=== PATIENT | female | born 1940 | race Caucasian/White ===

== ENCOUNTER → 2017-12-25 13:48 | Outpatient (CLI) | payer MEDICARE, OTHER, SELFPAY ==
--- NOTE | 2017-12-25 13:52 | HPBI_ITS ---
MAMMOGRAPHY - BILATERAL SCREENING REASON FOR EXAM: Female, 77 years old. Routine annual screening examination. PERTINENT HISTORY: Non-contributory. TECHNIQUE: Digital bilateral breast florian (3D mammographic acquisition) in the CC and MLO projections. 2-D mediolateral oblique (MLO) and craniocaudad (CC) views of both breasts were obtained. CAD: Full Field Digital Mammography with Computer Added Detection was performed. COMPARISON: Comparison is made with prior study dated June 08, 2017 and November 28, 2015. FINDINGS: Breast Composition: There are scattered areas of fibroglandular density. There are no dominant masses or suspicious calcifications. No other significant abnormalities are identified. There has been no significant change since the prior study. HPBI/SCREENING MAMM (CAD), BILAT IMPRESSION: Stable bilateral screening mammogram. Yearly follow-up mammogram recommended. (A) ASSESSMENT CATEGORY: BIRADS Category 1: Negative. A letter regarding these results will be sent to the patient by the facility within 30 days. Approximately 10% of breast cancers are not detected by mammography. A normal mammogram should not delay biopsy of a clinically suspicious abnormality. [id number] Electronically Signed: Chente Spence MD at 15:43 EST Tel [phone], Service support ,
== END ==
PROVIDERS: Family Provider Family Medicine; PCP Family Medicine; Visit Provider Family Medicine
DX: Z12.31 Encounter for screening mammogram for malignant neoplasm of breast (principal)
CPT/HCPCS: 77063; 77067

== ENCOUNTER → 2018-01-19 14:50 | Outpatient (CLI) | payer MEDICARE, OTHER, SELFPAY ==
[2018-01-19 17:57] LABS: Ferritin 26 ng/mL (8-252); Iron 65 ug/dL (50-170)
[2018-01-19 18:03] LABS: Vitamin B12 327 pg/mL (211-911); Vitamin D,25 Hydroxy 11.4 ng/mL (29.95-100.01)
[2018-01-23 12:07] LABS: Testosterone, Free < 0.04 ng/dL (0.10-0.85); Testosterone, Total < 3 ng/dL (3-41)
[2018-01-23 15:41] LABS: Testosterone, % Free 1.31 % (0.50-2.80)
== END ==
PROVIDERS: Family Provider Family Medicine; PCP Family Medicine; Visit Provider Family Medicine
DX: N18.9 Chronic kidney disease, unspecified (principal); E55.9 Vitamin D deficiency, unspecified; D64.9 Anemia, unspecified; L68.0 Hirsutism; R53.83 Other fatigue
CPT/HCPCS: 36415; 82306; 82607; 82728; 83540; 84402; 84403

== ENCOUNTER → 2018-03-31 15:35 | Outpatient (CLI) | payer MEDICARE, OTHER, SELFPAY ==
--- NOTE | 2018-03-31 15:40 | RAD_ITS ---
STUDY: X-RAY CHEST REASON FOR EXAM: Female, 77 years old. Cough TECHNIQUE: PA and lateral views of the chest. COMPARISON: 07/13/1715 FINDINGS: The lungs are clear and expanded. There is pleural fibrotic thickening of the right lung apex. Normal size heart. Anterior artery stents are seen. Normal mediastinum and nahomy. Normal visualized pulmonary arteries. There is atherosclerotic calcification of the aortic arch with tortuosity. There are diffuse degenerative changes of the visualized thoracic spine. Normal visualized ribs, clavicles, and shoulders. There is no demonstrated abnormality of the visualized soft tissue structures of the upper abdomen. RAD/Chest PA and Lateral IMPRESSION: No acute process in the chest. Electronically Signed: Toni Dupont DO at 15:24 EDT Tel , Service support ,
== END ==
PROVIDERS: Family Provider Family Medicine; PCP Family Medicine; Visit Provider Family Medicine
DX: R05 Cough (principal)
CPT/HCPCS: 71046

== ENCOUNTER → 2018-04-27 12:30 | Outpatient (CLI) | payer MEDICARE, OTHER, SELFPAY ==
--- NOTE | 2018-04-27 11:52 | VDLE_ITS ---
Reason For Study: PAIN AND SWELLING RIGHT LEFT CFV is compressible, spontaneous, phasic, CFV is compressible, spontaneous, phasic, competent and demonstrates normal competent, and demonstrates normal augmentation. augmentation. FV is compressible, spontaneous, phasic, FV is compressible, spontaneous, phasic, competent and demonstrates normal competent and demonstrates normal augmentation. augmentation. POP V is compressible, spontaneous, phasic, POP V is compressible, spontaneous, phasic, competent and demonstrates normal competent and demonstrates normal augmentation. augmentation. T/P Trunk is compressible. T/P Trunk is compressible. PTV is compressible. PTV is compressible. RT PerV is compressible. LT PerV is compressible. RT GSV AT SFJ is compressible and competent. Left GSV at SFJ is compressible and RT GSV above the knee is compressible and competent. competent. Left GSV above the knee is compressible and RT GSV below the knee is compressible and competent. INCOMPETENT for greater than .5 sec. Left GSV below the knee is compressible and Procedure competent. Exam performed in department. Interpretation Summary 1. Bilateral leg no DVT or SVt. 2. Reflux only noted in right calf GSV. Ordering Physician: Ambrose Barron Referring Physician: Ambrose Barron Performed By: Taryn Ambrose, KATHRYNCS, RVT
--- NOTE | 2018-04-27 12:30 | DT_ITS ---
This patient was seen during an EMR downtime April 27, 2018 - May 04, 2018. This patient may have a combination of paper and electronic documentation or all paper documentation. All documentation is viewable within the e-chart portion of [facility] for each patient visit.
== END ==
PROVIDERS: Family Provider Family Medicine; PCP Family Medicine; Visit Provider Surgery Vascular Surgery
DX: M79.604 Pain in right leg (principal); M79.89 Other specified soft tissue disorders; M79.605 Pain in left leg
CPT/HCPCS: 93970

== ENCOUNTER → 2018-06-01 09:37 | Outpatient (CLI) | payer MEDICARE, OTHER, SELFPAY ==
[2018-06-01 12:17] LABS: AST(SGOT) 28 U/L (15-37); Alanine Aminotransfer ALT/SGPT 28 U/L (13-56); Albumin, Serum 3.2 g/dL (3.2-5.0); Alkaline Phosphatase 100 U/L (45-117); Bilirubin, Direct 0.09 mg/dL (0.00-0.30); Cholesterol 131 mg/dL (200); Globulin 3.5 g/dL (2.2-4.2); High Density Lipoprotein 56 mg/dL; Protein, Total 6.7 g/dL (6.4-8.2); Triglycerides 72 mg/dL; Very Low Density Lipoprotein 14 mg/dL (5-40)
== END ==
PROVIDERS: Family Provider Family Medicine; PCP Family Medicine; Visit Provider Physician Assistant Medical
DX: E78.5 Hyperlipidemia, unspecified (principal); I25.10 Atherosclerotic heart disease of native coronary artery without angina pectoris; I25.2 Old myocardial infarction; I10 Essential (primary) hypertension; N28.9 Disorder of kidney and ureter, unspecified; R07.9 Chest pain, unspecified; Z95.5 Presence of coronary angioplasty implant and graft
CPT/HCPCS: 36415; 80061; 80076

== ENCOUNTER → 2018-07-20 10:42 | Outpatient (CLI) | payer MEDICARE, OTHER, SELFPAY | PROVIDERS: Family Provider Family Medicine; PCP Family Medicine; Visit Provider Anesthesiology Pain Medicine | DX: M51.37 Other intervertebral disc degeneration, lumbosacral region (principal); M54.17 Radiculopathy, lumbosacral region | CPT/HCPCS: 72148 ==

== ENCOUNTER 2018-09-06 12:05 | Inpatient (IN) | payer MEDICARE, OTHER, SELFPAY ==
[2018-09-06 13:30] VITALS: RESP 16
[2018-09-06 14:30] VITALS: BP 128/59; PULSE 89; RESP 20; TEMP 37.9; O2SAT 99
--- NOTE | 2018-09-06 14:45 | NURSING ---
pt arrived via cot from [facility] at 121
[2018-09-06 16:00] VITALS: BP 144/73; PULSE 103; RESP 16; TEMP 37.2; O2SAT 94
[2018-09-06] MEDS: oxyCODONE 5 MG Tablet PO (16:24)
[2018-09-06] MEDS: Acetaminophen 500 MG Tablet 1000 MG PO (16:24)
--- NOTE | 2018-09-06 17:47 | PCM.HP.STD ---
Problem List (1) Lumbar spinal stenosis Status: Chronic (2) Scoliosis Status: Chronic (3) Lumbar spondylolysis Status: Chronic (4) Coronary artery disease Status: Chronic (5) Macular degeneration Status: Chronic (6) Myocardial infarction Status: Acute (7) Osteoarthritis Status: Chronic (8) Hyperlipidemia Status: Chronic Qualifiers: (9) Hypertension Status: Chronic Qualifiers: History of Present Illness Date of Admission: 09/06/18 Chief Complaint: Here for rehabilitation, strengthening, prior to discharge home. The patient is a 77 year old Female with below past medical history admitted to [facility] 09/03/2018 underwent L2-5 laminectomy, L1-5 fusion, bone allograft, admitted to TCU with debility, here for rehabilitation, strengthening, prior to discharge home. Past Medical History Past Medical History (Chronic Problems): Chronic Problems (Last Reviewed 06/04/18 @ 12:52 by Ayse Burns) Lumbar spinal stenosis (Chronic) Scoliosis (Chronic) Lumbar spondylolysis (Chronic) Coronary artery disease (Chronic) Macular degeneration (Chronic) Osteoarthritis (Chronic) Hyperlipidemia (Chronic) Stented coronary artery (Chronic) Atherosclerotic heart disease of [place] coronary artery without angina pectoris (Chronic) 07/19/15 PCI and NINA to LAD and CX Old myocardial infarction (Chronic) Renal insufficiency (Chronic) Hypertension (Chronic) Medical History: Medical History (Last Reviewed 06/04/18 @ 12:52 by Ayse Burns) Hyperlipidemia (Chronic) E78.5 Atherosclerotic heart disease of [place] coronary artery without angina pectoris (Chronic) I25.10 07/19/15 PCI and NINA to LAD and CX Old myocardial infarction (Chronic) I25.2 Renal insufficiency (Chronic) N28.9 Hypertension (Chronic) I10 Chest pain (Resolved) R07.9 Lumbar radiculopathy M54.16 History of left heart catheterization Z98.890 07/19/15 @ [facility] with subsequent PCI and NINA to LAD and CX Low back pain M54.5 Allergies gabapentin Allergy (Verified 09/06/18 13:37) Hives Home Medications: Ambulatory Orders Medication Instructions Recorded Aspirin [Aspirin, Baby] 81 mg PO DAILY 08/09/15 biotin 1 mg capsule 1,000 mcg PO QDAY 06/04/18 cholecalciferol (vitamin D3) 50,000 unit PO TH 06/04/18 50,000 unit capsule cyanocobalamin (vit B-12) 5,000 5,000 mcg SUBLINGUAL QDAY 06/04/18 mcg/mL sublingual drops Atorvastatin Calcium [Lipitor] 80 mg PO MOWEFR 09/06/18 Clopidogrel Bisulfate [Plavix] 75 mg PO MOWEFR 09/06/18 Isosorbide Mononitrate [Isosorbide 90 mg PO QAM 09/06/18 Mononitrate ER] Metoprolol Succinate [Toprol Xl] 25 mg PO QDAY 09/06/18 [place] 5-325 Tablet 1 tablet PO QHS PRN 09/06/18 Oxycodone HCl/Acetaminophen 1 tablet PO Q6H PRN PRN 09/06/18 [Percocet 5-325] Surgical History: Surgical History (Last Reviewed 06/04/18 @ 12:52 by Ayse Burns) Stented coronary artery (Chronic) Z95.5 Surgical History: hysterectomy, - - Cardiac stent x 2 in 2014 after [place], Left elbow surgery, Vulvar tumor removal, Right wrist repair. 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 Lives: Alone Smoking Status: Former smoker Tobacco Use: Non-smoker Alcohol: Rare Drugs: None - *Family History Maternal Family History: Family History (Last Reviewed 06/04/18 @ 12:52 by Ayse Burns) Father Congestive heart failure Mother CVA (cerebral vascular accident) Hypertension Hyperlipidemia Sister No problems noted. History Items: No pertinent history Review of Systems Constitutional: Denies: Chills, Fever, Weight Change HEENT: Denies: Head Aches, Sinus Congestion, Sinus Drainage Cardiovascular: Denies: Chest Pain, Palpitations Respiratory: Denies: Cough, Shortness of breath at rest, Sputum production Gastrointestinal: Denies: Abdominal Pain, Nausea, Vomiting Genitourinary: Denies: Dysuria Musculoskeletal: Denies: Joint Pain, Joint Tenderness Skin: Denies: Rash, Wounds Neurological: Denies: Numbness, Tingling, Focal weakness Psychiatric: Denies: Anxiety, Depression, Homicidal Ideations, Suicidal Ideations Hematologic/ Lymphatic: Denies: Easy Bruising, Easy Bleeding VTE Information - Inpt Only VTE Present on Admission: No VTE Mechan Device Prophylaxis: Knee High REMI Hose VTE Pharm Prophylaxis ordered?: Yes Patient Problems: Active and Suspected Problems (Last Reviewed 06/04/18 @ 12:52 by Ayse Burns) Myocardial infarction (Acute) - Physical Exam General: Alert, Oriented x3, Cooperative HEENT: Atraumatic, PERRLA, EOMI, Normocephalic Neck: Supple, No JVD, Negative Carotid Bruits Lungs: Clear to auscultation, Normal air movement Cardiovascular: Regular rate, No murmurs Abdomen: Bowel Sounds Present, Soft, Non Tender Extremities: No edema, Capillary Refill Less than 3 Seconds Skin: No rashes, No breakdown Musculoskeletal: No Tenderness to Palpation of Joints or Extremities Neurological: Cranial nerves II-XII grossly intact Psych/Mental Status: Normal Affect, Appropriate Vital Signs Temp Pulse Resp BP Pulse Ox 98.9 F 103 H 16 144/73 H 94 09/06/18 16:00 09/06/18 16:00 09/06/18 16:00 09/06/18 16:00 09/06/18 16:00 Oxygen Delivery Method Room Air Assessment/Plan All Active Problems (Last Reviewed 06/04/18 @ 12:52 by Ayse Burns) Myocardial infarction (Acute) Chest pain (Resolved) 77 year old female with below past medical history underwent lumbar spine surgery 09/03/[address] Benito, admitted to TCU with debility, here for rehabilitation, strengthening prior to discharge home alone. Debility - PT/OT. Pain - Tylenol 1000MG Q8H PRN mild pain, Oxycodone 5MG Q4H PRN moderate pain. Bowel - Miralax 17GM daily, Senna/colace 2 tablets BID, Dulcolax 10MG PO daily PRN, Magnesium citrate 300ML PO x 1 dose for cleanout. Pneumonia vaccination - Administer Prevnar 13 and/or Pneumovax 23 as necessary. DVT prophylaxis - Lovenox 40MG SC daily. Coronary Artery Disease - Metoprolol succinate 25MG daily, Isosorbide MN 90MG daily, Plavix 75MG QMWF, Aspirin 81MG daily. Hyperlipidemia - Atorvastatin 80MG QHS. Vitamin D deficiency - D2 50,000 units per week.
--- NOTE | 2018-09-06 17:51 | HP.PCM_ITS ---
Problem List (1) Lumbar spinal stenosis Status: Chronic (2) Scoliosis Status: Chronic (3) Lumbar spondylolysis Status: Chronic (4) Coronary artery disease Status: Chronic (5) Macular degeneration Status: Chronic (6) Myocardial infarction Status: Acute (7) Osteoarthritis Status: Chronic (8) Hyperlipidemia Status: Chronic Qualifiers: (9) Hypertension Status: Chronic Qualifiers: History of Present Illness Date of Admission: 09/06/18 Chief Complaint: Here for rehabilitation, strengthening, prior to discharge home. The patient is a 77 year old Female with below past medical history admitted to [facility] 09/03/2018 underwent L2-5 laminectomy, L1-5 fusion, bone al lograft, admitted to TCU with debility, here for rehabilitation, strengthening, prior to discharge home. Past Medical History Past Medical History (Chronic Problems): Chronic Problems (Last Reviewed 06/04/18 @ 12:52 by Ayse Burns) Lumbar spinal stenosis (Chronic) Scoliosis (Chronic) Lumbar spondylolysis (Chronic) Coronary artery disease (Chronic) Macular degeneration (Chronic) Osteoarthritis (Chronic) Hyperlipidemia (Chronic) Stented coronary artery (Chronic) Atherosclerotic heart disease of [place] coronary artery without angina pectoris (Chronic) 07/19/15 PCI and NINA to LAD and CX Old myocardial infarction (Chronic) Renal insufficiency (Chronic) Hypertension (Chronic) Medical History: Medical History (Last Reviewed 06/04/18 @ 12:52 by Ayse Burns) Hyperlipidemia (Chronic) E78.5 Atherosclerotic heart disease of [place] coronary artery without angina pectoris (Chronic) I25.10 07/19/15 PCI and NINA to LAD and CX Old myocardial infarction (Chronic) I25.2 Renal insufficiency (Chronic) N28.9 Hypertension (Chronic) I10 Chest pain (Resolved) R07.9 Lumbar radiculopathy M54.16 History of left heart catheterization Z98.890 07/19/15 @ [facility] with subsequent PCI and NINA to LAD and CX Low back pain M54.5 Allergies gabapentin Allergy (Verified 09/06/18 13:37) Hives Home Medications: Ambulatory Orders Medication Instructions Recorded Aspirin [Aspirin, Baby] 81 mg PO DAILY 08/09/15 biotin 1 mg capsule 1,000 mcg PO QDAY 06/04/18 cholecalciferol (vitamin D3) 50,000 unit PO TH 06/04/18 50,000 unit capsule cyanocobalamin (vit B-12) 5,000 5,000 mcg SUBLINGUAL QDAY 06/04/18 mcg/mL sublingual drops Atorvastatin Calcium [Lipitor] 80 mg PO MOWEFR 09/06/18 Clopidogrel Bisulfate [Plavix] 75 mg PO MOWEFR 09/06/18 Isosorbide Mononitrate [Isosorbide 90 mg PO QAM 09/06/18 Mononitrate ER] Metoprolol Succinate [Toprol Xl] 25 mg PO QDAY 09/06/18 [place] 5-325 Tablet 1 tablet PO QHS PRN 09/06/18 Oxycodone HCl/Acetaminophen 1 tablet PO Q6H PRN PRN 09/06/18 [Percocet 5-325] Surgical History: Surgical History (Last Reviewed 06/04/18 @ 12:52 by Ayse Burns) Stented coronary artery (Chronic) Z95.5 Surgical History: hysterectomy, - - Cardiac stent x 2 in 2014 after [place], Left elbow surgery, Vulvar tumor removal, Right wrist repair. 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 Lives: Alone Smoking Status: Former smoker Tobacco Use: Non-smoker Alcohol: Rare Drugs: None - *Family History Maternal Family History: Family History (Last Reviewed 06/04/18 @ 12:52 by Ayse Burns) Father Congestive heart failure Mother CVA (cerebral vascular accident) Hypertension Hyperlipidemia Sister No problems noted. History Items: No pertinent history Review of Systems Constitutional: Denies: Chills, Fever, Weight Change HEENT: Denies: Head Aches, Sinus Congestion, Sinus Drainage Cardiovascular: Denies: Chest Pain, Palpitations Respiratory: Denies: Cough, Shortness of breath at rest, Sputum production Gastrointestinal: Denies: Abdominal Pain, Nausea, Vomiting Genitourinary: Denies: Dysuria Musculoskeletal: Denies: Joint Pain, Joint Tenderness Skin: Denies: Rash, Wounds Neurological: Denies: Numbness, Tingling, Focal weakness Psychiatric: Denies: Anxiety, Depression, Homicidal Ideations, Suicidal Ideations Hematologic/ Lymphatic: Denies: Easy Bruising, Easy Bleeding VTE Information - Inpt Only VTE Present on Admission: No VTE Mechan Device Prophylaxis: Knee High REMI Hose VTE Pharm Prophylaxis ordered?: Yes Patient Problems: Active and Suspected Problems (Last Reviewed 06/04/18 @ 12:52 by Ayse Burns) Myocardial infarction (Acute) - Physical Exam General: Alert, Oriented x3, Cooperative HEENT: Atraumatic, PERRLA, EOMI, Normocephalic Neck: Supple, No JVD, Negative Carotid Bruits Lungs: Clear to auscultation, Normal air movement Cardiovascular: Regular rate, No murmurs Abdomen: Bowel Sounds Present, Soft, Non Tender Extremities: No edema, Capillary Refill Less than 3 Seconds Skin: No rashes, No breakdown Musculoskeletal: No Tenderness to Palpation of Joints or Extremities Neurological: Cranial nerves II-XII grossly intact Psych/Mental Status: Normal Affect, Appropriate Vital Signs Temp Pulse Resp BP Pulse Ox 98.9 F 103 H 16 144/73 H 94 09/06/18 16:00 09/06/18 16:00 09/06/18 16:00 09/06/18 16:00 09/06/18 16:00 Oxygen Delivery Method Room Air Assessment/Plan All Active Problems (Last Reviewed 06/04/18 @ 12:52 by Ayse Burns) Myocardial infarction (Acute) Chest pain (Resolved) 77 year old female with below past medical history underwent lumbar spine surgery 09/03/[address] Benito, admitted to TCU with debility, here for rehabilitation, strengthening prior to discharge home alone. * Debility - PT/OT. * Pain - Tylenol 1000MG Q8H PRN mild pain, Oxycodone 5MG Q4H PRN moderate pain. * Bowel - Miralax 17GM daily, Senna/colace 2 tablets BID, Dulcolax 10MG PO daily PRN, Magnesium citrate 300ML PO x 1 dose for cleanout. * Pneumonia vaccination - Administer Prevnar 13 and/or Pneumovax 23 as necessary. * DVT prophylaxis - Lovenox 40MG SC daily. * Coronary Artery Disease - Metoprolol succinate 25MG daily, Isosorbide MN 90MG daily, Plavix 75MG QMWF, Aspirin 81MG daily. * Hyperlipidemia - Atorvastatin 80MG QHS. * Vitamin D deficiency - D2 50,000 units per week.
[2018-09-06] MEDS: Magnesium Citrate 300 ML PO (18:25)
[2018-09-06 20:20] VITALS: BMI 25.9
[2018-09-06 20:31] VITALS: BMI 25.9
[2018-09-07 06:03] LABS: Absolute Lymphocyte Count 1.17 X10^3/ul (0.83-4.51); Absolute Neutrophil Count 9.2 X10^3/uL (2.0-7.7); Basophil# 0.02 X10^3/uL; Basophil% 0.2 % (0-1); Eosinophil# 0.18 X10^3/uL; Eosinophils% 1.5 % (0-5); Hemoglobin 9.3 g/dl (12.0-15.0); Lymphocyte # 1.17 X10^3/ul (4.0); Lymphocyte % 9.8 % (19-41); Mean Corp Hgb Conc 32.1 g/gl (32-36); Mean Corpuscular Hgb 30.7 pg (27.0-32.0); Mean Corpuscular Volume 95.7 fL (81-99); Monocyte# 1.28 X10^3/uL; Monocyte% 10.7 % (0-10); Neutrophil # 9.22 X10^3/uL (2.7-7.7); Neutrophil % 77.2 % (47-70); Platelet Count 257 K/mm3 (150-450); RBC Distribution Width CV 12.4 % (11.6-14.6); RBC Distribution Width SD 41.9 fl (35.1-43.9); Red Blood Count 3.03 M/mm3 (4.2-5.4); White Blood Count 11.9 K/mm3 (4.4-11.0)
[2018-09-07 06:06] LABS: POSITIVE COUNT NO; POSITIVE DIFFERENTIAL NO; POSITIVE MORPHOLOGY NO
[2018-09-07 06:24] LABS: Anion Gap 9 (5-15); BUN 21 mg/dL (7-18); BUN/Creat Ratio 16.9 RATIO (10-20); Calcium,Total 8.4 mg/dL (8.5-10.1); Chloride 100 mmol/L (98-107); Creatinine, Serum 1.24 mg/dL (0.55-1.02); EST Glomerular Filtration Rate 44 mL/min (>60); Est Glom Filt Rate - Afr Amer 54 mL/min (>60); Estimated Creatinine Clearance 26.86 ml/min; Glucose 98 mg/dL (74-106); Sodium Level 139 mmol/L (136-145)
[2018-09-07] MEDS: Enoxaparin 40 MG/0.4 ML Syringe SC (06:50)
[2018-09-07 06:51] VITALS: BP 132/73; PULSE 103
[2018-09-07] MEDS: Isosorbide Mononitrate 30 MG Tablet 90 MG PO (06:51)
[2018-09-07] MEDS: Metoprolol(XL)Succ 25 MG Tablet PO (06:51)
[2018-09-07] MEDS: Clopidogrel Bisulfate 75 MG Tablet PO (06:51)
[2018-09-07] MEDS: Aspirin 81 MG TAB.CHEW PO (08:22)
--- NOTE | 2018-09-07 08:54 | NURSING ---
Dr. Howard reviewed labs, NO to start Ferrex daily.
[2018-09-07 10:00] VITALS: PULSE 80; RESP 18; O2SAT 91
[2018-09-07] MEDS: oxyCODONE 5 MG Tablet PO (12:54)
--- NOTE | 2018-09-07 13:23 | CASEMGMT ---
Reviewed and approved attached rn social work student documentation. Joya MORELOS, PLASTIC MOULD MAKER
[2018-09-07 15:26] VITALS: BP 136/77; PULSE 94; RESP 18; TEMP 36.7; O2SAT 93
[2018-09-07] MEDS: Tuberculin,Purif.prot.deriv. 50 TU/ML Vial 5 ML ID (17:15)
[2018-09-07] MEDS: Atorvastatin Calcium 80 MG Tablet PO (21:33)
--- NOTE | 2018-09-07 22:30 | NURSING ---
Patient continues to be unable to void. Patient bladder scanned for 624. Per Orders [place] catheter inserted at this time. Will continue to monitor.
[2018-09-08] MEDS: Isosorbide Mononitrate 30 MG Tablet 90 MG PO (06:53)
[2018-09-08 06:54] VITALS: BP 133/53; PULSE 77
[2018-09-08] MEDS: Metoprolol(XL)Succ 25 MG Tablet PO (06:54)
[2018-09-08] MEDS: Enoxaparin 40 MG/0.4 ML Syringe SC (06:56)
[2018-09-08] MEDS: Iron Polysaccharide Complex 150 MG CAPSULE PO (09:06)
[2018-09-08] MEDS: Aspirin 81 MG TAB.CHEW PO (09:06)
[2018-09-08] MEDS: oxyCODONE 5 MG Tablet PO (09:43)
--- NOTE | 2018-09-08 14:55 | PCM.PN.RX ---
<Berhane York D - Last Filed: 09/08/18 14:55> Progress Note - Pharmacy Subjective: TCU Admission Objective: Allergies gabapentin Allergy (Verified 09/06/18 13:37) Hives Current Medications Generic Name Dose Route Start Last Admin Trade Name Freq PRN Reason Stop Dose Admin Acetaminophen 1,000 mg 09/06/18 18:04 Tylenol PO Q8H PRN MILD PAIN (1-3/10) Aspirin 81 mg 09/07/18 08:00 09/08/18 09:06 Aspirin, Baby PO 81 mg DAILY@0800 [facility] Administration Atorvastatin Calcium 80 mg 09/07/18 22:00 09/07/18 21:33 Lipitor PO 80 mg MoWeFr@2200 [facility] Administration Bisacodyl 10 mg 09/06/18 18:03 Dulcolax PO DAILY PRN Constipation Clopidogrel Bisulfate 75 mg 09/07/18 06:00 09/07/18 06:51 Plavix PO 75 mg MOWEFR [facility] Administration Enoxaparin Sodium 40 mg 09/07/18 06:00 09/08/18 06:56 Lovenox SC 40 mg DAILY@0600 [facility] Administration Ergocalciferol 50,000 unit 09/10/18 08:00 Vitamin D PO Th@0800 [facility] Isosorbide Mononitrate 90 mg 09/07/18 06:00 09/08/18 06:53 Imdur PO 90 mg DAILY [facility] Administration Metoprolol Succinate 25 mg 09/07/18 06:00 09/08/18 06:54 Toprol Xl (Beta Ortega) PO 25 mg DAILY [facility] Administration Oxycodone HCl 5 mg 09/06/18 20:24 09/08/18 09:43 Oxyir PO 5 mg Q4H PRN Administration MODERATE PAIN (4-5/10) Polyethylene Glycol 17 gm 09/07/18 06:00 09/08/18 06:59 Miralax PO Not Given DAILY [facility] Polysaccharide Iron Complex 150 mg 09/08/18 08:00 09/08/18 09:06 Ferrex 150 PO 150 mg DAILYCM [facility] Administration Senna/Docusate Sodium 2 tablet 09/07/18 06:00 09/08/18 06:59 Senokot-S, Manisha-Colace PO Not Given BID [facility] Tuberculin PPD 5 tu 09/14/18 10:00 Tubersol, Aplisol, Ppd ID 09/14/18 10:01 X1 ONE Problem List (Last Reviewed 06/04/18 @ 12:52 by Ayse Burns) Lumbar spinal stenosis (Chronic) Scoliosis (Chronic) Lumbar spondylolysis (Chronic) Coronary artery disease (Chronic) Macular degeneration (Chronic) Myocardial infarction (Acute) Osteoarthritis (Chronic) Vital Signs Temp Pulse Resp BP Pulse Ox 98.0 F 77 18 133/53 H 93 09/07/18 15:26 09/08/18 06:54 09/07/18 15:26 09/08/18 06:54 09/07/18 15:26 Oxygen Delivery Method Room Air Weight: 60.237 kg Body Mass Index (BMI) 25.9 Sodium 139 mmol/L (136-145) 09/07/18 05:05 Potassium 4.0 mmol/L (3.5-5.1) 09/07/18 05:05 Chloride 100 mmol/L (98-107) 09/07/18 05:05 Carbon Dioxide 30.0 mmol/L (21.0-32.0) 09/07/18 05:05 Anion Gap 9 (5-15) 09/07/18 05:05 BUN 21 mg/dL (7-18) H 09/07/18 05:05 Creatinine 1.24 mg/dL (0.55-1.02) H 09/07/18 05:05 Est GFR (MDRD) Af Amer 54 mL/min (>60) L 09/07/18 05:05 Est GFR (MDRD) Non-Af 44 mL/min (>60) L 09/07/18 05:05 BUN/Creatinine Ratio 16.9 RATIO (10-20) 09/07/18 05:05 Glucose 98 mg/dL (74-106) 09/07/18 05:05 Assessment/Plan: 1) Pain APAP for mild pain, oxycodone for moderate pain. Continue to monitor prn medication use, daily pain scores. 2) CAD ASA, atorvastatin, clopidogrel, metoprolol XL, isosorbide. Continue to monitor BP/HR, renal function, electrolytes, lipids, for chest pain. 3) DVT PPx Enoxaparin daily. Continue to monitor s/s bleeding/clot. 4) Nutrition D, Fe. Continue to monitor clinically. Psychotropic Medications: None Unnecessary Medications: None Bowel Regimen: 5) Senna/s, PEG, prn bisacodyl. Continue to monitor prn medication use, for constipation/diarrhea. Date of Note:: 09/08/18 - Provider Comments Provider responsibility: Provider responsible to enter orders to implement recommendations <Kurt Howard Chi - Last Filed: 09/08/18 18:09> Progress Note - Pharmacy Subjective: [] Objective: Allergies gabapentin Allergy (Verified 09/06/18 13:37) Hives Current Medications Generic Name Dose Route Start Last Admin Trade Name Freq PRN Reason Stop Dose Admin Acetaminophen 1,000 mg 09/06/18 18:04 Tylenol PO Q8H PRN MILD PAIN (1-3/10) Aspirin 81 mg 09/07/18 08:00 09/08/18 09:06 Aspirin, Baby PO 81 mg DAILY@0800 [facility] Administration Atorvastatin Calcium 80 mg 09/07/18 22:00 09/07/18 21:33 Lipitor PO 80 mg MoWeFr@2200 [facility] Administration Bisacodyl 10 mg 09/06/18 18:03 Dulcolax PO DAILY PRN Constipation Clopidogrel Bisulfate 75 mg 09/07/18 06:00 09/07/18 06:51 Plavix PO 75 mg MOWEFR [facility] Administration Enoxaparin Sodium 40 mg 09/07/18 06:00 09/08/18 06:56 Lovenox SC 40 mg DAILY@0600 [facility] Administration Ergocalciferol 50,000 unit 09/10/18 08:00 Vitamin D PO Th@0800 [facility] Influenza Virus Vaccine Quadrival 0.5 ml 09/09/18 10:00 Fluarix/Fluzone IM 09/09/18 10:01 .ONCE ONE Isosorbide Mononitrate 90 mg 09/07/18 06:00 09/08/18 06:53 Imdur PO 90 mg DAILY [facility] Administration Metoprolol Succinate 25 mg 09/07/18 06:00 09/08/18 06:54 Toprol Xl (Beta Ortega) PO 25 mg DAILY [facility] Administration Oxycodone HCl 5 mg 09/06/18 20:24 09/08/18 09:43 Oxyir PO 5 mg Q4H PRN Administration MODERATE PAIN (4-5/10) Polyethylene Glycol 17 gm 09/07/18 06:00 09/08/18 06:59 Miralax PO Not Given DAILY [facility] Polysaccharide Iron Complex 150 mg 09/08/18 08:00 09/08/18 09:06 Ferrex 150 PO 150 mg DAILYCM [facility] Administration Senna/Docusate Sodium 2 tablet 09/07/18 06:00 09/08/18 17:19 Senokot-S, Manisha-Colace PO Not Given BID [facility] Tuberculin PPD 5 tu 09/14/18 10:00 Tubersol, Aplisol, Ppd ID 09/14/18 10:01 X1 ONE Problem List (Last Reviewed 06/04/18 @ 12:52 by Ayse Burns) Lumbar spinal stenosis (Chronic) Scoliosis (Chronic) Lumbar spondylolysis (Chronic) Coronary artery disease (Chronic) Macular degeneration (Chronic) Myocardial infarction (Acute) Osteoarthritis (Chronic) Vital Signs Temp Pulse Resp BP Pulse Ox 98.2 F 88 14 128/73 H 96 09/08/18 15:23 09/08/18 15:23 09/08/18 15:23 09/08/18 15:23 09/08/18 15:23 Oxygen Delivery Method Room Air Weight: 60.237 kg Body Mass Index (BMI) 25.9 Sodium 139 mmol/L (136-145) 09/07/18 05:05 Potassium 4.0 mmol/L (3.5-5.1) 09/07/18 05:05 Chloride 100 mmol/L (98-107) 09/07/18 05:05 Carbon Dioxide 30.0 mmol/L (21.0-32.0) 09/07/18 05:05 Anion Gap 9 (5-15) 09/07/18 05:05 BUN 21 mg/dL (7-18) H 09/07/18 05:05 Creatinine 1.24 mg/dL (0.55-1.02) H 09/07/18 05:05 Est GFR (MDRD) Af Amer 54 mL/min (>60) L 09/07/18 05:05 Est GFR (MDRD) Non-Af 44 mL/min (>60) L 09/07/18 05:05 BUN/Creatinine Ratio 16.9 RATIO (10-20) 09/07/18 05:05 Glucose 98 mg/dL (74-106) 09/07/18 05:05 Assessment/Plan: Psychotropic Medications: Unnecessary Medications: Bowel Regimen: - Provider Comments Provider responsibility: Provider responsible to enter orders to implement recommendations Provider Comments to Recommendations by Pharmacy: Agree
--- NOTE | 2018-09-08 15:00 | PHA.CONS_ITS ---
<Berhane York D - Last Filed: 09/08/18 14:55> Progress Note - Pharmacy Subjective: TCU Admission Objective: Allergies gabapentin Allergy (Verified 09/06/18 13:37) Hives Current Medications Generic Name Dose Route Start Last Admin Trade Name Freq PRN Reason Stop Dose Admin Acetaminophen 1,000 mg 09/06/18 18:04 Tylenol PO Q8H PRN MILD PAIN (1-3/10) Aspirin 81 mg 09/07/18 08:00 09/08/18 09:06 Aspirin, Baby PO 81 mg DAILY@0800 [facility] Administration Atorvastatin Calcium 80 mg 09/07/18 22:00 09/07/18 21:33 Lipitor PO 80 mg MoWeFr@2200 [facility] Administration Bisacodyl 10 mg 09/06/18 18:03 Dulcolax PO DAILY PRN Constipation Clopidogrel Bisulfate 75 mg 09/07/18 06:00 09/07/18 06:51 Plavix PO 75 mg MOWEFR [facility] Administration Enoxaparin Sodium 40 mg 09/07/18 06:00 09/08/18 06:56 Lovenox SC 40 mg DAILY@0600 [facility] Administration Ergocalciferol 50,000 unit 09/10/18 08:00 Vitamin D PO Th@0800 [facility] Isosorbide Mononitrate 90 mg 09/07/18 06:00 09/08/18 06:53 Imdur PO 90 mg DAILY [facility] Administration Metoprolol Succinate 25 mg 09/07/18 06:00 09/08/18 06:54 Toprol Xl (Beta Ortega) PO 25 mg DAILY [facility] Administration Oxycodone HCl 5 mg 09/06/18 20:24 09/08/18 09:43 Oxyir PO 5 mg Q4H PRN Administration MODERATE PAIN (4-5/10) Polyethylene Glycol 17 gm 09/07/18 06:00 09/08/18 06:59 Miralax PO Not Given DAILY [facility] Polysaccharide Iron Complex 150 mg 09/08/18 08:00 09/08/18 09:06 Ferrex 150 PO 150 mg DAILYCM [facility] Administration Senna/Docusate Sodium 2 tablet 09/07/18 06:00 09/08/18 06:59 Senokot-S, Manisha-Colace PO Not Given BID [facility] Tuberculin PPD 5 tu 09/14/18 10:00 Tubersol, Aplisol, Ppd ID 09/14/18 10:01 X1 ONE Problem List (Last Reviewed 06/04/18 @ 12:52 by Ayse Burns) Lumbar spinal stenosis (Chronic) Scoliosis (Chronic) Lumbar spondylolysis (Chronic) Coronary artery disease (Chronic) Macular degeneration (Chronic) Myocardial infarction (Acute) Osteoarthritis (Chronic) Vital Signs Temp Pulse Resp BP Pulse Ox 98.0 F 77 18 133/53 H 93 09/07/18 15:26 09/08/18 06:54 09/07/18 15:26 09/08/18 06:54 09/07/18 15:26 Oxygen Delivery Method Room Air Weight: 60.237 kg Body Mass Index (BMI) 25.9 Sodium 139 mmol/L (136-145) 09/07/18 05:05 Potassium 4.0 mmol/L (3.5-5.1) 09/07/18 05:05 Chloride 100 mmol/L (98-107) 09/07/18 05:05 Carbon Dioxide 30.0 mmol/L (21.0-32.0) 09/07/18 05:05 Anion Gap 9 (5-15) 09/07/18 05:05 BUN 21 mg/dL (7-18) H 09/07/18 05:05 Creatinine 1.24 mg/dL (0.55-1.02) H 09/07/18 05:05 Est GFR (MDRD) Af Amer 54 mL/min (>60) L 09/07/18 05:05 Est GFR (MDRD) Non-Af 44 mL/min (>60) L 09/07/18 05:05 BUN/Creatinine Ratio 16.9 RATIO (10-20) 09/07/18 05:05 Glucose 98 mg/dL (74-106) 09/07/18 05:05 Assessment/Plan: 1) Pain APAP for mild pain, oxycodone for moderate pain. Continue to monitor prn medication use, daily pain scores. 2) CAD ASA, atorvastatin, clopidogrel, metoprolol XL, isosorbide. Continue to monitor BP/HR, renal function, electrolytes, lipids, for chest pain. 3) DVT PPx Enoxaparin daily. Continue to monitor s/s bleeding/clot. 4) Nutrition D, Fe. Continue to monitor clinically. Psychotropic Medications: None Unnecessary Medications: None Bowel Regimen: 5) Senna/s, PEG, prn bisacodyl. Continue to monitor prn medication use, for constipation/diarrhea. Date of Note:: 09/08/18 - Provider Comments Provider responsibility: Provider responsible to enter orders to implement recommendations <Kurt Howard Chi - Last Filed: 09/08/18 18:09> Progress Note - Pharmacy Subjective: [] Objective: Allergies gabapentin Allergy (Verified 09/06/18 13:37) Hives Current Medications Generic Name Dose Route Start Last Admin Trade Name Freq PRN Reason Stop Dose Admin Acetaminophen 1,000 mg 09/06/18 18:04 Tylenol PO Q8H PRN MILD PAIN (1-3/10) Aspirin 81 mg 09/07/18 08:00 09/08/18 09:06 Aspirin, Baby PO 81 mg DAILY@0800 [facility] Administration Atorvastatin Calcium 80 mg 09/07/18 22:00 09/07/18 21:33 Lipitor PO 80 mg MoWeFr@2200 [facility] Administration Bisacodyl 10 mg 09/06/18 18:03 Dulcolax PO DAILY PRN Constipation Clopidogrel Bisulfate 75 mg 09/07/18 06:00 09/07/18 06:51 Plavix PO 75 mg MOWEFR [facility] Administration Enoxaparin Sodium 40 mg 09/07/18 06:00 09/08/18 06:56 Lovenox SC 40 mg DAILY@0600 [facility] Administration Ergocalciferol 50,000 unit 09/10/18 08:00 Vitamin D PO Th@0800 [facility] Influenza Virus Vaccine Quadrival 0.5 ml 09/09/18 10:00 Fluarix/Fluzone IM 09/09/18 10:01 .ONCE ONE Isosorbide Mononitrate 90 mg 09/07/18 06:00 09/08/18 06:53 Imdur PO 90 mg DAILY [facility] Administration Metoprolol Succinate 25 mg 09/07/18 06:00 09/08/18 06:54 Toprol Xl (Beta Ortega) PO 25 mg DAILY [facility] Administration Oxycodone HCl 5 mg 09/06/18 20:24 09/08/18 09:43 Oxyir PO 5 mg Q4H PRN Administration MODERATE PAIN (4-5/10) Polyethylene Glycol 17 gm 09/07/18 06:00 09/08/18 06:59 Miralax PO Not Given DAILY [facility] Polysaccharide Iron Complex 150 mg 09/08/18 08:00 09/08/18 09:06 Ferrex 150 PO 150 mg DAILYCM [facility] Administration Senna/Docusate Sodium 2 tablet 09/07/18 06:00 09/08/18 17:19 Senokot-S, Manisha-Colace PO Not Given BID [facility] Tuberculin PPD 5 tu 09/14/18 10:00 Tubersol, Aplisol, Ppd ID 09/14/18 10:01 X1 ONE Problem List (Last Reviewed 06/04/18 @ 12:52 by Ayse Burns) Lumbar spinal stenosis (Chronic) Scoliosis (Chronic) Lumbar spondylolysis (Chronic) Coronary artery disease (Chronic) Macular degeneration (Chronic) Myocardial infarction (Acute) Osteoarthritis (Chronic) Vital Signs Temp Pulse Resp BP Pulse Ox 98.2 F 88 14 128/73 H 96 09/08/18 15:23 09/08/18 15:23 09/08/18 15:23 09/08/18 15:23 09/08/18 15:23 Oxygen Delivery Method Room Air Weight: 60.237 kg Body Mass Index (BMI) 25.9 Sodium 139 mmol/L (136-145) 09/07/18 05:05 Potassium 4.0 mmol/L (3.5-5.1) 09/07/18 05:05 Chloride 100 mmol/L (98-107) 09/07/18 05:05 Carbon Dioxide 30.0 mmol/L (21.0-32.0) 09/07/18 05:05 Anion Gap 9 (5-15) 09/07/18 05:05 BUN 21 mg/dL (7-18) H 09/07/18 05:05 Creatinine 1.24 mg/dL (0.55-1.02) H 09/07/18 05:05 Est GFR (MDRD) Af Amer 54 mL/min (>60) L 09/07/18 05:05 Est GFR (MDRD) Non-Af 44 mL/min (>60) L 09/07/18 05:05 BUN/Creatinine Ratio 16.9 RATIO (10-20) 09/07/18 05:05 Glucose 98 mg/dL (74-106) 09/07/18 05:05 Assessment/Plan: Psychotropic Medications: Unnecessary Medications: Bowel Regimen: - Provider Comments Provider responsibility: Provider responsible to enter orders to implement recommendations Provider Comments to Recommendations by Pharmacy: Agree
[2018-09-08 15:23] VITALS: BP 128/73; PULSE 88; RESP 14; TEMP 36.8; O2SAT 96
[2018-09-08] MEDS: Atorvastatin Calcium 80 MG Tablet PO (20:57)
[2018-09-08 22:06] VITALS: PULSE 80; O2SAT 90
--- NOTE | 2018-09-08 23:19 | NURSING ---
While doing pt assessment this nurse noted redness around enrique area in lumbar area. No drainage, or swelling noted pt denies any discomfort while looking over incision during this time. Incision cleansed, pat dry, and new dressing applied. Pt also has a rash on the left abdomen area redness flat area no drainage pt states no discomfort or itchiness at this time. RN aware.
[2018-09-09 06:09] VITALS: BP 155/75; PULSE 87
[2018-09-09] MEDS: Metoprolol(XL)Succ 25 MG Tablet PO (06:09)
[2018-09-09] MEDS: Isosorbide Mononitrate 30 MG Tablet 90 MG PO (06:09)
[2018-09-09] MEDS: Clopidogrel Bisulfate 75 MG Tablet PO (06:10)
[2018-09-09] MEDS: Senna/Docusate Sodium 1 Tablet 2 TABLET PO (06:10)
[2018-09-09] MEDS: Enoxaparin 40 MG/0.4 ML Syringe SC (06:11)
[2018-09-09] MEDS: Iron Polysaccharide Complex 150 MG CAPSULE PO (08:01)
[2018-09-09] MEDS: Aspirin 81 MG TAB.CHEW PO (08:01)
[2018-09-09] MEDS: oxyCODONE 5 MG Tablet PO ×2 (08:05→18:40)
--- NOTE | 2018-09-09 09:10 | CASEMGMT ---
Plan of care meeting held. Resident present as well as resident friend. No discharge date set at this time. Resident plans to discharge to home alone at time of discharge. Resident plans to continue with further care and treatment on the Transitional Care Unit at this time. Support given. Will continue to follow. Joya MORELOS, MOVERS
[2018-09-09 15:31] VITALS: BP 145/71; PULSE 83; RESP 16; TEMP 37.3; O2SAT 97
[2018-09-09 20:00] VITALS: PULSE 88; RESP 18; O2SAT 94
[2018-09-10] MEDS: Enoxaparin 40 MG/0.4 ML Syringe SC (06:21)
[2018-09-10] MEDS: Isosorbide Mononitrate 30 MG Tablet 90 MG PO (06:21)
[2018-09-10 06:22] VITALS: BP 155/84; PULSE 87
[2018-09-10] MEDS: Metoprolol(XL)Succ 25 MG Tablet PO (06:22)
[2018-09-10] MEDS: oxyCODONE 5 MG Tablet PO ×2 (07:23→11:42)
[2018-09-10] MEDS: Iron Polysaccharide Complex 150 MG CAPSULE PO (08:07)
[2018-09-10] MEDS: Aspirin 81 MG TAB.CHEW PO (08:07)
[2018-09-10 10:00] VITALS: PULSE 86; RESP 18; O2SAT 94
--- NOTE | 2018-09-10 14:19 | CASEMGMT ---
Addendum entered by Joya Chappell 09/10/18 14:27: Reviewed and approved social science analyst student MDS documentation. Joya SYW, SOFTWARE RELEASE MANAGER Original Note: Brief interview for mental status (BIMS) and mood (PHQ-9) completed on this day. BIMS score 15/15. PHQ-9 01/20. Bianka Borges social work student
[2018-09-10 16:00] VITALS: BP 132/70; PULSE 86; RESP 16; TEMP 37.2; O2SAT 95
[2018-09-11] MEDS: Isosorbide Mononitrate 30 MG Tablet 90 MG PO (06:24)
[2018-09-11 06:25] VITALS: BP 141/61; PULSE 82
[2018-09-11] MEDS: Metoprolol(XL)Succ 25 MG Tablet PO (06:25)
[2018-09-11] MEDS: Enoxaparin 40 MG/0.4 ML Syringe SC (06:26)
[2018-09-11] MEDS: Clopidogrel Bisulfate 75 MG Tablet PO (06:28)
[2018-09-11] MEDS: oxyCODONE 5 MG Tablet PO ×2 (08:13→12:56)
[2018-09-11] MEDS: Iron Polysaccharide Complex 150 MG CAPSULE PO (08:14)
[2018-09-11] MEDS: Aspirin 81 MG TAB.CHEW PO (08:14)
--- NOTE | 2018-09-11 13:23 | MDS.RN ---
Pain interview for RUBEN 09/13/18 completed.
[2018-09-11 16:00] VITALS: BP 128/69; PULSE 95; RESP 16; TEMP 36.7; O2SAT 95
[2018-09-11] MEDS: Senna/Docusate Sodium 1 Tablet 2 TABLET PO (16:42)
[2018-09-11] MEDS: Atorvastatin Calcium 80 MG Tablet PO (20:05)
[2018-09-12] MEDS: oxyCODONE 5 MG Tablet PO ×2 (06:29→13:42)
[2018-09-12 06:30] VITALS: BP 159/66; PULSE 80
[2018-09-12] MEDS: Senna/Docusate Sodium 1 Tablet 2 TABLET PO (06:30)
[2018-09-12] MEDS: Metoprolol(XL)Succ 25 MG Tablet PO (06:30)
[2018-09-12] MEDS: Isosorbide Mononitrate 30 MG Tablet 90 MG PO (06:30)
[2018-09-12] MEDS: Enoxaparin 40 MG/0.4 ML Syringe SC (06:31)
[2018-09-12] MEDS: Iron Polysaccharide Complex 150 MG CAPSULE PO (09:06)
[2018-09-12] MEDS: Aspirin 81 MG TAB.CHEW PO (09:06)
--- NOTE | 2018-09-12 14:15 | NURSING ---
Pt has c/o constipation, requesting enema. Dr. Howard updated, NO for soap suds enema x1. Pt also has poor appetite, refusing any medications for appetite stimulant. Requesting nutritional supplement. Dr. Howard aware, NO for ensure enlive with meals.
[2018-09-12 14:55] VITALS: BP 132/66; PULSE 96; RESP 14; TEMP 36.2; O2SAT 97
[2018-09-12 22:04] VITALS: PULSE 78; RESP 16; O2SAT 93
[2018-09-13] MEDS: Enoxaparin 40 MG/0.4 ML Syringe SC (05:40)
[2018-09-13 05:41] VITALS: BP 137/63; PULSE 71
[2018-09-13] MEDS: Metoprolol(XL)Succ 25 MG Tablet PO (05:41)
[2018-09-13] MEDS: Isosorbide Mononitrate 30 MG Tablet 90 MG PO (05:41)
[2018-09-13] MEDS: Aspirin 81 MG TAB.CHEW PO (07:49)
[2018-09-13] MEDS: Iron Polysaccharide Complex 150 MG CAPSULE PO (07:50)
[2018-09-13] MEDS: oxyCODONE 5 MG Tablet PO ×2 (07:50→15:59)
[2018-09-13] MEDS: Acetaminophen 500 MG Tablet 1000 MG PO (08:51)
[2018-09-13 17:15] VITALS: BP 129/71; PULSE 75; RESP 16; TEMP 36.2; O2SAT 97
--- NOTE | 2018-09-13 18:05 | NURSING ---
Pt bled from lovenox injection site this morning for longer than usual. Very small amount of oozing from site, pressure dressing applied and bleeding stopped. Patient also states she has been bruising easier, and has a round bruise to the SHELLIE near armpit from blood pressure cuff. right arm warm and pink with 2+ pulse radial. Dr. Howard updated, NO to d/c lovenox.
[2018-09-13 20:46] VITALS: PULSE 89; RESP 16; O2SAT 97
[2018-09-14 05:38] VITALS: BP 139/53; PULSE 70
[2018-09-14] MEDS: Metoprolol(XL)Succ 25 MG Tablet PO (05:38)
[2018-09-14] MEDS: Clopidogrel Bisulfate 75 MG Tablet PO (05:38)
[2018-09-14] MEDS: Isosorbide Mononitrate 30 MG Tablet 90 MG PO (05:38)
[2018-09-14 06:08] LABS: Anion Gap 9 (5-15); BUN 22 mg/dL (7-18); BUN/Creat Ratio 21.2 RATIO (10-20); Calcium,Total 8.2 mg/dL (8.5-10.1); Chloride 99 mmol/L (98-107); Creatinine, Serum 1.04 mg/dL (0.55-1.02); EST Glomerular Filtration Rate 54 mL/min (>60); Est Glom Filt Rate - Afr Amer 66 mL/min (>60); Estimated Creatinine Clearance 32.02 ml/min; Glucose 95 mg/dL (74-106); Potassium 4.2 mmol/L (3.5-5.1); Sodium Level 136 mmol/L (136-145)
[2018-09-14 06:20] LABS: Hematocrit 28.1 % (37-47); Hemoglobin 9.1 g/dl (12.0-15.0); Mean Corp Hgb Conc 32.4 g/gl (32-36); Mean Corpuscular Hgb 30.6 pg (27.0-32.0); Mean Corpuscular Volume 94.6 fL (81-99); Mean Platelet Vol. 9.8 fl (6.2-12.0); Platelet Count 498 K/mm3 (150-450); RBC Distribution Width CV 12.3 % (11.6-14.6); RBC Distribution Width SD 41.2 fl (35.1-43.9); Red Blood Count 2.97 M/mm3 (4.2-5.4); White Blood Count 9.3 K/mm3 (4.4-11.0)
[2018-09-14 06:22] LABS: Differential Indicated MANUAL DIFF; POSITIVE COUNT YES; POSITIVE DIFFERENTIAL NO; POSITIVE MORPHOLOGY YES
[2018-09-14 07:11] LABS: Absolute Neutrophil Count 6.1 X10^3/uL (2.0-7.7); Basophil 1 % (0-1); Lymphocyte 19 % (19-41); Metamyelocyte 1 % (0-1); Monocyte 13 % (0-10); Neutrophil # 6.14 X10^3/uL (2.7-7.7); Neutrophil-Segmented 66 % (47-70); Platelet Estimate ADEQUATE (ADEQ); Red Cell Morphology NORM C+C NORMAL (NORM C&C); Total Cells Counted 100 (MANUAL DIFF)
[2018-09-14 07:12] LABS: Absolute Lymphocyte Count 1.77 X10^3/ul (0.83-4.51); Lymphocyte # 1.77 X10^3/ul (4.0)
[2018-09-14] MEDS: Aspirin 81 MG TAB.CHEW PO (08:25)
[2018-09-14] MEDS: Tuberculin,Purif.prot.deriv. 50 TU/ML Vial 5 ML ID (09:33)
--- NOTE | 2018-09-14 09:34 | NURSING ---
Addendum entered by Jada Gray 09/14/18 18:08: NO MORE DIZZINESS TODAY. PER PT REQUEST IRON CHANGED TO 3X WEEK INSTEAD OF DAILY D/T CONSTIPATION Original Note: THIS NURSE CHANGING DRESSING AND THERAPY IN SHOWER WITH PT. PT GOT DIZZY AND LIGHTHEADED. TRANSFERRED PT TO WHEELCHAIR AND APPLIED COOL RAG TO PT FOREHEAD. PT FOLLOWED COMMANDS AND ANSWERED QUESTIONS WITH A FEW JOKES FROM HER. PT STATED SHE FELT BETTER. WE THEN TRANSFERRED PT TO RECLINER . PT TALKING AND COMBING HAIR. WILL CONTINUE TO MONITOR. REPORTED TO NONA ARGUETA
[2018-09-14] MEDS: oxyCODONE 5 MG Tablet PO ×3 (14:09→22:35)
[2018-09-14] MEDS: Acetaminophen 500 MG Tablet 1000 MG PO (15:01)
[2018-09-14 16:00] VITALS: BP 126/64; PULSE 88; RESP 14; TEMP 36.1; O2SAT 94
[2018-09-14] MEDS: Senna/Docusate Sodium 1 Tablet 2 TABLET PO (16:57)
[2018-09-14 20:00] VITALS: PULSE 72; RESP 16; O2SAT 95
[2018-09-14] MEDS: Atorvastatin Calcium 80 MG Tablet PO (20:03)
[2018-09-15 06:17] VITALS: BP 112/74; PULSE 70
[2018-09-15] MEDS: Isosorbide Mononitrate 30 MG Tablet 90 MG PO (06:17)
[2018-09-15] MEDS: Senna/Docusate Sodium 1 Tablet 2 TABLET PO ×2 (06:17→17:18)
[2018-09-15] MEDS: Metoprolol(XL)Succ 25 MG Tablet PO (06:17)
[2018-09-15] MEDS: Aspirin 81 MG TAB.CHEW PO (07:51)
[2018-09-15] MEDS: Iron Polysaccharide Complex 150 MG CAPSULE PO (07:52)
[2018-09-15] MEDS: oxyCODONE 5 MG Tablet PO ×2 (07:52→18:39)
--- NOTE | 2018-09-15 10:47 | NURSING ---
Per luci Heredia to d/c clements catheter in AM if patient is able to ambulate okay. Pt. ambulating well with therapy and has increased strength. Agreeable to removing clements in AM.
--- NOTE | 2018-09-15 12:53 | NURSING ---
Addendum entered by Eladia Leigh 09/15/18 18:30: Dr. Howard updated, NO for orthostatic BPs x1. Original Note: Therapy approached this nurse stating pt c/o lightheadedness. Pt assessed and VS taken. VS-BP 94/61 T 97.0 P 90 R 16 SpO2 96% RA. Fluids encouraged and therapy will do exercises while seated until resolves. Fluids encouraged. RN notified. Dr Howard will be made aware.
[2018-09-15 15:14] LABS: Pathologist Review Reviewed
[2018-09-15 16:00] VITALS: BP 139/66; PULSE 70; RESP 16; TEMP 36.7; O2SAT 96
--- NOTE | 2018-09-15 20:39 | NURSING ---
Addendum entered by Zeynep Esteves 09/15/18 21:15: Dr. Howard updated. N.O for 1L NS and recheck orthostatics in the AM. Original Note: Orthostatics completed on pt lying Bp-143/70, P-75 Spo2- 92%, Sitting 138/67, P 82, Sp02-94%, Standing 112/62, P 111, Sp02 97% Rn aware of vitals.
[2018-09-15 22:03] VITALS: PULSE 75; RESP 16; O2SAT 92
[2018-09-15] MEDS: 0.9% Normal Saline 1,000 ML 999 ML IV (22:35)
[2018-09-16] MEDS: Bisacodyl 5 MG Tablet 10 MG PO (05:44)
[2018-09-16] MEDS: 0.9% NaCl Peripheral Flush Adult/Peds IV ×2 (05:44→20:21)
[2018-09-16 05:45] VITALS: BP 140/87; PULSE 73
[2018-09-16] MEDS: Metoprolol(XL)Succ 25 MG Tablet PO (05:45)
[2018-09-16] MEDS: Isosorbide Mononitrate 30 MG Tablet 90 MG PO (05:45)
[2018-09-16] MEDS: Clopidogrel Bisulfate 75 MG Tablet PO (05:45)
[2018-09-16] MEDS: Polyethylene Glycol 3350 17 GM PACKET PO (05:45)
[2018-09-16] MEDS: Senna/Docusate Sodium 1 Tablet 2 TABLET PO (05:45)
--- NOTE | 2018-09-16 07:04 | NURSING ---
Crabtree catheter removed per order. Pt tolerated procedure well. No concerns voiced during this time.
[2018-09-16] MEDS: Aspirin 81 MG TAB.CHEW PO (07:54)
[2018-09-16] MEDS: oxyCODONE 5 MG Tablet PO ×2 (07:54→12:42)
[2018-09-16 08:00] VITALS: BP 125/54; BP 148/73; BP 151/77; PULSE 101; PULSE 73; PULSE 78
--- NOTE | 2018-09-16 09:10 | NURSING ---
Dr Howard notified of LBM 09/12 & pt been refusing ordered stool softeners. New order to give mag citrate 300ml x1 and encourage pt to take stool softeners as ordered d/t oxyir causing constipation.
--- NOTE | 2018-09-16 10:27 | NURSING ---
Pt refused mag citrate ordered this AM. Pt states she took miralax this AM and feels like she will be going too much. States she will take it at a later time if she needs it. Will reapproach.
[2018-09-16 16:00] VITALS: BP 130/93; PULSE 78; RESP 14; TEMP 36.9; O2SAT 97
[2018-09-16] MEDS: Atorvastatin Calcium 80 MG Tablet PO (20:22)
[2018-09-16 20:25] VITALS: PULSE 67; RESP 16; O2SAT 95
[2018-09-17 05:54] VITALS: BP 137/63; PULSE 74
[2018-09-17] MEDS: Senna/Docusate Sodium 1 Tablet 2 TABLET PO ×2 (05:54→17:26)
[2018-09-17] MEDS: Metoprolol(XL)Succ 25 MG Tablet PO (05:54)
[2018-09-17] MEDS: Isosorbide Mononitrate 30 MG Tablet 90 MG PO (05:54)
[2018-09-17] MEDS: 0.9% NaCl Peripheral Flush Adult/Peds IV (06:01)
[2018-09-17 08:00] VITALS: BP 114/60; PULSE 92
[2018-09-17] MEDS: Aspirin 81 MG TAB.CHEW PO (08:11)
[2018-09-17] MEDS: Iron Polysaccharide Complex 150 MG CAPSULE PO (08:11)
[2018-09-17 09:58] VITALS: PULSE 92; RESP 18; O2SAT 92
--- NOTE | 2018-09-17 11:32 | MDS.RN ---
Information for the mds was obtained from review of the clinical record, interview of resident, staff, and direct observation of resident's care.
[2018-09-17 13:00] VITALS: BP 140/60; PULSE 90
--- NOTE | 2018-09-17 13:50 | CASEMGMT ---
Brief interview for mental status (BIMS) and resident mood interview (PHQ-9) completed on this day. BIMS score 15. PHQ-9 score 01/20
--- NOTE | 2018-09-17 13:57 | MDS.RN ---
Pain interview for RUBEN 09/20/18 completed.
[2018-09-17 15:59] VITALS: BP 106/67; PULSE 88; RESP 16; TEMP 36.4; O2SAT 95
[2018-09-17] MEDS: oxyCODONE 5 MG Tablet PO (23:27)
--- NOTE | 2018-09-17 23:37 | NURSING ---
pt called, inc of urine, lilia care given, diaper changed
--- NOTE | 2018-09-18 01:15 | NURSING ---
pt called for assist because she was inc of urine, diaper changed, then she stated she still feels full, bladder scanned for 293, pt then was inc again in the diaper, scanned again for 240ml, assisted the pt up to the toilet-sat on it for awhile, voided-but no hat was in the toilet. pt was assisted back into bed, scanned again for 174ml
[2018-09-18] MEDS: Isosorbide Mononitrate 30 MG Tablet 90 MG PO (05:58)
[2018-09-18] MEDS: Clopidogrel Bisulfate 75 MG Tablet PO (05:58)
[2018-09-18] MEDS: Senna/Docusate Sodium 1 Tablet 2 TABLET PO ×2 (05:59→16:42)
[2018-09-18] MEDS: oxyCODONE 5 MG Tablet PO ×2 (06:14→20:18)
[2018-09-18 06:22] VITALS: BP 145/72; PULSE 71
[2018-09-18] MEDS: Metoprolol(XL)Succ 25 MG Tablet PO (06:22)
[2018-09-18] MEDS: Aspirin 81 MG TAB.CHEW PO (08:35)
--- NOTE | 2018-09-18 10:12 | RAD_ITS ---
STUDY: X-RAY - ABDOMEN/PELVIS REASON FOR EXAM: Female, 77 years old. Constipation following spinal surgery. TECHNIQUE: Two AP supine views of the abdomen and pelvis. COMPARISON: None. FINDINGS: Normal visualized lung bases. There is a moderate amount of colonic fecal material. The visualized liver, spleen and kidneys are grossly normal in size and morphology. Normal soft tissue structures. The patient is status post laminectomy and fusion at the L1-L5 vertebra. RAD/Abdomen Single View (Portable) IMPRESSION: Moderate amount of fecal material is seen in the colon. Electronically Signed: Chente Spence MD at 15:42 EDT Tel [phone], Service support ,
--- NOTE | 2018-09-18 12:45 | NURSING ---
PT RETURNED TO FLOOR BY WHEELCHAIR FROM APPOINTMENT.
[2018-09-18 16:00] VITALS: BP 134/67; PULSE 76; RESP 18; TEMP 36.5; O2SAT 98
[2018-09-18] MEDS: Atorvastatin Calcium 80 MG Tablet PO (20:13)
[2018-09-18 21:00] VITALS: PULSE 77; RESP 18; O2SAT 95
[2018-09-19] MEDS: oxyCODONE 5 MG Tablet PO (02:10)
[2018-09-19] MEDS: Isosorbide Mononitrate 30 MG Tablet 90 MG PO (06:27)
[2018-09-19 06:29] VITALS: PULSE 82
[2018-09-19] MEDS: Metoprolol(XL)Succ 25 MG Tablet PO (06:29)
--- NOTE | 2018-09-19 06:34 | NURSING ---
Pt upset at laxatives being scheduled stating several times This is normal for me, I only go every 4-5 days. I am not uncomfortable. I do not eat much and this is just how my body works I know my body how many times do I have to say I do not want them and I don't need them. Assured pt this information would be passed along, but also spoke with pt about KUB results and the importance of maintaining bowel health especially while taking occasional opioids for pain. Pt stated she is aware of this. Would like the order changed to PRN, stating some people do not ask before giving them to her and I do not need liquid diarrhea. It happened in therapy it was humiliating. RN aware.
[2018-09-19] MEDS: Iron Polysaccharide Complex 150 MG CAPSULE PO (08:17)
[2018-09-19] MEDS: Aspirin 81 MG TAB.CHEW PO (08:17)
[2018-09-19 09:10] VITALS: PULSE 80; RESP 18; O2SAT 94
[2018-09-19 15:20] VITALS: BP 134/75; PULSE 76; RESP 18; TEMP 36.6; O2SAT 96
[2018-09-20 05:56] VITALS: BP 151/72; PULSE 70
[2018-09-20] MEDS: Metoprolol(XL)Succ 25 MG Tablet PO (05:56)
[2018-09-20] MEDS: Acetaminophen 500 MG Tablet 1000 MG PO (05:56)
[2018-09-20] MEDS: Senna/Docusate Sodium 1 Tablet 2 TABLET PO ×2 (05:57→17:55)
[2018-09-20] MEDS: Isosorbide Mononitrate 30 MG Tablet 90 MG PO (05:57)
[2018-09-20] MEDS: Aspirin 81 MG TAB.CHEW PO (08:18)
[2018-09-20 15:17] VITALS: BP 148/59; PULSE 74; RESP 14; TEMP 36.9; O2SAT 96
[2018-09-20] MEDS: oxyCODONE 5 MG Tablet PO (21:04)
[2018-09-21] MEDS: Clopidogrel Bisulfate 75 MG Tablet PO (06:05)
[2018-09-21] MEDS: Isosorbide Mononitrate 30 MG Tablet 90 MG PO (06:06)
[2018-09-21] MEDS: Senna/Docusate Sodium 1 Tablet 2 TABLET PO (06:06)
[2018-09-21 06:07] VITALS: BP 155/76; PULSE 72
[2018-09-21] MEDS: Metoprolol(XL)Succ 25 MG Tablet PO (06:07)
[2018-09-21 06:12] LABS: Absolute Lymphocyte Count 1.89 X10^3/ul (0.83-4.51); Basophil# 0.04 X10^3/uL; Basophil% 0.5 % (0-1); Eosinophils% 3.7 % (0-5); Hemoglobin 9.8 g/dl (12.0-15.0); Lymphocyte # 1.89 X10^3/ul (4.0); Mean Corp Hgb Conc 31.6 g/gl (32-36); Mean Corpuscular Hgb 30.2 pg (27.0-32.0); Mean Corpuscular Volume 95.4 fL (81-99); Mean Platelet Vol. 9.3 fl (6.2-12.0); Monocyte# 0.82 X10^3/uL; Neutrophil # 5.01 X10^3/uL (2.7-7.7); Neutrophil % 61.1 % (47-70); Platelet Count 640 K/mm3 (150-450); RBC Distribution Width CV 13.1 % (11.6-14.6); RBC Distribution Width SD 43.6 fl (35.1-43.9); Red Blood Count 3.25 M/mm3 (4.2-5.4); White Blood Count 8.2 K/mm3 (4.4-11.0)
[2018-09-21 06:28] LABS: Anion Gap 8 (5-15); BUN 18 mg/dL (7-18); BUN/Creat Ratio 16.7 RATIO (10-20); Calcium,Total 8.4 mg/dL (8.5-10.1); Chloride 104 mmol/L (98-107); Creatinine, Serum 1.08 mg/dL (0.55-1.02); EST Glomerular Filtration Rate 52 mL/min (>60); Est Glom Filt Rate - Afr Amer 63 mL/min (>60); Estimated Creatinine Clearance 30.84 ml/min; Glucose 80 mg/dL (74-106); Potassium 4.4 mmol/L (3.5-5.1); Sodium Level 139 mmol/L (136-145)
[2018-09-21 06:36] LABS: POSITIVE COUNT NO; POSITIVE DIFFERENTIAL NO; POSITIVE MORPHOLOGY NO
[2018-09-21 07:00] VITALS: PULSE 72; RESP 16; O2SAT 98
--- NOTE | 2018-09-21 07:56 | EKG12_ITS ---
Test Reason : CP Blood Pressure : / mmHG Vent. Rate : 083 BPM Atrial Rate : 117 BPM P-R Int : 168 ms QRS Dur : 086 ms QT Int : 392 ms P-R-T Axes : 000 -29 019 degrees QTc Int : 460 ms Normal sinus rhythm with Premature atrial complexes in bigeminal pattern Otherwise normal ECG When compared with ECG of 21-JUL-2015 05:25, Current undetermined rhythm precludes rhythm comparison, needs review Confirmed by WALI LOPEZ ([id number]), editorial cartoonist DORIS MARKHAM ([id number]) on 10/05/2018 2:52:42 PM Referred By: YUE Confirmed By:WALI LOPEZ
--- NOTE | 2018-09-21 08:12 | EKG12_ITS ---
Test Reason : CP Blood Pressure : / mmHG Vent. Rate : 070 BPM Atrial Rate : 070 BPM P-R Int : 168 ms QRS Dur : 084 ms QT Int : 400 ms P-R-T Axes : 014 -32 011 degrees QTc Int : 432 ms Normal sinus rhythm Left axis deviation Abnormal ECG When compared with ECG of 21-SEP-2018 08:03, MANUAL COMPARISON REQUIRED, DATA IS UNCONFIRMED Confirmed by WALI LOPEZ ([id number]), food editor DORIS MARKHAM ([id number]) on 10/05/2018 2:52:59 PM Referred By: YUE Confirmed By:WALI LOPEZ
--- NOTE | 2018-09-21 08:12 | NURSING ---
Pt has c/o heart palpitations and SOB that she states has been occuring for 10 minutes. Vitals 120/75, HR irregular and ranging from 44-79, rr 20, oxygen 96% on RA, temp 98.2, LSCTA, no edema, cap refill brisk. Dr. Howard updated. NO for stat EKG. EKG reviewed by Dr. Howard, NNO at this time. Continue to monitor, if symptoms return may give PRN nitro. Pt states symptoms improved, just feels fatigued. Given breakfast. Patient instructed to notify nurse if symptoms return.
[2018-09-21] MEDS: Aspirin 81 MG TAB.CHEW PO (08:26)
--- NOTE | 2018-09-21 09:03 | NURSING ---
Pt has c/o frequency and burning with urination. Dr. Howard updated, NO for SC UA C&S.
[2018-09-21 09:07] LABS: Mucous, Urine 0 SEEN /hpf (<or=2+)
[2018-09-21 09:17] LABS: Color, Urine Yellow (Yellow); Glucose, Dipstick Normal (Normal); Ketone-Dipstick Negative (Negative); Leukocyte Esterase-Dipstick 500 /ul (Negative); Nitrite-Dipstick Positive (Negative); Occult Blood-Urine 25 /ul (Negative); Protein-Dipstick Negative (Negative); Urine Bilirubin Dipstick Negative (Negative); Urine Clarity Cloudy (Clear); Urine Urobilinogen Normal (Normal)
[2018-09-21 09:29] LABS: Red Blood Cells-Urine 0-5 SEEN /hpf (0-5); Squamous Epithelial Cells - UA 0-5 SEEN /hpf (5-10); White Blood Cells 25-50 SEEN /hpf (0-5)
[2018-09-21 09:30] LABS: Bacteria 2+ /hpf (None Seen)
[2018-09-21] MEDS: oxyCODONE 5 MG Tablet PO ×2 (13:05→20:17)
[2018-09-21 15:05] VITALS: BP 136/87; PULSE 72; RESP 16; TEMP 36.6; O2SAT 96
--- NOTE | 2018-09-21 18:57 | NURSING ---
Dr. Howard reviewed UA, NO for ceftin 500mg PO BID x 10 days.
[2018-09-21] MEDS: Atorvastatin Calcium 80 MG Tablet PO (20:16)
[2018-09-22] MEDS: oxyCODONE 5 MG Tablet PO ×2 (01:18→07:38)
[2018-09-22 05:44] VITALS: PULSE 72
[2018-09-22] MEDS: CEFUROXIME AXETIL 250 MG TABLET 500 MG PO ×2 (05:44→16:52)
[2018-09-22] MEDS: Metoprolol(XL)Succ 25 MG Tablet PO (05:44)
[2018-09-22] MEDS: Isosorbide Mononitrate 30 MG Tablet 90 MG PO (05:45)
[2018-09-22] MEDS: Aspirin 81 MG TAB.CHEW PO (07:39)
[2018-09-22 15:32] VITALS: BP 98/59; PULSE 80; RESP 16; TEMP 36.7; O2SAT 95
[2018-09-22 16:41] VITALS: BP 123/71; PULSE 80
[2018-09-22] MEDS: Senna/Docusate Sodium 1 Tablet 2 TABLET PO (16:52)
[2018-09-22 21:00] VITALS: PULSE 72; RESP 15; O2SAT 98
[2018-09-23 06:16] VITALS: BP 128/62; PULSE 65
[2018-09-23] MEDS: Isosorbide Mononitrate 30 MG Tablet 90 MG PO (06:16)
[2018-09-23] MEDS: CEFUROXIME AXETIL 250 MG TABLET 500 MG PO ×2 (06:16→17:56)
[2018-09-23] MEDS: Metoprolol(XL)Succ 25 MG Tablet PO (06:16)
[2018-09-23] MEDS: Clopidogrel Bisulfate 75 MG Tablet PO (06:16)
[2018-09-23] MEDS: Senna/Docusate Sodium 1 Tablet 2 TABLET PO ×2 (06:17→17:53)
[2018-09-23] MEDS: Aspirin 81 MG TAB.CHEW PO (07:57)
--- NOTE | 2018-09-23 14:34 | NURSING ---
Dr gauthier aware of urine culture results. no new orders, continue ceftin
[2018-09-23 15:31] VITALS: BP 134/63; PULSE 62; RESP 18; TEMP 36.8; O2SAT 97
[2018-09-23] MEDS: oxyCODONE 5 MG Tablet PO (19:30)
[2018-09-23] MEDS: Atorvastatin Calcium 80 MG Tablet PO (19:30)
[2018-09-23 20:00] VITALS: PULSE 78; RESP 18; O2SAT 96
[2018-09-24] MEDS: CEFUROXIME AXETIL 250 MG TABLET 500 MG PO ×2 (05:28→17:09)
[2018-09-24] MEDS: Isosorbide Mononitrate 30 MG Tablet 90 MG PO (05:28)
[2018-09-24 05:29] VITALS: PULSE 86
[2018-09-24] MEDS: Metoprolol(XL)Succ 25 MG Tablet PO (05:29)
[2018-09-24] MEDS: Aspirin 81 MG TAB.CHEW PO (08:24)
[2018-09-24] MEDS: Iron Polysaccharide Complex 150 MG CAPSULE PO (08:26)
[2018-09-24] MEDS: oxyCODONE 5 MG Tablet PO ×2 (09:14→21:11)
[2018-09-24 15:29] VITALS: BP 125/77; PULSE 92; RESP 16; TEMP 36.7; O2SAT 94
[2018-09-24] MEDS: Senna/Docusate Sodium 1 Tablet 2 TABLET PO (17:09)
[2018-09-24 21:10] VITALS: PULSE 88; RESP 16; O2SAT 96
[2018-09-25] MEDS: oxyCODONE 5 MG Tablet PO (06:04)
[2018-09-25] MEDS: Isosorbide Mononitrate 30 MG Tablet 90 MG PO (06:04)
[2018-09-25] MEDS: CEFUROXIME AXETIL 250 MG TABLET 500 MG PO ×2 (06:04→16:27)
[2018-09-25 06:05] VITALS: BP 148/70; PULSE 90
[2018-09-25] MEDS: Metoprolol(XL)Succ 25 MG Tablet PO (06:05)
[2018-09-25] MEDS: Senna/Docusate Sodium 1 Tablet 2 TABLET PO (06:05)
[2018-09-25] MEDS: Clopidogrel Bisulfate 75 MG Tablet PO (06:05)
[2018-09-25 07:23] VITALS: PULSE 90; RESP 18; O2SAT 95
[2018-09-25] MEDS: Aspirin 81 MG TAB.CHEW PO (08:14)
--- NOTE | 2018-09-25 12:10 | CASEMGMT ---
Social Work Spoke with resident in room. Resident requesting for discharge date to be set for 09/30/18, spoke with staff/therapy, 09/30/18 is an agreeable date at this time. Resident plans to discharge to home alone where resident friends plans to assist resident throughout the day and as needed. Physical and occupational therapy are recommending for resident to continue with services within the home. Resident is agreeable to recommendation and requesting for home health care to be set up through [facility] ([facility]). Resident reporting to have walker already set up within the home alone with all other needed durable medical equipment. Resident friend plans to provide transportation home for resident. Resident planning to notify resident friend of discharge date and plan. Resident reporting to have transportation and meals within the community. Support given. [facility] This social security benefits interviewer making referral for physical and occupational therapy. Order to be completed. Proposed discharge date: 09/30/18 PLAN: Discharge to home alone with home health services. JETHRO Jordan, NEEDLE PROCESS FELT GOODS SUPERVISOR
--- NOTE | 2018-09-25 13:16 | DCINST_ITS ---
- Discharge Diagnoses Current Active Problems: Current Active and Chronic Problems (Last Reviewed 06/04/18 @ 12:52 by Ayse Burns) Lumbar spinal stenosis (Chronic) Scoliosis (Chronic) Lumbar spondylolysis (Chronic) Coronary artery disease (Chronic) Macular degeneration (Chronic) Myocardial infarction (Acute) Osteoarthritis (Chronic) You will use the following diet at home:: No restrictions, Regular Your food should be the consistency of: Regular Your liquids should be the consistency of: Regular/Thin Discharge Activity: Return to Normal Activity, May Shower, Use Walker Weight Bearing Status: Weight bearing as tolerated Call your doctor if you observe: Fever of 101 or Higher, Inability to urinate, Inability to have a bowel movement, Shortness of breath, Chest pain, Uncontrolled pain Allergies/Adverse Reactions: Allergies gabapentin Allergy (Verified 09/06/18 13:37) Hives Medications to take at Discharge Aspirin [Aspirin, Baby] 81 mg PO DAILY 08/09/15 biotin 1 mg capsule 1,000 mcg PO QDAY 06/04/18 cholecalciferol (vitamin D3) 50,000 unit capsule 50,000 unit PO TH 06/04/18 cyanocobalamin (vit B-12) 5,000 mcg/mL sublingual drops 5,000 mcg SUBLINGUAL QDAY 06/04/18 Atorvastatin Calcium [Lipitor] 80 mg PO MOWEFR 09/06/18 Clopidogrel Bisulfate [Plavix] 75 mg PO MOWEFR 09/06/18 Isosorbide Mononitrate [Isosorbide Mononitrate ER] 90 mg PO QAM 09/06/18 Metoprolol Succinate [Toprol Xl] 25 mg PO QDAY 09/06/18 Acetaminophen [Tylenol] 1,000 mg PO Q8H PRN tablet 09/25/18 Cefuroxime Axetil [Ceftin] 500 mg PO Q12 #6 tablet 09/25/18 Iron Polysaccharide Complex [Ferrex 150] 150 mg PO TUTHSA@0800 #30 capsule 09/25/18 Nitroglycerin [Nitrostat] 0.4 mg SUBLINGUAL Q5M PRN #30 tablet 09/25/18 Oxycodone [Oxyir] 5 mg PO Q4H PRN 5 Days #30 tab 09/25/18 The following prescriptions were given: Cefuroxime Axetil [Ceftin] 500 mg PO Q12 #6 tablet Iron Polysaccharide Complex [Ferrex 150] 150 mg PO TUTHSA@0800 #30 capsule Nitroglycerin [Nitrostat] 0.4 mg SUBLINGUAL Q5M PRN #30 tablet PRN Reason: Cardiac/Chest Pain Oxycodone [Oxyir] 5 mg PO Q4H PRN 5 Days #30 tab PRN Reason: Moderate Pain (4-5/10) Primary Care Physician: Estela Osborne DO [Primary Care Provider] - Please follow up with your Primary Care Physician in: 1 week. Test Results: Test results from this visit will be discussed in further detail at your follow- up appointment, if applicable. Please Follow Up With: Yaya Benito MD When: 2 weeks. Proposed Discharge Date: 09/30/18
--- NOTE | 2018-09-25 13:18 | HHNOTE_ITS ---
Home Health Note - Plan Overview of reason of hospitalization: The patient is a 77 year old Female with below past medical history underwent lumbar spine surgery 09/03/[address] Benito, admitted to TCU with debility, here for rehabilitation, strengthening prior to discharge home alone. On TCU, she had K. Pneumoniae UTI, treated with Ceftin 500MG BID, will discharge on Ceftin. Discharge home alone, with Home Health Services. Problems: Patient was seen for (Last Reviewed 06/04/18 @ 12:52 by Ayse Burns) Lumbar spinal stenosis (Chronic) Scoliosis (Chronic) Lumbar spondylolysis (Chronic) Coronary artery disease (Chronic) Macular degeneration (Chronic) Myocardial infarction (Acute) Osteoarthritis (Chronic) Complete List of Medical Problems (Last Reviewed 06/04/18 @ 12:52 by Ayse Burns) Lumbar spinal stenosis (Chronic) Scoliosis (Chronic) Lumbar spondylolysis (Chronic) Coronary artery disease (Chronic) Macular degeneration (Chronic) Myocardial infarction (Acute) Osteoarthritis (Chronic) Hyperlipidemia (Chronic) Stented coronary artery (Chronic) Atherosclerotic heart disease of [place] coronary artery without angina pectoris (Chronic) Old myocardial infarction (Chronic) Renal insufficiency (Chronic) Hypertension (Chronic) - Requirements and Reasons Disciplines Needed/Ordered: Physical Therapy Reason for Disciplines: Gait Training, Stair Training, Fall Prevention, Home Safety/Equipment Instruction, Balance and/or Posture Training, Transfer Training Related To: Limited/Poor Endurance, Shortness of Breath with Activity, Physical Impairments, Unsteady Gait/Balance, Fall Risk Patient is unable to leave the home: Without Aid of Supportive Devices (crutches, cane, wheelchair, walker), Without the assistance of another person, Because it is medically contraindicated Medically Contraindicated related to: Weight Bearing Status - Additional Disciplines Additional Disciplines Needed/Ordered: Occupational Therapy
--- NOTE | 2018-09-25 13:18 | DS.PCM_ITS ---
Discharge Date and Diagnosis - Problem List Patient Problems: Active and Suspected Problems (Last Reviewed 06/04/18 @ 12:52 by Ayse Burns) Myocardial infarction (Acute) Date of Admission: 09/06/18 Date of Discharge: 09/30/18 - Primary Discharge Diagnosis Active and Suspected Problems (Last Reviewed 06/04/18 @ 12:52 by Ayse Burns) Myocardial infarction (Acute) - Secondary Discharge Diagnosis Chronic Problems (Last Reviewed 06/04/18 @ 12:52 by Ayse Burns) Lumbar spinal stenosis (Chronic) Scoliosis (Chronic) Lumbar spondylolysis (Chronic) Coronary artery disease (Chronic) Macular degeneration (Chronic) Osteoarthritis (Chronic) Hyperlipidemia (Chronic) Stented coronary artery (Chronic) Atherosclerotic heart disease of [place] coronary artery without angina pectoris (Chronic) 07/19/15 PCI and NINA to LAD and CX Old myocardial infarction (Chronic) Renal insufficiency (Chronic) Hypertension (Chronic) Hospital Course and Treatment Imaging Results: 09/09/18 13:31 Diet: Cardiac/Low Cholesterol Is pt able to select menu?: Yes Clinical Impression(s) from Imaging Studies KUB X-Ray 09/18/18 10:12 IMPRESSION: Moderate amount of fecal material is seen in the colon. Electronically Signed: Chente Spence MD at 15:42 EDT Tel [phone], Service support , Operations: None Procedures: None Summary of Care Provided: The patient is a 77 year old Female with below past medical history underwent lumbar spine surgery 09/03/[address] Benito, admitted to TCU with debility, here for rehabilitation, strengthening prior to discharge home alone. On TCU, she had K. Pneumoniae UTI, treated with Ceftin 500MG BID, will discharge on Ceftin. Discharge home alone, with Home Health Services. Patient Problems: Active and Suspected Problems (Last Reviewed 06/04/18 @ 12:52 by Ayse Burns) Myocardial infarction (Acute) - Physical Exam Vital Signs Temp Pulse Resp BP Pulse Ox 98.0 F 90 18 148/70 H 95 09/24/18 15:29 09/25/18 07:23 09/25/18 07:23 09/25/18 06:05 09/25/18 07:23 Oxygen Delivery Method Room Air Weight: 61.49 kg Body Mass Index (BMI) 25.9 Orthostatic Vital Signs Start: 09/15/18 22:55 Freq: Status: Active Protocol: Activity Type Activity Date Activity User E-Sign Co-Sign Detail Recorded Client Recorded Date Recorded By Document 09/17/18 13:00 [id number] 09/17/18 14:19 09/17/18 13:00 Orthostatic Vitals Sitting -Blood Pressure (90/60-120/80) 140/60 H -Extremity Use Left Arm -Pulse Rate (60-100) 90 Intake and Output for Last 24 Hours 09/23/18 09/24/18 09/25/18 23:59 23:59 23:59 Intake Total 1060 / 1060 840 / 840 720 / 720 Balance 1060 / 1060 840 / 840 720 / 720 Microbiology Past 72 Hours 09/21/18 09:00 Urine Culture - Final Urine Catheter - Catheter Klebsiella pneumoniae sp pneum Discharge Diet: No Restrictions Discharge Activity: Return to Normal Activity, May Shower, Use Walker Weight Bearing Status: Weight bearing as tolerated Call your doctor if you observe: Fever of 101 or Higher, Inability to urinate, Inability to have a bowel movement, Shortness of breath, Chest pain, Uncontrolled pain Home Medications: Medications to take at Discharge Aspirin [Aspirin, Baby] 81 mg PO DAILY 08/09/15 biotin 1 mg capsule 1,000 mcg PO QDAY 06/04/18 cholecalciferol (vitamin D3) 50,000 unit capsule 50,000 unit PO TH 06/04/18 cyanocobalamin (vit B-12) 5,000 mcg/mL sublingual drops 5,000 mcg SUBLINGUAL QDAY 06/04/18 Atorvastatin Calcium [Lipitor] 80 mg PO MOWEFR 09/06/18 Clopidogrel Bisulfate [Plavix] 75 mg PO MOWEFR 09/06/18 Isosorbide Mononitrate [Isosorbide Mononitrate ER] 90 mg PO QAM 09/06/18 Metoprolol Succinate [Toprol Xl] 25 mg PO QDAY 09/06/18 Acetaminophen [Tylenol] 1,000 mg PO Q8H PRN tablet 09/25/18 Cefuroxime Axetil [Ceftin] 500 mg PO Q12 #6 tablet 09/25/18 Iron Polysaccharide Complex [Ferrex 150] 150 mg PO TUTHSA@0800 #30 capsule 09/25/18 Nitroglycerin [Nitrostat] 0.4 mg SUBLINGUAL Q5M PRN #30 tablet 09/25/18 Oxycodone [Oxyir] 5 mg PO Q4H PRN 5 Days #30 tab 09/25/18 Following Prescrptions Were Given to Patient: Cefuroxime Axetil [Ceftin] 500 mg PO Q12 #6 tablet Iron Polysaccharide Complex [Ferrex 150] 150 mg PO TUTHSA@0800 #30 capsule Nitroglycerin [Nitrostat] 0.4 mg SUBLINGUAL Q5M PRN #30 tablet PRN Reason: Cardiac/Chest Pain Oxycodone [Oxyir] 5 mg PO Q4H PRN 5 Days #30 tab PRN Reason: Moderate Pain (4-5/10) Primary Care Physician: Estela Osborne DO [Primary Care Provider] - Please follow up with your Primary Care Physician in: 1 week. Please Follow Up With: Yaya Benito MD When: 2 weeks. Disposition: Home with Home Health Minutes spent on discharge:: 35 Patient Condition:: Stable Medical Necessity - Tobacco Use Smoking Status: Former smoker Tobacco Use: Non-smoker Meaningful Use Info Meaningful Use Diagnoses (Choose all that apply): None applicable
[2018-09-25 15:39] VITALS: BP 107/41; PULSE 58; RESP 16; TEMP 36.8; O2SAT 96
[2018-09-25] MEDS: Atorvastatin Calcium 80 MG Tablet PO (20:21)
[2018-09-26 06:45] VITALS: BP 139/62; PULSE 65
[2018-09-26] MEDS: Metoprolol(XL)Succ 25 MG Tablet PO (06:45)
[2018-09-26] MEDS: CEFUROXIME AXETIL 250 MG TABLET 500 MG PO ×2 (06:46→17:05)
[2018-09-26] MEDS: Isosorbide Mononitrate 30 MG Tablet 90 MG PO (06:47)
[2018-09-26] MEDS: Senna/Docusate Sodium 1 Tablet 2 TABLET PO ×2 (06:47→17:05)
[2018-09-26] MEDS: Aspirin 81 MG TAB.CHEW PO (07:55)
[2018-09-26 10:30] VITALS: PULSE 84; RESP 18; O2SAT 94
[2018-09-26 15:42] VITALS: BP 108/72; PULSE 93; RESP 16; TEMP 36.9; O2SAT 94
[2018-09-26] MEDS: oxyCODONE 5 MG Tablet PO (23:29)
[2018-09-27] MEDS: Senna/Docusate Sodium 1 Tablet 2 TABLET PO ×2 (07:00→17:37)
[2018-09-27] MEDS: CEFUROXIME AXETIL 250 MG TABLET 500 MG PO ×2 (07:00→17:37)
[2018-09-27] MEDS: Isosorbide Mononitrate 30 MG Tablet 90 MG PO (07:00)
[2018-09-27 07:07] VITALS: BP 125/56; PULSE 66
[2018-09-27] MEDS: Metoprolol(XL)Succ 25 MG Tablet PO (07:07)
[2018-09-27] MEDS: Aspirin 81 MG TAB.CHEW PO (07:26)
[2018-09-27 10:00] VITALS: RESP 16
[2018-09-27 16:00] VITALS: BP 115/79; PULSE 95; RESP 16; TEMP 37.1; O2SAT 95
[2018-09-27] MEDS: oxyCODONE 5 MG Tablet PO (22:50)
[2018-09-28] MEDS: Bisacodyl 5 MG Tablet 10 MG PO (06:44)
[2018-09-28] MEDS: Isosorbide Mononitrate 30 MG Tablet 90 MG PO (06:44)
[2018-09-28 06:45] VITALS: BP 141/69; PULSE 63
[2018-09-28] MEDS: CEFUROXIME AXETIL 250 MG TABLET 500 MG PO ×2 (06:45→16:17)
[2018-09-28] MEDS: Metoprolol(XL)Succ 25 MG Tablet PO (06:45)
[2018-09-28] MEDS: Clopidogrel Bisulfate 75 MG Tablet PO (06:48)
[2018-09-28 06:50] VITALS: PULSE 63; RESP 16; O2SAT 96
[2018-09-28] MEDS: Aspirin 81 MG TAB.CHEW PO (08:23)
[2018-09-28 15:28] VITALS: BP 152/71; PULSE 60; RESP 14; TEMP 36.4; O2SAT 92
[2018-09-28] MEDS: oxyCODONE 5 MG Tablet PO (16:16)
[2018-09-28] MEDS: Atorvastatin Calcium 80 MG Tablet PO (20:54)
[2018-09-29] MEDS: CEFUROXIME AXETIL 250 MG TABLET 500 MG PO ×2 (05:12→18:03)
[2018-09-29] MEDS: Isosorbide Mononitrate 30 MG Tablet 90 MG PO (05:12)
[2018-09-29 05:13] VITALS: BP 147/64; PULSE 65
[2018-09-29] MEDS: Metoprolol(XL)Succ 25 MG Tablet PO (05:13)
[2018-09-29] MEDS: Aspirin 81 MG TAB.CHEW PO (08:10)
[2018-09-29] MEDS: Iron Polysaccharide Complex 150 MG CAPSULE PO (08:11)
[2018-09-29 10:00] VITALS: PULSE 68; RESP 18; O2SAT 94
[2018-09-29 16:00] VITALS: BP 121/66; PULSE 68; RESP 18; TEMP 36; O2SAT 93
--- NOTE | 2018-09-29 16:38 | CASEMGMT ---
Brief interview for mental status (BIMS) and resident mood interview (PHQ-9) completed on this day. BIMS score 15. PHQ-9 score 01/20
[2018-09-30] MEDS: Isosorbide Mononitrate 30 MG Tablet 90 MG PO (06:19)
[2018-09-30 06:20] VITALS: BP 138/71; PULSE 70
[2018-09-30] MEDS: Clopidogrel Bisulfate 75 MG Tablet PO (06:20)
[2018-09-30] MEDS: Metoprolol(XL)Succ 25 MG Tablet PO (06:20)
[2018-09-30] MEDS: CEFUROXIME AXETIL 250 MG TABLET 500 MG PO (06:21)
[2018-09-30 07:19] VITALS: PULSE 70; RESP 16; O2SAT 98
[2018-09-30] MEDS: Aspirin 81 MG TAB.CHEW PO (08:19)
--- NOTE | 2018-10-02 12:48 | MDS.RN ---
Information for the mds was obtained from review of the clinical record, interview of resident, staff, and direct observation of resident's care.
== END 2018-09-30 10:35 | disposition home health service (06) | DRG 561 ==
PROVIDERS: Admitting Provider Family Medicine Geriatric Medicine; Family Provider Family Medicine; PCP Family Medicine; Visit Provider Family Medicine Geriatric Medicine
DX: Z47.89 Encounter for other orthopedic aftercare (principal); Z98.1 Arthrodesis status; E78.5 Hyperlipidemia, unspecified; I25.2 Old myocardial infarction; I25.10 Atherosclerotic heart disease of native coronary artery without angina pectoris; Z23 Encounter for immunization; M41.9 Scoliosis, unspecified; I10 Essential (primary) hypertension; M19.90 Unspecified osteoarthritis, unspecified site; E55.9 Vitamin D deficiency, unspecified; M43.06 Spondylolysis, lumbar region; Z87.891 Personal history of nicotine dependence; Z95.5 Presence of coronary angioplasty implant and graft
CPT/HCPCS: 36415; 74018; 80048; 81001; 85025; 87077; 87086; 87088; 87186; 93005; 97110; 97116; 97163; 97166; 97530; 97535; J7030; 90686; A4216

== ENCOUNTER → 2018-10-08 14:52 | Outpatient (CLI) | payer MEDICARE, OTHER, SELFPAY ==
[2018-10-08 18:35] LABS: AST(SGOT) 19 U/L (15-37); Alanine Aminotransfer ALT/SGPT 20 U/L (13-56); Albumin, Serum 2.7 g/dL (3.2-5.0); Alkaline Phosphatase 122 U/L (45-117); Bilirubin, Direct 0.12 mg/dL (0.00-0.30); Globulin 4.1 g/dL (2.2-4.2); Protein, Total 6.8 g/dL (6.4-8.2); Thyroid Stim Hormone (TSH) 1.47 uIU/mL (0.358-3.74)
== END ==
PROVIDERS: Family Provider Family Medicine; PCP Family Medicine; Visit Provider Family Medicine
DX: R63.4 Abnormal weight loss (principal)
CPT/HCPCS: 36415; 80076; 84134; 84443

== ENCOUNTER → 2018-11-10 13:40 | Outpatient (CLI) | payer MEDICARE, OTHER, SELFPAY ==
[2018-11-10 16:17] LABS: AST(SGOT) 16 U/L (15-37); Alanine Aminotransfer ALT/SGPT 17 U/L (13-56); Albumin, Serum 2.9 g/dL (3.2-5.0); Alkaline Phosphatase 111 U/L (45-117); Bilirubin, Direct 0.09 mg/dL (0.00-0.30); Globulin 3.9 g/dL (2.2-4.2); Prealbumin 15.6 mg/dL (20.0-40.0); Protein, Total 6.8 g/dL (6.4-8.2)
--- OUTSIDE RECORDS SUMMARY | 2019-02-12 01:05 | XMS RPT_ITS ---
:1940 Author Organization OHIP Support Name Relationship Address Phone BLACKGIANCARLO VALERIE Unavailable Unavailable + [place] [address] R Unavailable Unavailable Unavailable JASMIN, HUSSEIN Unavailable Unavailable + [place] [address] BLACKLEDGE, VALERIE Unavailable Unavailable + [place] [address] R Unavailable Unavailable Unavailable JASMIN, HUSSEIN Unavailable Unavailable + [place] [address] BLACKLEDGE, VALERIE Unavailable Unavailable + [place] [address] R Unavailable Unavailable Unavailable JASMIN, HUSSEIN Unavailable Unavailable + [place] [address] BLACKLEDGE, VALERIE Unavailable Unavailable + [place] [address] R Unavailable Unavailable Unavailable JASMIN, HUSSEIN Unavailable Unavailable + [place] [address] BLACKLEDGE, VALERIE Unavailable Unavailable + [place] [address] R Unavailable Unavailable Unavailable JASMIN, HUSSEIN Unavailable Unavailable + [place] [address] BLACKLEDGE, VALERIE Unavailable Unavailable + [place] [address] R Unavailable Unavailable Unavailable JASMIN, HUSSEIN Unavailable Unavailable + [place] [address] BLACKLEDGE, VALERIE Unavailable . + [place] [address] R Unavailable Unavailable Unavailable JASMIN, HUSSEIN Unavailable . + [place] [address] BLACKLEDGE, VALERIE Unavailable Unavailable + [place] [address] R Unavailable Unavailable Unavailable JASMIN, HUSSEIN Unavailable Unavailable + [place] [address] BLACKLEDGE, VALERIE Unavailable Unavailable + [place] [address] R Unavailable Unavailable Unavailable JASMIN, HUSSEIN Unavailable Unavailable + [place] [address] VALERIE STONER Unavailable NA + [place], [place] R Unavailable Unavailable Unavailable JASMIN, HUSSEIN Unavailable Unavailable + VALERIE STONER Unavailable NA + [place], [place] R Unavailable Unavailable Unavailable JASMIN, HUSSEIN Unavailable NA + [place], [place] LEOPOLDO STONEREW Unavailable NA + [place], [place] R Unavailable Unavailable Unavailable JASMIN, HUSSEIN Unavailable NA + [place], [place] LEOPOLDO STONEREW Unavailable NA + [place], [place] R Unavailable Unavailable Unavailable JASMIN, HUSSEIN Unavailable NA + [place], [place] Care Team Providers Name Role Phone Malys, Estela Attending Unavailable Malys, Estela Primary Care Unavailable Andrade, Carlos Eduardo Attending Unavailable Andrade, Carlos Eduardo Referring Unavailable Bonezzi, Lashon Primary Care Unavailable Malys, Estela Attending Unavailable Malys, Estela Primary Care Unavailable Malys, Estela Attending Unavailable Malys, Estela Referring Unavailable Malys, Estela Primary Care Unavailable Evaristo Bowen Attending Unavailable Evaristo Bowen Referring Unavailable Malys, Estela Primary Care Unavailable Marlene Vora Attending Unavailable Sedrickel, Marlene Referring Unavailable Malys, Estela Primary Care Unavailable Ambrose Barron Attending Unavailable Ambrose Barron Referring Unavailable Malys, Estela Primary Care Unavailable Graciela Hurtado Attending Unavailable Graciela Hurtado Referring Unavailable Malys, Estela Primary Care Unavailable Graciela Hurtado Attending Unavailable Malys, Estela Referring Unavailable Evaristo Bowen Attending Unavailable Evaristo Bowen Referring Unavailable Malys, Estela Primary Care Unavailable Yue, Kurt Chi Admitting Unavailable Yue, Kurt Chi Attending Unavailable Malys, Estela Primary Care Unavailable John Lopez Attending Unavailable Yue, Kurt Chi Referring Unavailable Vielka, Marlene Attending Unavailable Malys, Estela Primary Care Unavailable PROBLEMS PROBLEMS DATE TYPE CONDITION / CODE ATTENDING STATUS SOURCE 11/10/2018 Unknown R63.4 - Abnormal Estela Osborne Active [place] weight loss / Community R63.4(ICD-10) Hospital Repository 10/01/2018 Unknown Z47.89 - Encounter for Yue, Kurt Chi Active [place] other orthopedic Community aftercare / Hospital Z47.89(ICD-10) Repository 10/01/2018 Unknown M54.16 - Yue, Kurt Chi Active [place] Radiculopathy, lumbar Community region / Hospital M54.16(ICD-10) Repository 10/08/2018 Unknown R94.31 - Abnormal John Lopez Active [place] electrocardiogram Community [ECG] [EKG] / Hospital R94.31(ICD-10) Repository 08/11/2018 Unknown Z51.89 - Encounter for Andrade, Corcoran Active [place] other specified Community aftercare / Hospital Z51.89(ICD-10) Repository 08/11/2018 Unknown Z95.5 - Presence of Andrade, Corcoran Active [place] coronary angioplasty [facility] implant and graft / Hospital Z95.5(ICD-10) Repository 07/20/2018 Unknown M51.37 - Other Andrés, Active [place] intervertebral disc [facility] degeneration, [facility] lumbosacral region / Repository M51.37(ICD-10) 05/20/2018 Unknown M79.604 - Pain in Ambrose Barron Active [place] right leg / A Community M79.604(ICD-10) Hospital Repository 03/31/2018 Unknown R05 - Cough / Miedel, Marlene Active [place] R05(ICD-10) [facility] Repository 01/19/2018 Unknown N18.9 - Chronic kidney Malkate, Estela Active [place] disease, unspecified / Community N18.9(ICD-10) Hospital Repository PROCEDURES PROCEDURES No Procedure Records FoundRESULTS RESULTS LIVER PROFILE Collected: 11/10/2018 Status: F Source: [place] 1:43 PM [facility] HOSPITAL REPOSITORY TYPE CODE TESTS RESULT OUT OF RANGE REFERENCE UNITS LAB L501.1500 6.4-8.2 g/dL Normal T PROT 6.8 LAB L501.1800 3.2-5.0 g/dL Low ALB 2.9 LAB L501.1950 2.2-4.2 g/dL Normal GLOB 3.9 LAB L501.4100 15-37 U/L Normal AST 16 LAB L501.4305 45-117 U/L Normal ALK P 111 LAB L501.4405 13-56 U/L Normal ALT 17 LAB L501.4600 0.20-1.00 mg/dL Normal T BILI 0.30 LAB L501.4700 0.00-0.30 mg/dL Normal D BILI 0.09 Performed By: #### L500.3400, L506.0500 #### [facility] [address] [place], [place], [id number] PREALBUMIN Collected: 11/10/2018 Status: F Source: [place] 1:43 PM [facility] [place] TYPE CODE TESTS RESULT OUT OF REFERENCE UNITS RANGE LAB L506.0500 20.0-40.0 mg/dL Low PREALBUMIN 15.6 Performed By: #### L500.3400, L506.0500 #### [facility] [address] [place], [place], [id number] LIVER PROFILE Collected: 10/08/2018 Status: F Source: [place] 2:55 PM [facility] [place] TYPE CODE TESTS RESULT OUT OF RANGE REFERENCE UNITS LAB L501.1500 6.4-8.2 g/dL Normal T PROT 6.8 LAB L501.1800 3.2-5.0 g/dL Low ALB 2.7 LAB L501.1950 2.2-4.2 g/dL Normal GLOB 4.1 LAB L501.4100 15-37 U/L Normal AST 19 LAB L501.4305 45-117 U/L High ALK P 122 LAB L501.4405 13-56 U/L Normal ALT 20 LAB L501.4600 0.20-1.00 mg/dL Normal T BILI 0.30 LAB L501.4700 0.00-0.30 mg/dL Normal D BILI 0.12 Performed By: #### L500.3400, L501.9520, L506.0500 #### [facility] [address] [place], [place], [id number] THYROID STIM HORMONE Collected: 10/08/2018 Status: F Source: [place] (TSH) 2:55 PM [facility] [place] TYPE CODE TESTS RESULT OUT OF RANGE REFERENCE UNITS LAB L501.9520 0.358-3.74 uIU/mL Normal TSH 1.47 Performed By: #### L500.3400, L501.9520, L506.0500 #### [facility] [address] [place], [address] PREALBUMIN Collected: 10/08/2018 Status: F Source: [place] 2:55 PM [facility] [place] TYPE CODE TESTS RESULT OUT OF REFERENCE UNITS RANGE LAB L506.0500 20.0-40.0 mg/dL Low PREALBUMIN 9.0 Performed By: #### L500.3400, L501.9520, L506.0500 #### [facility] [address] [place], [address] 12 LEAD ELECTROCARDIOGRAM Observed: 10/05/2018 Status: F Source: [place] 2:53 PM [facility] [place] [facility] Cardiovascular Services [address] [place] [address] 12 Lead EKG 09/21/18 0803 MR#: [id number] Acct: [id number] Name: NORMA HARPER Rep #: [id number] : 1940 77 From: John Lopez MD Attending Dr: Yue PARTIDA,Kurt Suggs Status: DIS IN Ordering Dr: Kurt Howard MD Date: 09/21/18 Location: U Sex: F C Admitted: 09/06/18 Test Reason : CP Blood Pressure : / mmHG Vent. Rate : 083 BPM Atrial Rate : 117 BPM P-R Int : 168 ms QRS Dur : 086 ms QT Int : 392 ms P-R-T Axes : 000 -29 019 degrees QTc Int : 460 ms Normal sinus rhythm with Premature atrial complexes in bigeminal pattern Otherwise normal ECG When compared with ECG of 21-JUL-2015 05:25, Current undetermined rhythm precludes rhythm comparison, needs review Confirmed by JOHN LOPEZ ([id number]), website/blog editor DORIS MARKHAM ([id number]) on 10/05/2018 2:52:42 PM Referred By: YUE Confirmed By:JOHN LOPEZ 10/05/18 1458 Date John Lopez MD CC: Estela Osborne DO; Kurt Howard MD Signed 12 LEAD ELECTROCARDIOGRAM Observed: 10/05/2018 Status: F Source: [place] 2:53 PM [facility] HOSPITAL REPOSITORY [facility] Cardiovascular Services [address] [place] [address] 12 Lead EKG 09/21/18 0803 MR#: [id number] Acct: [id number] Name: NORMA HARPER Rep #: [id number] : 1940 77 From: John Lopez MD Attending Dr: Yue PARTIDA,Kurt Suggs Status: DIS IN Ordering Dr: Kurt Howard MD Date: 09/21/18 Location: [facility] Sex: F C Admitted: 09/06/18 Test Reason : CP Blood Pressure : / mmHG Vent. Rate : 070 BPM Atrial Rate : 070 BPM P-R Int : 168 ms QRS Dur : 084 ms QT Int : 400 ms P-R-T Axes : 014 -32 011 degrees QTc Int : 432 ms Normal sinus rhythm Left axis deviation Abnormal ECG When compared with ECG of 21-SEP-2018 08:03, MANUAL COMPARISON REQUIRED, DATA IS UNCONFIRMED Confirmed by JOHN LOPEZ ([id number]), website/blog editor DORIS MARKHAM ([id number]) on 10/05/2018 2:52:59 PM Referred By: YUE Confirmed By:JOHN LOPEZ 10/05/18 1453 Date John Lopez MD CC: Estela Osborne DO; Kurt Howard MD Signed DISCHARGE SUMMARY Observed: 09/25/2018 Status: F Source: [place] 1:18 PM [facility] HOSPITAL REPOSITORY [facility] Medical Records Department [address] [place] [address] Discharge Summary 09/25/18 1316 MR#: [id number] Acct: [id number] Name: NORMA HARPER Rep #: [id number] : 1940 77 From: Kurt Howard MD PCP: Estela Osborne DO Status: ADM IN Y Location: [place] [address] Discharge Date and Diagnosis - Problem List Patient Problems: Active and Suspected Problems (Last Reviewed 06/04/18 @ 12:52 by Ayse Saige Burns) Myocardial infarction (Acute) Date of Admission: 09/06/18 Date of Discharge: 09/30/18 - Primary Discharge Diagnosis Active and Suspected Problems (Last Reviewed 06/04/18 @ 12:52 by Ayse Saige Burns) Myocardial infarction (Acute) - Secondary Discharge Diagnosis Chronic Problems (Last Reviewed 06/04/18 @ 12:52 by Ayse Saige Burns) Lumbar spinal stenosis (Chronic) Scoliosis (Chronic) Lumbar spondylolysis (Chronic) Coronary artery disease (Chronic) Macular degeneration (Chronic) Osteoarthritis (Chronic) Hyperlipidemia (Chronic) Stented coronary artery (Chronic) Atherosclerotic heart disease of [place] coronary artery without angina pectoris (Chronic) 07/19/15 PCI and NINA to LAD and CX Old myocardial infarction (Chronic) Renal insufficiency (Chronic) Hypertension (Chronic) Hospital Course and Treatment Imaging Results: 09/09/18 13:31 Diet: Cardiac/Low Cholesterol Is pt able to select menu?: Yes Clinical Impression(s) from Imaging Studies KUB X-Ray 09/18/18 10:12 IMPRESSION: Moderate amount of fecal material is seen in the colon. Electronically Signed: Chente Spence MD at 15:42 EDT Tel [phone], Service support , Operations: None Procedures: None Summary of Care Provided: The patient is a 77 year old Female with below past medical history underwent lumbar spine surgery 09/03/[address] Benito, admitted to TCU with debility, here for rehabilitation, strengthening prior to discharge home alone. On TCU, she had K. Pneumoniae UTI, treated with Ceftin 500MG BID, will discharge on Ceftin. Discharge home alone, with Home Health Services. Patient Problems: Active and Suspected Problems (Last Reviewed 06/04/18 @ 12:52 by Ayse Burns) Myocardial infarction (Acute) - Physical Exam Vital Signs Temp Pulse Resp BP Pulse Ox 98.0 F 90 18 148/70 H 95 09/24/18 15:29 09/25/18 07:23 09/25/18 07:23 09/25/18 06:05 09/25/18 07:23 Oxygen Delivery Method Room Air Weight: 61.49 kg Body Mass Index (BMI) 25.9 Orthostatic Vital Signs Start: 09/15/18 22:55 Freq: Status: Active Protocol: Activity Type Activity Date Activity User E-Sign Co-Sign Detail Recorded Client Recorded Date Recorded By Document 09/17/18 13:00 ABDI [id number] 09/17/18 14:19 ABDI Orthostatic Vitals Sitting -Blood Pressure (90/60-120/80) 140/60 H -Extremity Use Left Arm -Pulse Rate (60-100) 90 Intake and Output for Last 24 Hours Intake Total 1060 / 1060 840 / 840 720 / 720 Balance 1060 / 1060 840 / 840 720 / 720 Microbiology Past 72 Hours 09/21/18 09:00 Urine Culture - Final Urine Catheter - Catheter Klebsiella pneumoniae sp pneum Discharge Diet: No Restrictions Discharge Activity: Return to Normal Activity, May Shower, Use Walker Weight Bearing Status: Weight bearing as tolerated Call your doctor if you observe: Fever of 101 or Higher, Inability to urinate, Inability to have a bowel movement, Shortness of breath, Chest pain, Uncontrolled pain Home Medications: Medications to take at Discharge Aspirin [Aspirin, Baby] 81 mg PO DAILY 08/09/15 biotin 1 mg capsule 1,000 mcg PO QDAY 06/04/18 cholecalciferol (vitamin D3) 50,000 unit capsule 50,000 unit PO TH 06/04/18 cyanocobalamin (vit B-12) 5,000 mcg/mL sublingual drops 5,000 mcg SUBLINGUAL QDAY 06/04/18 Atorvastatin Calcium [Lipitor] 80 mg PO MOWEFR 09/06/18 Clopidogrel Bisulfate [Plavix] 75 mg PO MOWEFR 09/06/18 Isosorbide Mononitrate [Isosorbide Mononitrate ER] 90 mg PO QAM 09/06/18 Metoprolol Succinate [Toprol Xl] 25 mg PO QDAY 09/06/18 Acetaminophen [Tylenol] 1,000 mg PO Q8H PRN tablet 09/25/18 Cefuroxime Axetil [Ceftin] 500 mg PO Q12 #6 tablet 09/25/18 Iron Polysaccharide Complex [Ferrex 150] 150 mg PO TUTHSA@0800 #30 capsule 09/25/18 Nitroglycerin [Nitrostat] 0.4 mg SUBLINGUAL Q5M PRN #30 tablet 09/25/18 Oxycodone [Oxyir] 5 mg PO Q4H PRN 5 Days #30 tab 09/25/18 Following Prescrptions Were Given to Patient: Cefuroxime Axetil [Ceftin] 500 mg PO Q12 #6 tablet Iron Polysaccharide Complex [Ferrex 150] 150 mg PO TUTHSA@0800 #30 capsule Nitroglycerin [Nitrostat] 0.4 mg SUBLINGUAL Q5M PRN #30 tablet PRN Reason: Cardiac/Chest Pain Oxycodone [Oxyir] 5 mg PO Q4H PRN 5 Days #30 tab PRN Reason: Moderate Pain (4-5/10) Primary Care Physician: Estela Osborne DO [Primary Care Provider] - Please follow up with your Primary Care Physician in: 1 week. Please Follow Up With: Yaya Benito MD When: 2 weeks. Disposition: Home with Home Health Minutes spent on discharge:: 35 Patient Condition:: Stable Medical Necessity - Tobacco Use Smoking Status: Former smoker Tobacco Use: Non-smoker Meaningful Use Info Meaningful Use Diagnoses (Choose all that apply): None applicable 09/25/188 <Electronically signed by Kurt Howard MD> Date Kurt Howard MD Cosigner Signature (if applicable): Date CC: Estela Osborne DO; Kurt Howard MD Signed HOME HEALTH PROGRESS Observed: 09/25/2018 Status: F Source: [place] NOTE 1:18 PM [facility] [place] [facility] Medical Records Department [address] [place] [address] Home Health Progress Note [id number] Encounter Encounter Date: 09/25/18 1318 MR#: [id number] Acct: [id number] Name: NORMA HARPER Rep #: [id number] : 1940 77 From: Kurt Howard MD PCP: Estela Osborne DO Status: ADM IN Location: [place] [address] Home Health Note - Plan Overview of reason of hospitalization: The patient is a 77 year old Female with below past medical history underwent lumbar spine surgery 09/03/[address] Benito, admitted to TCU with debility, here for rehabilitation, strengthening prior to discharge home alone. On TCU, she had K. Pneumoniae UTI, treated with Ceftin 500MG BID, will discharge on Ceftin. Discharge home alone, with Home Health Services. Problems: Patient was seen for (Last Reviewed 06/04/18 @ 12:52 by Ayse Burns) Lumbar spinal stenosis (Chronic) Scoliosis (Chronic) Lumbar spondylolysis (Chronic) Coronary artery disease (Chronic) Macular degeneration (Chronic) Myocardial infarction (Acute) Osteoarthritis (Chronic) Complete List of Medical Problems (Last Reviewed 06/04/18 @ 12:52 by Ayse Burns) Lumbar spinal stenosis (Chronic) Scoliosis (Chronic) Lumbar spondylolysis (Chronic) Coronary artery disease (Chronic) Macular degeneration (Chronic) Myocardial infarction (Acute) Osteoarthritis (Chronic) Hyperlipidemia (Chronic) Stented coronary artery (Chronic) Atherosclerotic heart disease of [place] coronary artery without angina pectoris (Chronic) Old myocardial infarction (Chronic) Renal insufficiency (Chronic) Hypertension (Chronic) - Requirements and Reasons Disciplines Needed/Ordered: Physical Therapy Reason for Disciplines: Gait Training, Stair Training, Fall Prevention, Home Safety/Equipment Instruction, Balance and/or Posture Training, Transfer Training Related To: Limited/Poor Endurance, Shortness of Breath with Activity, Physical Impairments, Unsteady Gait/Balance, Fall Risk Patient is unable to leave the home: Without Aid of Supportive Devices (crutches, cane, wheelchair, walker), Without the assistance of another person, Because it is medically contraindicated Medically Contraindicated related to: Weight Bearing Status - Additional Disciplines Additional Disciplines Needed/Ordered: Occupational Therapy 09/25/18 1826 <Electronically signed by Kurt Howard MD> Date Kurt Howard MD Cosigner Signature (if indicated): Date CC: Signed DISCHARGE INSTRUCTION Observed: 09/25/2018 Status: F Source: [place] 1:16 PM [facility] [place] [facility] Medical Records Department [address] [place] [address] Instructions for Home/Discharge Instructions 09/25/18 1314 MR#: [id number] Acct: [id number] Name: NORMA HARPER Rep #: [id number] : 1940 77 From: Kurt Howard MD PCP: Estela Osborne DO Status: ADM IN - Discharge Diagnoses Current Active Problems: Current Active and Chronic Problems (Last Reviewed 06/04/18 @ 12:52 by Ayse Burns) Lumbar spinal stenosis (Chronic) Scoliosis (Chronic) Lumbar spondylolysis (Chronic) Coronary artery disease (Chronic) Macular degeneration (Chronic) Myocardial infarction (Acute) Osteoarthritis (Chronic) You will use the following diet at home:: No restrictions, Regular Your food should be the consistency of: Regular Your liquids should be the consistency of: Regular/Thin Discharge Activity: Return to Normal Activity, May Shower, Use Walker Weight Bearing Status: Weight bearing as tolerated Call your doctor if you observe: Fever of 101 or Higher, Inability to urinate, Inability to have a bowel movement, Shortness of breath, Chest pain, Uncontrolled pain Allergies/Adverse Reactions: Allergies gabapentin Allergy (Verified 09/06/18 13:37) Hives Medications to take at Discharge Aspirin [Aspirin, Baby] 81 mg PO DAILY 08/09/15 biotin 1 mg capsule 1,000 mcg PO QDAY 06/04/18 cholecalciferol (vitamin D3) 50,000 unit capsule 50,000 unit PO TH 06/04/18 cyanocobalamin (vit B-12) 5,000 mcg/mL sublingual drops 5,000 mcg SUBLINGUAL QDAY 06/04/18 Atorvastatin Calcium [Lipitor] 80 mg PO MOWEFR 09/06/18 Clopidogrel Bisulfate [Plavix] 75 mg PO MOWEFR 09/06/18 Isosorbide Mononitrate [Isosorbide Mononitrate ER] 90 mg PO QAM 09/06/18 Metoprolol Succinate [Toprol Xl] 25 mg PO QDAY 09/06/18 Acetaminophen [Tylenol] 1,000 mg PO Q8H PRN tablet 09/25/18 Cefuroxime Axetil [Ceftin] 500 mg PO Q12 #6 tablet 09/25/18 Iron Polysaccharide Complex [Ferrex 150] 150 mg PO TUTHSA@0800 #30 capsule 09/25/18 Nitroglycerin [Nitrostat] 0.4 mg SUBLINGUAL Q5M PRN #30 tablet 09/25/18 Oxycodone [Oxyir] 5 mg PO Q4H PRN 5 Days #30 tab 09/25/18 The following prescriptions were given: Cefuroxime Axetil [Ceftin] 500 mg PO Q12 #6 tablet Iron Polysaccharide Complex [Ferrex 150] 150 mg PO TUTHSA@0800 #30 capsule Nitroglycerin [Nitrostat] 0.4 mg SUBLINGUAL Q5M PRN #30 tablet PRN Reason: Cardiac/Chest Pain Oxycodone [Oxyir] 5 mg PO Q4H PRN 5 Days #30 tab PRN Reason: Moderate Pain (4-5/10) Primary Care Physician: Estela Osborne DO [Primary Care Provider] - Please follow up with your Primary Care Physician in: 1 week. Test Results: Test results from this visit will be discussed in further detail at your follow-up appointment, if applicable. Please Follow Up With: Yaya Benito MD When: 2 weeks. Proposed Discharge Date: 09/30/18 09/25/18 1316 <Electronically signed by Kurt Howard MD> Date Kurt Howard MD CC: Estela Osborne DO URINALYSIS, COMPLETE Collected: 09/21/2018 Status: F Source: [place] 9:00 AM [facility] [place] Order Comment: Order Date: 09/21/18 Has pt arrived? Y How was Urine Obtained? BLADDER TAP TYPE CODE TESTS RESULT OUT OF RANGE REFERENCE UNITS LAB L400.3000 Yellow COLOR Normal Yellow LAB L400.3050 Clear Normal CLARITY Cloudy LAB L400.3200 Normal mg/dl Normal GLUCOSE, UR Normal LAB L400.3300 Negative mg/dL Normal BILIRUBIN URINE Negative LAB L400.3400 Negative mg/dl Normal KETONE UR Negative LAB L400.3465 1.002-1.030 Normal SP.GR. DIPSTX 1.010 LAB L400.3550 5.0 - 8.0 pH UR Normal 8.0 LAB L400.3600 Negative mg/dl PROT Normal DIPSTX Negative LAB L400.3700 Normal mg/dl Normal UROBILI Normal LAB L400.3750 Negative High NITRITE UR Positive LAB L400.3780 Negative /ul High 25 OCCULT BLOOD-UR LAB L400.3800 Negative /ul High LEUK ESTERASE 500 LAB L400.4050 0-5 /hpf WBC Normal 25-50 SEEN LAB L400.4100 0-5 /hpf Normal RBC-UA 0-5 SEEN LAB L400.4150 5-10 /hpf SQUAM Normal EPI 0-5 SEEN LAB L400.4300 None Seen /hpf 2+ Normal BACTERIA LAB L400.4350 <or=2+ /hpf 0 Normal MUCUS, URINE SEEN Performed By: #### L400.0001 #### [facility] [address] [place], [place], [address] Observed: 09/21/2018 Status: F Source: [place] CULTURE, URINE 9:00 AM [facility] [place] [facility] Order Date: 09/21/18 Has pt arrived? Y Urine Culture ORGANISM 1: Klebsiella pneumoniae sp pneum [place] Count >100,000 Klebsiella pneumoniae sp pneum: REACTION Amoxacillin/Clavulanic Acid $ <=2 S Ampicillin $ 16 R Ampicillin/Sulbactam $ 4 S Cefazolin $ <=4 S Cefepime $ <=1 S Ceftriaxone $ <=1 S Ciprofloxacin $ <=0.25 S ESBL - Ertapenim $$$ <=0.5 S Gentamicin $ <=1 S Imipenem *NF 0.5 S Levofloxacin $ <=0.12 S Nitrofurantoin $ 64 I Piperacillin/Tazobactam $$ <=4 S Tobramycin $ <=1 S Trimethoprim/Sulfametho $ <=20 S (NF) indicates non-formulary drug at [facility]. Approval by Infectious Disease Specialist required before non-formulary drugs may be ordered and/or dispensed. Performed By: #### M100.0650 #### [facility] [address] [place], [place], [id number] BASIC METABOLIC Collected: 09/21/2018 Status: F Source: [place] PROFILE (BMP) 5:45 AM [facility] [place] TYPE CODE TESTS RESULT OUT OF RANGE REFERENCE UNITS LAB L501.0100 74-106 mg/dL Normal GLU 80 Result Comment: Please note revised GLUCOSE reference range effective 2017. LAB L501.1000 7-18 mg/dL Normal BUN 18 LAB L501.1100 0.55-1.02 mg/dL High CREAT,SERUM 1.08 Result Comment: The validity of the calculated GFR AND GFRAA in patients over 70 years has not been determined. Clinical correlation is essential. LAB L501.1110 >60 mL/min Low EST GFR 52 Result Comment: Non- GFR Calc LAB L501.1115 >60 mL/min Normal EST GFR - AA 63 Result Comment: GFR Calc LAB L501.1255 ml/min Normal Estimated CRCL 30.84 LAB L501.1300 10-20 RATIO Normal BUN/CRE 16.7 LAB L501.2200 8.5-10 mg/dL Low .1 CA 8.4 LAB L501.5300 136-14 mmol/L Normal 5 NA 139 LAB L501.5600 3.5-5. mmol/L Normal 1 K 4.4 LAB L501.5900 98-107 mmol/L Normal CL 104 LAB L501.6100 21.0-3 mmol/L Normal 2.0 CO2 27.0 LAB L501.6200 5-15 Normal GAP 8 Performed By: #### L500.2500 #### [facility] [address] [place], [address] CBC W/DIFF, AUTOMATED Collected: 09/21/2018 Status: F Source: [place] 5:45 AM [facility] [place] TYPE CODE TESTS RESULT OUT OF RANGE REFERENCE UNITS LAB L100.1000 4.4-11.0 K/mm3 Normal WBC 8.2 LAB L100.1200 4.2-5.4 M/mm3 Low RBC 3.25 LAB L100.1300 12.0-15.0 g/dl Low HGB 9.8 LAB L100.1400 37-47 % Low HCT 31.0 LAB L100.1500 81-99 fL Normal MCV 95.4 LAB L100.1600 27.0-32.0 pg Normal MCH 30.2 LAB L100.1700 32-36 g/gl Low MCHC 31.6 LAB L100.1810 11.6-14.6 % Normal RDW CV 13.1 LAB L100.1820 35.1-43.9 fl Normal RDW SD 43.6 LAB L100.1900 150-450 K/mm3 High PLT 640 LAB L100.2000 6.2-12.0 fl Normal MPV 9.3 LAB L100.2100 47-70 % Normal NEUT% 61.1 LAB L100.2200 19-41 % Normal LY% 23.0 LAB L100.2300 0-10 % Normal MONO% 10.0 LAB L100.2400 0-5 % Normal EO% 3.7 LAB L100.2500 0-1 % Normal BASO% 0.5 LAB L100.2550 0.0-0.9 % High IM GRAN % 1.700 Result Comment: IG% - Immature Granulocytes (promyelocytes, myelocytes and metamyelocytes) > 1% indicates that a LEFT SHIFT is Present. LAB L100.2620 2.0-7.7 X10 3/uL Normal Absolute Neut 5.0 LAB L100.2720 0.83-4.51 X10 3/ul Normal Absolute Lymph 1.89 Performed By: #### L100.0100 #### [facility] [address] [place], [address] ABDOMEN SINGLE VIEW Observed: 09/18/2018 Status: F Source: [place] (PORTABLE) 10:18 AM [facility] [place] [facility] Imaging Services [address] [place] [address] Abdomen Single View (Portable) MR#: [id number] Acct: [id number] Name: NORMA HARPER Rep #: [id number] : 1940 F 77 From: Chente Spence MD PCP: Estela Osborne DO Status: ADM IN Study: Abdomen Single View (Portable) Date of Exam: 09/18/18 Exam# [id number] Ordering Dr: Kurt Howard MD STUDY: X-RAY - ABDOMEN/PELVIS REASON FOR EXAM: Female, 77 years old. Constipation following spinal surgery. TECHNIQUE: Two AP supine views of the abdomen and pelvis. COMPARISON: None. FINDINGS: Normal visualized lung bases. There is a moderate amount of colonic fecal material. The visualized liver, spleen and kidneys are grossly normal in size and morphology. Normal soft tissue structures. The patient is status post laminectomy and fusion at the L1-L5 vertebra. RAD/Abdomen Single View (Portable) IMPRESSION: Moderate amount of fecal material is seen in the colon. Electronically Signed: Chente Spence MD at 15:42 EDT Tel [phone], Service support , CC: Estela Osborne DO; Kurt Howard MD Journeyman Electrician: Signed BASIC METABOLIC Collected: 09/14/2018 Status: F Source: [place] PROFILE (BMP) 5:10 AM [facility] [place] [facility] TYPE CODE TESTS RESULT OUT OF RANGE REFERENCE UNITS LAB L501.0100 74-106 mg/dL Normal GLU 95 Result Comment: Please note revised GLUCOSE reference range effective 2017. LAB L501.1000 7-18 mg/dL High BUN 22 LAB L501.1100 0.55-1.02 mg/dL High CREAT,SERUM 1.04 Result Comment: The validity of the calculated GFR AND GFRAA in patients over 70 years has not been determined. Clinical correlation is essential. LAB L501.1110 >60 mL/min Low EST GFR 54 Result Comment: Non- GFR Calc LAB L501.1115 >60 mL/min Normal EST GFR - AA 66 Result Comment: GFR Calc LAB L501.1255 ml/min Normal Estimated CRCL 32.02 LAB L501.1300 10-20 RATIO High BUN/CRE 21.2 LAB L501.2200 8.5-10 mg/dL Low .1 CA 8.2 LAB L501.5300 136-14 mmol/L Normal 5 NA 136 LAB L501.5600 3.5-5. mmol/L Normal 1 K 4.2 LAB L501.5900 98-107 mmol/L Normal CL 99 LAB L501.6100 21.0-3 mmol/L Normal 2.0 CO2 28.0 LAB L501.6200 5-15 Normal GAP 9 Performed By: #### L500.2500 #### [facility] [address] [place], [address] CBC W/DIFF, AUTOMATED Collected: 09/14/2018 Status: C Source: [place] 5:10 AM [facility] [place] [facility] TYPE CODE TESTS RESULT OUT OF RANGE REFERENCE UNITS LAB L100.1000 4.4-11.0 K/mm3 Normal WBC 9.3 LAB L100.1200 4.2-5.4 M/mm3 Low RBC 2.97 LAB L100.1300 12.0-15.0 g/dl Low HGB 9.1 LAB L100.1400 37-47 % Low HCT 28.1 LAB L100.1500 81-99 fL Normal MCV 94.6 LAB L100.1600 27.0-32.0 pg Normal MCH 30.6 LAB L100.1700 32-36 g/gl Normal MCHC 32.4 LAB L100.1810 11.6-14.6 % Normal RDW CV 12.3 LAB L100.1820 35.1-43.9 fl Normal RDW SD 41.2 LAB L100.1900 150-450 K/mm3 High PLT 498 LAB L100.2000 6.2-12.0 fl Normal MPV 9.8 LAB L100.3100 MANUAL DIFF Normal CELLS COUNTED 100 LAB L100.3200 47-70 % 66 Normal SEGS LAB L100.3400 0-1 % 1 Normal META LAB L100.3800 19-41 % 19 Normal LYMPH LAB L100.3900 0-10 % High 13 MONOCYTE LAB L100.4100 0-1 % 1 Normal BASOPHIL LAB L100.5500 ADEQ Normal PLT EST ADEQUATE LAB L100.7000 NORM C AND C NORMAL Normal RED CELL MORPH NORM C+C LAB L100.2620 2.0-7.7 X10 3/uL Normal Absolute Neut 6.1 LAB L100.2720 0.83-4.51 X10 3/ul Normal Absolute Lymph 1.77 LAB L100.9900 Normal PATH REV Reviewed Result Comment: Normocytic anemia. Thrombocytosis. Clinical correlation necessary. Christiano Church M.D. 09/15/18 AMENDED REPORT 09/15/18 1514 PATH REV previously reported as: March genaro Performed By: #### L100.0100 #### [facility] [address] [place], [address] HISTORY AND PHYSICAL Observed: 09/07/2018 Status: F Source: [place] EXAM 8:32 AM [facility] [place] [facility] Medical Records Department [address] [place] [address] History and Physical 09/06/18 1747 MR#: [id number] Acct: [id number] Name: NORMA HARPER Rep #: [id number] : 1940 77 From: Kurt Howard MD PCP: Estela Osborne DO Status: ADM IN Y Location: [place] [address] Problem List (1) Lumbar spinal stenosis Status: Chronic (2) Scoliosis Status: Chronic (3) Lumbar spondylolysis Status: Chronic (4) Coronary artery disease Status: Chronic (5) Macular degeneration Status: Chronic (6) Myocardial infarction Status: Acute (7) Osteoarthritis Status: Chronic (8) Hyperlipidemia Status: Chronic Qualifiers: (9) Hypertension Status: Chronic Qualifiers: History of Present Illness Date of Admission: 09/06/18 Chief Complaint: Here for rehabilitation, strengthening, prior to discharge home. The patient is a 77 year old Female with below past medical history admitted to [facility] [place] 09/03/2018 underwent L2-5 laminectomy, L1-5 fusion, bone allograft, admitted to TCU with debility, here for rehabilitation, strengthening, prior to discharge home. Past Medical History Past Medical History (Chronic Problems): Chronic Problems (Last Reviewed 06/04/18 @ 12:52 by Ayse Burns) Lumbar spinal stenosis (Chronic) Scoliosis (Chronic) Lumbar spondylolysis (Chronic) Coronary artery disease (Chronic) Macular degeneration (Chronic) Osteoarthritis (Chronic) Hyperlipidemia (Chronic) Stented coronary artery (Chronic) Atherosclerotic heart disease of [place] coronary artery without angina pectoris (Chronic) 07/19/15 PCI and NINA to LAD and CX Old myocardial infarction (Chronic) Renal insufficiency (Chronic) Hypertension (Chronic) Medical History: Medical History (Last Reviewed 06/04/18 @ 12:52 by Ayse Burns) Hyperlipidemia (Chronic) E78.5 Atherosclerotic heart disease of [place] coronary artery without angina pectoris (Chronic) I25.10 07/19/15 PCI and NINA to LAD and CX Old myocardial infarction (Chronic) I25.2 Renal insufficiency (Chronic) N28.9 Hypertension (Chronic) I10 Chest pain (Resolved) R07.9 Lumbar radiculopathy M54.16 History of left heart catheterization Z98.890 07/19/15 @ [facility] with subsequent PCI and NINA to LAD and CX Low back pain M54.5 Allergies gabapentin Allergy (Verified 09/06/18 13:37) Hives Home Medications: Ambulatory Orders Medication Instructions Recorded Aspirin [Aspirin, Baby] 81 mg PO DAILY 08/09/15 biotin 1 mg capsule 1,000 mcg PO QDAY 06/04/18 Surgical History: Surgical History (Last Reviewed 06/04/18 @ 12:52 by Ayse Burns) Stented coronary artery (Chronic) Z95.5 Surgical History: hysterectomy, - - Cardiac stent x 2 in 2015 after HI, Left elbow surgery, Vulvar tumor removal, Right wrist repair. 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 Lives: Alone Smoking Status: Former smoker Tobacco Use: Non-smoker Alcohol: Rare Drugs: None - *Family History Maternal Family History: Family History (Last Reviewed 06/04/18 @ 12:52 by Ayse Burns) Father Congestive heart failure Mother CVA (cerebral vascular accident) Hypertension Hyperlipidemia Sister No problems noted. History Items: No pertinent history Review of Systems Constitutional: Denies: Chills, Fever, Weight Change HEENT: Denies: Head Aches, Sinus Congestion, Sinus Drainage Cardiovascular: Denies: Chest Pain, Palpitations Respiratory: Denies: Cough, Shortness of breath at rest, Sputum production Gastrointestinal: Denies: Abdominal Pain, Nausea, Vomiting Genitourinary: Denies: Dysuria Musculoskeletal: Denies: Joint Pain, Joint Tenderness Skin: Denies: Rash, Wounds Neurological: Denies: Numbness, Tingling, Focal weakness Psychiatric: Denies: Anxiety, Depression, Homicidal Ideations, Suicidal Ideations Hematologic/ Lymphatic: Denies: Easy Bruising, Easy Bleeding VTE Information - Inpt Only VTE Present on Admission: No VTE Mechan Device Prophylaxis: Knee High REMI Hose VTE Pharm Prophylaxis ordered?: Yes Patient Problems: Active and Suspected Problems (Last Reviewed 06/04/18 @ 12:52 by Ayse Burns) Myocardial infarction (Acute) - Physical Exam General: Alert, Oriented x3, Cooperative HEENT: Atraumatic, PERRLA, EOMI, Normocephalic Neck: Supple, No JVD, Negative Carotid Bruits Lungs: Clear to auscultation, Normal air movement Cardiovascular: Regular rate, No murmurs Abdomen: Bowel Sounds Present, Soft, Non Tender Extremities: No edema, Capillary Refill Less than 3 Seconds Skin: No rashes, No breakdown Musculoskeletal: No Tenderness to Palpation of Joints or Extremities Neurological: Cranial nerves II-XII grossly intact Psych/Mental Status: Normal Affect, Appropriate Vital Signs Temp Pulse Resp BP Pulse Ox 98.9 F 103 H 16 144/73 H 94 09/06/18 16:00 09/06/18 16:00 09/06/18 16:00 09/06/18 16:00 09/06/18 16:00 Oxygen Delivery Method Room Air Assessment/Plan All Active Problems (Last Reviewed 06/04/18 @ 12:52 by Ayse Burns) Myocardial infarction (Acute) Chest pain (Resolved) 77 year old female with below past medical history underwent lumbar spine surgery 09/03/[address] Benito, admitted to TCU with debility, here for rehabilitation, strengthening prior to discharge home alone. * Debility - PT/OT. * Pain - Tylenol 1000MG Q8H PRN mild pain, Oxycodone 5MG Q4H PRN moderate pain. * Bowel - Miralax 17GM daily, Senna/colace 2 tablets BID, Dulcolax 10MG PO daily PRN, Magnesium citrate 300ML PO x 1 dose for cleanout. * Pneumonia vaccination - Administer Prevnar 13 and/or Pneumovax 23 as necessary. * DVT prophylaxis - Lovenox 40MG SC daily. * Coronary Artery Disease - Metoprolol succinate 25MG daily, Isosorbide MN 90MG daily, Plavix 75MG QMWF, Aspirin 81MG daily. * Hyperlipidemia - Atorvastatin 80MG QHS. * Vitamin D deficiency - D2 50,000 units per week. 09/07/18 0832 <Electronically signed by Kurt Howard MD> Date Kurt Howard MD Cosigner Signature: Date (if applicable) CC: Estela Osborne DO; Kurt Howard MD Signed CBC W/DIFF, AUTOMATED Collected: 09/07/2018 Status: F Source: [place] 5:05 AM [facility] [place] [facility] TYPE CODE TESTS RESULT OUT OF RANGE REFERENCE UNITS LAB L100.1000 4.4-11.0 K/mm3 High WBC 11.9 LAB L100.1200 4.2-5.4 M/mm3 Low RBC 3.03 LAB L100.1300 12.0-15.0 g/dl Low HGB 9.3 LAB L100.1400 37-47 % Low HCT 29.0 LAB L100.1500 81-99 fL Normal MCV 95.7 LAB L100.1600 27.0-32.0 pg Normal MCH 30.7 LAB L100.1700 32-36 g/gl Normal MCHC 32.1 LAB L100.1810 11.6-14.6 % Normal RDW CV 12.4 LAB L100.1820 35.1-43.9 fl Normal RDW SD 41.9 LAB L100.1900 150-450 K/mm3 Normal PLT 257 LAB L100.2000 6.2-12.0 fl Normal MPV 11.0 LAB L100.2100 47-70 % High NEUT% 77.2 LAB L100.2200 19-41 % Low LY% 9.8 LAB L100.2300 0-10 % High MONO% 10.7 LAB L100.2400 0-5 % Normal EO% 1.5 LAB L100.2500 0-1 % Normal BASO% 0.2 LAB L100.2550 0.0-0.9 % Normal IM GRAN % 0.600 Result Comment: IG% - Immature Granulocytes (promyelocytes, myelocytes and metamyelocytes) > 1% indicates that a LEFT SHIFT is Present. LAB L100.2620 2.0-7.7 X10 3/uL High Absolute Neut 9.2 LAB L100.2720 0.83-4.51 X10 3/ul Normal Absolute Lymph 1.17 Performed By: #### L100.0100 #### [facility] [address] [place], [place], [address] BASIC METABOLIC Collected: 09/07/2018 Status: F Source: [place] PROFILE ([facility]) 5:05 AM [facility] [place] [facility] TYPE CODE TESTS RESULT OUT OF RANGE REFERENCE UNITS LAB L501.0100 74-106 mg/dL Normal GLU 98 Result Comment: Please note revised GLUCOSE reference range effective 2017. LAB L501.1000 7-18 mg/dL High BUN 21 LAB L501.1100 0.55-1.02 mg/dL High CREAT,SERUM 1.24 Result Comment: The validity of the calculated GFR AND GFRAA in patients over 70 years has not been determined. Clinical correlation is essential. LAB L501.1110 >60 mL/min Low EST GFR 44 Result Comment: Non- GFR Calc LAB L501.1115 >60 mL/min Low EST GFR - AA 54 Result Comment: GFR Calc LAB L501.1255 ml/min Normal Estimated CRCL 26.86 LAB L501.1300 10-20 RATIO Normal BUN/CRE 16.9 LAB L501.2200 8.5-10 mg/dL Low .1 CA 8.4 LAB L501.5300 136-14 mmol/L Normal 5 NA 139 LAB L501.5600 3.5-5. mmol/L Normal 1 K 4.0 LAB L501.5900 98-107 mmol/L Normal CL 100 LAB L501.6100 21.0-3 mmol/L Normal 2.0 CO2 30.0 LAB L501.6200 5-15 Normal GAP 9 Performed By: #### L500.2500 #### [facility] [address] [place], [place], [address] SPINE LUMBAR Observed: 07/20/2018 Status: F Source: [place] (ROUTINE) 10:51 AM [facility] [place] [facility] Imaging [place] [address] Spine Lumbar (Routine) MR#: [id number] Acct: [id number] Name: NORMA HARPER Rep #: [id number] : 1940 F 77 From: Virgilio Archibald MD PCP: Estela Osborne DO Status: REG CLI Study: Spine Lumbar (Routine) Date of Exam: 07/20/18 Exam# [id number] Ordering Dr: Evaristo Bowen MD STUDY: MRI LUMBAR SPINE WITHOUT CONTRAST REASON FOR EXAM: Female, 77 years old. Low back pain with radiculopathy, left hip and leg x1 month. TECHNIQUE: Standardized fat and water weighted pulse sequences were obtained in the sagittal and axial planes. COMPARISON: 10/11/2016. FINDINGS: T9-T10: (Sagittal only). Schmorl's nodes in the superior and inferior endplates of T9 body. Normal T10 superior endplate. Moderate disc space height narrowing with moderate loss of disc hydration. Tiny posterior bulging disc. Normal central canal and bilateral intervertebral neural foramina. T10-T11, (sagittal only). Schmorl's node in the T10 inferior endplate. Normal T11 superior endplate. Moderate disc space height narrowing with moderate loss of disc hydration. Normal central canal and bilateral intervertebral neural foramina. T11-T12: Anterior marginal spurs. Schmorl's node in the T11 inferior endplate. Normal T12 superior endplate. Pronounced anterior disc space height narrowing. No extruded disc fragment. Normal central canal and bilateral intervertebral neural foramina. T12-L1: (Sagittal only). Prominent anterior marginal spurs. Pronounced anterior disc space height narrowing. Moderate posterior disc space height narrowing. No extruded disc fragment. Normal central canal and bilateral intervertebral neural foramina. Normal lumbar lordosis. There is no substantial scoliosis. Normal conus medullaris that terminates at the L1-L2 disc level. L1-2: Anterior marginal spurs. Mixed Modic type I and type II degenerative changes of the vertebral bone marrow underneath the irregular vertebral endplates. Pronounced disc space height narrowing with marked loss of disc hydration. Grade 1 degenerative retrolisthesis of L1 on L2. Mild central canal stenosis with an AP canal diameter of 11 mm. Left posterior ligamentum flavum hypertrophy. Moderate left degenerative facet arthropathy. Mild right degenerative facet arthropathy. Moderate stenosis of the bilateral intervertebral neural foramina. L2-3: Marked irregularity of the vertebral endplates with mild Modic type II degenerative vertebral marrow fatty changes underneath the vertebral endplates. Moderate central canal stenosis with an AP canal diameter is 6.6 mm. Mild dorsal epidural lipomatosis. Severe stenosis of the left intervertebral neural foramen with impingement/entrapment of the left L2 nerve. Normal right intervertebral neural foramen. Moderate left due to facet hypertrophy. Normal right facet joint. L3-4: Anterior marginal spurs. Schmorl's node at the L3 inferior endplate. Mild disc space height narrowing with moderate loss of disc hydration. Mild central canal stenosis. The AP canal diameter is 9.6 mm. Mild asymmetric stenosis of the bilateral intervertebral neural foramina. Mild bilateral degenerative facet arthropathy. L4-5: Pronounced right-sided disc space height narrowing with Modic type II degenerative vertebral marrow fatty changes underneath the vertebral endplates. Mild degenerative anterolisthesis of L4 on L5. Normal central canal. Asymmetric posterior ligamenta flava hypertrophy. Moderate bilateral degenerative facet arthropathy. Mild to moderate stenosis of the bilateral lateral recesses. Moderately pronounced stenosis of the right intervertebral neural foramen. Moderate stenosis of the left intervertebral neural foramen. L5-S1: Pronounced disc space height narrowing with anterior and posterior marginal spurs. Small posterior midline disc protrusion. Normal central canal and bilateral lateral recesses. Moderate right degenerative facet hypertrophy. Mild to moderate left degenerative facet arthropathy. Moderately pronounced stenosis of the right intervertebral neural foramen. Normal left intervertebral neural foramen. Normal visualized sacral ala. Normal visualized paraspinous soft tissue structures. MRI/Spine Lumbar (Routine) IMPRESSION: 1. Severe stenosis of the left L2-L3 intervertebral neural foramen, worse since 10/11/2016. There is now suspicious impingement/entrapment of the left L2 nerve. 2. Marked irregularity of the vertebral endplates at L2-L3 disc space level with mild Modic type II degenerative vertebral marrow fatty changes underneath the vertebral endplates and mild central canal stenosis are unchanged. 3. Grade 1 degenerative retrolisthesis of L1 on L2 with mild central canal stenosis and moderate stenosis of the bilateral intervertebral neural foramina are unchanged. 4. Mild central canal stenosis at L3-L4 disc level with mild disc space height narrowing and mild asymmetric stenosis of the bilateral intervertebral neural foramina are unchanged. 5. Pronounced right-sided L4-L5 disc space height narrowing with Modic type II degenerative vertebral marrow fatty changes underneath the vertebral endplates, mild degenerative anterolisthesis of L4 on L5, moderate pronounced stenosis of the right intervertebral neural foramen and moderate stenosis of the left intervertebral neural foramen. This level is unchanged. 6. L5-S1 posterior midline disc protrusion, pronounced L5- S1 disc space height narrowing with moderate right degenerative facet hypertrophy and moderately pronounced stenosis of the right intervertebral neural foramen. This level is unchanged. 7. No MRI evidence of lumbar extruded disc fragment. Electronically Signed: Virgilio Archibald MD at 12:16 EDT , Service support , CC: Evaristo Osborne DO Journeyman Electrician: Signed CARDIOLOGY VISIT Observed: 06/05/2018 Status: F Source: [place] REPORT 4:04 PM [facility] [place] [facility] [address] [place] [address] OFFICE VISIT Date of Service: 06/04/18 MR#: [id number] Acct: [id number] Name: NORMA HARPER Rep #: [id number] : 1940 Provider: Graciela Hurtado Age/Sex: 77/F Location: [facility] Status: Signed [facility] HPI Details: NORMA HARPER, is a 77 F who presents to the office today for a cardiovascular followup. She has a history of coronary artery disease. She had a heart catheterization in July of 2015 which demonstrated stenosis of the LAD, circumflex and RCA. She had angioplasty and stenting with drug-eluting stents to her LAD as well as her circumflex. Pt is concerned about leg edema. She is seeing a vascular specialist for this. They feel that this is related to venous insuff. She also notes that she has low BP readings. She is also concerned about hair loss and wonders if this is related to medications. 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 Required: No Is patient in pain?: No Allergies gabapentin Adverse Reaction (Verified 06/04/18 12:52) Hives Medications Aspirin [Aspirin, Baby] 81 mg PO DAILY 08/09/15 [History Confirmed 06/04/18] Multivitamin/Iron/Folic Acid [One Daily Multivitamin-Iron Tb] 2 tab PO DAILY 08/09/15 [History Confirmed 06/04/18] furosemide 20 mg tablet 20 mg PO QDAY PRN 10/28/17 [History Confirmed 06/04/18] isosorbide mononitrate ER 60 mg tablet,extended release 24 hr 90 mg PO QAM tab 10/28/17 [History Confirmed 06/04/18] tramadol 50 mg tablet 50 mg PO ONCE PRN 10/28/17 [History Confirmed 06/04/18] metoprolol succinate ER 25 mg tablet,extended release 24 hr 25 mg PO QDAY #90 tab 12/04/17 [Rx Confirmed 06/04/18] clopidogrel 75 mg tablet 75 mg PO QDAY #90 tab 05/21/18 [Rx Confirmed 06/04/18] atorvastatin 80 mg tablet 80 mg PO .COMPLEX #90 tab 06/04/18 [Rx Confirmed 06/04/18] biotin 1 mg capsule 1 mg PO QDAY 06/04/18 [History Confirmed 06/04/18] cholecalciferol (vitamin D3) 50,000 unit capsule 50,000 unit PO QWEEK 06/04/18 [History Confirmed 06/04/18] cyanocobalamin (vit B-12) 5,000 mcg/mL sublingual drops 5,000 mcg SUBLINGUAL QDAY 06/04/18 [History Confirmed 06/04/18] hydrocodone bitartrate ER 50 mg capsule, oral only, extended rel 12 hr 50 mg PO Q12H 06/04/18 [History Confirmed 06/04/18] [facility] Medical History Hyperlipidemia (Chronic) Atherosclerotic heart disease of [place] coronary artery without angina pectoris (Chronic) Old myocardial infarction (Chronic) Renal insufficiency (Chronic) Hypertension (Chronic) Chest pain (Resolved) Lumbar radiculopathy (Acute) History of left heart catheterization (Chronic) Low back pain (Chronic) Surgical History Stented coronary artery (Chronic) Family History Father , Age 89 Congestive heart failure Mother , Age 86 CVA (cerebral vascular accident) Hypertension Hyperlipidemia Sister , age 11 in MVA No problems noted. Social History Smoking Status: Former smoker how long ago did patient quit smokin ROS Const Const: Negative for weakness, fatigue, fever(s) or headache(s) Eyes Eyes: Negative for blind spots, loss of peripheral vision or transient loss of vision ENT ENT: Negative for headache(s), dizziness, tinnitus or Nosebleed/epistaxis Cardio Chest Pain: No Palpitations: No Edema: Right Muscle aches with walking: None Resp Respiratory: Negative for SOB with activity, SOB at rest, SOB orthopnea\SOB lying down or Cough GI GI: Negative nausea, vomiting, heartburn or vomiting blood/hematemesis : Negative for hematuria Musc Musc: Negative for muscle aches/ myalgia Neuro Neuro: Negative for weakness, headache(s), dizziness, near syncope, syncope, lightheadedness or orthostatic symptoms Marco Antonio Hematologic/Lymphatic: Negative for easy bleeding Endo Endo: Positive for hair loss; negative for fatigue Cardiology Exam Const Appearance: cooperative, no acute distress and well developed Orientation: alert, awake and oriented x3 Head Head: normocephalic and atraumatic Mouth: moist mucous membranes Eyes General: appearance normal, both eyes and all related structures Conjunctivae: conjunctivae normal Pupils: PERRL EOM: EOM intact bilaterally Neck Neck: normal visual inspection, no lymphadenopathy and no JVD Carotids: Negative bruit Neck Mass: Negative Neck mass Chest Chest inspection: normal inspection of the chest and symmetric chest movement Auscultation: Bilateral: Clear to Auscultation Cardio Palpation: normal PMI Rate: regular rate Rhythm: regular rhythm Heart sounds: S1 normal and S2 normal; negative rub, gallop or murmur GI GI: normal to inspection, soft, no hepatosplenomegaly and bowel sounds present; negative tender Neuro General: alert, awake, oriented x3, CN's II-XI intact bilaterally and moves all extremities Extremities Pulses: Normal: Right Posterior Tibial Pulse, Left Posterior Tibial Pulse, Right Radial Pulse, Left Radial Pulse Lower Extremity Edema: None: Left, +1: Right Psych Psychological: normal affect Supplemental Info Echocardiogram in 2015 demonstrated Normal LV size. Left ventricular systolic function is normal. The estimated ejection fraction is 60 %. Mild (1+) mitral valve insufficiency. Mild (1+) tricuspid valve insufficiency. Transmitral and pulmonary venous doppler flow suggestive of impaired relaxation of left ventricle Stress test in 2015 demonstrated Exercise myocardial perfusion stress test at a low to moderate workload demonstrating no evidence of ischemia. Preserved ejection fraction noted. Assessment AND Plan 1. Atherosclerosis of [place] coronary artery of [place] heart without angina pectoris I25.10 07/19/15 PCI and NINA to LAD and CX Plan - TAWANDA Tam Stable, from a cardiac standpoint patient does not have any symptoms of angina. We recommend that they continue with current aggressive medical management and risk factor modification. 2. Essential hypertension I10 Plan - TAWANDA Tam Blood pressure is on the low side. We will have her stop her lisinopril. She will monitor blood pressures closely and let us know if it is elevated. Patient Instructions - TAWANDA Tam Stop your lisinopril 3. Pure hypercholesterolemia E78.00 Plan - TAWANDA Tam Lipids are adequately controlled on current medications. Recent lipid profile demonstrates total cholesterol 131, HDL 56, LDL 61. She is concerned about alopecia. Atorvastatin could be contributing to this. Will have her decrease this to every other day. Patient Instructions - TAWANDA Tam decrease your atorvastatin to every other day. Plan Detail Other Medications Changed: Discontinued: Additional Comments - TAWANDA Tam The above patient was discussed with Dr. Zafar, he agrees with plan of care. Thank you for allowing us to participate in patient's plan of care, if you have any questions please do not hesitate to call. This note was generated using a voice recognition system and there may be incorrect words, spelling or punctuation errors that were not noted when reviewing the office note prior to saving. Follow Up 9 Months (BAY STOCKER) Coding Level of Care Code Off vis,est,level 4 Diagnoses Atherosclerosis of [place] coronary artery of [place] heart without angina pectoris I25.10 [place] vs. transplanted heart: [place] heart Essential hypertension I10 Hypertension type: essential hypertension Pure hypercholesterolemia E78.00 Hyperlipidemia type: pure hypercholesterolemia Coding Level of Care Code Off vis,est,level 4 Diagnoses Atherosclerosis of [place] coronary artery of [place] heart without angina pectoris I25.10 [place] vs. transplanted heart: [place] heart Essential hypertension I10 Hypertension type: essential hypertension Pure hypercholesterolemia E78.00 Hyperlipidemia type: pure hypercholesterolemia 06/04/18 1403 <Electronically signed by Graciela Hurtado PA> Date Graciela NEFF 06/05/18 1604<Electronically signed by Carlos Eduardo Zafar MD> Cosigner Signature: Date (if applicable) Carlos Eduardo Zafar MD CC: Estela Osborne DO LIVER PROFILE Collected: 06/01/2018 Status: F Source: [place] 9:45 AM [facility] [place] TYPE CODE TESTS RESULT OUT OF RANGE REFERENCE UNITS LAB L501.1500 6.4-8.2 g/dL Normal T PROT 6.7 LAB L501.1800 3.2-5.0 g/dL Normal ALB 3.2 LAB L501.1950 2.2-4.2 g/dL Normal GLOB 3.5 LAB L501.4100 15-37 U/L Normal AST 28 LAB L501.4305 45-117 U/L Normal ALK P 100 LAB L501.4405 13-56 U/L Normal ALT 28 LAB L501.4600 0.20-1.00 mg/dL Normal T BILI 0.50 LAB L501.4700 0.00-0.30 mg/dL Normal D BILI 0.09 Performed By: #### L500.3400, L500.4100 #### [facility] [address] [place], [address] LIPID PROFILE Collected: 06/01/2018 Status: F Source: [place] 9:45 AM [facility] [place] TYPE CODE TESTS RESULT OUT OF RANGE REFERENCE UNITS LAB L501.4900 200 mg/dL Normal CHOL 131 Result Comment: <200 mg/dL Desirable 200-240 mg/dL Borderline >240 mg/dL High Risk LAB L501.5000 mg/dL Normal TRIG 72 Result Comment: The drugs N-Acetylcysteine and Metamizole may falsely depress this assay. Serum Triglycerides Reference Interval Normal <150 mg/dL Borderline high 150 - 199 mg/dL High 200 - 499 mg/dL Very High > or = 500 mg/dL LAB L501.6400 mg/dL Normal HDL 56 Result Comment: The drugs N-Acetylcysteine and Metamizole may falsely depress this assay. Reference Range HDL <40 mg/dL Low HDL Cholesterol HDL >or= 60 mg/dL High HDL Cholesterol LAB L501.6500 0-130 mg/dL Normal LDL 61 LAB L501.6600 5-40 mg/dL Normal VLDL 14 Performed By: #### L500.3400, L500.4100 #### [facility] [address] [place], [address] VENOUS DUPLEX LOWER Observed: 05/20/2018 Status: F Source: [place] EXTREMITY 11:48 AM [facility] [place] [facility] Cardiovascular Services [address] [place] [address] Venous Duplex US - Silverio Extrem 04/27/18 1256 MR#: [id number] Acct: [id number] Name: NORMA HARPER Rep #: [id number] : 1940 77 From: Ambrose Barron MD Attending Dr: Ambrose Barron MD Status: REG CLI Ordering Dr: Ambrose Barron MD Date: 04/27/18 Location: CVS Sex: F C Admitted: Reason For Study: PAIN AND SWELLING RIGHT LEFT CFV is compressible, spontaneous, phasic, CFV is compressible, spontaneous, phasic, competent and demonstrates normal competent, and demonstrates normal augmentation. augmentation. FV is compressible, spontaneous, phasic, FV is compressible, spontaneous, phasic, competent and demonstrates normal competent and demonstrates normal augmentation. augmentation. POP V is compressible, spontaneous, phasic, POP V is compressible, spontaneous, phasic, competent and demonstrates normal competent and demonstrates normal augmentation. augmentation. T/P Trunk is compressible. T/P Trunk is compressible. PTV is compressible. PTV is compressible. RT PerV is compressible. LT PerV is compressible. RT GSV AT SFJ is compressible and competent. Left GSV at SFJ is compressible and RT GSV above the knee is compressible and competent. competent. Left GSV above the knee is compressible and RT GSV below the knee is compressible and competent. INCOMPETENT for greater than .5 sec. Left GSV below the knee is compressible and Procedure competent. Exam performed in department. Interpretation Summary 1. Bilateral leg no DVT or SVt. 2. Reflux only noted in right calf GSV. Ordering Physician: Ambrose Barron Referring Physician: Ambrose Barron Performed By: Taryn Ambrose, ROSINA, RVT 05/20/18 1147 Date Ambrose Barron MD CC: Ambrose Barron MD; Estela India DO Date Dictated: 04/27/18 1256 Date Transcribed: 05/20/18 1147 Journeyman Electrician: Signed DOWNTIME REPORT Observed: 05/14/2018 Status: F Source: [place] 12:30 PM [facility] [place] [facility] Medical Records Department [address] [place] [address] Downtime Report MR#: [id number] Acct: [id number] Name: NORMA HARPER Rep #: [id number] : 1940 77 From: Mehdi Markham PCP: Estela Osborne DO Status: REG CLI This patient was seen during an EMR downtime April 27, 2018 - May 04, 2018. This patient may have a combination of paper and electronic documentation or all paper documentation. All documentation is viewable within the e-chart portion of [employer] for each patient visit. CHEST PA AND LATERAL Observed: 03/31/2018 Status: F Source: [place] 3:41 PM [facility] [place] [facility] Imaging Services [address] [place] [address] Chest PA and Lateral MR#: [id number] Acct: [id number] Name: NORMA HARPER Rep #: [id number] : 1940 F 77 From: Toni Dupont DO PCP: Estela Osborne DO Status: REG CLI Study: Chest PA and Lateral Date of Exam: 03/31/18 Exam# [id number] Ordering Dr: Marlene Vora MD STUDY: X-RAY CHEST REASON FOR EXAM: Female, 77 years old. Cough TECHNIQUE: PA and lateral views of the chest. COMPARISON: 07/13/1715 FINDINGS: The lungs are clear and expanded. There is pleural fibrotic thickening of the right lung apex. Normal size heart. Anterior artery stents are seen. Normal mediastinum and nahomy. Normal visualized pulmonary arteries. There is atherosclerotic calcification of the aortic arch with tortuosity. There are diffuse degenerative changes of the visualized thoracic spine. Normal visualized ribs, clavicles, and shoulders. There is no demonstrated abnormality of the visualized soft tissue structures of the upper abdomen. RAD/Chest PA and Lateral IMPRESSION: No acute process in the chest. Electronically Signed: Toni Dupont DO at 15:24 EDT Tel , Service support , CC: Marlene Vora MD; Estela Osborne DO Journeyman Electrician: Signed IRON Collected: 01/19/2018 Status: F Source: [place] 2:52 PM [facility] [place] TYPE CODE TESTS RESULT OUT OF RANGE REFERENCE UNITS LAB L503.6150 50-170 ug/dL Normal IRON 65 Performed By: #### L503.6150, L503.6550 #### [facility] [address] [place], [address] FERRITIN Collected: 01/19/2018 Status: F Source: JAMES 2:52 PM [facility] [place] TYPE CODE TESTS RESULT OUT OF RANGE REFERENCE UNITS LAB L503.6550 8-252 ng/mL Normal FERRITIN 26 Performed By: #### L503.6150, L503.6550 #### [facility] [address] [place], [address] VITAMIN B12 Collected: 01/19/2018 Status: F Source: [place]AMES 2:52 PM [facility] [place] TYPE CODE TESTS RESULT OUT OF RANGE REFERENCE UNITS LAB L503.0105 211-911 pg/mL Normal Vitamin B12 327 Performed By: #### L503.0105, L506.1000 #### [facility] [address] [place], [address] VITAMIN D,25 HYDROXY Collected: 01/19/2018 Status: F Source: [place] 2:52 PM [facility] [place] TYPE CODE TESTS RESULT OUT OF REFERENCE UNITS RANGE LAB L506.1000 29.95-100.01 ng/mL Low Vitamin D 11.4 25-OH Result Comment: Vitamin D 25(OH) Status Range Deficiency <20 ng/mL (50nmol/L) Insuffciency 20 - 30 ng/mL (50 - 75 nmol/L) Sufficiency 30 - 100 ng/mL (75 - 250 nmol/L) Toxicity >100 ng/mL (>250 nmol/L) Performed By: #### L503.0105, L506.1000 #### [facility] [address] [place], [address] TESTOSTERONE, TOTAL / Collected: 01/19/2018 Status: F Source: [place] FREE 2:52 PM [facility] [place] Order Comment: Has Patient had X-rays with Contrast this admission? N TYPE CODE TESTS RESULT OUT OF RANGE REFERENCE UNITS LAB L3100.5320 3-41 ng/dL Low TESTOSTER,TOTAL < 3 LAB L3100.5340 0.10-0.85 ng/dL Low TESTOSTER,FREE < 0.04 LAB L3100.5360 0.50-2.80 % Normal TESTOSTER %FREE 1.31 Result Comment: Performed at: - [facility] [address] [id number] Personal Injury Paralegal: Branden Waddell PhD, Phone: [phone] Performed at: - [facility] [address] [id number] Personal Injury Paralegal: Maulik Irving MD, Phone: [phone] Performed By: #### L3100.5310 #### [facility] (refer to report for specific site) refer to report for address and phone number SCREENING MAMM (CAD), Observed: 12/25/2017 Status: F Source: J[place] BILAT 1:52 PM [facility] [place] [facility] Imaging Services [address] [place] [address] SCREENING MAMM (CAD), BILAT MR#: [id number] Acct: [id number] Name: NORMA HARPER Rep #: [id number] : 1940 F 77 From: Chente Spence MD PCP: Estela Osborne DO Status: [facility] Study: SCREENING MAMM (CAD), BILAT Date of Exam: 12/25/17 Exam# [id number] Ordering Dr: Estela Osborne DO MAMMOGRAPHY - BILATERAL SCREENING REASON FOR EXAM: Female, 77 years old. Routine annual screening examination. PERTINENT HISTORY: Non-contributory. TECHNIQUE: Digital bilateral breast florian (3D mammographic acquisition) in the CC and MLO projections. 2-D mediolateral oblique (MLO) and craniocaudad (CC) views of both breasts were obtained. CAD: Full Field Digital Mammography with Computer Added Detection was performed. COMPARISON: Comparison is made with prior study dated June 08, 2017 and November 28, 2015. FINDINGS: Breast Composition: There are scattered areas of fibroglandular density. There are no dominant masses or suspicious calcifications. No other significant abnormalities are identified. There has been no significant change since the prior study. HPBI/SCREENING MAMM (CAD), BILAT IMPRESSION: Stable bilateral screening mammogram. Yearly follow-up mammogram recommended. (A) ASSESSMENT CATEGORY: BIRADS Category 1: Negative. A letter regarding these results will be sent to the patient by the facility within 30 days. Approximately 10% of breast cancers are not detected by mammography. A normal mammogram should not delay biopsy of a clinically suspicious abnormality. [id number] Electronically Signed: Chente Spence MD at 15:43 EST Tel [phone], Service support , CC: Estela Osborne DO Journeyman Electrician: Signed ALLERGIES ALLERGIES DATE TYPE / CODE NAME / CODE REACTION SEVERITY SOURCE 09/06/2018 Drug gabapentin/F Hives Unknown [facility] Allergy/4160 [id number]([facility] [address](SNOMED NORM) Repository CT) ENCOUNTERS ENCOUNTERS ADMIT/DISCHARGE ACCOUNT ADMITTING ENCOUNTER LOCATION SOURCE NUMBER CLASS 11/10/2018 [id number] [place] 5 [facility] ing:BFHLAB Repository 10/08/2018 [id number] Ambulatory [place] 4 [facility] ing:BFHLAB Repository 09/06/2018/ [id number] [facility] [place] 8 0 Encounter [facility] ing:TCURoom: Repository [id number]: 1 09/06/2018/ [id number] Ambulatory BMSBuilding:W [place] 8 9 [facility] Repository 08/12/2018 [id number] Ambulatory [place] 8 [facility] ing:CR Repository 07/20/2018 [id number] Amb[place] 9 [facility] ing:MRI Repository 06/04/2018/ [id number] Ambulatory BMSBuilding:B [place] 8 6 [facility] Repository 06/01/2018 [id number] Ambulatory [place] 8 [facility] ing:MTLAB Repository 04/27/2018 [id number] Ambulatory [place] 4 [facility] ing:CVS Repository 03/31/2018 [id number] Ambulatory [place] 6 [facility] ing:MTRAD Repository 03/31/2018 [id number] Ambulatory [place] 9 [facility] ing:PT Repository 01/19/2018 [id number] Ambulatory [place] 0 [facility] ing:LAB.FUTUR Repository E 12/25/2017 [id number] Ambulatory [place] 4 [facility] ing:BI Repository PAYERS PAYERS ENCOUNTER GUARANTOR PAYER SUBSCRIBER SOURCE 11/10/2018 NORMA S Primary NORMA S [place] [id number] Insurance:MEDICARE KITTLEDOB: [facility] PART A [facility] [id number] Number: Repository [address]Dnt: 330 [id number] [phone] () Date:2018-11-10 11/10/2018 Secondary NORMA S [place] Insurance:FORETHOUGHT KITTLEDOB: [facility] [id number] Hospital Number: Repository [id number] Date:2018-11-10[address]JGOFM [place] [address]IV: . 11/10/2018 Tertiary NOT GIVENUNK [place] Insurance:SELF PAY [facility] Number: Effective Repository Date:2018-11-10 10/08/2018 NORMA S Primary NORMA S [place] [id number] Insurance:MEDICARE [facility]OB[facility] [id number] Number: Repository [address]Kwk: 330 [id number] [phone] (HP) Date:2018-10-08 10/08/2018 Secondary NORMA S [place] Insurance:FORETHOUGHT KITTLEDOB: Community LIFE INS [facility] [id number] Hospital Number: Repository [id number] Date:2018-10-08[address]TBMEF, [place] [address]MS: . 10/08/2018 Tertiary NOT GIVENUNK [place] Insurance:SELF PAY [facility] Number: Effective Repository Date:2018-10-08 09/06/2018 NORMA S Primary NORMA S [place] [id number] Insurance:MEDICARE KITTLEDOB: Community [place] PART A [facility] [id number] Number: Repository [address]Rnl: 330 [id number] [phone] () Date:2018-09-06 09/06/2018 Secondary NORMA S [place] Insurance:FORETHOUGHT KITTLEDOB: Community LIFE INS [facility] [id number] Hospital Number: Repository [id number] Date:2018-09-06[address]XGIGD, [place] [address]UH: . 09/06/2018 Tertiary NOT GIVENUNK [place] Insurance:SELF PAY [facility] Hospital Number: Effective Repository Date:2018-09-06 09/06/2018 NORMA S Primary NORMA S [place] [id number] Insurance:MEDICARE KITTLEDOB: Community [place] PART A [facility] [id number] Number: Repository [address]Opy: 330 [id number] [phone] (HP) Date:2018-09-06 09/06/2018 Secondary NORMA S [place] Insurance:FORETHOUGHT KITTLEDOB: Community LIFE INS [facility] [id number] Hospital Number: Repository [id number] Date:2018-09-06[address], [place] [address]AZ: . 09/06/2018 Tertiary NOT GIVENUNK [place] Insurance:SELF PAY [facility] Hospital Number: Effective Repository Date:2018-09-06 08/12/2018 NORMA S Primary NORMA S [place] [id number] Insurance:MEDICARE KITTLEDOB: Community [place] PART A [facility] [id number], [place] Number: Repository [address]Ziz: 330 [id number] [phone] (HP) Date:2004-09-24 08/12/2018 Secondary NORMA S [place] Insurance:FORETHOUGHT KITTLEDOB: [facility] [id number] Hospital Number: Repository [id number] Date:2015-11-24 [address], [place] [address]BP: / 08/12/2018 Tertiary NOT GIVENUNK [place] Insurance:SELF PAY [facility] Hospital Number: Effective Repository Date:2015-11-24 07/20/2018 NORMA S Primary NORMA S [place] [id number] Insurance:MEDICARE KITTLEDOB: Community [place] PART A [facility] [id number] Number: Repository [address]Ojh: 330 [id number] [phone] () Date:2018-07-14 07/20/2018 Secondary NORMA S [place] Insurance:FORETHOUGHT KITTLEDOB: [facility] INS [facility] [id number] Hospital Number: Repository [id number] Date:2018-07-14 [address]HXFFRZ, [place] [address]YI: . 07/20/2018 Tertiary NOT GIVENUNK [place] Insurance:SELF PAY [facility] Hospital Number: Effective Repository Date:2018-07-14 06/04/2018 NORMA S Primary NORMA S [place] [id number] Insurance:MEDICARE KITTLEDOB: Community [place] PART A [facility] [id number], [place] Number: Repository [address]Mcs: 330 [id number] [phone] (HP) Date:2017-12-04 06/04/2018 Secondary NORMA S [place] Insurance:FORETHOUGHT KITTLEDOB: [facility] INS [facility] [id number] Hospital Number: Repository [id number] Date:2017-12-04[address]HGRMVM, [place] [address]DF: . 06/04/2018 Tertiary NOT GIVENUNK [place] Insurance:SELF PAY [facility] Number: Effective Repository Date:2018-06-04 06/01/2018 NORMA Recinos Primary NORMA Recinos [place] [id number] Insurance:MEDICARE KITTLEDOB: Community [place] PART A [facility] [id number] [place] Number: Repository [address]Utq: 330 [id number] [phone] (HP) Date:2018-06-01 06/01/2018 Secondary NORMA S [place] Insurance:FORETHOUGHT KITTLEDOB: [facility] INS [facility] [id number] Hospital Number: Repository [id number] Date:2018-06-01 [address]PSUQDC, [place] [address]OJ: . 06/01/2018 Tertiary NOT GIVENUNK [place] Insurance:SELF PAY [facility] Number: Effective Repository Date:2018-06-01 04/27/2018 NORMA S Primary NORMA Recinos [place] [id number] Insurance:MEDICARE KITTLEDOB: Community [place] PART A [facility] [id number]. [facility] [place] Number: Repository [address]Oif: 330 [id number] [phone] () Date:2018-02-06 04/27/2018 Secondary NORMA S [place] Insurance:FORETHOUGHT KITTLEDOB: [facility] INS [facility] [id number] Hospital Number: Repository [id number] Date:2018-02-06 [address], [place] [address]JG: . 04/27/2018 Tertiary NOT GIVENUNK [place] Insurance:SELF PAY [facility] Hospital Number: Effective Repository Date:2018-02-06 03/31/2018 NORMA S Primary NORMA S [place] [id number] Insurance:MEDICARE KITTLEDOB: Community [place] PART A [facility] [id number]. Francis Hospital [place] Number: Repository [address]Pqk: 330 [id number] [phone] (HP) Date:2018-03-31 03/31/2018 Secondary NORMA S [place] Insurance:FORETHOUGHT KITTLEDOB: [facility] INS [facility] [id number] Hospital Number: Repository [id number] Date:2018-03-31 [address]VLYTPB, [place] [address]VV: . 03/31/2018 Tertiary NOT GIVENUNK [place] Insurance:SELF PAY [facility] Number: Effective Repository Date:2018-03-31 03/31/2018 NORMA S Primary NORMA Recinos [place] [id number] Insurance:MEDICARE KITTLEDOB: Community [place] PART A [facility] [id number], [place] Number: Repository [address]Ron: (360) [id number] [phone] () Date:2004-09-24 03/31/2018 Secondary NORMA S [place] Insurance:FORETHOUGHT KITTLEDOB: [facility] INS [facility] [id number] Hospital Number: Repository [id number] Date:2017-11-24 [address]REFVN, [place] [address]SS: . 03/31/2018 Tertiary NOT GIVENUNK [place] Insurance:SELF PAY [facility] Number: Effective Repository Date:2018-03-23 01/19/2018 NORMA S Primary NORMA Recinos [place] [id number] Insurance:MEDICARE KITTLEDOB: Community [place] PART A [facility] [id number], [place] Number: Repository [address]Ywj: (978) [id number] [phone] (HP) Date:2017-10-29 01/19/2018 Secondary NORMA S [place] Insurance:FORETHOUGHT KITTLEDOB: Community [facility] INS [facility] [id number] Hospital Number: Repository [id number] Date:2017-10-29 [address]KMZWTA, [place] [address]ZH: . 01/19/2018 Tertiary NOT GIVENUNK [place] Insurance:SELF PAY [facility] Number: Effective Repository Date:2017-10-29 12/25/2017 NORMA S Primary NORMA S [place] [id number] Insurance:MEDICARE KITTLEDOB: Community [place] PART A [facility] [id number] [facility] [place] Number: Repository [address]Ipx: [phone] [id number] [phone] () Date:2017-11-27 12/25/2017 Secondary NORMA S [place] Insurance:FORETHOUGHT KITTLEDOB: Community LIFE INS [employer] [id number] Hospital Number: Repository [id number] Date:2017-11-27P [address]JMORSV, [place] [address]CB: . 12/25/2017 Tertiary NOT GIVENUNK [place] Insurance:SELF PAY [facility]: Effective Repository Date:2017-11-27
--- OUTSIDE RECORDS SUMMARY | 2019-02-12 01:05 | XMS RPT_ITS ---
:1940 Author Organization [email or web address] Address [address] [place] [address] Phone Care Team Providers Name Role Phone Sam GONZALEZ, Court Poole Reason for Visit Reason For Visit Description Start Date Follow-up by complaint Preliminary reason for visit data, not yet signed by the author as of left hip pain Preliminary reason for visit data, not yet signed by the author as of Chief Complaint Chief Complaint Description Start Date left hip pain Preliminary chief complaint data, not yet signed by the author as of Instructions Instruction Description Start Date Patient advised to follow-up with Primary Care Physician for BMI management. Plan of Care Type Date Detail Appointment 11:[address]ONZALEZ, [address] [facility], [facility], [place], [address], Medications Medication Instructions Start Stop Generic Name NDC Provider Date Date BIOTIN 1000 MCG 1 tablet daily / BIOTIN 77468511712 Amisha TABS 16 Clemente TRACK LEADER B-12 5000 MCG 1 capsule daily / CYANOCOBALAMIN 74916751471 Amisha CAPS 16 Clemente TRACK LEADER IRON 27 240 (27 1 tablet daily / FERROUS GLUCONATE [id number] Amisha Fe) MG TABS 16 Clemente TRACK LEADER VITAMIN D3 1 capsule once / CHOLECALCIFEROL 17200346313 Amisha 63496 UNIT CAPS weekly 16 Clemente TRACK LEADER LUTEIN CAPS 2 capsules / LUTEIN CAPS [id number] Amisha daily 16 Clemente TRACK LEADER MULTIVITAMIN 1 tablet daily / MULTIPLE [id number] Amisha ADULT TABS 16 VITAMINS-MINERALS Clemente TRACK LEADER TRAMADOL HCL 50 1 tablet daily / TRAMADOL HCL 61652323601 Amisha MG TABS as needed 23 Clemente TRACK LEADER CLOPIDOGREL 1 tablet three / CLOPIDOGREL [id number] Amisha BISULFATE 75 MG times weekly 23 BISULFATE Clemente TRACK LEADER TABS ISOSORBIDE 1 1/2 tablets / ISOSORBIDE 70951588775 Amisha MONONITRATE ER once daily 23 MONONITRATE Clemente TRACK LEADER 60 MG [id number] METOPROLOL 1 1/2 tablet / METOPROLOL 51189814740 Amisha TARTRATE 25 MG once daily 23 TARTRATE Clemente TRACK LEADER TABS ATORVASTATIN 1 tablet once / ATORVASTATIN 75057081881 Amisha CALCIUM 80 MG daily 23 CALCIUM Clemente TRACK LEADER TABS ASPIRIN ADULT 1 tablet once / ASPIRIN 50156617038 Amisha LOW DOSE 81 MG daily 23 Clemente TRACK LEADER TBEC RANITIDINE HCL 1 tablet twice / RANITIDINE HCL 99406793032 Amisha 150 MG TABS daily as needed 23 Clemente TRACK LEADER Conditions or Problems Problem Name Problem Onset Status Entry Provider Comment Standard Annotate Code Date Date Description Primary [id number] Active Berhane Suazo 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 Vital Signs Date Name Value Unit Description BMI (Body Mass 26.26 kg/m2 Body Mass Index Index) [Ratio] Preliminary vital sign data, not yet signed by the author as of BP Diastolic 75 mm[Hg] blood pressure, diastolic Preliminary vital sign data, not yet signed by the author as of BP Systolic 120 mm[Hg] blood pressure, systolic Preliminary vital sign data, not yet signed by the author as of Heart Rate 69 /min pulse rate E&M Preliminary vital sign data, not yet signed by the author as of Height 60 [in_us] height E&M Preliminary vital sign data, not yet signed by the author as of Height 152 cm height in centimeters E&M Preliminary vital sign data, not yet signed by the author as of Weight Measured 134 [lb_av] weight E&M Preliminary vital sign data, not yet signed by the author as of Weight Measured 61 kg weight in kilograms E&M Preliminary vital sign data, not yet signed by the author as of Results Date Name Value Unit Range Flag Description Office Visit: Follow-up by byron, Rm: 6 MEDS REVIEW Done Documentation of current medications (procedure) Preliminary observation data, not yet signed by the author as of Preliminary observation data, not yet signed by the author as of XRAY HX of the pelvis on xray history 07/16/2017 at [facility] Preliminary observation data, not yet signed by the author as of MRI HX of the hip on MRI (magnetic 08/29/2017 at [facility] resonance imaging) history Preliminary observation data, not yet signed by the author as of Clinical Summary: HMSPatientID OOP account number Clinical Lists Update: Preload Extended SMOK STATUS former smoker Tobacco smoking status NHIS Procedures Code Procedure Name Date Entry Date CPT-94507 Major Joint or Bursa injection G8730 Pain assessment documented as positive - follow-up documented G8427 Current medications documented 1036F Tobacco screening was negative - non user G8417 BMI documented as above normal parameters - follow-up documented G8783 Blood pressure within normal parameters - no follow-up required 1006F Osteoarthritis symptoms and functional status assessed [facility]-[id number] Patient Encounter Medications Administered No information available. Immunizations No information available. Advance Directives There may be information available, but it has not been provided by the sender. Assessments There may be information available, but it has not been provided by the sender. Review of Systems There may be information available, but it has not been provided by the sender. Family History There may be information available, but it has not been provided by the sender. History of Past Illness There may be information available, but it has not been provided by the sender. History of Present Illness There may be information available, but it has not been provided by the sender.
== END ==
PROVIDERS: Family Provider Family Medicine; PCP Family Medicine; Visit Provider Family Medicine
DX: R63.4 Abnormal weight loss (principal)
CPT/HCPCS: 36415; 80076; 84134

== ENCOUNTER 2018-12-22 12:55 | Outpatient (RCR) | payer MEDICARE, OTHER, SELFPAY | END 2018-12-24 23:59 | LOC: NS 12:55 | PROVIDERS: Family Provider Family Medicine; PCP Family Medicine; Visit Provider Family Medicine | DX: R63.4 Abnormal weight loss (principal); I12.9 Hypertensive chronic kidney disease with stage 1 through stage 4 chronic kidney disease, or unspecified chronic kidney disease; N18.9 Chronic kidney disease, unspecified; Z71.3 Dietary counseling and surveillance | CPT/HCPCS: 97802 ==

== ENCOUNTER 2019-01-19 13:29 | Outpatient (RCR) | payer MEDICARE, OTHER, SELFPAY | END 2019-01-21 23:59 | LOC: NS 13:29 | PROVIDERS: Family Provider Family Medicine; PCP Family Medicine; Visit Provider Family Medicine | DX: I12.9 Hypertensive chronic kidney disease with stage 1 through stage 4 chronic kidney disease, or unspecified chronic kidney disease (principal); N18.9 Chronic kidney disease, unspecified; R63.4 Abnormal weight loss; Z71.3 Dietary counseling and surveillance | CPT/HCPCS: 97803 ==

== ENCOUNTER → 2019-01-27 11:16 | Outpatient (CLI) | payer MEDICARE, OTHER, SELFPAY ==
--- NOTE | 2019-01-27 11:21 | BI_ITS ---
MAMMOGRAPHY - BILATERAL SCREENING REASON FOR EXAM: Female, 78 years old. Routine annual screening examination. PERTINENT HISTORY: Non-contributory. TECHNIQUE: Digital bilateral breast florian (3D mammographic acquisition) in the CC and MLO projections. 2-D mediolateral oblique (MLO) and craniocaudad (CC) views of both breasts were obtained. CAD: Full Field Digital Mammography with Computer Added Detection was performed. COMPARISON: Comparison is made with prior study dated December 25, 2017 and December 09, 2016. FINDINGS: Breast Composition: There are scattered areas of fibroglandular density. There are no dominant masses or suspicious calcifications. Stable small bilateral axillary lymph nodes. No other significant abnormalities are identified. There has been no significant change since the prior study. BI/SCREENING MAMM (CAD), BILAT IMPRESSION: Stable bilateral screening mammogram. Yearly follow-up mammogram recommended. (A) ASSESSMENT CATEGORY: BIRADS Category 2: Benign. A letter regarding these results will be sent to the patient by the facility within 30 days. Approximately 10% of breast cancers are not detected by mammography. A normal mammogram should not delay biopsy of a clinically suspicious abnormality. [id number] Electronically Signed: Chente Spence, at 12:44 EST , Service support ,
== END ==
PROVIDERS: Family Provider Family Medicine; PCP Family Medicine; Referring Provider Family Medicine; Visit Provider Family Medicine
DX: Z12.31 Encounter for screening mammogram for malignant neoplasm of breast (principal); M81.0 Age-related osteoporosis without current pathological fracture
CPT/HCPCS: 77063; 77067

== ENCOUNTER → 2019-02-02 10:48 | Outpatient (CLI) | payer MEDICARE, OTHER, SELFPAY ==
--- NOTE | 2019-02-02 10:53 | BD_ITS ---
STUDY: DUAL ENERGY X-RAY ABSORPTIOMETRY / DXA REASON FOR EXAM: Female, 78 years old. The patient is postmenopausal. Loss of height. TECHNIQUE: Bone Mineral Density (BMD) measurements of the left forearm and bilateral hips were obtained. History of a recent lumbar fusion and laminectomy. COMPARISON: Comparison is made with prior study dated November 28, 2015. FINDINGS: Left Femur Total: g/cm2 (0.905) / T-score (-0.8) / Z-score (1.2) Left Femoral Neck: g/cm2 (0.957) / T-score (-0.6) / Z-score (1.5) Right Femur Total: g/cm2 (0.822) / T-score (-1.5) / Z-score (0.5) Right Femoral Neck: g/cm2 (0.913) / T-score (-0.9) / Z-score (1.2) Left Forearm: g/cm2 (0.631) / T-score (-2.8) / Z-score (-0.2) The T-Scores on the most recent prior examination were: Left Femur Total: which represents a worsening of 0.1%. Right Femur Total: which represents a worsening of 13.9%. BD/Dexa Bone Density/Append Skel IMPRESSION: The patient is considered osteopenic as outlined below according to World [employer] Organization (WHO) criteria with a high fracture risk. There has been worsening of bone density since the previous examination. Reference Information: The T-score is the number of standard deviations above or below the standard which is normal for young adults at their peak bone mineral density. The World Health Organization (WHO) interprets the T-scores as follows: Above -1 Normal bone density Between -1 and -2.5 Osteopenia Equal to / or below -2.5 Osteoporosis As a practical clinical guideline, osteopenia may be graded as follows: Mild -1 through -1.5 Moderate -1.6 through -2.0 Severe -2.1 through -2.4 The Z-score is the number of standard deviations above or below age-matched controls. A Z-score of less than -1.5 would be considered abnormal. References: 1. NIH Osteoporosis and Related Bone Diseases http://www.osteo.org 2. International Society for Clinical Densitometry http://www.iscd.org 3. National Osteoporosis Foundation http://www.nof.org Electronically Signed: Chente Spence, at 13:25 EDT , Service support ,
== END ==
PROVIDERS: Family Provider Family Medicine; PCP Family Medicine; Referring Provider Family Medicine; Visit Provider Family Medicine
DX: M81.0 Age-related osteoporosis without current pathological fracture (principal); Z12.31 Encounter for screening mammogram for malignant neoplasm of breast
CPT/HCPCS: 77080; 77081

== ENCOUNTER → 2019-03-05 09:34 | Outpatient (CLI) | payer MEDICARE, OTHER, SELFPAY ==
[2019-03-05 10:47] LABS: AST(SGOT) 20 U/L (15-37); Alanine Aminotransfer ALT/SGPT 17 U/L (13-56); Albumin, Serum 3.2 g/dL (3.2-5.0); Alkaline Phosphatase 138 U/L (45-117); Bilirubin, Direct 0.13 mg/dL (0.00-0.30); Cholesterol 150 mg/dL (200); Globulin 4.1 g/dL (2.2-4.2); High Density Lipoprotein 58 mg/dL; Protein, Total 7.3 g/dL (6.4-8.2); Triglycerides 69 mg/dL; Very Low Density Lipoprotein 14 mg/dL (5-40)
== END ==
PROVIDERS: Family Provider Family Medicine; PCP Family Medicine; Referring Provider Physician Assistant Medical; Visit Provider Physician Assistant Medical
DX: E78.5 Hyperlipidemia, unspecified (principal)
CPT/HCPCS: 36415; 80061; 80076

== ENCOUNTER → 2019-03-23 12:49 | Outpatient (CLI) | payer MEDICARE, OTHER, SELFPAY ==
--- NOTE | 2019-03-23 12:51 | VDLE_ITS ---
Reason For Study: venous insufficiency RIGHT LEFT CFV is compressible, spontaneous, phasic, CFV is compressible, spontaneous, phasic, competent and demonstrates normal competent, and demonstrates normal augmentation. augmentation. FV is compressible, spontaneous, phasic, FV is compressible, spontaneous, phasic, competent and demonstrates normal competent and demonstrates normal augmentation. augmentation. POP V is compressible, spontaneous, phasic, POP V is compressible, spontaneous, phasic, competent and demonstrates normal competent and demonstrates normal augmentation. augmentation. T/P Trunk is compressible. T/P Trunk is compressible. PTV is compressible. PTV is compressible. RT PerV is compressible. LT PerV is compressible. S-F Junction is competent. S-F Junction is competent. GSV is competent above the knee, but GSV is incompetent for greater than .5 incompetent below the knee for greater seconds throughout. GSV measures .3 x .3 cm. than .5 seconds. GSV measures .28 x .31 cm. SSV is competent. SSV is incompetent for greater than .5 seconds. SSV measures .11 x .14 cm. Procedure Exam performed in department. The exam was diagnostic. Patient was scanned in reverse Trendelenburg position during reflux assessment. Interpretation Summary Deep veins of the lower extremities are bilaterally patent and compressible segmentally. There is no evidence of deep vein thrombosis on either side. Valvular competence appears intact within the proximal deep venous systems bilaterally. The greater saphenous veins appear bilaterally patent and compressible segmentally. Sapheno-femoral junctions are bilaterally competent . The right greater saphenous vein appears competent above the knee. The right greater saphenous vein appears incompetent below the knee. The left greater saphenous vein appears segmentally incompetent. The right small saphenous vein is patent and incompetent. The left small saphenous vein is patent and competent. Ordering Physician: Estela Osborne Performed By: Philippe, Christian, RVT
== END ==
PROVIDERS: Family Provider Family Medicine; PCP Family Medicine; Referring Provider Family Medicine; Visit Provider Family Medicine
DX: I83.90 Asymptomatic varicose veins of unspecified lower extremity (principal); I73.9 Peripheral vascular disease, unspecified; R60.0 Localized edema
CPT/HCPCS: 93970

== ENCOUNTER 2019-04-27 11:30 | Outpatient (RCR) | payer MEDICARE, OTHER, SELFPAY ==
--- NOTE | 2019-01-04 14:16 | HP.PTEVAL_ITS ---
Patient's Visit Information NORMA HARPER is a 78 year old F referred to Physical Therapy by TAWANDA Gloria with a diagnosis of S/P LUMBAR FUSION. Date of Evaluation: 01/04/19 Physical Therapist: Darron Chand PT, Cert MDT, [facility] - Visit Plan Frequency: 2x /Week Duration: 4 Weeks Plan: POSTURAL EX'S,DLS ABD/BACK,LE STRENGTHENING,ENDURANCE PROGRAM - Subjective Findings: This 78 y/o female presenst to physical therapy with s/p Lumbar fusion. Patient had laminectomy to rods/screws L1-L5 donr by Dr Burger at [facility] on Aug. Patient d/c to TCU after 3 days ,then patient had TCU at [facility] for 5 weeks . Intially had to use walker and lumbar brace 6 weeks . Patient weaned from walker in Nov 2018. Patient conts to use bone stimuklator 2 hours /day. Then had [facility] for about 1 month. Patient seen surgeon Dec 07 and did x-rays looked good. Then to start PT. Prior to PT pain management or 4 years had many epidural injection. Tried PT and chiropractor made symptoms worse. Currently ,patient has decrease strength,intermttant lumbar symptoms > right than left. No leg symptoms . Denies parathesia/tingling ,although has decrease sensation with swelling in feet. Coughing/sneezing -. Bowel/bladder -. Patient sleeping good . Patient has jew lady does cleaning.patient able to light cooking. Patient has too use shower bench . Patient extensive surgery impairs QOL and function. SOCAIL:lives alone. VOCATION: retired - Pain Bilateral Pain Intensity (Out of 10): 1 Pain Intensity Range: 10 - Objective POSTURE: mild foward posture hips/knees slighlty flexed,assymtries pelvis. GAIT: mild foward posture reciprocal pattern with cane. NEURO: denies parathesia,tingling,reflexes L3-4,L4-,L5-S1 1/3. INSCION: well aproximate. MMT: quads/hams 4-/5,hip f;lexion 4-/5,ankle 4/5. LUMBAR ROM: flexion mod loss ,side glides mod/severe loss,side glides mod loss. FLEXABLITY: hams min tight,IR 30 DEGREES - Special Tests L/S Slump test left side: Negative L/S Slump test right side: Negative L/S Left Straight Leg Raise: Negative L/S Right Straight Leg Raise: Negative - Goals Goal 1:: Independant with HEP. Goal Time Frame: 4-6 Weeks Goal 2:: Independant with posture for ADL'S Goal Time Frame: 4-6 Weeks Goal 3:: Patient decrease lumbar pain by 70% or greater to improve function. Goal Time Frame: 4-6 Weeks Goal 4:: Patient to improve strength BLE 4/5 to improve function out of chair no arms. Goal Time Frame: 4-6 Weeks Goal 5:: Patient to improve Quality of gait no cane community distances Goal Time Frame: 4-6 Weeks Goal 6:: Patient improve FREDDIE back score 5 points to improve QOL. Goal Time Frame: 4-6 Weeks - Rehabilitation Potential Physical Therapy Diagnosis: This patient underwnt s/p lumbar fusion with decrease strength,function,weakness impairs gait and ADL'S Rehabilitation Potential: Good - Anticipated Interventions Patient/Client Instruction: Educate patient on: Condition, Plan of Care For the Purpose of:: To decrease pain, To increase ROM, To improve muscle performance and motor function, To improve ability to perform ADL's, To increase tolerance to activity/condition/position, To improve performance and independence with ADL's, To improve ability of physical actions for home/community/work/leisure, To improve gait and locomotor functions, To improve health of tissue, To decrease soft tissue restriction, To increase f lexibility/ROM, To improve endurance, To improve ability to perform tasks related to life management Therapeutic Exercise to Include: Strength training, Body mechanics, Postural training, Flexibilty training, Dynamic Lumbar Stabilization For the Purpose of:: To decrease pain, To increase ROM, To improve muscle performance and motor function, To increase tolerance to activity/condition/position, To improve ability of physical actions for home/community/work/leisure, To improve gait and locomotor functions, To increase flexibility/ROM, To improve endurance, To improve balance, To improve ability to perform tasks related to life management Cryotherapy (ice pack, ice massage): Yes Thermo therapy (hot pack): Yes For the Purpose of:: To decrease swelling/inflammation, To improve health of tissue, To decrease soft tissue restriction Thank you for the opportunity to evaluate your patient. For Medicare and Medicare HMO plans, please review the plan of care and approve it. It will need to be FAXED BACK to us at [phone] for Medicare purposes. For Medicare only, by signing this I certify the plan of care. Please let me know if there are questions or concerns regarding this plan of care. Physician Signature: Date:
--- NOTE | 2019-02-12 11:31 | HP.PTREVAL ---
TAWANDA Gloria, It has been my pleasure to treat NORMA HARPER over the last 9 visits for S/P LUMBAR FUSION. Please see the progress note below for an update on the physical therapy plan of care! Subjective: PATIENT REPORTS SHE IS A LOT BETTER OVER-ALL. INTERMITTENT PAIN AND CONSTANT TIRED FEELING IN LOW BACK. STATES SHE HAS NOT BEEN GOOD WITH HER HOME EX'S BECAUSE SO MANY THINGS GOING ON MAKING HER TIRED. Objective/Function: PATIENT IS MAKING GOOD PROGRESS TOWARD ALL PT GOALS. RECOMMEND CONTINUED PT DUE TO PROGRESS MADE AND ROOM FOR MORE IMPROVEMENT. RM HAS DONE WATER EX IN THE PAST AND WOULD BENEFIT FROM WATER EX INSTRUCTION POST SURGERY WITH THE GOAL OF PROGRESSING BACK TO INDEP WATER EX. UPON EXAM TODAY SHE DEMONSTRATES SAFE GAIT WITH STRAIGHT CANE X > 300 FEET BUT STILL NEEDS CANE FOR SAFETY. SHE HAS INTERMITTENT GRABBING PAIN. Sitting/Standing Posture: POOR. LEFT ILIAC CREST HIGHER THAN RIGHT - SCOLIOTIC. Active Correction of posture: DIFFICULT BUT NE ON PAIN. Other Observations: INDEP TRANSFER SIT TO STAND WITH MINIMAL ONE UE ASSIST. Motor deficit: ISRA LE WEAKNESS - RIGHT HIP 4-/5, KNEE 4/5, ANKLE 5/5. LEFT HIP 4/5, KNEE 4/5, ANKLE 5/5. Sensory deficit: NO. Reflexes: UNABLE TO ELICIT ISRA LE DTR'S. Dural Signs: NEGATIVE. Lumbar mvmt loss: flex - MOD. ext - TIERA. R SG - TIERA. L SG - TIERA. PATIENT WITH INCREASED BACK PAIN WITH LUMBAR ROM TESTING ALL PLANES. PATIENT ALSO HAD BACK PAIN WITH ISRA HIP STRENGTH TESTING EVEN THOUGH PROCEEDED CAREFULLY WITH TESTING. Core strength: POOR. Palpation: NO ACUTE TENDERNESS. LUMBAR OSWESTRY HAS IMPROVED FROM 22 TO 13. Plan Plan: AQUATIC THERAPY 2X'S A WEEK X 4 WEEKS. PATIENT AGREEABLE. Goals Goal 1:: Independant with HEP. Goal Time Frame: 4-6 Weeks Goal Progress: Progressing Goal 2:: Independant with posture for ADL'S Goal Time Frame: 4-6 Weeks Goal Progress: Progressing Goal 3:: Patient decrease lumbar pain by 70% or greater to improve function. Goal Time Frame: 4-6 Weeks Goal Progress: Progressing Goal 4:: Patient to improve strength BLE 4/5 to improve function out of chair no arms. Goal Time Frame: 4-6 Weeks Goal Progress: Progressing Goal 5:: Patient to improve Quality of gait no cane community distances Goal Time Frame: 4-6 Weeks Goal Progress: Progressing Goal 6:: Patient improve FREDDIE back score 5 points to improve QOL. Goal Time Frame: 4-6 Weeks Goal Progress: Progressing Anticipated Interventions Patient/Client Instruction: Educate patient on: Condition, Plan of Care For the Purpose of:: To decrease pain, To increase ROM, To improve muscle performance and motor function, To improve ability to perform ADL's, To increase tolerance to activity/condition/position, To improve performance and independence with ADL's, To improve ability of physical actions for home/community/work/leisure, To improve gait and locomotor functions, To improve health of tissue, To decrease soft tissue restriction, To increase flexibility/ROM, To improve endurance, To improve ability to perform tasks related to life management Therapeutic Exercise to Include: Strength training, Body mechanics, Postural training, Flexibilty training, Dynamic Lumbar Stabilization For the Purpose of:: To decrease pain, To increase ROM, To improve muscle performance and motor function, To increase tolerance to activity/condition/position, To improve ability of physical actions for home/community/work/leisure, To improve gait and locomotor functions, To increase flexibility/ROM, To improve endurance, To improve balance, To improve ability to perform tasks related to life management Cryotherapy (ice pack, ice massage): Yes Thermo therapy (hot pack): Yes For the Purpose of:: To decrease swelling/inflammation, To improve health of tissue, To decrease soft tissue restriction Please do not hesitate to contact me at [phone] by phone or if you have questions or concerns regarding this new plan of care! Sincerely, Rosmery Ely, PT, Cert MDT
--- NOTE | 2019-03-12 14:13 | HP.PTREVAL ---
TAWANDA Gloria, It has been my pleasure to treat NORMA HARPER over the last 17 visits for S/P LUMBAR FUSION. Please see the progress note below for an update on the physical therapy plan of care! Subjective: PATIENT REPORTS SHE IS GETTING UP AND DOWN FROM SITTING BETTER. SHE STATES HER HIP DOESN'T HURT BAD IT DID WHEN SHE FIRST CAME. SHE ALSO REPORTS STEPS ARE GOING BETTER. PATIENT REPORTS SHE HASN'T HAD ANY PAIN SINCE YESTERDAY WHEN SHE HAD TO GO UP AND DOWN STEPS TO DO LAUNDRY. SHE REPORTS SHE IS DOING GREAT IN THE MORNINGS BUT INCREASED PAIN IN THE AFTERNOONS. NO MORE THAN 2/10 PAIN NOW JUST ENOUGH TO KNOW IT IS THERE. PATIENT REPORTS SHE IS HAVING SOME BUTTOCK PAIN AND SHE THINKS IT IS FROM THE POOL EX'S. SAW DR. MASCORRO - REFERRED TO DR. HUTTON FOR BOWEL ISSUES. ALSO GOING TO HAVE AN ULTRASOUND TEST FOR LE SWELLING. Objective/Function: PATIENT IS MAKING GOOD PROGRESS TOWARD ALL PT GOALS. HER PAIN IS IMPROVING, HER GAIT IS IMRPOVING AND SHE IS TOLERATING PROGRESSIVE RESISTIVE EX IN THE POOL (AND ENJOYS THE POOL) AND IS BECOMING INDEP IN A POOL PROGRAM WHICH SHE PLANS TO CONTINUE INDEP'LY AT FACILITY OF HER CHOICE. ONE OF PATIENTS BIG GOALS IS TO BE ABLE TO TRANSITION FROM SIT TO STAND BETTER AND THIS IS IMPROVING. ABLE TO TRANSFER SIT TO STAND ON SECOND ATTEMPT TODAY FROM CHAIR IN 2 ATTEMPS. THIS IS STILL DIFFICULT FOR HER BUT DEFINATELY IMRPOVING. RECOMMEND CONTINUED AQUATIC PT DECREASING TO ONE TIME A WEEK TO HELP PATIENT TRANSITION SUCCESSFULLY TO INDEP WATER EX AT THE FACILITY OF HER CHOICE DUE TO PROGRESS MADE AND ROOM FOR MORE IMPROVEMENT. UPON EXAM TODAY SHE DEMONSTRATES SAFE GAIT WITH STRAIGHT CANE X > 300 FEET. SHE IS NOT VERY DEPENDENT ON HER CANE AND NO LOB NOTED HOWEVER PATIENT FEELS SAFER WITH VS WITHOUT CANE WHEN OUT OF HER HOME. THIS PT AGREES WITH USE OUT OF HOME FOR SAFETY. NO INTERMITTENT GRABBING PAIN OBSERVED THROUGHOUT SESSION TODAY BUT STILL REPORTED BY PATIENT AT TIMES. Sitting/Standing Posture: POOR. LEFT ILIAC CREST HIGHER THAN RIGHT - SCOLIOTIC. Active Correction of posture: STILL DIFFICULT BUT NE ON PAIN. Other Observations: INDEP TRANSFER SIT TO STAND WITH MINIMAL ONE UE ASSIST. Motor deficit: ISRA LE WEAKNESS - RIGHT HIP 4-/5, KNEE 4/5, ANKLE 5/5. LEFT HIP 4/5, KNEE 4/5, ANKLE 5/5. Sensory deficit: NO. Dural Signs: NEGATIVE. Lumbar mvmt loss: NT. LUMBAR OSWESTRY HAS IMPROVED FROM 22 TO 13 AND NOW 4. Plan Plan: CONT AQUATIC THERAPY DECREASING TO 1X/WEEK TO HELP MEET SET GOALS. Goals Goal 1:: Independant with HEP. Goal Time Frame: 4-6 Weeks Goal Progress: Progressing Goal 2:: Independant with posture for ADL'S Goal Time Frame: 4-6 Weeks Goal Progress: Progressing Goal 3:: Patient decrease lumbar pain by 70% or greater to improve function. Goal Time Frame: 4-6 Weeks Goal Progress: Progressing Goal 4:: Patient to improve strength BLE 4/5 to improve function out of chair no arms. Goal Time Frame: 4-6 Weeks Goal Progress: Progressing Goal 5:: Patient to improve Quality of gait no cane community distances Goal Time Frame: 4-6 Weeks Goal Progress: Progressing Goal 6:: Patient improve FREDDIE back score 5 points to improve QOL. Goal Time Frame: 4-6 Weeks Goal Progress: Progressing Anticipated Interventions Patient/Client Instruction: Educate patient on: Condition, Plan of Care For the Purpose of:: To decrease pain, To increase ROM, To improve muscle performance and motor function, To improve ability to perform ADL's, To increase tolerance to activity/condition/position, To improve performance and independence with ADL's, To improve ability of physical actions for home/community/work/leisure, To improve gait and locomotor functions, To improve health of tissue, To decrease soft tissue restriction, To increase flexibility/ROM, To improve endurance, To improve ability to perform tasks related to life management Therapeutic Exercise to Include: Strength training, Body mechanics, Postural training, Flexibilty training, Dynamic Lumbar Stabilization For the Purpose of:: To decrease pain, To increase ROM, To improve muscle performance and motor function, To increase tolerance to activity/condition/position, To improve ability of physical actions for home/community/work/leisure, To improve gait and locomotor functions, To increase flexibility/ROM, To improve endurance, To improve balance, To improve ability to perform tasks related to life management Cryotherapy (ice pack, ice massage): Yes Thermo therapy (hot pack): Yes For the Purpose of:: To decrease swelling/inflammation, To improve health of tissue, To decrease soft tissue restriction Please do not hesitate to contact me at [phone] by phone or if you have questions or concerns regarding this new plan of care! Sincerely, Rosmery Ely, PT, Cert MDT
--- NOTE | 2019-04-27 14:23 | HP.PTDCSUM ---
HP - PT D/C Summary It has been my pleasure to treat NORMA HARPER under orders from TAWANDA Gloria, for the diagnosis of S/P LUMBAR FUSION for a total of 21 visit(s). Discharge Date: Please see the following information for a summary of their discharge status. - Subjective Subjective: PATIENT REPORTS HER MOBILITY, ENDURANCE, STRENGTH AND PAIN HAS IMPROVED SINCE STARTING PT. PATIENT REPORTS SHE HAS A BETTER UNDERSTANDING NOW OF HOW TO PROTECT HER BACK. SHE IS NOW IN A WATER EX PROGRAM AT THE [facility]. PATIENT REPORTS SHE IS DOING WELL GETTING UP FROM A CHAIR WELL NOW. - Pain Bilateral Pain Intensity (Out of 10): 4 LOW BACK Pain Intensity (Out of 10): 4 - Overall Improvement % Improvement: 95 - Objective Objective/Function: ALL PT GOALS MET. PATIENT IS NOW ABLE TO TRANSITION [employer]uritasLY FROM SIT TO STAND WITHOUT UE ASSIST WITHOUT INCREASED PAIN AND WITHOUT MUCH DIFFICULTY AT ALL. UPON EXAM TODAY SHE DEMONSTRATES SAFE GAIT WITH STRAIGHT CANE X > 300 FEET. SHE IS NOT VERY DEPENDENT ON HER CANE AND NO LOB NOTED HOWEVER PATIENT FEELS SAFER WITH VS WITHOUT CANE WHEN OUT OF HER HOME. THIS PT AGREES WITH USE OUT OF HOME FOR SAFETY. NO INTERMITTENT GRABBING PAIN OBSERVED THROUGHOUT SESSION TODAY. Sitting/Standing Posture: POOR. LEFT ILIAC CREST HIGHER THAN RIGHT - SCOLIOTIC. Active Correction of posture: STILL DIFFICULT BUT NE ON PAIN. Motor deficit: ISRA LE WEAKNESS - RIGHT HIP 4/5, KNEE 4/5, ANKLE 5/5. LEFT HIP 4/5, KNEE 4/5, ANKLE 5/5. Sensory deficit: NO. Dural Signs: NEGATIVE. Lumbar mvmt loss: NT - Goals Goal 1:: Independant with HEP. Goal Progress: Progressing Goal 2:: Independant with posture for ADL'S Goal Progress: Progressing Goal 3:: Patient decrease lumbar pain by 70% or greater to improve function. Goal Progress: Progressing Goal 4:: Patient to improve strength BLE 4/5 to improve function out of chair no arms. Goal Progress: Progressing Goal 5:: Patient to improve Quality of gait no cane community distances Goal Progress: Progressing Goal 6:: Patient improve FREDDIE back score 5 points to improve QOL. Goal Progress: Progressing - Plan Plan: D/C TO Loop Trolley PROGRAM WHICH PATIENT HAS ALREADY STARTED. PATIENT AGREEABLE. - D/C Information If there are questions or concerns regarding this patient's physical therapy, please feel free to call me at [phone]. Thank you for the referral of this patient. Sincerely, Rosmery Ely PT, Cert MDT
== END 2019-04-27 19:00 | disposition home or self-care (01) ==
LOC: PT 11:30
PROVIDERS: Family Provider Family Medicine; PCP Family Medicine; Referring Provider Physician Assistant; Visit Provider Physician Assistant
DX: Z98.1 Arthrodesis status (principal); M81.0 Age-related osteoporosis without current pathological fracture
CPT/HCPCS: 77081; 97110; 97113; 97162; 97530

== ENCOUNTER → 2019-04-30 06:56 | Outpatient (CLI) | payer MEDICARE, OTHER, SELFPAY ==
[2019-04-15 12:52] VITALS: BMI 28.6
--- NOTE | 2019-04-30 15:52 | STRESSREP ---
Stress Test Report Exercise myocardial perfusion stress test. 78-year-old lady with a history of chest pain. Medications: Aspirin, isosorbide, Lipitor. Stress protocol: Resting EKG demonstrates sinus bradycardia with a rate of 54 bpm resting blood pressures 148/76 mmHg. The patient exercised according to regular [place] protocol for 4 minutes and 45 seconds attaining a heart rate of 131 bpm which was 92% of maximum predicted heart rate the maximum workload was 6.7 metabolic equivalents. The patient maintained sinus rhythm throughout the recording. Occasional premature atrial and ventricular complexes were noted. There were no ST or T wave changes noted at rest or with exercise to suggest ischemia. No clinical angina was noted shortness of breath was present. Resting blood pressure 148/76 with a peak blood pressure 180/68 mmHg. Myocardial perfusion protocol. 11.3 mCi of technetium 99m sestamibi was injected at rest. The patient exercised according to regular [place] protocol for total duration of 4 minutes and 45 seconds at peak exercise 32.2 mCi of technetium 99m sestamibi was injected stress images were obtained stress and rest images were reconstructed in comparing the short axis vertical long horizontal long axis. Gated images were also obtained Perfusion SPECT analysis: Review of the stress images demonstrate normal uptake of tracer noted in all areas of myocardium. There is a small cardiac silhouette size noted. No areas of reversibility are noted suggest ischemia. No previous infarct is noted. Gated SPECT analysis: The gated ejection fraction is noted to be 75%. Conclusion: Normal exercise myocardial perfusion stress test at a moderate workload. Preserved ejection fraction.
== END ==
PROVIDERS: Family Provider Family Medicine; PCP Family Medicine; Referring Provider Internal Medicine Cardiovascular Disease; Visit Provider Internal Medicine Cardiovascular Disease
DX: R07.9 Chest pain, unspecified (principal); Z95.5 Presence of coronary angioplasty implant and graft
CPT/HCPCS: 78452; 93017; A9500

== ENCOUNTER → 2019-10-11 09:43 | Outpatient (CLI) | payer MEDICARE, OTHER, SELFPAY ==
[2019-04-15 12:52] VITALS: BMI 28.6
[2019-10-11 11:26] LABS: AST(SGOT) 17 U/L (15-37); Alanine Aminotransfer ALT/SGPT 14 U/L (13-56); Alkaline Phosphatase 115 U/L (45-117); Bilirubin, Direct 0.13 mg/dL (0.00-0.30); Cholesterol 142 mg/dL (200); Globulin 4.1 g/dL (2.2-4.2); High Density Lipoprotein 57 mg/dL; Protein, Total 7.1 g/dL (6.4-8.2); Triglycerides 78 mg/dL; Very Low Density Lipoprotein 16 mg/dL (5-40)
== END ==
PROVIDERS: Family Provider Family Medicine; PCP Family Medicine; Referring Provider Physician Assistant Medical; Visit Provider Physician Assistant Medical
DX: E78.5 Hyperlipidemia, unspecified (principal)
CPT/HCPCS: 36415; 80061; 80076

== ENCOUNTER → 2020-01-19 14:23 | Outpatient (CLI) | payer MEDICARE, OTHER, SELFPAY ==
[2019-11-29 13:18] VITALS: BMI 30.4
--- NOTE | 2020-01-19 | LES_PTH ---
PATIENT: NORMA HARPER LOC: [facility] U#:[id number] AGE/SX: 85/F ROOM: RE01/19/[address]: Dr. Estela Osborne DO : 1940 BED: DIS: SPEC #: [id number] RECD: 01/19/20 17:29 STATUS: LEO SADAF #: [id number] SHELIA: 01/19/20 00:[address]: Estela Osborne DEPT: SURGICAL PATHOLOGY RECD BY: Hakeem Beebe Tissues: Skin of scalp, NOS Procedures: PAS Fungus (control) Special Stain Group I Surgery Specimen Level IV HEADER OPERATION: Punch biopsy occipital scalp PRE-OP DIAGNOSIS: Rule out actinic keratosis vs rosacea TISSUE SUBMITTED: Occipital scalp MICROSCOPIC DIAGNOSIS Occipital scalp, punch biopsy: Acanthosis, hyperkeratosis, parakeratosis and dermal chronic inflammation. Special stain for fungi is negative for organisms; matched control is appropriate. See comment. SJ:rubin 01/21/20 COMMENT Changes consistent with actinic keratosis are not seen. Clinical correlation and appropriate follow up are necessary. Case has been reviewed in consultation with Dr. Vivar who concurs with the above diagnosis. IDC:AM MICROSCOPIC DESCRIPTION Slides are reviewed. GROSS DESCRIPTION Received in fixative is one container labeled with the patient's name and designated occipital scalp. The specimen consists of a round piece of reno-white skin measuring 0.4 x 0.4 x 0.1 cm. The specimen is totally submitted in one cassette. / ALAN:rubin 01/20/20 TC:5 CPT: 14384, 22389
[2020-01-19 15:48] LABS: Absolute Neutrophil Count 5.5 X10^3/uL (2.0-7.7); Basophil# 0.07 X10^3/uL; Basophil% 0.8 % (0-1); Eosinophil# 0.29 X10^3/uL; Eosinophils% 3.2 % (0-5); Hematocrit 42.6 % (37-47); Hemoglobin 13.3 g/dL (12.0-15.0); Lymphocyte % 25.2 % (19-41); Mean Corp Hgb Conc 31.2 g/dL (32-36); Mean Corpuscular Hgb 29.4 pg (27.0-32.0); Mean Corpuscular Volume 94.2 fL (81-99); Mean Platelet Vol. 10.7 fl (6.2-12.0); Monocyte# 0.91 X10^3/uL; NRBC Flagged by Analyzer 0 % (0-5); Neutrophil # 5.51 X10^3/uL (2.7-7.7); Neutrophil % 60.1 % (47-70); Platelet Count 282 K/mm3 (150-450); RBC Distribution Width CV 13.2 % (11.6-14.6); RBC Distribution Width SD 45.4 fl (35.1-43.9); Red Blood Count 4.52 M/mm3 (4.2-5.4); White Blood Count 9.1 K/mm3 (4.4-11.0)
[2020-01-19 16:44] LABS: Vitamin D,25 Hydroxy 104.7 ng/mL
[2020-01-19 16:47] LABS: ALB/GLOB Ratio 0.8 RATIO (0.9-2.4); AST(SGOT) 21 U/L (15-37); Alanine Aminotransfer ALT/SGPT 19 U/L (13-56); Albumin, Serum 3.3 g/dL (3.2-5.0); Alkaline Phosphatase 109 U/L (45-117); Anion Gap 6 (5-15); BUN 27 mg/dL (7-18); BUN/Creat Ratio 20.3 RATIO (10-20); Calcium,Total 8.9 mg/dL (8.5-10.1); Chloride 107 mmol/L (98-107); Creatinine, Serum 1.33 mg/dL (0.55-1.02); EST Glomerular Filtration Rate 41 mL/min (>60); Est Glom Filt Rate - Afr Amer 49 mL/min (>60); Ferritin 36 ng/mL (8-252); Free T3 3.1 pg/mL (2.18-3.98); Glucose 85 mg/dL (74-106); Iron 68 ug/dL (50-170); Iron Binding Capacity,Total 274 ug/dL (250-450); PERCENT IRON SATURATION 24.8 % (15.0-55.0); Potassium 4.1 mmol/L (3.5-5.1); Protein, Total 7.3 g/dL (6.4-8.2); Sodium Level 140 mmol/L (136-145); T4 Free Direct 0.95 ng/dL (0.76-1.46); Thyroid Stim Hormone (TSH) 3.43 uIU/mL (0.358-3.74)
[2020-01-19 16:55] LABS: Vitamin B12 > 2000 pg/mL (211-911)
== END ==
PROVIDERS: PCP Family Medicine; Visit Provider Family Medicine
DX: N18.9 Chronic kidney disease, unspecified (principal); R53.83 Other fatigue; D64.9 Anemia, unspecified; E53.8 Deficiency of other specified B group vitamins; E55.9 Vitamin D deficiency, unspecified; Z51.81 Encounter for therapeutic drug level monitoring
CPT/HCPCS: 36415; 80053; 82306; 82607; 82728; 82746; 83540; 83550; 84439; 84443; 84481; 85025; 88305; 88312

== ENCOUNTER → 2020-01-31 12:13 | Outpatient (CLI) | payer MEDICARE, OTHER, SELFPAY ==
[2019-11-29 13:18] VITALS: BMI 30.4
--- NOTE | 2020-01-31 12:17 | BI_ITS ---
MAMMOGRAPHY - BILATERAL SCREENING REASON FOR EXAM: Female, 79 years old. Routine annual screening examination. PERTINENT HISTORY: Non-contributory. TECHNIQUE: Digital bilateral breast maco (3D mammographic acquisition) in the CC and MLO projections. 2-D mediolateral oblique (MLO) and craniocaudad (CC) views of both breasts were obtained. CAD: Full Field Digital Mammography with Computer Added Detection was performed. COMPARISON: Comparison is made with prior examination dated January 27, 2019 December 25, 2017. FINDINGS: Breast Composition: There are scattered areas of fibroglandular density. There are no dominant masses or suspicious calcifications. Stable small benign-appearing bilateral axillary lymph nodes. No other significant abnormalities are identified. There has been no significant change since the prior study. BI/SCREEN MAMM (CAD) W/MACO BILAT IMPRESSION: Stable bilateral screening mammogram. Yearly follow-up mammogram recommended. (A) ASSESSMENT CATEGORY: BIRADS Category 2: Benign. A letter regarding these results will be sent to the patient by the facility within 30 days. Approximately 10% of breast cancers are not detected by mammography. A normal mammogram should not delay biopsy of a clinically suspicious abnormality. [id number] Electronically Signed: Chente Spence, at 13:23 EDT , Service support ,
== END ==
PROVIDERS: PCP Family Medicine; Referring Provider Family Medicine; Visit Provider Family Medicine
DX: Z12.31 Encounter for screening mammogram for malignant neoplasm of breast (principal)
CPT/HCPCS: 77063; 77067

== ENCOUNTER → 2020-04-13 08:28 | Outpatient (CLI) | payer MEDICARE, OTHER, SELFPAY ==
[2019-11-29 13:18] VITALS: BMI 30.4
[2020-04-13 09:50] LABS: AST(SGOT) 19 U/L (15-37); Alanine Aminotransfer ALT/SGPT 21 U/L (13-56); Albumin, Serum 3.2 g/dL (3.2-5.0); Alkaline Phosphatase 114 U/L (45-117); Bilirubin, Direct 0.15 mg/dL (0.00-0.30); Cholesterol 160 mg/dL (200); High Density Lipoprotein 58 mg/dL; Protein, Total 7.2 g/dL (6.4-8.2); Triglycerides 84 mg/dL; Very Low Density Lipoprotein 17 mg/dL (5-40)
== END ==
PROVIDERS: PCP Family Medicine; Referring Provider Internal Medicine Cardiovascular Disease; Visit Provider Internal Medicine Cardiovascular Disease
DX: E78.5 Hyperlipidemia, unspecified (principal)
CPT/HCPCS: 36415; 80061; 80076

== ENCOUNTER → 2020-05-04 09:43 | Outpatient (CLI) | payer MEDICARE, OTHER, SELFPAY ==
[2019-11-29 13:18] VITALS: BMI 30.4
--- NOTE | 2020-05-04 09:50 | RAD_ITS ---
STUDY: X-RAY - LUMBAR SPINE REASON FOR EXAM: Female, 79 years old. BACK SURGERY 2018, PAIN X6 MONTHS GETTING PROGRESSIVELY WORSE, NKI TECHNIQUE: 5 view(s) of the lumbar spine were obtained. COMPARISON: 10/10/2016 FINDINGS: Since prior study, patient has had long segment posterior decompression and fixation. Pedicular screws and posterior rods seen from L1-L5. No gross postsurgical complication. No acute abnormality. No compression fracture. Stable multilevel degenerative changes. Stable mild levoconvex scoliosis. Normal lordosis and alignment. There is atherosclerotic calcification of the abdominal aorta without a demonstrated aneurysm. RAD/L/S Spine Min 4 Views IMPRESSION: Postsurgical changes with no acute abnormality. Electronically Signed: Neo Portillo MD at 21:22 EDT , Service support ,
== END ==
PROVIDERS: PCP Family Medicine; Referring Provider Family Medicine; Visit Provider Family Medicine
DX: M54.5 Low back pain (principal)
CPT/HCPCS: 72110

== ENCOUNTER → 2020-10-13 08:25 | Outpatient (CLI) | payer MEDICARE, OTHER, SELFPAY ==
[2020-07-04 13:49] VITALS: BMI 30.7
[2020-10-13 09:43] LABS: AST(SGOT) 22 U/L (15-37); Alanine Aminotransfer ALT/SGPT 25 U/L (13-56); Albumin, Serum 3.2 g/dL (3.2-5.0); Alkaline Phosphatase 125 U/L (45-117); Bilirubin, Direct 0.14 mg/dL (0.00-0.30); Cholesterol 158 mg/dL (200); Globulin 3.5 g/dL (2.2-4.2); High Density Lipoprotein 51 mg/dL; Protein, Total 6.7 g/dL (6.4-8.2); Triglycerides 99 mg/dL; Very Low Density Lipoprotein 20 mg/dL (5-40)
== END ==
PROVIDERS: PCP Family Medicine; Referring Provider Internal Medicine Cardiovascular Disease; Visit Provider Internal Medicine Cardiovascular Disease
DX: E78.00 Pure hypercholesterolemia, unspecified (principal); E78.5 Hyperlipidemia, unspecified
CPT/HCPCS: 36415; 80061; 80076

== ENCOUNTER 2020-12-14 13:44 | Outpatient (RCR) | payer MEDICARE, OTHER, SELFPAY ==
[2020-07-04 13:49] VITALS: BMI 30.7
== END 2020-12-14 23:59 ==
LOC: IMMUN 13:44
PROVIDERS: PCP Family Medicine; Visit Provider Family Medicine
DX: Z23 Encounter for immunization (principal)
CPT/HCPCS: 0011A; 0012A; 91301

== ENCOUNTER → 2021-02-14 11:25 | Outpatient (CLI) | payer MEDICARE, OTHER, SELFPAY ==
[2020-07-04 13:49] VITALS: BMI 30.7
--- NOTE | 2021-02-14 11:29 | BI_ITS ---
MAMMOGRAPHY - BILATERAL SCREENING REASON FOR EXAM: Female, 80 years old. Routine annual screening examination. PERTINENT HISTORY: Non-contributory. TECHNIQUE: Digital bilateral breast maco (3D mammographic acquisition) in the CC and MLO projections. 2-D mediolateral oblique (MLO) and craniocaudad (CC) views of both breasts were obtained. CAD: Full Field Digital Mammography with Computer Added Detection was performed. COMPARISON: Comparison is made with prior study dated 01/31/2020 and 01/27/2019. FINDINGS: Breast Composition: The breasts are heterogeneously dense, which may obscure small masses. There are no dominant masses or suspicious calcifications. Stable small benign-appearing bilateral axillary lymph nodes. No other significant abnormalities are identified. There has been no significant change since the prior study. BI/SCRN MAMM (CAD)W/MACO BILAT IMPRESSION: Stable bilateral screening mammogram. Yearly follow-up mammogram recommended. (A) ASSESSMENT CATEGORY: BIRADS Category 2: Benign. A letter regarding these results will be sent to the patient by the facility within 30 days. Approximately 10% of breast cancers are not detected by mammography. A normal mammogram should not delay biopsy of a clinically suspicious abnormality. [id number] Electronically Signed: Chente Spence MD at 12:41 EDT , Service support ,
--- NOTE | 2021-02-14 11:31 | BD_ITS ---
STUDY: DUAL ENERGY X-RAY ABSORPTIOMETRY / DXA REASON FOR EXAM: Female, 80 years old. M810. Early menopause. Loss of height. History of prior multiple lumbar fusions. TECHNIQUE: Bone Mineral Density (BMD) measurements of left forearm and bilateral hips were obtained. COMPARISON: Comparison is made with prior study of 02/02/2019. FINDINGS: Left Femur Total: g/cm2 (0.943) / T-score (-0.5) / Z-score (1.6) Left Femoral Neck: g/cm2 (1.037) / T-score (0.0) / Z-score (2.2) Right Femur Total: g/cm2 (0.822) / T-score (-1.5) / Z-score (0.6) Right Femoral Neck: g/cm2 (0.910) / T-score (-0.9) / Z-score (1.3) Left Forearm: g/cm2 (0.568) / T-score (-3.5) / Z-score (-0.7) The T-Scores on the most recent prior examination were: Left Femur Total: which represents an improvement of 4.2%. Right Femur Total: which represents no significant change. . BD/Dexa Bone Density Study IMPRESSION: The patient is considered osteoporotic as outlined below according to World Blaze Organization (WHO) criteria with a high fracture risk. There has been improvement of bone density since the previous examination. Reference Information: The T-score is the number of standard deviations above or below the standard which is normal for young adults at their peak bone mineral density. The World Health Organization (WHO) interprets the T-scores as follows: Above -1 Normal bone density Between -1 and -2.5 Osteopenia Equal to / or below -2.5 Osteoporosis As a practical clinical guideline, osteopenia may be graded as follows: Mild -1 through -1.5 Moderate -1.6 through -2.0 Severe -2.1 through -2.4 The Z-score is the number of standard deviations above or below age-matched controls. A Z-score of less than -1.5 would be considered abnormal. References: 1. NIH Osteoporosis and Related Bone Diseases www osteo.org 2. International Society for Clinical Densitometry www iscd.org 3. National Osteoporosis Foundation www nof.org Electronically Signed: Chente Spence MD at 14:38 EDT , Service support ,
== END ==
PROVIDERS: PCP Family Medicine; Referring Provider Family Medicine; Visit Provider Family Medicine
DX: M81.0 Age-related osteoporosis without current pathological fracture (principal); Z12.31 Encounter for screening mammogram for malignant neoplasm of breast
CPT/HCPCS: 77063; 77067; 77080

== ENCOUNTER → 2021-02-23 17:30 | Outpatient (CLI) | payer MEDICARE, OTHER, SELFPAY ==
[2020-07-04 13:49] VITALS: BMI 30.7
--- NOTE | 2021-02-23 17:34 | CT_ITS ---
EXAMINATION : Head CT w/out contrast HISTORY : TIA COMPARISON : None. TECHNIQUE : Multiple contiguous axial images were obtained from the skull base to the vertex without intravenous contrast. A radiation dose optimization technique was used for this scan. FINDINGS : There is no evidence for acute intracranial hemorrhage, mass effect, or midline shift. There is no extra-axial fluid collection. There are periventricular white matter changes consistent with chronic microvascular ischemic disease. There is sulcal widening and ventricular enlargement consistent with cerebral atrophy. There is normal queen-white differentiation, without CT evidence of acute ischemia or infarct. The skull base and calvarium are unremarkable. The orbits are unremarkable. The paranasal sinuses are clear. The mastoid air cells are well-aerated. The soft tissues are unremarkable. CT/Brain/Head without Contrast IMPRESSION: No acute intracranial abnormality. Chronic involutional and ischemic changes of the brain. Electronically Signed: Isaac Friedman MD at 18:04 EDT Tel , Service support ,
[2021-02-23 17:45] LABS: CREATININE FINGERSTICK 2.3 mg/dL (0.55-1.02)
== END ==
LOC: CT 17:30
PROVIDERS: PCP Family Medicine; Referring Provider Family Medicine; Visit Provider Family Medicine
DX: G45.9 Transient cerebral ischemic attack, unspecified (principal); H53.8 Other visual disturbances; R29.810 Facial weakness
CPT/HCPCS: 70450

== ENCOUNTER → 2021-03-01 08:49 | Outpatient (CLI) | payer MEDICARE, OTHER, SELFPAY ==
[2020-07-04 13:49] VITALS: BMI 30.7
[2021-03-01 10:58] LABS: Anion Gap 5 (5-15); BUN 35 mg/dL (7-18); Calcium,Total 9.1 mg/dL (8.5-10.1); Chloride 112 mmol/L (98-107); Creatinine, Serum 1.52 mg/dL (0.55-1.02); EST Glomerular Filtration Rate 35 mL/min (>60); Est Glom Filt Rate - Afr Amer 42 mL/min (>60); Glucose 78 mg/dL (74-106); Potassium 4.2 mmol/L (3.5-5.1); Sodium Level 142 mmol/L (136-145)
== END ==
PROVIDERS: PCP Family Medicine; Referring Provider Family Medicine; Visit Provider Family Medicine
DX: N18.4 Chronic kidney disease, stage 4 (severe) (principal)
CPT/HCPCS: 36415; 80048

== ENCOUNTER → 2021-03-14 13:52 | Outpatient (CLI) | payer MEDICARE, OTHER, SELFPAY ==
[2020-07-04 13:49] VITALS: BMI 30.7
--- NOTE | 2021-03-14 13:54 | CDU_ITS ---
Reason For Study: TIA Rt. Velocities/BP Lt. Velocities/BP Prox CCA 73/12 cm/sec. Prox CCA 85/17 cm/sec. Mid CCA 67/16 cm/sec. Mid CCA 81/19 cm/sec. Dist CCA 52/14 cm/sec. Dist CCA 66/14 cm/sec. Prox ICA 53/14 cm/sec. Prox ICA 68/22 cm/sec. Mid ICA 157/43 cm/sec. Mid ICA 127/40 cm/sec. Dist ICA 76/23 cm/sec. Dist ICA 134/25 cm/sec. Rt. ICA/CCA = 2.4. Lt. ICA/CCA = 1.7. Prox ECA 104/14 cm/sec. Prox ECA 76/8 cm/sec. Rt. Vert. 41/10 cm/sec. Lt. Vert. 47/19 cm/sec. Right Extracranial There is heterogeneous, irregular atherosclerotic plaque noted in the right common carotid artery. There is heterogeneous, irregular atherosclerotic plaque noted in the right internal carotid artery. The right internal carotid artery is very tortuous. There is heterogeneous, irregular atherosclerotic plaque noted in the right external carotid artery. Antegrade flow is noted in the right vertebral artery. There is heterogeneous, irregular atherosclerotic plaque noted in the right bulb. Left Extracranial There is homogeneous, smooth atherosclerotic plaque noted in the left common carotid artery. There is heterogeneous, irregular atherosclerotic plaque noted in the left internal carotid artery. The left internal carotid artery is very tortuous. There is heterogeneous, irregular atherosclerotic plaque noted in the left external carotid artery. Antegrade flow is noted in the left vertebral artery. There is heterogeneous, irregular atherosclerotic plaque noted in the left bulb. Procedure Carotid Duplex [id number]. The study was technically difficult. Exam performed in department. VL/Carotid Duplex Ultrasound Interpretation Summary Torturous right internal carotid artery with irregular calcific plaque and 50 t o 69% stenosis. Less than 50% stenosis right external carotid artery Tortuous left internal carotid artery with irregular calcific plaque and 50 to 69% stenosis. Less than 50% stenosis left external carotid artery Patent and antegrade vertebral arteries bilaterally The examination was noted to be technically difficult. Ordering Physician: Estela Osborne Referring Physician: Estela Osborne Performed By: Taryn Ambrose, ROSINA, RVT
== END ==
PROVIDERS: PCP Family Medicine; Referring Provider Family Medicine; Visit Provider Family Medicine
DX: R42 Dizziness and giddiness (principal); G45.9 Transient cerebral ischemic attack, unspecified; R53.1 Weakness
CPT/HCPCS: 93880

== ENCOUNTER → 2021-03-15 10:34 | Outpatient (CLI) | payer MEDICARE, OTHER, SELFPAY ==
[2020-07-04 13:49] VITALS: BMI 30.7
[2021-03-15 13:05] LABS: Anion Gap 4 (5-15); BUN 36 mg/dL (7-18); Calcium,Total 8.8 mg/dL (8.5-10.1); Chloride 109 mmol/L (98-107); EST Glomerular Filtration Rate 35 mL/min (>60); Est Glom Filt Rate - Afr Amer 43 mL/min (>60); Glucose 84 mg/dL (74-106); Potassium 4.4 mmol/L (3.5-5.1); Sodium Level 141 mmol/L (136-145)
== END ==
PROVIDERS: PCP Family Medicine; Referring Provider Family Medicine; Visit Provider Family Medicine
DX: N18.32 Chronic kidney disease, stage 3b (principal)
CPT/HCPCS: 36415; 80048

== ENCOUNTER → 2021-04-11 09:09 | Outpatient (CLI) | payer MEDICARE, OTHER, SELFPAY ==
[2020-07-04 13:49] VITALS: BMI 30.7
[2021-04-11 11:18] LABS: AST(SGOT) 21 U/L (15-37); Alanine Aminotransfer ALT/SGPT 19 U/L (13-56); Albumin, Serum 3.2 g/dL (3.2-5.0); Alkaline Phosphatase 144 U/L (45-117); Bilirubin, Direct 0.14 mg/dL (0.00-0.30); Cholesterol 135 mg/dL (200); Globulin 3.6 g/dL (2.2-4.2); High Density Lipoprotein 51 mg/dL; Protein, Total 6.8 g/dL (6.4-8.2); Triglycerides 118 mg/dL; Very Low Density Lipoprotein 24 mg/dL (5-40)
== END ==
PROVIDERS: PCP Family Medicine; Referring Provider Internal Medicine Cardiovascular Disease; Visit Provider Internal Medicine Cardiovascular Disease
DX: E78.00 Pure hypercholesterolemia, unspecified (principal); E78.5 Hyperlipidemia, unspecified
CPT/HCPCS: 36415; 80061; 80076

== ENCOUNTER → 2021-04-25 12:18 | Outpatient (CLI) | payer MEDICARE, OTHER, SELFPAY ==
[2020-07-04 13:49] VITALS: BMI 30.7
--- NOTE | 2021-04-25 12:20 | US_ITS ---
STUDY: RENAL ULTRASOUND - COMPLETE REASON FOR EXAM: Female, 80 years old. Chronic kidney disease, stage 3b TECHNIQUE: Ultrasound evaluation of the kidneys was performed with real-time and static queen-scale imaging. COMPARISON: None. FINDINGS: RIGHT KIDNEY: Normal location of the right kidney, which is normal in size. The right kidney measures 10.6 cm x 4.cm x 4.3 cm. There is a normal cortex of the right kidney. The renal cortex measures 1.1 cm. There is a 4.7 cm x 3.5 cm x 4.2 cm right renal cyst. There are no right renal calculi. There is no right hydronephrosis. DISTAL RIGHT URETER: There is non-visualization of the distal right ureter. There is no demonstrated right ureterovesical junction calculus. There is a visualized right ureteral jet. LEFT KIDNEY: Normal location of the left kidney, which is normal in size. The left kidney measures 10.1 cm x 3.9 cm x 3.8 cm. There is a normal cortex of the left kidney. The renal cortex measures 1.2 cm. There is a 2.8 cm x 3.57 x 2.4 cm left renal cyst. There are no left renal calculi. There is no left hydronephrosis. DISTAL LEFT URETER: There is non-visualization of the distal left ureter. There is no demonstrated left ureterovesical junction calculus. There is a visualized left ureteral jet. BLADDER: The distended urinary bladder has a volume of 155 ml. There is a normal wall thickness of the distended urinary bladder. There is no demonstrated mass within the urinary bladder. There are no demonstrated bladder calculi. US/Kidney and Bladder IMPRESSION: Bilateral renal cysts. Electronically Signed: Chente Spence MD at 14:49 EDT , Service support ,
== END ==
PROVIDERS: PCP Family Medicine; Referring Provider Internal Medicine Nephrology; Visit Provider Internal Medicine Nephrology
DX: N18.32 Chronic kidney disease, stage 3b (principal)
CPT/HCPCS: 36415; 76770; 80048; 81002; 82306; 83970

== ENCOUNTER → 2021-04-25 12:51 | Outpatient (CLI) | payer MEDICARE, OTHER, SELFPAY ==
[2020-07-04 13:49] VITALS: BMI 30.7
[2021-04-25 13:43] LABS: Color, Urine Yellow (Yellow); Glucose, Dipstick Normal (Normal); Ketone-Dipstick Negative (Negative); Leukocyte Esterase-Dipstick 25 /ul (Negative); Nitrite-Dipstick Negative (Negative); Occult Blood-Urine Negative /ul (Negative); Protein-Dipstick Negative (Negative); Specific Gravity, Urine 1.005 (1.002-1.030); Urine Bilirubin Dipstick Negative (Negative); Urine Clarity Clear (Clear); Urine Urobilinogen Normal (Normal)
[2021-04-25 14:06] LABS: Anion Gap 5 (5-15); BUN 28 mg/dL (7-18); BUN/Creat Ratio 20.7 RATIO (10-20); Calcium,Total 8.6 mg/dL (8.5-10.1); Chloride 107 mmol/L (98-107); Creatinine, Serum 1.35 mg/dL (0.55-1.02); EST Glomerular Filtration Rate 40 mL/min (>60); Est Glom Filt Rate - Afr Amer 48 mL/min (>60); Glucose 88 mg/dL (74-106); Potassium 4.1 mmol/L (3.5-5.1); Sodium Level 138 mmol/L (136-145)
[2021-04-25 14:07] LABS: PTHIN 104.2 pg/mL (18.4-80.1)
[2021-04-25 14:11] LABS: Vitamin D,25 Hydroxy 45.1 ng/mL
== END ==
PROVIDERS: PCP Family Medicine; Referring Provider Family Medicine; Visit Provider Family Medicine
DX: N18.32 Chronic kidney disease, stage 3b (principal)
CPT/HCPCS: 36415; 80048; 81002; 82306; 83970

== ENCOUNTER → 2021-09-04 13:46 | Outpatient (CLI) | payer MEDICARE, OTHER, SELFPAY ==
--- NOTE | 2021-09-04 13:49 | VDLE_ITS ---
Reason For Study: Pain RIGHT LEFT CFV is compressible, spontaneous, phasic, GSV is normal. competent and demonstrates normal CFV is compressible, spontaneous, phasic, augmentation. competent, and demonstrates normal Procedure augmentation. This is a venous duplex using B-mode, color FV is compressible, spontaneous, phasic, flow and spectral Doppler. competent and demonstrates normal Exam performed in department. augmentation. A preliminary report was called and/or faxed POP V is compressible, spontaneous, phasic, to Juanjo. competent and demonstrates normal augmentation. T/P Trunk is compressible. PTV is compressible. LT PerV is compressible. VL/Venous Duplex US, Unilateral Interpretation Summary There is no evidence of left lower extremity deep vein thrombosis. Left great s aphenous vein appears patent and compressible segmentally. Normal flow patterns right common femoral vein Ordering Physician: Fabiana Geiger Referring Physician: Estela Osborne Performed By: Monica Das RVT
== END ==
PROVIDERS: PCP Family Medicine; Referring Provider Podiatrist; Visit Provider Podiatrist
DX: M79.605 Pain in left leg (principal)
CPT/HCPCS: 93971

== ENCOUNTER → 2021-10-12 12:07 | Outpatient (CLI) | payer MEDICARE, OTHER, SELFPAY ==
--- NOTE | 2021-10-12 12:44 | CDU_ITS ---
Reason For Study: Bilateral carotid stenosis Rt. Velocities/BP Lt. Velocities/BP Prox CCA 51.3/8.2 cm/sec. Prox CCA 55.6/12.6 cm/sec. Mid CCA 57.8/12.1 cm/sec. Mid CCA 60.5/12.6 cm/sec. Dist CCA 45.4/8 cm/sec. Dist CCA 50.7/13.9 cm/sec. Prox ICA 29.1/10.7 cm/sec. Prox ICA 43.4/12.6 cm/sec. Mid ICA 97.4/18.8 cm/sec. Mid ICA 92.5/15.1 cm/sec. Dist ICA 97/23.4 cm/sec. Dist ICA 72.8/18.8 cm/sec. Rt. ICA/CCA = 1.90. Lt. ICA/CCA = 1.66. Prox ECA 43.2/3.6 cm/sec. Prox ECA 60.5/4.1 cm/sec. Rt. Vert. 30.8/9 cm/sec. Lt. Vert. 48.3/11.4 cm/sec. Right Extracranial There is homogeneous, smooth atherosclerotic plaque noted in the right common carotid artery. There is heterogeneous, irregular atherosclerotic plaque noted in the right internal carotid artery. The right internal carotid artery is very tortuous. There is heterogeneous, irregular atherosclerotic plaque noted in the right external carotid artery. Antegrade flow is noted in the right vertebral artery. Left Extracranial There is homogeneous, smooth atherosclerotic plaque noted in the left common carotid artery. There is heterogeneous, irregular atherosclerotic plaque noted in the left internal carotid artery. The left internal carotid artery is very tortuous. There is heterogeneous, irregular atherosclerotic plaque noted in the left external carotid artery. Antegrade flow is noted in the left vertebral artery. Procedure Carotid Duplex [id number]. This is a Carotid Duplex examination using B-mode, color flow and specral Doppler. Unable to duplicate velocites as compared to 03/14/2021. Exam performed in department. VL/Carotid Duplex Ultrasound Interpretation Summary Irregular calcific plaque at the proximal right internal carotid artery with le ss than 50% stenosis. Tortuous right internal carotid artery. Less than 50% stenosis right external carotid artery Irregular calcific plaque of the proximal left internal carotid artery Less than 50% stenosis left internal carotid artery Less than 50% stenosis left external carotid artery Patent antegrade vertebral arteries bilaterally Current findings do not suggest the velocity elevations previously identified o n March 14, 2021. Ordering Physician: Estela Osborne Referring Physician: Estela Osborne Performed By: Monica Das RVT
[2021-10-12 13:39] LABS: AST(SGOT) 17 U/L (15-37); Alanine Aminotransfer ALT/SGPT 15 U/L (13-56); Albumin, Serum 3.1 g/dL (3.2-5.0); Alkaline Phosphatase 114 U/L (45-117); Bilirubin, Direct 0.16 mg/dL (0.00-0.30); Cholesterol 138 mg/dL (200); High Density Lipoprotein 58 mg/dL; Protein, Total 7.1 g/dL (6.4-8.2); Triglycerides 58 mg/dL; Very Low Density Lipoprotein 12 mg/dL (5-40)
== END ==
PROVIDERS: Internal Medicine Cardiovascular Disease; PCP Family Medicine; Referring Provider Family Medicine; Visit Provider Family Medicine
DX: E78.00 Pure hypercholesterolemia, unspecified (principal); I65.23 Occlusion and stenosis of bilateral carotid arteries
CPT/HCPCS: 36415; 80061; 80076; 93880

== ENCOUNTER → 2021-10-23 12:04 | Outpatient (CLI) | payer MEDICARE, OTHER, SELFPAY ==
[2021-10-23 14:16] LABS: Anion Gap 7 (5-15); BUN 31 mg/dL (7-18); BUN/Creat Ratio 21.2 RATIO (10-20); Calcium,Total 8.7 mg/dL (8.5-10.1); Chloride 109 mmol/L (98-107); Creatinine, Serum 1.46 mg/dL (0.55-1.02); EST Glomerular Filtration Rate 36 mL/min (>60); Est Glom Filt Rate - Afr Amer 44 mL/min (>60); Glucose 99 mg/dL (74-106); Potassium 4.6 mmol/L (3.5-5.1); Sodium Level 141 mmol/L (136-145)
== END ==
PROVIDERS: PCP Family Medicine; Referring Provider Internal Medicine Nephrology; Visit Provider Internal Medicine Nephrology
DX: N18.32 Chronic kidney disease, stage 3b (principal)
CPT/HCPCS: 36415; 80048

== ENCOUNTER 2022-02-15 12:36 | Outpatient (CLI) | payer MEDICARE, OTHER, SELFPAY ==
--- NOTE | 2022-02-15 12:48 | BI_ITS ---
MAMMOGRAPHY - BILATERAL SCREENING REASON FOR EXAM: Female, 81 years old. Routine annual screening examination. PERTINENT HISTORY: Non-contributory. TECHNIQUE: Digital bilateral breast maco (3D mammographic acquisition) in the CC and MLO projections. 2-D mediolateral oblique (MLO) and craniocaudad (CC) views of both breasts were obtained. CAD: Full Field Digital Mammography with Computer Added Detection was performed. COMPARISON: Comparison is made with prior study dated 02/14/2021 and 01/31/2020. FINDINGS: Breast Composition: The breasts are heterogeneously dense, which may obscure small masses. There are no dominant masses or suspicious calcifications. Stable small benign-appearing bilateral axillary lymph nodes. No other significant abnormalities are identified. There has been no significant change since the prior study. BI/SCRN MAMM (CAD)W/MACO BILAT IMPRESSION: Stable bilateral screening mammogram. Yearly follow-up mammogram recommended. (A) ASSESSMENT CATEGORY: BIRADS Category 2: Benign. A letter regarding these results will be sent to the patient by the facility within 30 days. Approximately 10% of breast cancers are not detected by mammography. A normal mammogram should not delay biopsy of a clinically suspicious abnormality. [id number] Electronically Signed: Chente Spence MD at 13:35 EDT ,
== END 2022-02-15 23:59 | disposition home or self-care (01) ==
LOC: OPBI 12:46
PROVIDERS: PCP Family Medicine; Referring Provider Family Medicine; Visit Provider Family Medicine
DX: Z12.31 Encounter for screening mammogram for malignant neoplasm of breast (principal)
CPT/HCPCS: 77063; 77067

== ENCOUNTER → 2022-07-04 | Outpatient (CLI) | payer MEDICARE, OTHER, SELFPAY ==
[2022-07-04 09:30] LABS: AST(SGOT) 19 U/L (15-37); Alanine Aminotransfer ALT/SGPT 15 U/L (13-56); Albumin, Serum 3.1 g/dL (3.2-5.0); Alkaline Phosphatase 97 U/L (45-117); Bilirubin, Direct 0.17 mg/dL (0.00-0.30); Cholesterol 146 mg/dL (200); High Density Lipoprotein 54 mg/dL; Protein, Total 7.1 g/dL (6.4-8.2); Triglycerides 74 mg/dL; Very Low Density Lipoprotein 15 mg/dL (5-40)
== END | disposition home or self-care (01) ==
LOC: LAB 08:39
PROVIDERS: PCP Family Medicine; Visit Provider Internal Medicine Cardiovascular Disease
DX: E78.5 Hyperlipidemia, unspecified (principal); I25.10 Atherosclerotic heart disease of native coronary artery without angina pectoris
CPT/HCPCS: 36415; 80061; 80076

== ENCOUNTER → 2022-08-05 | Outpatient (CLI) | payer MEDICARE, OTHER, SELFPAY ==
--- NOTE | 2022-08-05 09:28 | STRESSREP ---
Stress Test Report Exercise myocardial perfusion stress test. 81-year-old lady with a history of coronary artery disease status post previous stenting and shortness of breath. Stress protocol: Resting EKG demonstrates sinus bradycardia with a rate of 47 bpm normal intervals are noted resting blood pressure is 140/62 mmHg. The patient exercised according to regular [place] protocol for total duration of 5 minutes completing 2 minutes into stage II of the [place] protocol the maximum heart rate attained was 131 bpm which was 98% of maximum flexion heart rate and maximum workload was 7 metabolic equivalents the test was terminated due to fatigue and dyspnea. At rest there were no ST or T wave changes noted to suggest ischemia and at peak exercise nonspecific ST changes were noted with did not meet the criteria for ischemia. The peak blood pressure was 166/78 mmHg. Myocardial perfusion protocol. 11.5 mCi of technetium 99m sestamibi was injected at rest. The patient exercised according to regular [place] protocol for 5 minutes and at peak exercise 31.8 mCi of technetium 99m sestamibi was injected stress images were obtained stress and rest images were reconstructed and compared in the short axis vertical long horizontal long axis. Gated images were also obtained. Perfusion SPECT analysis: Review of the stress images demonstrate normal uptake of tracer noted in all areas of the myocardium. The resting images similar demonstrate normal uptake of tracer noted in all areas of the myocardium. No areas of reversibility are noted to suggest ischemia and no previous infarct is noted. Gated SPECT analysis: The gated ejection fraction is 77%. Conclusion: Normal exercise myocardial perfusion stress test. Preserved ejection fraction.
== END | disposition home or self-care (01) ==
LOC: CVS 06:02
PROVIDERS: PCP Family Medicine; Referring Provider Nurse Practitioner Gerontology; Visit Provider Nurse Practitioner Gerontology
DX: I25.10 Atherosclerotic heart disease of native coronary artery without angina pectoris (principal); R53.83 Other fatigue; R00.1 Bradycardia, unspecified
CPT/HCPCS: 78452; 93017; 93225; 93226; A9500; A4216

== ENCOUNTER → 2022-10-04 | Outpatient (CLI) | payer MEDICARE, OTHER, SELFPAY ==
[2022-10-04 14:59] LABS: Absolute Lymphocyte Count 2.28 X10^3/uL (0.83-4.51); Absolute Neutrophil Count 5.6 X10^3/uL (2.0-7.7); Basophil# 0.07 X10^3/uL; Basophil% 0.8 % (0-1); Eosinophil# 0.26 X10^3/uL; Eosinophils% 2.9 % (0-5); Hemoglobin 13.5 g/dL (12.0-15.0); Lymphocyte # 2.28 X10^3/ul (0.83-4.51); Lymphocyte % 25.1 % (19-41); Mean Corp Hgb Conc 32.1 g/dL (32-36); Mean Corpuscular Hgb 30.9 pg (27.0-32.0); Mean Corpuscular Volume 96.1 fL (81-99); Mean Platelet Vol. 10.9 fl (6.2-12.0); Monocyte# 0.84 X10^3/uL; Monocyte% 9.2 % (0-10); NRBC Flagged by Analyzer 0 % (0-5); Neutrophil # 5.59 X10^3/uL (2.7-7.7); Neutrophil % 61.3 % (47-70); Platelet Count 306 K/mm3 (150-450); RBC Distribution Width CV 13.8 % (11.6-14.6); Red Blood Count 4.37 M/mm3 (4.2-5.4); White Blood Count 9.1 K/mm3 (4.4-11.0)
[2022-10-04 15:30] LABS: Anion Gap 6 (5-15); BUN 28 mg/dL (7-18); BUN/Creat Ratio 17.7 RATIO (10-20); Calcium,Total 9.2 mg/dL (8.5-10.1); Chloride 109 mmol/L (98-107); Creatinine, Serum 1.58 mg/dL (0.55-1.02); EST Glomerular Filtration Rate 33 mL/min (>60); Est Glom Filt Rate - Afr Amer 40 mL/min (>60); Glucose 92 mg/dL (74-106); Magnesium 2.3 mg/dL (1.6-2.6); Potassium 4.3 mmol/L (3.5-5.1); Sodium Level 142 mmol/L (136-145); T4 Free Direct 0.89 ng/dL (0.76-1.46)
== END | disposition home or self-care (01) ==
LOC: LAB 14:05
PROVIDERS: PCP Family Medicine; Referring Provider Nurse Practitioner Gerontology; Visit Provider Nurse Practitioner Gerontology
DX: R53.83 Other fatigue (principal)
CPT/HCPCS: 36415; 80048; 83735; 84439; 84443; 85025

== ENCOUNTER → 2023-02-04 | Outpatient (CLI) | payer MEDICARE, OTHER, SELFPAY ==
[2023-02-04 10:48] LABS: AST(SGOT) 22 U/L (15-37); Alanine Aminotransfer ALT/SGPT 19 U/L (13-56); Albumin, Serum 3.4 g/dL (3.2-5.0); Alkaline Phosphatase 103 U/L (45-117); Bilirubin, Direct 0.14 mg/dL (0.00-0.30); Cholesterol 160 mg/dL (200); High Density Lipoprotein 63 mg/dL; Protein, Total 7.4 g/dL (6.4-8.2); Triglycerides 102 mg/dL; Very Low Density Lipoprotein 20 mg/dL (5-40)
== END | disposition home or self-care (01) ==
PROVIDERS: PCP Family Medicine; Referring Provider Nurse Practitioner Gerontology; Visit Provider Nurse Practitioner Gerontology
DX: E78.00 Pure hypercholesterolemia, unspecified (principal)
CPT/HCPCS: 36415; 80061; 80076

== ENCOUNTER → 2023-02-18 | Outpatient (CLI) | payer MEDICARE, OTHER, SELFPAY ==
--- NOTE | 2023-02-18 12:58 | BI_ITS ---
MAMMOGRAPHY - BILATERAL SCREENING REASON FOR EXAM: Female, 82 years old. Routine annual screening examination. PERTINENT HISTORY: Non-contributory. TECHNIQUE: Digital bilateral breast maco (3D mammographic acquisition) in the CC and MLO projections. 2-D mediolateral oblique (MLO) and craniocaudad (CC) views of both breasts were obtained. CAD: Full Field Digital Mammography with Computer Added Detection was performed. COMPARISON: Comparison is made with prior study of February 15, 2022 and February 14, 2021. FINDINGS: Breast Composition: The breasts are heterogeneously dense, which may obscure small masses. There are no dominant masses or suspicious calcifications. Stable small benign-appearing bilateral axillary lymph nodes. No other significant abnormalities are identified. There has been no significant change since the prior study. BI/SCRN MAMM (CAD)W/MACO BILAT IMPRESSION: Stable bilateral screening mammogram. Yearly follow-up mammogram recommended. (A) ASSESSMENT CATEGORY: BIRADS Category 2: Benign. A letter regarding these results will be sent to the patient by the facility within 30 days. Approximately 10% of breast cancers are not detected by mammography. A normal mammogram should not delay biopsy of a clinically suspicious abnormality. [id number] Electronically Signed: Chente Spence MD at 14:49 EDT ,
--- NOTE | 2023-02-18 13:07 | BD_ITS ---
STUDY: DUAL ENERGY X-RAY ABSORPTIOMETRY / DXA REASON FOR EXAM: Female, 82 years old. Z780 TECHNIQUE: Bone Mineral Density (BMD) measurements of left forearm and bilateral hips were obtained. COMPARISON: Comparison is made with prior examination dated February 14, 2021. FINDINGS: Left Femur Total: g/cm2 (0.888) / T-score (-0.4) / Z-score (1.8) Left Femoral Neck: g/cm2 (0.828) / T-score (-0.2) / Z-score (2.3) Right Femur Total: g/cm2 (0.767) / T-score (-1.4) / Z-score (0.8) Right Femoral Neck: g/cm2 (0.737) / T-score (-1.0) / Z-score (1.4) Left Forearm: g/cm2 (0.448) / T-score (-2.4) / Z-score (1.0) The T-Scores on the most recent prior examination were: Left Femur Total: which represents an improvement of 1%. Right Femur Total: which represents an improvement of 0.8%. BD/Dexa Bone Density Study IMPRESSION: The patient is considered osteopenic as outlined below according to World [employer] Organization (WHO) criteria with a high fracture risk. There has been improvement of bone density since the previous examination. Reference Information: The T-score is the number of standard deviations above or below the standard which is normal for young adults at their peak bone mineral density. The World Health Organization (WHO) interprets the T-scores as follows: Above -1 Normal bone density Between -1 and -2.5 Osteopenia Equal to / or below -2.5 Osteoporosis As a practical clinical guideline, osteopenia may be graded as follows: Mild -1 through -1.5 Moderate -1.6 through -2.0 Severe -2.1 through -2.4 The Z-score is the number of standard deviations above or below age-matched controls. A Z-score of less than -1.5 would be considered abnormal. References: 1. NIH Osteoporosis and Related Bone Diseases www osteo.org 2. International Society for Clinical Densitometry www iscd.org 3. National Osteoporosis Foundation www nof.org Electronically Signed: Chente Spence MD at 13:19 EDT ,
== END | disposition home or self-care (01) ==
LOC: OPBD 12:57
PROVIDERS: PCP Family Medicine; Visit Provider Family Medicine
DX: Z13.820 Encounter for screening for osteoporosis (principal); Z78.0 Asymptomatic menopausal state; Z12.31 Encounter for screening mammogram for malignant neoplasm of breast
CPT/HCPCS: 77063; 77067; 77080

== ENCOUNTER → 2023-05-06 | Outpatient (CLI) | payer MEDICARE, OTHER, SELFPAY ==
[2023-05-06 09:33] LABS: Absolute Neutrophil Count 4.8 X10^3/uL (2.0-7.7); Basophil# 0.08 X10^3/uL; Eosinophil# 0.35 X10^3/uL; Eosinophils% 4.4 % (0-5); Hematocrit 42.2 % (37-47); Hemoglobin 13.6 g/dL (12.0-15.0); Lymphocyte % 22.7 % (19-41); Mean Corp Hgb Conc 32.2 g/dL (32-36); Mean Corpuscular Hgb 31.7 pg (27.0-32.0); Mean Corpuscular Volume 98.4 fL (81-99); Mean Platelet Vol. 10.2 fl (6.2-12.0); Monocyte# 0.84 X10^3/uL; Monocyte% 10.6 % (0-10); NRBC Flagged by Analyzer 0 % (0-5); Neutrophil # 4.82 X10^3/uL (2.7-7.7); Neutrophil % 60.8 % (47-70); Platelet Count 297 K/mm3 (150-450); RBC Distribution Width CV 12.9 % (11.6-14.6); RBC Distribution Width SD 46.1 fl (35.1-43.9); Red Blood Count 4.29 M/mm3 (4.2-5.4); White Blood Count 7.9 K/mm3 (4.4-11.0)
[2023-05-06 10:06] LABS: Anion Gap 5 (5-15); BUN 28 mg/dL (7-18); BUN/Creat Ratio 19.9 RATIO (10-20); Calcium,Total 9.1 mg/dL (8.5-10.1); Chloride 110 mmol/L (98-107); Creatinine, Serum 1.41 mg/dL (0.55-1.02); EST Glomerular Filtration Rate 38 mL/min (>60); Est Glom Filt Rate - Afr Amer 46 mL/min (>60); Glucose 94 mg/dL (74-106); Potassium 4.1 mmol/L (3.5-5.1); Sodium Level 142 mmol/L (136-145); Thyroid Stim Hormone (TSH) 3.38 uIU/mL (0.358-3.74)
== END | disposition home or self-care (01) ==
LOC: LAB 09:03
PROVIDERS: PCP Family Medicine; Referring Provider Nurse Practitioner Gerontology; Visit Provider Nurse Practitioner Gerontology
DX: R79.89 Other specified abnormal findings of blood chemistry (principal); R53.83 Other fatigue
CPT/HCPCS: 36415; 80048; 84443; 85025

== ENCOUNTER → 2023-05-14 | Outpatient (CLI) | payer MEDICARE, OTHER, SELFPAY ==
--- NOTE | 2023-05-14 15:02 | ECHOD_ITS ---
Reason For Study: ASHD/CAD Procedure This was a 2D Doppler, Color Flow transthoracic echocardiogram. The study was technically difficult. Exam performed in department. Left Ventricle Normal LV size. Left ventricular systolic function is normal. The estimated ejection fraction is 60 %. Stage 1 diastolic dysfunction. No regional wall motion abnormalities noted. Right Ventricle Normal RV size. Normal systolic function. Atria Normal left atrium. Normal right atrium. Mitral Valve Normal mitral valve. Tricuspid Valve Normal tricuspid valve. Aortic Valve Normal aortic valve. Trivial eccentric aortic valve insufficiency. Pulmonic Valve Normal pulmonic valve. Great Vessels Normal aortic root. The pulmonary artery is normal size. Normal inferior vena cava. Pericardium/Pleural No pericardial effusion. MMode/2D Measurements & Calculations LVIDd: 4.2 cm IVSd: 0.90 cm Ao root diam: 3.3 cm LVIDs: 2.4 cm LVPWd: 0.88 cm LA dimension: 3.6 cm RVDd: 2.8 cm FS: 42.5 % LAV(MOD-bp): 33.0 ml LVAd ap4: 18.8 cm2 SV(MOD-sp4): 21.9 ml LAV(MOD-bp) Indexed: 21.5 ml/m2 LVLd ap4: 6.7 cm LAV(MOD-sp2): 45.5 ml EDV(MOD-sp4): 42.8 ml LAV(MOD-sp4): 22.0 ml EDV(sp4-el): 44.6 ml LVAs ap4: 11.2 cm2 LVLs ap4: 5.4 cm ESV(MOD-sp4): 20.9 ml ESV(sp4-el): 19.9 ml EF(MOD-sp4): 51.1 % EF(sp4-el): 55.3 % SV(sp4-el): 24.7 ml LA A4 area: 10.8 cm2 RA A4 area: 10.3 cm2 Time Measurements MV dec time: 0.30 sec Doppler Measurements & Calculations MV E max uriel: 53.8 cm/sec Lat Peak E' Uriel: 8.1 cm/sec Med Peak E' Uriel: 4.9 cm/sec MV A max uriel: 106.1 cm/sec E/E' lat: 6.6 E/E' med: 11.0 MV E/A: 0.51 MV V2 max: 117.3 cm/sec MV P1/2t max uriel: 68.2 cm/sec Ao V2 max: 129.8 cm/sec MV max P.5 mmHg MV P1/2t: 104.0 msec Ao max P.7 mmHg MV V2 mean: 49.8 cm/sec Ao V2 mean: 98.3 cm/sec MV mean P.3 mmHg MV dec slope: 192.1 cm/sec2 Ao mean P.2 mmHg MV V2 VTI: 29.8 cm MVA(P1/2t): 2.1 cm2 Ao V2 VTI: 27.0 cm AV (velocity ratio): 0.82 AI max uriel: 410.6 cm/sec LV V1 max: 111.7 cm/sec PA V2 max: 106.9 cm/sec AI max P.5 mmHg LV V1 max P.0 mmHg PA V2 mean: 84.2 cm/sec AI dec slope: 162.4 cm/sec2 LV V1 mean P.7 mmHg AI P1/2t: 740.7 msec LV V1 mean: 78.3 cm/sec LV V1 VTI: 22.1 cm TR max uriel: 237.7 cm/sec TR max P.6 mmHg ECHO/Echo Complete Interpretation Summary Normal LV size. Left ventricular systolic function is normal. The estimated ejection fraction is 60 %. Stage 1 diastolic dysfunction. Trivial eccentric aortic valve insufficiency. Ordering Physician: Margaret Bedoya Referring Physician: Estela Osborne Performed By: Jesus Chin RCS
== END | disposition home or self-care (01) ==
LOC: CVS 15:01
PROVIDERS: PCP Family Medicine; Referring Provider Nurse Practitioner Gerontology; Visit Provider Nurse Practitioner Gerontology
DX: I25.10 Atherosclerotic heart disease of native coronary artery without angina pectoris (principal); I10 Essential (primary) hypertension; Z95.5 Presence of coronary angioplasty implant and graft
CPT/HCPCS: 93306

== ENCOUNTER → 2023-08-01 | Outpatient (CLI) | payer MEDICARE, OTHER, SELFPAY ==
[2023-08-01 10:12] LABS: AST(SGOT) 18 U/L (15-37); Alanine Aminotransfer ALT/SGPT 17 U/L (13-56); Albumin, Serum 3.3 g/dL (3.2-5.0); Alkaline Phosphatase 114 U/L (45-117); Bilirubin, Direct 0.17 mg/dL (0.00-0.30); Cholesterol 138 mg/dL (200); Globulin 3.9 g/dL (2.2-4.2); High Density Lipoprotein 59 mg/dL; Protein, Total 7.2 g/dL (6.4-8.2); Triglycerides 106 mg/dL; Very Low Density Lipoprotein 21 mg/dL (5-40)
== END | disposition home or self-care (01) ==
LOC: LAB 08:49
PROVIDERS: PCP Family Medicine; Referring Provider Nurse Practitioner Gerontology; Visit Provider Nurse Practitioner Gerontology
DX: E78.00 Pure hypercholesterolemia, unspecified (principal)
CPT/HCPCS: 36415; 80061; 80076

== ENCOUNTER → 2023-12-23 | Outpatient (CLI) | payer MEDICARE, SELFPAY ==
--- NOTE | 2023-12-23 12:25 | RAD_ITS ---
STUDY: X-RAY - THORACIC SPINE REASON FOR EXAM: Female, 83 years old. Left arm radiculopathy. TECHNIQUE: 3 view(s) of the thoracic spine were obtained. COMPARISON: None. FINDINGS: Osteopenia. Increased kyphosis of the thoracic spine. No scoliosis. Posterior fusion from L1 to L5. Anterior wedge compression deformity of T10 and to the greatest degree T11. Diffuse intervertebral disc space narrowing with osteophytes. Vascular calcification. RAD/Thoracic Spine 3 Views IMPRESSION: Anterior wedge compression deformities of T11 and T10 with diffuse moderate to marked thoracic spondylosis and increased kyphosis. Electronically Signed: Slim Chau MD at 15:33 EST ,
--- NOTE | 2023-12-23 12:26 | RAD_ITS ---
STUDY: X-RAY - CERVICAL SPINE REASON FOR EXAM: Female, 83 years old. Radiculopathy of left arm. TECHNIQUE: 5 view(s) of the cervical spine were obtained. COMPARISON: None FINDINGS: Osteopenia. Normal anterior atlantoaxial articulation. Normal odontoid process. Increased lordosis. Diffuse moderate to marked uncovertebral and facet sclerosis. 4 mm of anterolisthesis of C6 on C5. Intervertebral disc space narrowing most marked at C4-5 with small osteophytes. Anterior bony neural foraminal encroachment at C4-5 and C5-6 bilaterally, left greater than right. Bilateral carotid calcification, right greater than left. RAD/Cerv Spine 4 or 5 Views IMPRESSION: Osteopenia with moderate to marked lower cervical spondylosis most prevalent at C4-5 and C5-6 as described. Electronically Signed: Slim Chau MD at 15:17 EST ,
--- OUTSIDE RECORDS SUMMARY | 2023-12-23 12:57 | XMS RPT_ITS | CCD ---
Author Name Unknown Address [address] [place] [address] Organization [facility] Care Team Providers Care Director Of Epidemiology Name Role Phone Roof SPIRITUAL COUNSELOR, Leif Castro Unavailable Thong PARTIDA, Yaya Aponte Unavailable [phone] Estela Osborne Primary Care Provider Anjana Doshi Unavailable Andrade, Carlos Eduardo S Unavailable Estela Osborne Primary Care Provider Anjana Doshi Unavailable Andrade, [place] S Unavailable ESTELA OSBORNE Primary Care Unavailable Anjana DOSHI Attending Unavailable Anjana DOSHI Attending Unavailable ESTELA OSBORNE Primary Care Unavailable Allergies Allergy Classification Reported Allergen(s) Allergy Type Date of Onset Reaction(s) Facility Anti-Epileptic Agents (1 source) gabapentin; Translations: [GABAPENTIN] Drug Allergy 04-08-2019 [facility] Repository tomato allergenic extract (1 source) tomato allergenic extract; Translations: [TOMATO] Drug Allergy 04-08-2019 [facility] Repository (6 sources) gabapentin; Translations: [GABAPENTIN] Drug Allergy 04-12-2015 [facility] Work Phone: (1 source) FRESH TOMATOES; Translations: [FRESH TOMATOES] food allergy 04-07-2015 [facility] Work Phone: (4 sources) tomato allergenic extract Drug Allergy 04-08-2019 [facility] Medications Current Medications Medication Drug Class(es) Dates Sig (Normalized) Sig (Original) acetaminophen 500 mg oral tablet (1 source) Start: 09-25-2018 acetaminophen (TYLENOL) 500 MG tablet 1,000 mg as needed . 0 09/25/2018 Active diclofenac sodium 50 mg delayed release oral tablet (1 source) Nonsteroidal Anti-inflammatory Drug Start: 12-05-2020 take 1 tablet by mouth twice daily at mealtime diclofenac sodium (VOLTAREN) 50 MG EC tablet Take 50 mg by mouth 2 (two) times a day with meals . 0 12/05/2020 Active ergocalciferol 06553 unt oral capsule (3 sources) Provitamin D2 Compound take 1 capsule by mouth every week ergocalciferol (VITAMIN D2) 50,000 unit capsule Take 50,000 Units by mouth once a week . 0 Active multivitamin (multivitamin) per tablet (4 sources) take 1 tablet by mouth twice daily multivitamin (multivitamin) per tablet Take 1 tablet by mouth 2 (two) times a day . 0 Active Completed/Discontinued Medications Medication Drug Class(es) Dates Sig (Normalized) Sig (Original) aspirin (7 sources) Nonsteroidal Anti-inflammatory Drug Start: 07-16-2017 ASPIRIN ADULT LOW DOSE 81 MG TBEC 1 tablet once daily [facility]IRIN [id number] [facility] Problems Problem Classification Problem Date Documented Date Episodic/Chronic Acute and unspecified renal failure (1 source) Renal failure syndrome; Translations: [Chronic kidney disease, unspecified] Onset: 08-02-2015 08-02-2015 Chronic Acute myocardial infarction (1 source) Non-ST elevation (NSTEMI) myocardial infarction; Translations: [Non-ST elevation (NSTEMI) myocardial infarction] Onset: 07-28-2015 07-28-2015 Chronic Coronary atherosclerosis and other heart disease (3 sources) Atherosclerotic heart disease of [place] coronary artery without angina pectoris; 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] Onset: 07-24-2015 07-24-2015 Chronic Disorders of lipid metabolism (1 source) Hyperlipidemia; Translations: [Hyperlipidemia, unspecified] Onset: 08-02-2015 08-02-2015 Chronic Essential hypertension (1 source) Hypertensive disorder; Translations: [Essential (primary) hypertension] Onset: 08-02-2015 08-02-2015 Chronic Osteoarthritis (1 source) Osteoarthritis of hip; Translations: [Unilateral primary osteoarthritis, left hip] Onset: 09-10-2017 09-10-2017 Chronic Other acquired deformities (1 source) Spondylolisthesis; Translations: [Spondylolisthesis, lumbar region] Onset: 07-29-2018 07-29-2018 Chronic Other acquired deformities (2 sources) Other biomechanical lesions of lumbar region; Translations: [Other biomechanical lesions of lumbar region] Onset: 07-29-2018 07-29-2018 Episodic Other circulatory disease (3 sources) Vascular insufficiency; Translations: [Venous insufficiency] Onset: 04-08-2019 04-08-2019 Episodic Other connective tissue disease (2 sources) Other specified soft tissue disorders; Translations: [Right leg swelling] Onset: 04-08-2019 04-08-2019 Episodic Other connective tissue disease (4 sources) Swelling of right lower limb; Translations: [Right leg swelling] Onset: 04-08-2019 04-08-2019 Other diseases of veins and lymphatics (4 sources) Disorder of vein; Translations: [Venous insufficiency] Onset: 04-08-2019 04-08-2019 Episodic Spondylosis; intervertebral disc disorders; other back problems (4 sources) Lumbar radiculopathy; Translations: [Chronic low back pain] Onset: 02-09-2016 09-30-2016 Episodic Unclassified (1 source) Body mass index (BMI) 30.0-30.9, adult; Translations: [Body mass index (BMI) 30.0-30.9, adult] Onset: 11-22-2015 11-22-2015 Chronic Unclassified (1 source) Long-term drug therapy; Translations: [Other intermission coordinator (current) drug therapy] Onset: 08-02-2015 08-02-2015 Unclassified (1 source) Placement of stent in coronary artery ; Translations: [Presence of coronary angioplasty implant and graft] Onset: 07-24-2015 08-21-2016 Past or Other Problems Problem Classification Problem Date Documented Da te Episodic/Chronic Coronary atherosclerosis and other heart disease (1 source) Presence of coronary angioplasty implant and graft; Translations: [Presence of coronary angioplasty implant and graft] Onset: 07-24-2015 07-24-2015 Episodic Nonspecific chest pain (1 source) Chest pain; Translations: [Other chest pain] Onset: 08-22-2016 08-22-2016 Episodic Other connective tissue disease (1 source) Trochanteric bursitis, left hip; Translations: [Trochanteric bursitis, left hip] Onset: 07-16-2017 07-16-2017 Episodic Unclassified (6 sources) FH: Hypertension; Translations: [FH: Raised blood lipids] Resolved: 02-22-2016 08-21-2015 Episodic Unclassified (1 source) Problem Results Test Name Value Interpretation Reference Range Facil ity Vital Signs Date Time Vital Sign Value Performing Clinician Facility 03-08-2021 10:10-0400 BP Diastolic 77 mm[Hg] [facility] 03-08-2021 10:10-0400 BP Systolic 123 mm[Hg] [facility] 03-08-2021 10:03-0400 BMI (Body Mass Index) 29.69 kg/m2 [facility] 03-08-2021 10:03-0400 Body weight 68.95 kg [facility] 03-08-2021 10:03-0400 Height 152.4 cm [facility] 03-08-2021 10:03-0400 Pulse (Heart Rate) 65 /min [facility] 07-08-2019 09:40-0400 BP Diastolic 79 mm[Hg] [facility] 07-08-2019 09:40-0400 BP Systolic 131 mm[Hg] [facility] 07-08-2019 09:35-0400 BMI (Body Mass Index) 28.51 kg/m2 [facility] 07-08-2019 09:35-0400 Body weight 66.22 kg [facility] 07-08-2019 09:35-0400 Height 152.4 cm [facility] 07-08-2019 09:35-0400 Pulse (Heart Rate) 64 /min [facility] 04-08-2019 08:39-0400 BP Diastolic 83 mm[Hg] [facility] 04-08-2019 08:39-0400 BP Systolic 150 mm[Hg] [facility] 04-08-2019 08:39-0400 Pulse (Heart Rate) 63 /min [facility] 04-08-2019 08:37-0400 BMI (Body Mass Index) 28.03 kg/m2 [facility] 04-08-2019 08:37-0400 Height 152.4 cm Anjana Doshi [facility] 04-08-2019 08:37-0400 Respiratory Rate 16 /min Anjana Doshi [facility] 04-08-2019 08:37-0400 Weight 65.09 kg Anjana Doshi [facility] 05-20-2017 10:07-0400 BMI (Body Mass Index) 28.9 kg/m2 Leif Bonilla SPIRITUAL COUNSELOR [facility] Work Phone: 05-20-2017 10:07-0400 BP Diastolic 80 mm[Hg] Leif Bonilla SPIRITUAL COUNSELOR [facility] Work Phone: 05-20-2017 10:07-0400 BP Systolic 120 mm[Hg] Leif Bonilla SPIRITUAL COUNSELOR [facility] Work Phone: 05-20-2017 10:07-0400 Pulse (Heart Rate) 68 /min Leif Bonilla SPIRITUAL COUNSELOR [facility] Work Phone: 05-20-2017 10:07-0400 Weight 67.13 kg Leif Bonilla SPIRITUAL COUNSELOR [facility] Work Phone: 11-21-2016 13:31-0500 BSA (Body Surface Area) 1.67 m2 Leif Bonilla SPIRITUAL COUNSELOR [facility] Work Phone: 11-21-2016 13:31-0500 Height 152.4 cm Leif Bonilla SPIRITUAL COUNSELOR [facility] Work Phone: 11-21-2016 13:31-0500 Respiratory Rate 18 /min Leif Bonilla SPIRITUAL COUNSELOR [facility] Work Phone: 02-09-2016 09:36-0400 Body Temperature 98.2 [degF] Leif Bonilla SPIRITUAL COUNSELOR [facility] Work Phone: NEGATED: Highlighted [id number] 16:51-0400 BMI (Body Mass Index) 27.05 kg/m2 Mini Harris AT [facility] Work Phone: NEGATED: Highlighted [id number] 16:51-0400 BP Diastolic 79 mm[Hg] Mini Harris AT [facility] Work Phone: NEGATED: Highlighted [id number] 16:51-0400 BP Diastolic 92 mm[Hg] Mini Steven AT [facility] Work Phone: NEGATED: Highlighted [id number] 16:51-0400 BP Systolic 174 mm[Hg] Mini Steven AT [facility] Work Phone: NEGATED: Highlighted [id number] 16:51-0400 BP Systolic 176 mm[Hg] Mini Steven AT [facility] Work Phone: NEGATED: Highlighted [id number] 16:51-0400 Height 152.4 cm Mini Steven AT [facility] Work Phone: NEGATED: Highlighted [id number] 16:51-0400 Height 152 cm Mini Steven AT [facility] Work Phone: NEGATED: Highlighted [id number] 16:51-0400 Pulse (Heart Rate) 66 /min Mini Steven AT [facility] Work Phone: NEGATED: Highlighted [id number] 16:51-0400 Weight 62.6 kg Mini Steven AT [facility] Work Phone: NEGATED: Highlighted [id number] 16:51-0400 Weight 63 kg Mini Steven AT [facility] Work Phone: Encounters Encounter Date Encounter Type Care Provider Facility Start: 03-08-2021 End: 03-12-2021 ambulatory ESTELA OSBORNE [facility] Start: 03-08-2021 End: 03-08-2021 Office outpatient visit 15 minutes Anjana Doshi Work Phone: [facility] Procedures Date Procedure Procedure Detail Performing Clinician Start: 07-29-2018 End: 07-29-2018 Blood pressure outside of normal parameters - follow-up documented Yaya Benito MD Work Phone: Start: 07-29-2018 End: 07-29-2018 BMI documented as above normal parameters - follow-up documented Yaya Benito MD Work Phone: Start: 07-29-2018 End: 07-29-2018 Current medications documented Yaya Benito MD Work Phone: Start: 07-29-2018 End: 07-29-2018 Pain assessment documented as positive - follow-up documented Yaya Benito MD Work Phone: Start: 07-29-2018 End: 07-29-2018 Tobacco non-user Yaya Benito MD Work Phone: Start: 05-23-2017 End: 05-24-2017 *Hepatic Function Panel Fadi Sinclair Start: 05-23-2017 End: 05-24-2017 Lipid 1996 panel - Serum or Plasma Carlos Eduardo Zafar MD Start: 05-20-2017 End: 05-20-2017 RESEARCH ASSISTANT MEMBER Graciela Hurtado PA-C Work Phone: Start: 05-20-2017 End: 05-20-2017 Follow Up Appt 6 months Graciela caicedo PA-C Work Phone: Start: 11-21-2016 End: 11-22-2016 *Hepatic Function Panel Fadi Sinclair Start: 11-21-2016 End: 11-21-2016 Follow Up Appt 6 months Fadi Sinclair Start: 11-21-2016 End: 11-22-2016 Lipid 1996 panel - Serum or Plasma Carlos Eduardo Zafar MD Start: 11-21-2016 End: 11-21-2016 MMM Carlos Eduardo Zafar MD Start: 10-21-2016 End: 11-26-2016 *Hepatic Function Panel Fadi Sinclair Start: 10-21-2016 End: 11-26-2016 Lipid 1996 panel - Serum or Plasma Carlos Eduardo Zafar MD Start: 08-22-2016 End: 08-22-2016 RESEARCH ASSISTANT MEMBER Carlos Eduardo Zafar MD Start: 08-22-2016 End: 08-22-2016 Follow Up Appt 3 months Fadi Sinclair Start: 04-11-2016 End: 04-18-2016 *Hepatic Function Panel Fadi Sinclair Start: 04-11-2016 End: 04-18-2016 Lipid 1996 panel - Serum or Plasma Carlos Eduardo Zafar MD Start: 02-22-2016 End: 05-14-2017 Follow Up Appt 6 months Fadi Sinclair Start: 02-22-2016 End: 05-14-2017 MMM Carlos Eduardo Zafar MD Start: 11-22-2015 End: 11-22-2015 ALEK Hurtado PA-C Work Phone: Start: 11-22-2015 End: 11-22-2015 Follow Up Appt 3 months Graciela caicedo PA-C Work Phone: Start: 08-23-2015 End: 11-09-2015 *Hepatic Function Panel Fadi Sinclair Start: 08-23-2015 End: 08-24-2015 Documentation of current medications Carlos Eduardo Zafar MD Start: 08-23-2015 End: 11-15-2015 Echocardiography Carlos Eduardo Zafar MD Start: 08-23-2015 End: 08-23-2015 Follow Up Appt 3 months Fadi Sinclair Start: 08-23-2015 End: 11-09-2015 Lipid 1996 panel - Serum or Plasma Carlos Eduardo Zafar MD Start: 08-23-2015 End: 08-23-2015 MMM Carlos Eduardo Zafar MD Start: 07-28-2015 End: 08-21-2015 Nuclear stress test -exercise Carlos Eduardo Holland MD Start: 07-24-2015 End: 05-14-2017 Cardiac Rehab Carlos Eduardo Zafar MD Plan of Treatment Date Care Activity Detail Author Start: 07-25-2020 Influenza vaccination given Sequential Influenza Vaccine (#1) [facility] Start: 07-25-2019 Influenza vaccination given [facility] Start: 07-08-2019 End: 07-08-2019 Office Visit 07/08/2019 Office Visit Cardiology Anjana Doshi III, DO [address] [place] [id number] [phone] [facility] Start: 07-29-2018 End: 07-29-2018 Appointment Appointment [facility] Work Phone: Start: 07-29-2018 End: 07-29-2018 Radex spine lumbosacral minimum 4 views XR LUMBAR 4VWS FLEX/EX [facility] Work Phone: Start: 12-04-2017 End: 12-04-2017 Appointment Appointment [facility] Work Phone: Start: 11-24-2017 End: 05-29-2017 *Hepatic Function Panel *Hepatic Function Panel [facility] Work Phone: Start: 11-24-2017 End: 05-29-2017 Lipid panel [AGGREGATE] *Lipid Profile CC PCP [facility] Work Phone: Start: 05-23-2017 End: 05-24-2017 *Hepatic Function Panel *Hepatic Function Panel [facility] Work Phone: Start: 05-23-2017 End: 05-24-2017 Lipid panel [AGGREGATE] *Lipid Profile CC PCP [facility] Work Phone: Start: 05-20-2017 End: 05-20-2017 RESEARCH ASSISTANT MEMBER RESEARCH ASSISTANT MEMBER [facility] Work Phone: Start: 05-20-2017 End: 05-20-2017 Follow Up Appt 6 months Follow Up Appt 6 months [facility] Work Phone: Start: 11-21-2016 End: 11-22-2016 *Hepatic Function Panel *Hepatic Function Panel [facility] Work Phone: Start: 11-21-2016 End: 11-21-2016 Follow Up Appt 6 months Follow Up Appt 6 months [facility] Work Phone: Start: 11-21-2016 End: 11-22-2016 Lipid panel [AGGREGATE] *Lipid Profile CC PCP [facility] Work Phone: Start: 11-21-2016 End: 11-21-2016 MMM MMM [facility] Work Phone: Start: 10-21-2016 End: 11-26-2016 *Hepatic Function Panel *Hepatic Function Panel [facility] Work Phone: Start: 10-21-2016 End: 11-26-2016 Lipid panel [AGGREGATE] *Lipid Profile CC PCP [facility] Work Phone: Start: 09-30-2016 End: 09-30-2016 Mri spinal canal lumbar w/o contrast material MRI Lumbar Spine [facility] Work Phone: Start: 09-30-2016 End: 09-30-2016 Radex spine lumbosacral minimum 4 views X-Ray, Spine, Lumbosacral 2-3 views [facility] Work Phone: Start: 08-22-2016 End: 08-22-2016 RESEARCH ASSISTANT MEMBER RESEARCH ASSISTANT MEMBER [facility] Work Phone: Start: 08-22-2016 End: 08-22-2016 Follow Up Appt 3 months Follow Up Appt 3 months [facility] Work Phone: Start: 04-11-2016 End: 04-18-2016 *Hepatic Function Panel *Hepatic Function Panel [facility] Work Phone: Start: 04-11-2016 End: 04-18-2016 Lipid panel [AGGREGATE] *Lipid Profile CC PCP [facility] Work Phone: Start: 02-22-2016 End: 05-14-2017 Follow Up Appt 6 months Follow Up Appt 6 months [facility] Work Phone: Start: 02-22-2016 End: 05-14-2017 MMM MMM [facility] Work Phone: Start: 11-22-2015 End: 11-22-2015 RESEARCH ASSISTANT MEMBER RESEARCH ASSISTANT MEMBER [facility] [employer] Work Phone: Start: 11-22-2015 End: 11-22-2015 Follow Up Appt 3 months Follow Up Appt 3 months [facility] [employer] [facility] Work Phone: Start: 08-23-2015 End: 11-09-2015 *Hepatic Function Panel *Hepatic Function Panel [facility] [employer] Work Phone: Start: 08-23-2015 End: 08-23-2015 Echocardiography Echocardiogram (complete) [facility] [employer] Work Phone: Start: 08-23-2015 End: 08-23-2015 Follow Up Appt 3 months Follow Up Appt 3 months [facility] [employer] [facility] Work Phone: Start: 08-23-2015 End: 11-09-2015 Lipid panel [AGGREGATE] *Lipid Profile CC PCP [facility] Work Phone: Start: 08-23-2015 End: 08-23-2015 MMM MMM [facility] Work Phone: Start: 07-28-2015 End: 07-28-2015 Nuclear stress test -exercise Nuclear stress test -exercise [facility] [employer] Work Phone: Start: 07-24-2015 End: 07-24-2015 Cardiac Rehab Card[facility] Re[facility] [address], [place], [address] [facility] Work Phone: Start: 2004 Fall risk assessment Falls Risk Assessment [facility] Start: 2004 Pneumococcal vaccination PNEUMOCOCCAL VACCINE AGE 65+ (1 of 2 - PCV13) [facility] Start: 1989 Administration of herpes zoster vaccine Zoster Vaccines (1 of 2) [facility] Start: 1951 Adolescent depression screening assessment Depression Screening (PHQ9) [facility] Start: 1942 History and physical examination, annual for health maintenance Wellness Visit [facility] Start: 1939 Fall risk assessment Falls Risk Assessment [facility] Start: 1939 Protein mass conc Mammogram [facility] Start: 1939 Screening for osteoporosis Dexa Scan [facility] Start: 1939 Screening mammography Mammogram [facility] Start: 1939 Tetanus vaccination [facility] Patient Education [facility] Work Phone: Immunizations Immunization Date Immunization Notes Care Provider Fa ciligiovana No information available. Mini Harris AT [facility] Work Phone: Payers Date Payer Category Payer Medicare MEDICARE MEDICAR E PART A & B xxxxxxxxxxx 2004-Present [place] [id number] 2004 Medicare MEDICARE MEDICAR E PART A & B [id number] 2004-Present [place] [id number] 2004 Medicare [id number] 1940 Unknown [id number] 1940 Unknown [id number] Unknown [employer] AFTER MEDICARE xxxxxxxxxx Effective for all dates xxxxxxxxxx [id number] Unknown [employer]ERCIAL [employer] HOUGHT AFTER MEDICARE [id number] Effective for all dates [id number] Unknown [id number] Social History Date Type Detail Facility Start: 07-29-2018 End: 07-29-2018 Assertion Unknown if ever smoked [facility] Work Phone: Start: 04-08-2019 End: 03-08-2021 Tobacco smoking status NHIS Former smoker [facility] End: 11-24-1992 History of tobacco use Current smoker [facility] Start: 04-08-2019 End: 03-08-2021 Cigarettes smoked current (pack per day) - Reported [facility] Start: 04-08-2019 Alcohol Comment social [facility] Sex Assigned At Not on file [facility] Start: 07-08-2019 End: 03-08-2021 Tobacco use and exposure Never used [facility] Start: 07-08-2019 End: 03-08-2021 Alcohol intake Current drinker of alcohol (finding) [facility] Exposure to SARS-CoV -2 (event) Not sure [facility] Instructions Instruction Description Start Date Please follow-up with Primar y Care Physician or Industrial Methods Consultant for treatment or adjustment of medication regarding elevated blood pressure.Patient advised to follow-up with Primary Care Physician for BMI management. Advance Directives No Advanced Directives Records FoundDocuments on File Type Date Recorded Patient Medical Lead Expl anation Advance Directives and Living Will Assessments Diagnosis Venous insufficiency- Primary Unspecified venous (peripheral) insufficiency Right leg swelling Diagnosis Venous insufficiency- Primary Unspecified venous (peripheral) insufficiency Diagnosis Right leg swelling- Primary Venous insufficiency Unspecified venous (peripheral) insufficiency Review of System There may be information available, but it has not been provided by the sender. Family History There may be information available, but it has not been provided by the sender.No Family History Records Found History of Present Illness * Anjana Doshi III, - 04/08/2019 8:59 AM EDT Assessment & Plan: SNOMED CT(R) 1. Venous insufficiency DISORDER OF VEIN Ambulatory referral to Cardiology 2. Right leg swelling SWELLING OF RIGHT LOWER LIMB Plan: At the present time, Mrs. Lopes does have swelling of the right leg. However, I feel conservative treatment needs to be initially utilized. Therefore I recommended getting 20 to 30 mm gradient knee-high stockings to be worn on a daily basis. I recommended that she wear them first thing in the morning when her leg is diminished in size and then taken off in the afternoon or evening. I am hesitantto pursue venous ablation of the present time, because I do not feel we have pursued enough conservative treatment options. I am not totally convinced that a venous ablation of the small saphenous vein would be significantly beneficial to the swelling because of persistent great saphenous vein (below the knee). The great saphenous vein is not ablated below the knee secondary to high risk of cutaneous nerve injury. Therefore I think in light of the patient's age and general clinical condition a conservative approach with stocking usage is appropriate. We will see her back in the office in approximate 3 months and monitor her stocking usage at that time. We will keep you informed, and we appreciate the opportunity to consult on her care. Follow Up Ordered: Return in about 3 months (around 07/09/2019) for Recheck in [place]. Subjective: Jamila Lopes is a 78 y.o. female seen in the office today for evaluation regarding swelling of the right lower extremity with venous insufficiency. Mrs. Lopes (birthday 1940) was seen in the [place] office today on April 08, 2019. She presents with complaint of right leg swelling. She states that she has had swelling in the right leg for approximately 1/2 years. It slowly seems to be increasingly more problematic. She is having difficultywearing her shoes. She does have compression hose (which she got after undergoing back surgery several months ago). But she has not been wearing them because the swelling is too significant. She has not had any ulcers or tissue loss. She states that she has a history of cardiac disease with an ID 3years ago. She had catheterization with stent placement x2. Since that time she continues to have some more generalized complaints. She states that she has achiness and swelling of the leg throughoutthe day with achiness primarily at night. She denies any deep venous thrombosis. She denies any varicose veins or prior venous or arterial surgery in the past. She did undergo venous duplex scan at [facility] on March 23, 2019 which showed no evidence of superficial deep venous thrombosis. 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 The left great saphenous vein is incompetent from the groin distally. She states that she does not have too many complaints of the left leg. She denies any claudication of the lower extremities. 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 atorvastatin (LIPITOR) 80 MG tablet Take 80 mg by mouth daily . biotin 1 mg tablet Take 1,000 mcg by mouth 3 (three) times a day . clopidogrel (PLAVIX) 75 mg tablet Take 75 mg by mouth daily . cyanocobalamin (vitamin B-12) 1000 MCG tablet Take 5,000 mcg by mouth daily . ergocalciferol (VITAMIN D2) 50,000 unit capsule Take 50,000 Units by mouth once a week . ferrous sulfate (IRON ORAL) Take 29 mg by mouth Friday, Friday, Friday . isosorbide mononitrate (IMDUR) 60 MG 24 hr tablet Take 90 mg by mouth daily . metoprolol succinate (TOPROL-XL) 25 MG 24 hr tablet Take 25 mg by mouth daily . multivitamin (multivitamin) per tablet Take 1 tablet by mouth daily . No current facility-administered medications for this visit. Allergies Allergen Reactions Gabapentin Rash Tomato Rash Fresh tomato Review of Systems Constitution: Negative for chills, decreased appetite, fever, night sweats, weight gain and weight loss. HENT: Negative. Negative for hoarse voice and sore throat. Eyes: Negative for vision loss in left eye, vision loss in right eye and visual disturbance. Cardiovascular: Positive for leg swelling. Negative for chest pain, claudication, cyanosis, dyspneaon exertion, irregular heartbeat, palpitations and paroxysmal nocturnal dyspnea. Respiratory: Negative for cough, hemoptysis, shortness of breath, sleep disturbances due to breathing and wheezing. Endocrine: Negative. Negative for cold intolerance. Hematologic/Lymphatic: Negative for bleeding problem. Does not bruise/bleed easily. Skin: Negative. Negative for color change, dry skin, nail changes and poor wound healing. Musculoskeletal: Positive for arthritis, myalgias and stiffness. Negative for back pain, falls, gout, joint pain and muscle weakness. Gastrointestinal: Negative for abdominal pain, constipation, diarrhea, heartburn, jaundice, melena,nausea and vomiting. Genitourinary: Negative for dysuria, flank pain, frequency, hematuria and nocturia. Neurological: Negative for brief paralysis, dizziness, focal weakness, headaches, light-headedness,loss of balance, numbness and paresthesias. Psychiatric/Behavioral: Negative for altered mental status, depression, memory loss and substance abuse. The patient is not nervous/anxious. Allergic/Immunologic: Negative. Negative for hives and persistent infections. Objective: Vitals: Vitals: 04/08/19 0837 04/08/19 0839 BP: (!) 162/91 (!) 150/83 BP Location: Right arm Left arm Patient Position: Sitting Sitting BP Cuff Size: Adult Adult Pulse: (!) 56 63 Resp: 16 Weight: 65.1 kg (143 lb 8 oz) Height: 5' Physical Exam Constitutional: She is oriented to person, place, and time. She appears well- developed and well-nourished. She is active and cooperative. HENT: Head: Normocephalic and atraumatic. Eyes: Conjunctivae, EOM and lids are normal. Neck: Trachea normal, normal range of motion and full passive range of motion without pain. Neck supple. Normal carotid pulses and no JVD present. Carotid bruit is not present. No thyromegaly present. Cardiovascular: Normal rate, regular rhythm and normal heart sounds. No murmur heard. Pulses: Carotid pulses are 2+ on the right side, and 2+ on the left side. Radial pulses are 2+ on the right side, and 2+ on the left side. Popliteal pulses are 2+ on the right side, and 2+ on the left side. Dorsalis pedis pulses are 2+ on the right side, and 2+ on the left side. Posterior tibial pulses are 2+ on the right side, and 2+ on the left side. Pulmonary/Chest: Effort normal and breath sounds normal. She has no decreased breath sounds. She has no wheezes. She has no rhonchi. She has no rales. Abdominal: Soft. Normal appearance and bowel sounds are normal. She exhibits no abdominal bruit. There is no hepatosplenomegaly. There is no tenderness. There is no rigidity, no rebound and no guarding. Limited exam due to body habitus. Musculoskeletal: Normal range of motion. Right lower leg: She exhibits swelling and edema. Right foot: There is swelling. Neurological: She is alert and oriented to person, place, and time. She has normal strength. She isnot disoriented. No cranial nerve deficit or sensory deficit. She displays a negative Romberg sign. Skin: Skin is warm, dry and intact. No cyanosis. Nails show no clubbing. Psychiatric: Her speech is normal and behavior is normal. Judgment and thought content normal. Her mood appears anxious. Cognition and memory are normal. Lab Review: The following labs were reviewed and within the chart Venous duplex scan with insufficiency testing performed at [facility] on March 23, 2019 indicates no evidence of deep venous obstruction necessity patency of bilateral lower extremitydeep venous system. No evidence of superficial venous thrombosis is identified bilaterally. No evidence of venous insufficiency is noted in bilateral deep venous systems. Bilateral saphenofemoral junctions are patent and competent. The right great saphenous vein shows no evidence of insufficiency above the knee, however below the knee it does appear to be incompetent. In addition, the small saphenous vein on the right calf appears to be incompetent proximally. The left great saphenous vein appears to be segmentally incompetent. The left small saphenous vein shows no evidence of venous insufficiency. documented in this encounter* Anjana Doshi III, DO - 07/08/2019 9:46 AM EDT Assessment & Plan: SNOMED CT(R) 1. Venous insufficiency DISORDER OF VEIN Plan: At the present time, Mrs. Lopes is stable regarding her venous insufficiency. She states that she has been going to water exercise and water therapies 3 times a week for the past few months and is noticed a marked improvement regarding the swelling of her legs. She is been using her stockings intermittently. She really does not wear them on a regular basis, but if she notices some swelling whereshe is on her feet for extended periods she is does not wear her stockings and has some improvement. She notices that the more active she is, the less swelling there is. She is not anxious to undergoany surgical procedures, and I feel this is an appropriate course to follow. We will see her on an as-needed basis. If cleared to become fully active without any limitations. If any questions, she isto contact us. We will keep you informed, and we appreciate the opportunity to participate in her care. Follow Up Ordered: Return if symptoms worsen or fail to improve. Subjective: Jamila Lopes is a 78 y.o. female seen in the office today for follow up regarding lower extremity swelling and venous insufficiency. Mrs. Lopes (birthday 1940) was seen in the [place] office today on July 08, 2019. It has been approximately 3 months and she was seen last. I gave her a prescription for compression stockings to be worn on a daily basis. She states that she has not worn her stockings for the last 2 to 3 months because she goes to water therapy 3 times a week, and does not want to put them on and then take them off and then put them on again. She states that the more she is active, the less swelling there is in her legs. She denies any night cramps, rest pain. She denies any claudication symptoms. Shedoes state that she uses a stockings intermittently (when the leg seems to be a bit more swollen atthe end of the day), but overall is satisfied with her present quality of life and activities. Histories: Past Medical History: Diagnosis Date Arthritis Epistaxis Hyperlipidemia Hypertension Low back pain Myocardial infarction (HCC) 06/2016 Peripheral edema Renal insufficiency Past Surgical History: Procedure Laterality Date CARDIAC CATHETERIZATION 2014 ELBOW FRACTURE SURGERY Left HYSTERECTOMY L2-L5 fusion 2018 tumor on vulva 1992 Family History Problem Relation Age of Onset Hypertension Mother Stroke Mother Heart disease Mother Heart failure Father Social History Tobacco Use Smoking status: Former Smoker Packs/day: 1.00 Years: 20.00 Pack years: 20.00 Last attempt to quit: 1992 Years since quittin.6 Smokeless tobacco: Never Used Substance Use Topics Alcohol use: Yes Comment: social Drug use: Never Current Outpatient Medications Medication Sig Dispense Refill aspirin 81 MG EC tablet Take 81 mg by mouth daily . atorvastatin (LIPITOR) 80 MG tablet Take 80 mg by mouth daily . biotin 1 mg tablet Take 1,000 mcg by mouth 3 (three) times a day . cyanocobalamin (vitamin B-12) 1000 MCG tablet Take 5,000 mcg by mouth daily . ergocalciferol (VITAMIN D2) 50,000 unit capsule Take 50,000 Units by mouth once a week . isosorbide mononitrate (IMDUR) 60 MG 24 hr tablet Take 90 mg by mouth daily . metoprolol succinate (TOPROL-XL) 25 MG 24 hr tablet Take 25 mg by mouth daily . multivitamin (multivitamin) per tablet Take 1 tablet by mouth daily . No current facility-administered medications for this visit. Allergies Allergen Reactions Gabapentin Rash Tomato Rash Fresh tomato ROS Objective: Vitals: Vitals: 07/08/19 0935 07/08/19 0940 BP: 135/83 131/79 BP Location: Right arm Patient Position: Sitting Pulse: 64 Weight: 66.2 kg (146 lb) Height: 5' Physical Exam Constitutional: She is oriented to person, place, and time. Vital signs are normal. She appears well-developed and well-nourished. She is active and cooperative. HENT: Head: Normocephalic and atraumatic. Eyes: Lids are normal. Neck: Normal range of motion. Neck supple. No JVD present. Cardiovascular: Normal rate, regular rhythm, normal heart sounds and intact distal pulses. No murmur heard. Pulses: Dorsalis pedis pulses are 2+ on the right side, and 2+ on the left side. Posterior tibial pulses are 2+ on the right side, and 2+ on the left side. Minimal edema is noted bilateral feet (1-2/4). Pulmonary/Chest: Effort normal. Abdominal: Soft. Normal appearance and bowel sounds are normal. There is no tenderness. Limited exam due to body habitus. Musculoskeletal: Normal range of motion. Right foot: There is swelling. Left foot: There is swelling. Neurological: She is alert and oriented to person, place, and time. She has normal strength. She isnot disoriented. No sensory deficit. Skin: Skin is warm, dry and intact. No cyanosis. Nails show no clubbing. Psychiatric: She has a normal mood and affect. Her speech is normal and behavior is normal. Thoughtcontent normal. documented in this encounter* Anjana Doshi III, DO - 03/08/2021 10:04 AM EDT Assessment & Plan: 1. Right leg swelling 2. Venous insufficiency Plan: At the present time, Mrs. Lopes continues to have swelling of the lower extremities (worse slightly on the right than the left). Unfortunate, she is tried the 20 to 30 mm gradient compression stockings, but they are too tight and so she has been inconsistent on her utilization. I think it is reasonable to give her a trial of 15 to 20 mm gradient stockings which may be more tolerable and therefore she may be willing to use them on a more regular basis. She may have some underlying early subclinical lymphedema that is contributing to the edema as well. She did comment that she was diagnosed with some possible renal changes (during work-up of a possible stroke and dye exposure), so her swelling may be contributed by other medical issues rather than strictly venous insufficiency. There is noevidence of ulcers or tissue loss or evidence of arterial disease so I think a continued conservative course is indicated. We will see her on an as-needed basis. If questions or problems or concerns arise, she is to contact us. We will keep you informed, and we appreciate the opportunity to participate in her care. Follow Up Ordered: Return if symptoms worsen or fail to improve. Subjective: Jamila Lopes is a 80 y.o. female seen in the office today for follow up regarding leg swelling and venous disease. Mrs. Lopes (birthday 1940) was seen in the [place] office on March 08, 2021. It has been approximately 2 months since he was seen last. She had been complaining of right leg swelling (more so than left leg), and I gave her a prescription for 20 to 30 mm gradient stockings. She got the stockings, but has been inconsistent in wearing them because they are too tight and too difficult to geton. She does comment that approximately 3 weeks ago, she had some left facial droop and left facialswelling and is being in work-up for possible Tuttle's palsy versus possible stroke changes. As result, she has been inconsistent in using her stockings and is getting tired of various testing. Overall, though she states she is doing well. She denies any ulcers or tissue loss or evidence of arterial disease or critical limb ischemia. Histories: Past Medical History: Diagnosis Date Arthritis Epistaxis Hyperlipidemia Hypertension Low back pain Myocardial infarction (HCC) 06/2016 Peripheral edema Renal insufficiency Right leg pain Right leg swelling Past Surgical History: Procedure Laterality Date CARDIAC CATHETERIZATION 2014 ELBOW FRACTURE SURGERY Left HYSTERECTOMY L2-L5 fusion 2018 tumor on vulva 1992 Family History Problem Relation Age of Onset Hypertension Mother Stroke Mother Heart disease Mother Heart failure Father Social History Tobacco Use Smoking status: Former Smoker Packs/day: 1.00 Years: 20.00 Pack years: 20.00 Quit date: 1992 Years since quittin.3 Smokeless tobacco: Never Used Substance Use Topics Alcohol use: Yes Comment: social Drug use: Never Current Outpatient Medications Medication Sig Dispense Refill acetaminophen (TYLENOL) 500 MG tablet 1,000 mg as needed . aspirin 81 MG EC tablet Take 81 mg by mouth daily . atorvastatin (LIPITOR) 80 MG tablet Take 80 mg by mouth Friday, Friday, Friday . biotin 1 mg tablet Take 1,000 mcg by mouth 3 (three) times a day . cyanocobalamin (vitamin B-12) 1000 MCG tablet Take 5,000 mcg by mouth daily . diclofenac sodium (VOLTAREN) 50 MG EC tablet Take 50 mg by mouth 2 (two) times a day with meals . isosorbide mononitrate (IMDUR) 60 MG 24 hr tablet Take 30 mg by mouth daily . metoprolol succinate (TOPROL-XL) 25 MG 24 hr tablet Take 25 mg by mouth daily . multivitamin (multivitamin) per tablet Take 1 tablet by mouth 2 (two) times a day . No current facility-administered medications for this visit. Allergies Allergen Reactions Gabapentin Rash Tomato Rash Fresh tomato ROS Objective: Vitals: Vitals: 03/08/21 1003 03/08/21 1010 BP: 130/80 123/77 BP Location: Right arm Left arm Patient Position: Sitting Pulse: 65 Weight: 68.9 kg (152 lb) Height: 5' Physical Exam Constitutional: She is oriented to person, place, and time. Vital signs are normal. She appears well-developed and well-nourished. She is active and cooperative. HENT: Head: Normocephalic. Eyes: Lids are normal. Neck: Normal range of motion. Neck supple. No JVD present. Cardiovascular: Normal rate, regular rhythm, normal heart sounds and intact distal pulses. No murmur heard. Minimal edema is noted bilateral distal lower legs and feet (1-2/4). Pulmonary/Chest: Effort normal. Abdominal: Soft. Normal appearance and bowel sounds are normal. Limited exam due to body habitus. Musculoskeletal: Normal range of motion. Right ankle: She exhibits normal pulse. Left ankle: She exhibits normal pulse. Right lower leg: Edema (Minimal) present. Left lower leg: Edema (Minimal) present. Right foot: Normal capillary refill. Swelling (Minimal) present. Left foot: Normal capillary refill. Swelling (Minimal) present. Neurological: She is alert and oriented to person, place, and time. She is not disoriented. She exhibits normal muscle tone. Gait normal. Skin: Skin is warm, dry and intact. No cyanosis. Nails show no clubbing. Psychiatric: She has a normal mood and affect. Her speech is normal and behavior is normal. documented in this encounter Summary Purpose Additional Source Comments Reason for Visit (unrecogniz ed section and content) Status Reason Specialty Diagnoses / Procedures Referred By Contact Referred To Contact Closed Specialty Services Required/Patient 's Best Interest Cardiology Diagnoses Venous incompetence Estela Osborne DO [address] [place] [address] [facility] [address] [facility] [place] [address] Reason Comments Follow-up 3mo Reason Comments Follow-up 2mo INFORMATION SOURCE (unrecogn ized section and content) FOR RECORDS PERTAINING TO PATIENTS WHO ARE OR HAVE BEEN ENROLLED IN A CHEMICAL DEPENDENCY/SUBSTANCEABUSE PROGRAM, SOME INFORMATION MAY BE OMITTED. This clinical summary was aggregated from multiple sources. Caution should be exercised in using it in the provision of clinical care. This summary normalizes information from multiple sources, and as a consequence, information in this document may materially change the coding, format and clinical context of patient data. In addition, data may be omitted in some cases. CLINICAL DECISIONS SHOULD BE BASED ON THE PRIMARY CLINICAL RECORDS. [employer] [facility]. provides no warranty or guarantee of the accuracy or completeness of information in this document.
== END | disposition home or self-care (01) ==
PROVIDERS: PCP Family Medicine; Referring Provider Family Medicine; Visit Provider Family Medicine
DX: M54.6 Pain in thoracic spine (principal); M54.12 Radiculopathy, cervical region
CPT/HCPCS: 72050; 72072

== ENCOUNTER → 2023-12-26 | Outpatient (CLI) | payer MEDICARE, SELFPAY ==
--- NOTE | 2023-12-26 12:44 | VDLE_ITS ---
Reason For Study: Venous insufficiency RIGHT LEFT CFV is compressible, spontaneous, phasic, CFV is compressible, spontaneous, phasic, competent and demonstrates normal competent, and demonstrates normal augmentation. augmentation. FV is compressible, spontaneous, phasic, FV is compressible, spontaneous, phasic, competent and demonstrates normal competent and demonstrates normal augmentation. augmentation. POP V is compressible, spontaneous, phasic, POP V is compressible, spontaneous, phasic, competent and demonstrates normal competent and demonstrates normal augmentation. augmentation. T/P Trunk is compressible. T/P Trunk is compressible. PTV is compressible. PTV is compressible. RT PerV is compressible. LT PerV is compressible. SFJ is competent and measures 0.73 x 0.78 cm. SFJ is competent and measures 0.51 x 0.52 cm. GSV proximal thigh measures 0.22 x 0.22 cm. GSV proximal thigh measures 0.42 x 0.44 cm. GSV at knee measures 0.23 x 0.24 cm. GSV above knee is competent. GSV above knee is INCOMPETENT for greater GSV at knee measures 0.31 x 0.30 cm. than 0.5 seconds. GSV below knee is INCOMPETENT for greater GSV below knee is competent. than 0.5 seconds. ASV proximal calf is INCOMPETENT for greater SSV proximal calf is competent and measures than 0.5 seconds and measures 0.23 x 0.21 cm. 0.11 x 0.13 cm. SSV proximal calf is INCOMPETENT for greater than 0.5 seconds and measures 0.14 x 0.14 cm. Procedure This is a venous duplex using B-mode, color flow and spectral Doppler. Exam performed in department. Patient was scanned in reverse Trendelenburg position during reflux assessment. VL/Venous Duplex US - Silverio Extrem Interpretation Summary Deep veins of the bilateral lower extremities are patent and compressible segme ntally. There is no evidence of bilateral lower extremity deep vein thrombosis. The bilateral great saphenous veins appear patent and compressible segmentally. Positive for reflux in the right great saphenous vein above the knee, accessory saphenous vein in the calf, and small saphenous vein. Positive for reflux in the left great saphenous vein below the knee Ordering Physician: Estela Osborne Referring Physician: Estela Osborne Performed By: Monica Das RVT
== END | disposition home or self-care (01) ==
PROVIDERS: PCP Family Medicine; Referring Provider Family Medicine; Visit Provider Family Medicine
DX: R06.9 Unspecified abnormalities of breathing (principal); I87.2 Venous insufficiency (chronic) (peripheral)
CPT/HCPCS: 93970

== ENCOUNTER → 2024-01-09 | Outpatient (CLI) | payer MEDICARE, SELFPAY ==
--- NOTE | 2024-01-09 16:53 | MRI_ITS ---
MRI/Spine Lumbar (Routine) IMPRESSION: 1. Interval extensive postoperative changes including decompressive laminectomies, pedicle screw posterior fixation from L1 to L5. No evidence of disc herniation or canal stenosis at the operative levels. 2. Broad-based disc protrusion at L5-S1 without canal stenosis however crowding and potential early impingement of the S1 nerve roots in the lateral recesses bilaterally, bilateral foraminal stenosis with mild bilateral L5 nerve root impingement. 3. Broad-based disc bulge/protrusion osteophyte at T11-12 with moderate canal stenosis without cord compression. 4. Broad-based disc bulge and osteophyte complex at T12-L1. Mild retrolisthesis of L1 and L2, no canal stenosis however lateral recess and foraminal narrowing greater on LEFT than RIGHT. 5. Mild anterolisthesis of L4 and L5, no canal stenosis however narrowing of neural foramina greater on the LEFT than RIGHT without change. 6. Normal appearance the spinal cord without compression or abnormal signal. Electronically Signed: Sumeet Forbes MD at 19:45 EST ,
--- OUTSIDE RECORDS SUMMARY | 2024-01-09 17:50 | XMS RPT_ITS | CCD ---
Author Name Unknown Address [address] [place] [address] Organization [facility] Care Team Providers Care Supervisor [employer] Name Role Phone Roof DUMP TRUCK OPERATOR, Leif Castro Unavailable Thong PARTIDA, Yaya Aponte Unavailable Estela Osborne Primary Care Provider [phone] Anjana Doshi Unavailable Andrade, [place] S Unavailable Estela Osborne Primary Care Provider [phone] Anjana Doshi Unavailable Andrade, [place] S Unavailable ESTELA OSBORNE Primary Care Unavailable Anjana DOSHI Attending Unavailable Anjana DOSHI Attending Unavailable ESTELA OSBORNE Primary Care Unavailable Allergies Allergy Classification Reported Allergen(s) Allergy Type Date of Onset Reaction(s) Facility Anti-Epileptic Agents (1 source) gabapentin; Translations: [GABAPENTIN] Drug Allergy 04-08-2019 [facility] Repository tomato allergenic extract (1 source) tomato allergenic extract; Translations: [TOMATO] Drug Allergy 04-08-2019 [facility] Repository (6 sources) gabapentin; Translations: [GABAPENTIN] Drug Allergy 04-12-[address] [facility] Work Phone: (1 source) FRESH TOMATOES; Translations: [FRESH TOMATOES] food allergy 04-07-2015 [facility] Work Phone: (4 sources) tomato allergenic extract Drug Allergy 04-08-2019 [facility] Medications Current Medications Medication Drug Class(es) Dates [...] with meals . 0 12/05/2020 Active ergocalciferol 14951 unt oral capsule (3 sources) Provitamin D2 [...] MG TBEC 1 tablet once daily ASPIRIN [id number] [facility] Active Problems Problem Classification Problem Date Documented Date Episodic/Chronic Acute and unspecified renal failure (1 source) Renal failure syndrome; Translations: [Chronic kidney disease, unspecified] Onset: 08-02-2015 08-02-2015 Chronic Acute myocardial infarction (1 source) Non-ST elevation (NSTEMI) myocardial infarction; Translations: [Non-ST elevation (NSTEMI) myocardial infarction] Onset: 07-28-2015 07-28-2015 Chronic Coronary atherosclerosis and other heart disease (3 sources) Atherosclerotic heart disease of [place] coronary artery without angina pectoris; Translations: [Old [...] (1 source) Long-term drug therapy; Translations: [Other retirement (current) drug therapy] Onset: 08-02-2015 08-02-2015 Unclassified [...] Facility 03-08-2021 10:10-0400 BP Diastolic 77 mm[Hg] [facility] 03-08-2021 10:10-0400 BP Systolic 123 mm[Hg] [facility] 03-08-2021 10:03-0400 BMI (Body Mass Index) 29.69 kg/m2 [facility] 03-08-2021 10:03-0400 Body weight 68.95 kg [facility] 03-08-2021 10:03-0400 Height 152.4 cm [facility] 03-08-2021 10:03-0400 Pulse (Heart Rate) 65 /min [facility] 07-08-2019 09:40-0400 BP Diastolic 79 mm[Hg] [facility] 07-08-2019 09:40-0400 BP Systolic 131 mm[Hg] [facility] 07-08-2019 09:35-0400 BMI (Body Mass Index) 28.51 kg/m2 [facility] 07-08-2019 09:35-0400 Body weight 66.22 kg [facility] 07-08-2019 09:35-0400 Height 152.4 cm [facility] 07-08-2019 09:35-0400 Pulse (Heart Rate) 64 /min [facility] 04-08-2019 08:39-0400 BP Diastolic 83 mm[Hg] [facility] 04-08-2019 08:39-0400 BP Systolic 150 mm[Hg] [facility] 04-08-2019 08:39-0400 Pulse (Heart Rate) 63 /min [facility] 04-08-2019 08:37-0400 BMI (Body Mass Index) 28.03 kg/m2 [facility] 04-08-2019 08:37-0400 Height 152.4 cm Anjana Doshi [facility] 04-08-2019 08:37-0400 Respiratory Rate 16 /min Anjana Doshi [facility] 04-08-2019 08:37-0400 Weight 65.09 kg Anjana Doshi [facility] 05-20-2017 10:07-0400 BMI (Body Mass Index) 28.9 kg/m2 Leif Bonilla DUMP TRUCK OPERATOR [facility] Work Phone: 05-20-2017 10:07-0400 BP Diastolic 80 mm[Hg] Leif Bonilla DUMP TRUCK OPERATOR [facility] Work Phone: 05-20-2017 10:07-0400 BP Systolic 120 mm[Hg] Leif Bonilla DUMP TRUCK OPERATOR [facility] Work Phone: 05-20-2017 10:07-0400 Pulse (Heart Rate) 68 /min Leif Bonilla DUMP TRUCK OPERATOR [facility] Work Phone: 05-20-2017 10:07-0400 Weight 67.13 kg Leif Bonilla DUMP TRUCK OPERATOR [facility] Work Phone: 11-21-2016 13:31-0500 BSA (Body Surface Area) 1.67 m2 Leif Bonilla DUMP TRUCK OPERATOR [facility] Work Phone: 11-21-2016 13:31-0500 Height 152.4 cm Leif Bonilla DUMP TRUCK OPERATOR [facility] Work Phone: 11-21-2016 13:31-0500 Respiratory Rate 18 /min Leif Bonilla DUMP TRUCK OPERATOR [facility] Work Phone: 02-09-2016 09:36-0400 Body Temperature 98.2 [degF] Leif Bonilla DUMP TRUCK OPERATOR [facility] Work Phone: NEGATED: Highlighted [id number] 16:51-0400 BMI (Body Mass Index) 27.05 kg/m2 Mini Harris AT [facility] Work Phone: NEGATED: Highlighted [id number] 16:51-0400 BP Diastolic 79 mm[Hg] Mini Harris AT [facility] Work Phone: NEGATED: Highlighted [id number] 16:51-0400 BP Diastolic 92 mm[Hg] Mini Steven AT [facility] Work Phone: NEGATED: Highlighted [id number] 16:51-0400 BP Systolic 174 mm[Hg] Mini Steven AT [facility] Work Phone: NEGATED: Highlighted [id number] 16:51-0400 BP Systolic 176 mm[Hg] Mini Steven AT [facility] Work Phone: NEGATED: Highlighted [id number] 16:51-0400 Height 152.4 cm Mini Steven AT [facility] Work Phone: NEGATED: Highlighted [id number] 16:51-0400 Height 152 cm Mini Steven AT [facility] Work Phone: NEGATED: Highlighted [id number] 16:51-0400 Pulse (Heart Rate) 66 /min Mini Steven AT [facility] Work Phone: NEGATED: Highlighted [id number] 16:51-0400 Weight 62.6 kg Mini Steven AT [facility] Work Phone: NEGATED: Highlighted [id number] 16:51-0400 Weight 63 kg Mini Steven AT [facility] Work Phone: Encounters Encounter Date Encounter Type Care Provider Facility Start: 03-08-2021 End: 03-12-2021 ambulatory ESTELA OSBORNE [facility] Start: 03-08-2021 End: 03-08-2021 Office outpatient visit 15 minutes Anjana Doshi Work Phone: [facility] Procedures Date [...] Eduardo Zafar MD Start: 05-20-2017 End: 05-20-2017 SAFETY INSTRUCTOR Graciela Hurtado PA-C Work Phone: Start: 05-20-2017 [...] Eduardo Zafar MD Start: 08-22-2016 End: 08-22-2016 SAFETY INSTRUCTOR Carlos Eduardo Zafar MD Start: 08-22-2016 End: [...] Influenza vaccination given Sequential Influenza Vaccine (#1) [facility] Start: 07-25-2019 Influenza vaccination given [facility] Start: 07-08-2019 End: 07-08-2019 Office Visit 07/08/2019 Office Visit Cardiology Anjana Doshi III, DO [address] [place] [id number] [phone] [facility] Start: 07-29-2018 End: 07-29-2018 Appointment Appointment [facility] Work Phone: Start: 07-29-2018 End: 07-29-2018 Radex spine lumbosacral minimum 4 views XR LUMBAR 4VWS FLEX/EX [facility] Work Phone: Start: 12-04-2017 End: 12-04-2017 Appointment Appointment [facility] Work Phone: Start: 11-24-2017 End: 05-29-2017 *Hepatic Function Panel *Hepatic Function Panel [facility] Work Phone: Start: 11-24-2017 End: 05-29-2017 Lipid panel [AGGREGATE] *Lipid Profile CC PCP [facility] Work Phone: Start: 05-23-2017 End: 05-24-2017 *Hepatic Function Panel *Hepatic Function Panel [facility] Work Phone: Start: 05-23-2017 End: 05-24-2017 Lipid panel [AGGREGATE] *Lipid Profile CC PCP [facility] Work Phone: Start: 05-20-2017 End: 05-20-2017 SAFETY INSTRUCTOR SAFETY INSTRUCTOR [facility] Work Phone: Start: 05-20-2017 End: 05-20-2017 Follow Up Appt 6 months Follow Up Appt 6 months [facility] Work Phone: Start: 11-21-2016 End: 11-22-2016 *Hepatic Function Panel *Hepatic Function Panel [facility] Work Phone: Start: 11-21-2016 End: 11-21-2016 Follow Up Appt 6 months Follow Up Appt 6 months [facility] Work Phone: Start: 11-21-2016 End: 11-22-2016 Lipid panel [AGGREGATE] *Lipid Profile CC PCP [facility] Work Phone: Start: 11-21-2016 End: 11-21-2016 MMM MMM [facility] Work Phone: Start: 10-21-2016 End: 11-26-2016 *Hepatic Function Panel *Hepatic Function Panel [facility] Work Phone: Start: 10-21-2016 End: 11-26-2016 Lipid panel [AGGREGATE] *Lipid Profile CC PCP [facility] Work Phone: Start: 09-30-2016 End: 09-30-2016 Mri spinal canal lumbar w/o contrast material MRI Lumbar Spine [facility] Work Phone: Start: 09-30-2016 End: 09-30-2016 Radex spine lumbosacral minimum 4 views X-Ray, Spine, Lumbosacral 2-3 views [facility] Work Phone: Start: 08-22-2016 End: 08-22-2016 SAFETY INSTRUCTOR SAFETY INSTRUCTOR [facility] Work Phone: Start: 08-22-2016 End: 08-22-2016 Follow Up Appt 3 months Follow Up Appt 3 months [facility] Work Phone: Start: 04-11-2016 End: 04-18-2016 *Hepatic Function Panel *Hepatic Function Panel [facility] Work Phone: Start: 04-11-2016 End: 04-18-2016 Lipid panel [AGGREGATE] *Lipid Profile CC PCP [facility] Work Phone: Start: 02-22-2016 End: 05-14-2017 Follow Up Appt 6 months Follow Up Appt 6 months [facility] Work Phone: Start: 02-22-2016 End: 05-14-2017 MMM MMM [facility] Work Phone: Start: 11-22-2015 End: 11-22-2015 SAFETY INSTRUCTOR SAFETY INSTRUCTOR [place] [facility] Work Phone: Start: 11-22-2015 End: 11-22-2015 Follow Up Appt 3 months Follow Up Appt 3 months [facility] Work Phone: Start: 08-23-2015 End: 11-09-2015 *Hepatic Function Panel *Hepatic Function Panel [facility] Work Phone: Start: 08-23-2015 End: 08-23-2015 Echocardiography Echocardiogram (complete) [facility] Work Phone: Start: 08-23-2015 End: 08-23-2015 Follow Up Appt 3 months Follow Up Appt 3 months [facility] Work Phone: Start: 08-23-2015 End: 11-09-2015 Lipid panel [AGGREGATE] *Lipid Profile CC PCP [facility] Work Phone: Start: 08-23-2015 End: 08-23-2015 MMM MMM [facility] Work Phone: Start: 07-28-2015 End: 07-28-2015 Nuclear stress test -exercise Nuclear stress test -exercise [facility] Work Phone: Start: 07-24-2015 End: 07-24-2015 Cardiac Rehab Cardiac Rehab [address], [place], [address] [facility] Work Phone: Start: 2004 Fall risk assessment Falls Risk Assessment [facility] Start: 2004 Pneumococcal vaccination PNEUMOCOCCAL VACCINE AGE 65+ (1 of 2 - PCV13) [facility] Start: 1989 Administration of herpes zoster vaccine Zoster Vaccines (1 of 2) [facility] Start: 1951 Adolescent depression screening assessment Depression Screening (PHQ9) [facility] Start: 1942 History and physical examination, annual for health maintenance Wellness Visit [facility] Start: 1939 Fall risk assessment Falls Risk Assessment [facility] Start: 1939 Protein mass conc Mammogram [facility] Start: 1939 Screening for osteoporosis Dexa Scan [facility] Start: 1939 Screening mammography Mammogram [facility] Start: 1939 Tetanus vaccination [facility] Patient Education [place] [facility] Work Phone: Immunizations Immunization Date Immunization Notes Care Provider Fa ciligoivana No information available. Mini aHrris AT [facility] Work Phone: Payers Date Payer Category Payer Medicare MEDICARE MEDICAR E PART A & B xxxxxxxxxxx 2004-Present [place] xxxxxxxxxxx [id number] 2004 Medicare MEDICARE MEDICAR E PART A & B [id number] 2004-Present [place] [id number] 2004 Medicare [id number] 1940 Unknown [id number] 1940 Unknown [id number] Unknown [employer] HOUG[employer] AFTER MEDICARE xxxxxxxxxx Effective for all dates xxxxxxxxxx [id number] Unknown COMMERCIAL [employer] HOUGHT AFTER MEDICARE [id number] Effective for all dates [id number] Unknown [id number] Social History Date Type Detail Facility Start: 07-29-2018 End: 07-29-2018 Assertion Unknown if ever smoked [facility] Work Phone: Start: 04-08-2019 End: 03-08-2021 Tobacco smoking status NHIS Former smoker [facility] End: 11-24-1992 History of tobacco use Current smoker [facility] Start: 04-08-2019 End: 03-08-2021 Cigarettes smoked current (pack per day) - Reported [facility] Start: 04-08-2019 Alcohol Comment social [facility] Sex Assigned At Not on file [facility] Start: 07-08-2019 End: 03-08-2021 Tobacco use and exposure Never used [facility] Start: 07-08-2019 End: 03-08-2021 Alcohol intake Current drinker of alcohol (finding) [facility] Exposure to SARS-CoV -2 (event) Not sure [facility] Instructions Instruction Description Start Date Please follow-up with Primar y Care Physician or Linotype Mechanic for treatment or adjustment of medication regarding elevated blood pressure.Patient advised to follow-up with Primary Care Physician for BMI management. Advance Directives No Advanced Directives Records FoundDocuments on File Type Date Recorded Patient Calculation Reviewer Expl anation Advance Directives and Living Will [...] 3 months (around 07/09/2019) for Recheck in [place]. Subjective: Jamila Lopes is a 78 y.o. female seen in the office today for evaluation regarding swelling of the right lower extremity with venous insufficiency. Mrs. Lopes (birthday 1940) was seen in the [place] office today on April 08, 2019. She [...] a history of cardiac disease with an HI 3years ago. She had catheterization with stent [...] She did undergo venous duplex scan at [facility] on March 23, 2019 which showed [...] duplex scan with insufficiency testing performed at [facility] on March 23, 2019 indicates no [...] Lopes (birthday 1940) was seen in the [place] office today on July 08, 2019. It [...] Lopes (birthday 1940) was seen in the [place] office on March 08, 2021. It has [...] Cardiology Diagnoses Venous incompetence Estela Osborne DO [address] [place] [address] [facility] [address] [facility] [place] [address] Reason Comments Follow-up 3mo Reason Comments Follow-up [...] BE BASED ON THE PRIMARY CLINICAL RECORDS. [employer] [facility]. provides no warranty or guarantee of the accuracy or completeness of information in this document.
== END | disposition home or self-care (01) ==
LOC: MRI 16:43
PROVIDERS: PCP Family Medicine; Referring Provider Anesthesiology Pain Medicine; Visit Provider Anesthesiology Pain Medicine
DX: S22.080A Wedge compression fracture of T11-T12 vertebra, initial encounter for closed fracture (principal); M79.604 Pain in right leg; R53.1 Weakness
CPT/HCPCS: 72148

== ENCOUNTER 2024-01-26 09:34 | Day surgery (SDC) | payer MEDICARE, SELFPAY ==
[2024-01-26] VITALS (7 sets, daily range): BP systolic 98–132; BP diastolic 56–67; PULSE 59–66; RESP 16–18; TEMP 36.2–36.5; O2SAT 93–97; BMI 28.0
--- NOTE | 2024-01-26 | BON_PTH ---
PATIENT: NORMA HARPER LOC: [facility] U#:[id number] AGE/SX: 83/F ROOM: RE01/26/[address]: Dr. Evaristo Bowen MD : 1940 BED: DIS: 01/26/2024 SPEC #: [id number] RECD: 01/26/24 14:07 STATUS: LEO REEleno #: [id number] SHELIA: 01/26/24 00:[address]: Evaristo Bowen DEPT: SURGICAL PATHOLOGY RECD BY: Hakeem Beebe ENTERED: 01/27/24 09:01 SP TYPE: Bone OTHR DR: Dr. Estela Osborne DO Tissues: Vertebra, NOS Procedures: Decalcification bone/plaque Trichrome (control) Special Stain Group II Surgery Specimen Level V Retic (control) Iron Stain (control) HEADER OPERATION: Kyphoplasty at T11 PRE-OP DIAGNOSIS: Age-related osteoporosis with current pathological fracture, vertebra, degeneration of lumbosacral intervertebral disc, lumbosacral radiculopathy TISSUE SUBMITTED: Bone biopsy T11 MICROSCOPIC DIAGNOSIS T11 bone, core biopsy: Reactive and reparative change consistent with fracture. Trilineage hematopoiesis. No evidence of malignancy. See comment. AM:rubin 01/28/2024 COMMENT Trichrome, reticulin and iron stains with matched control was used in the evaluation of this case. MICROSCOPIC DESCRIPTION Slides are reviewed. GROSS DESCRIPTION Received in fixative is one container labeled with the patient's name and designated bone biopsy T11. The specimen consists of an elongated piece of bone measuring 0.6 cm in length and 0.2 cm in diameter. The entire specimen is submitted in one cassette after decalcification. / SJ:rubin 01/27/2024 TC:5 CPT: 52041, 14046, 27975 x3
[2024-01-26] MEDS: Lactated Ringers 1,000 ML 15 ML IV (10:03)
--- NOTE | 2024-01-26 10:20 | RAD_ITS ---
INDICATION: T11 KYPHOPLASTY EXAMINATION/TECHNIQUE: X-RAY - XR Spine Lumbar 1 View COMPARISON: No relevant prior comparison study available FINDINGS: 13 fluoroscopic images of the lumbar spine were obtained for vertebroplasty. The examination was performed for documentation and not for diagnostic purposes. The radiation dose is 26.63. Fluoroscopy time was 139 seconds. RAD/Spine 1 View Any Level IMPRESSION: Intraprocedural exam as described above. Electronically Signed: Lawrence Stewart MD at 15:21 EST ,
[2024-01-26] MEDS: Cefazolin 2 GM in 0.9% Normal Saline (100mL Bag) 100 ML IV (11:11)
[2024-01-26] MEDS: Bupivacaine Mpf 0.5% 30 ML VIAL (11:21)
[2024-01-26] MEDS: Lidocaine 1% (20 ml mdv) 20 ML Vial (11:21)
[2024-01-26] MEDS: Bacitracin 500 UNITS/GM PACKET (12:04)
--- NOTE | 2024-01-26 12:09 | PCM.OPRPT ---
Report of Operation Date of Procedure: 01/26/24 Description of Surgical Findings:: PROCEDURES: 1. Juarez balloon kyphoplasty at the T11 2. Insertion of Juarez HV-R bone cement under low pressure at the T11 3. Bone biopsy at T11 4. Fluoroscopic guidance and interpretation of images PREOPERATIVE DIAGNOSES: Age-related osteoporosis with pathological fracture at T11 POSTOPERATIVE DIAGNOSES: Age-related osteoporosis with pathological fracture at T11 ANESTHESIA: MAC COMPLICATIONS: None BLOOD LOSS: Minimal PROCEDURE IN DETAIL: History and physical today was reviewed. Risks and benefits of procedure explained. The patient understood, agreed to procedure, informed consent was obtained. IV inserted per routine protocol. The patient was taken to the operating room, placed in the prone position with a pillow positioned underneath the chest. A 2 g of Ancef IV piggyback was infused per anesthesia. The upper and middle back area was prepped and draped in a sterile fashion using iodine x3. Under direct visualization with fluoroscopy with the C-arm, which brought into position on AP as well as lateral view at the T11 level., the T11 pedicle was then identified. In the view of the collapsed T11, a transpedicular approach to the vertebral body was appropriate. Starting on the left side at T11 level, an 11-gauge needle was advanced through the T11 pedicle through the junction of the pedicle and the vertebral body on the left side. Position was then confirmed on AP as well as lateral view. Following satisfactory placement of the needle to make sure it is further off the midline and interlaminar space. The stylet of the needle was then removed. A guide pen and then inserted through the 11-gauge trocar and advanced approximately 3 mm from the anterior cortex on the lateral view. AP and lateral images were then taken to verify position and trajectory of the needle. The needle was then removed leaving the guide pen in place. The introducer was then placed over the guide pen and advanced through the pedicle. Once the guidewire was at the junction of the pedicle and the vertebral body, a lateral image was taken to ensure that the cannula was positioned approximately 1 cm past the vertebral body and a lateral image was then taken to ensure correct [id number] and through the cannula, a drill was then advanced into the vertebral body under fluoroscopic guidance towards the anterior cortex creating a channel. The anterior cortex were then probed with guide pen to ensure no perforation in the anterior cortex. After completion of the entry into the vertebral body, a 10 mm inflatable bone tamp was then inserted through the cannula and advanced under direct fluoroscopic guidance into the vertebral body near the anterior cortex., The biopsy was then taken at the T11 level. After completion of the entry into the vertebral body, a balloon tamp utilizing radiopaque marker bands on the bone tamp were identified using AP and lateral images. The above sequence of instrument placement was then repeated on the right side at the T11 vertebral body. Once both bone tamps were in position, they were inflated to approximately 2 mL and making sure that the pressure is not passing 250 psi. Expansion of the bone tamp was then done sequentially in an increments of 0.25 to 0.5 mL of contrast with a careful attention was being paid to the inflation pressure and the balloon position. The inflation was then monitored on AP and lateral view images. The final balloon volume was 2.2 mL on the left side and 2.1 mL on the right side at T11 level. There was no breach of the lateral wall or the anterior cortex of the vertebral body. Direct reduction of the fracture was then achieved. Endplate movement was then noticed and approximately 5 mm of the height holiness was achieved at T11, Once the bone cement had hardened, the cannula was then removed. Once the cannula was removed and satisfactory hemostasis was maintained, the incision as then closed with a 3 Steri-Strips l at the skin and bacitracin. The patient was kept in the prone position for approximately 10 minutes post-cement injection. The patient was then turned into supine position, monitored briefly and returned to PACU. The patient was moving both of her lower extremities at the same time without any apparent neurological deficits. Throughout the procedure, there were no intraoperative complications, Motor as well as sensory exam was unchanged from prior to procedure. ESTIMATED BLOOD LOSS: Minimal less than 10 mL ASSESSMENT AND PLAN: This is an 83-year-old Female with age-related osteoporosis with pathological fracture of T11 status post Juarez balloon kyphoplasty at T11 and insertion of Juarez HV?R bone cement under low pressure at T11 and biopsy of T11 under fluoroscopic guidance patient will continue her current medications patient postop instruction was given to the patient and her family verbally as well as her writing patient will follow in approximately 1 week for reevaluation
== END 2024-01-26 13:34 | disposition home or self-care (01) ==
LOC: SDC 09:36 → AC 09:38
PROVIDERS: PCP Family Medicine; Referring Provider Anesthesiology Pain Medicine; Visit Provider Anesthesiology Pain Medicine
PROC: (CPT 22513; principal; 2024-01-26 11:05)
DX: M80.08XA Age-related osteoporosis with current pathological fracture, vertebra(e), initial encounter for fracture (principal); M46.1 Sacroiliitis, not elsewhere classified; M51.37 Other intervertebral disc degeneration, lumbosacral region; M54.17 Radiculopathy, lumbosacral region; M53.3 Sacrococcygeal disorders, not elsewhere classified; E78.00 Pure hypercholesterolemia, unspecified; I10 Essential (primary) hypertension; I25.2 Old myocardial infarction; Z79.899 Other long term (current) drug therapy; Z79.82 Long term (current) use of aspirin; Z87.891 Personal history of nicotine dependence
CPT/HCPCS: 22513; 01992; 72020; 76000; 88305; 88307; 88311; 88313; J7120; J2405

== ENCOUNTER → 2024-02-20 | Outpatient (CLI) | payer MEDICARE, SELFPAY ==
--- NOTE | 2024-02-20 13:25 | BI_ITS ---
MAMMOGRAPHY - BILATERAL SCREENING REASON FOR EXAM: Female, 83 years old. Routine annual screening examination. PERTINENT HISTORY: Non-contributory. TECHNIQUE: Digital bilateral breast maco (3D mammographic acquisition) in the CC and MLO projections. 2-D mediolateral oblique (MLO) and craniocaudad (CC) views of both breasts were obtained. CAD: Full Field Digital Mammography with Computer Added Detection was performed. COMPARISON: Comparison is made with prior examination dated February 18, 2023 February 15, 2022. FINDINGS: Breast Composition: The breasts are heterogeneously dense, which may obscure small masses. There are no dominant masses or suspicious calcifications. Stable small benign-appearing bilateral axillary lymph nodes. No other significant abnormalities are identified. There has been no significant change since the prior study. BI/SCRN MAMM (CAD)W/MACO BILAT IMPRESSION: Stable bilateral screening mammogram. Yearly follow-up mammogram recommended. (A) ASSESSMENT CATEGORY: BIRADS Category 2: Benign. A letter regarding these results will be sent to the patient by the facility within 30 days. Approximately 10% of breast cancers are not detected by mammography. A normal mammogram should not delay biopsy of a clinically suspicious abnormality. [id number] Electronically Signed: Chente Spence MD at 15:54 EDT ,
== END | disposition home or self-care (01) ==
LOC: OPBI 13:24
PROVIDERS: PCP Family Medicine; Referring Provider Family Medicine; Visit Provider Family Medicine
DX: Z12.31 Encounter for screening mammogram for malignant neoplasm of breast (principal)
CPT/HCPCS: 77063; 77067

== ENCOUNTER 2024-02-23 09:12 | Day surgery (SDC) | payer MEDICARE, SELFPAY ==
[2024-02-23] VITALS (7 sets, daily range): BP systolic 111–150; BP diastolic 51–65; PULSE 50–60; RESP 16–18; TEMP 36.5–36.7; O2SAT 92–100; BMI 28.1
[2024-02-23] MEDS: Lactated Ringers 1,000 ML 15 ML IV (09:49)
[2024-02-23 10:56] LABS: AST(SGOT) 20 U/L (15-37); Alanine Aminotransfer ALT/SGPT 16 U/L (13-56); Albumin, Serum 3.2 g/dL (3.2-5.0); Alkaline Phosphatase 104 U/L (45-117); Cholesterol 146 mg/dL (200); Globulin 3.7 g/dL (2.2-4.2); High Density Lipoprotein 55 mg/dL; Protein, Total 6.9 g/dL (6.4-8.2); Triglycerides 96 mg/dL; Very Low Density Lipoprotein 19 mg/dL (5-40)
--- NOTE | 2024-02-23 11:30 | RAD_ITS ---
PROCEDURE: Bilateral L1-L3 lumbar facet steroid injection. DATE OF EXAMINATION: February 23, 2024. INDICATION: Female, 83 years old. Low back pain. FLUOROSCOPY TIME (if supplied): (14 seconds) minutes/seconds. 3.27 mGy. 4 images were submitted. RAD/Lumbar Spine 2 or 3 Views IMPRESSION: Intraoperative fluoroscopic services provided for bilateral L1-L3 facet steroid injection. Electronically Signed: Chente Spence MD at 12:00 EDT ,
[2024-02-23] MEDS: Bupivacaine 0.25% 30 ML Vial (11:31)
[2024-02-23] MEDS: MethylPREDNISolone Acetate 80 MG/ML Vial (11:31)
[2024-02-23] MEDS: Lidocaine 1% (5 ml sdv) 5 ML Vial (11:31)
--- NOTE | 2024-02-23 11:43 | PCM.OPRPT ---
Report of Operation Date of Procedure: 02/23/24 Description of Surgical Findings:: PREOPERATIVE DIAGNOSES: Thoracolumbar spondylosis, thoracal lumbar facet arthropathy, thoracal lumbar degenerative disc disease POSTOPERATIVE DIAGNOSES: Thoracolumbar spondylosis, thoracal lumbar facet arthropathy, thoracal lumbar degenerative disc disease PROCEDURE PERFORMED: Bilateral thoracolumbar facet steroid injection at L1, L2 and L3. ANESTHESIA: MAC. BLOOD LOSS: Minimal. COMPLICATIONS: None. DESCRIPTION OF PROCEDURE: History and physical of today was reviewed. Risks and benefits of the procedure were explained. The patient understood and agreed to proceed. Informed consent was obtained. IV inserted per routine protocol. The patient was taken to the operating room and placed in the prone position with a pillow positioned underneath the abdomen. The mid back area was prepped and draped in a sterile fashion using iodine x3. Under fluoroscopy guidance on AP view, the T12 through L2 vertebral bodies were visualized. The skin and subcutaneous tissue was anesthetized with approximately 5 mL of 1% lidocaine using a 25-gauge regular needle. Under direct visualization with fluoroscopy at approximately 25-degree angle, starting on the bilateral T11, ending on the bilateral L2, passing through the T12 and L1, using a 22-gauge 3-1/2-inch spinal needle, the needle was advanced via the skin. The tip of the needle was maneuvered and directed towards the epiphyseal junction of each corresponding vertebra at T12 and L1. At L1 and L2, the needle was maneuvered and directed towards the superior medial gutter of the transverse process at the vicinity of the medial branch. Once tip of the needle was in contact with the bone, the needle was pulled approximately 2 mm of the bone. After negative aspiration for blood or CSF and confirmation on AP, oblique as well as lateral view, a total of 12 mL of preservative-free 0.25% Marcaine with 80 mg of Depo-Medrol was injected in divided doses between those six levels. The needles were then removed intact. The patient experienced no sign or symptoms of intrathecal or intravascular injection. The patient experienced no paresthesia. The procedure was completed without any apparent difficulty or any complications. The patient appeared to tolerate it well. ASSESSMENT AND PLAN: This is an 83-year-old female with thoracolumbar spondylosis, thoracolumbar facet arthropathy, thoracolumbar degenerative disc disease status post bilateral thoracolumbar facet steroid injection at T12-L2, patient will continue her current medications, patient will follow in approximately 2 weeks for reevaluation.
== END 2024-02-23 12:47 | disposition home or self-care (01) ==
LOC: SDC 09:18 → AC 09:18
PROVIDERS: Nurse Practitioner Gerontology; PCP Family Medicine; Referring Provider Anesthesiology Pain Medicine; Visit Provider Anesthesiology Pain Medicine
PROC: 3E0T3BZ Introduction of Anesthetic Agent into Peripheral Nerves and Plexi, Percutaneous Approach (ICD-10-PCS; CPT 64494; principal; 2024-02-23 11:05)
DX: M47.815 Spondylosis without myelopathy or radiculopathy, thoracolumbar region (principal); M47.817 Spondylosis without myelopathy or radiculopathy, lumbosacral region; M47.816 Spondylosis without myelopathy or radiculopathy, lumbar region; M51.35 Other intervertebral disc degeneration, thoracolumbar region; M51.36 Other intervertebral disc degeneration, lumbar region; I25.10 Atherosclerotic heart disease of native coronary artery without angina pectoris; I25.2 Old myocardial infarction; M46.96 Unspecified inflammatory spondylopathy, lumbar region; M51.37 Other intervertebral disc degeneration, lumbosacral region; M54.17 Radiculopathy, lumbosacral region; M53.3 Sacrococcygeal disorders, not elsewhere classified; M46.1 Sacroiliitis, not elsewhere classified; I10 Essential (primary) hypertension; E78.00 Pure hypercholesterolemia, unspecified; Z87.891 Personal history of nicotine dependence; Z95.5 Presence of coronary angioplasty implant and graft; Z79.899 Other long term (current) drug therapy; Z79.82 Long term (current) use of aspirin
CPT/HCPCS: 64494; 64493; 01992; 36415; 64483; 72100; 80061; 80076; J7120

== ENCOUNTER 2024-04-12 12:29 | Day surgery (SDC) | payer MEDICARE, SELFPAY ==
[2024-04-12] VITALS (10 sets, daily range): BP systolic 85–146; BP diastolic 64–100; PULSE 57–95; RESP 16–22; TEMP 36.2–37.1; O2SAT 90–98; BMI 26.6
--- NOTE | 2024-04-12 12:38 | EKG12_ITS ---
Test Reason : CP Blood Pressure : / mmHG Vent. Rate : 058 BPM Atrial Rate : 058 BPM P-R Int : 164 ms QRS Dur : 086 ms QT Int : 436 ms P-R-T Axes : 019 -43 018 degrees QTc Int : 428 ms Sinus bradycardia Left axis deviation Abnormal ECG Confirmed by Rojas Garcia ([id number]), purchase request editor JAN NESS ([id number]) on 04/13/2024 8:07:29 AM Referred By: DAQUAN/ABDI Confirmed By:Rojas Garcia
--- NOTE | 2024-04-12 13:03 | ED.VIS.CHEST ---
HPI <TAWANDA Ramon - Last Filed: 04/12/24 14:23> History of Present Illness Chief Complaint: Chest Pain Narrative Narrative: Patient presenting today with midsternal chest discomfort that started while eating dinner around 6:30 PM. She reports that she was eating a hamburger and potatoes when a piece of her food felt like it did not completely go down. She tried finishing her dinner but the food kept coming back up. Today, she tried eating a piece of toast with her medications and a glass of tea but was unable to get any of that to stay down. She feels like something could be stuck in her esophagus. She denies any history of esophageal foreign body. She does have a history of GERD. She denies any abdominal pain. [facility] <TAWANDA Ramon - Last Filed: 04/12/24 14:23> [facility] Medical History Wears glasses Wears dentures Cancer Ambulates with cane History of renal disease Easy bruising High cholesterol History of echocardiogram History of stress test Hypertension History of heart attack Chest pain Cardiology follow-up encounter Acute pneumonia Tuttle's palsy Macular degeneration Renal insufficiency Osteoarthritis Spondylosis Scoliosis Lumbar spinal stenosis History of non-ST elevation myocardial infarction (NSTEMI) Essential (primary) hypertension Hyperlipidemia Atherosclerotic heart disease of [place] coronary artery without angina pectoris Low back pain Lumbar radiculopathy Home Medications ?Medication ?Instructions ?Recorded ?Last Taken ?Type aspirin 81 mg chewable tablet 81 mg PO DAILY heart health 08/09/15 02/22/24 History biotin 1 mg capsule 1,000 mcg PO QDAY supplement 06/04/18 02/22/24 History cyanocobalamin (vitamin B-12) 5,000 mcg sublingual QDAY 06/04/18 02/22/24 History 5,000 mcg/mL sublingual drops supplement (Vitamin B-12) vitamins A,C,L-rdme-kaukog 4,296 2 cap PO DAILY 08/07/23 02/22/24 History mcg-226 mg-90 mg capsule (PreserVision AREDS) atorvastatin 80 mg tablet 80 mg PO MOWEFR cholesterol 90 09/01/23 02/20/24 Rx days #39 tabs isosorbide mononitrate 30 mg 30 mg PO DAILY #90 tabs 09/01/23 02/23/24 08:30 Rx tablet,extended release 24 hr amlodipine 5 mg tablet 8 mg PO DAILY 01/22/24 02/23/24 History solifenacin 5 mg tablet (Vesicare) 5 mg PO DAILY 02/03/24 Unknown History metoprolol succinate 25 mg 12.5 mg PO QDAY blood pressure 04/06/24 Unknown History tablet,extended release 24 hr Allergy/AdvReac Type Severity Reaction Status Date / Time gabapentin Allergy Hives Verified 04/12/24 12:30 tomato Allergy Rash Verified 04/12/24 12:30 Family History Father , Age 89 Congestive heart failure Mother , Age 86 CVA (cerebral vascular accident) Hypertension Hyperlipidemia Sister , age 11 in MVA No problems noted. Surgical History History of back surgery (~01/2024) History of cardiac catheterization History of appendectomy History of elbow surgery History of hysterectomy History of eyelid surgery (~06/2023) History of laminectomy (08/2018) History of coronary artery stent placement (07/19/15) Social History Smoking Status: Former smoker how long ago did patient quit smokin alcohol intake: current alcohol intake frequency: a few times a week Alcohol type: wine substance use type: does not use caffeine: Yes Type: tea Number of servings: 4 ROS <TAWANDA Ramon - Last Filed: 04/12/24 14:23> ROS ED Constitutional Constitutional ED: Denies chills or fever(s) Cardiovascular Cardiovascular: Reports chest pain; Denies palpitations Respiratory/Chest Respiratory/Chest: Reports dyspnea; Denies cough Gastrointestinal Gastrointestinal: Reports vomiting; Denies abdominal pain or diarrhea Musculoskeletal Musculoskeletal: Denies arthralgias or myalgias Integumentary Denies rash Neurologic Neurologic: Denies weakness EXAM <TAWANDA Ramon - Last Filed: 04/12/24 14:23> Physical Exam Const Vital Signs: 04/12/24 12:31 04/12/24 12:44 04/12/24 13:30 Temperature 98.2 F Temperature Source Temporal Pulse Rate 61 57 L Respiratory Rate 16 17 Respiratory Effort Normal Blood Pressure 137/77 H 140/75 H Blood Pressure Mean 97 96 Pulse Ox 98 98 Oxygen Delivery Method Room Air Room Air Room Air 04/12/24 13:30 04/12/24 14:00 Temperature 97.1 F L Temperature Source Temporal Pulse Rate 58 L 65 Respiratory Rate 16 Respiratory Effort Blood Pressure 140/75 H 117/94 H Blood Pressure Mean 96 101 Pulse Ox 98 Oxygen Delivery Method Room Air <Dr. Isreal Kelly MD - Last Filed: 04/12/24 14:24> Physical Exam Const Vital Signs: 04/12/24 12:31 04/12/24 12:44 04/12/24 13:30 Temperature 98.2 F Temperature Source Temporal Pulse Rate 61 57 L Respiratory Rate 16 17 Respiratory Effort Normal Blood Pressure 137/77 H 140/75 H Blood Pressure Mean 97 96 Pulse Ox 98 98 Oxygen Delivery Method Room Air Room Air Room Air 04/12/24 13:30 04/12/24 14:00 Temperature 97.1 F L Temperature Source Temporal Pulse Rate 58 L 65 Respiratory Rate 16 Respiratory Effort Blood Pressure 140/75 H 117/94 H Blood Pressure Mean 96 101 Pulse Ox 98 Oxygen Delivery Method Room Air MDM <TAWANDA Ramon - Last Filed: 04/12/24 14:23> [facility] MDM Narrative Medical decision making narrative: Patient presenting with symptoms that sound consistent with an esophageal foreign body. She initially reported to the triage nurse that she was having chest pain, but I do think that this is from the foreign body given she has not been able to swallow anything since dinner yesterday. She is tolerating her secretions. She did mention feeling slightly short of breath to the triage nurse, she is comfortable appearing, oxygen saturation 98% on room air. Given her history of CAD, cardiac workup will be obtained. Chest x-ray obtained to rule out cardiopulmonary abnormality and is negative for any acute findings. Workup overall is unremarkable. We spoke with Dr. Adhikari, she will be taken for a scope in stable condition. Lab Data Attestation: I reviewed the patient's lab results. Lab results narrative: BUN 24, creatinine 1.51, troponin 8 Labs: Laboratory Results - last 24 hr 04/12/24 12:40 WBC 9.8 RBC 4.49 Hgb 13.9 Hct 43.5 MCV 96.9 MCH 31.0 MCHC 32.0 RDW Std Deviation 48.9 H RDW Coeff of Dusty 13.7 Plt Count 340 MPV 10.6 Immature Gran % (Auto) 0.600 Neut % (Auto) 69.0 Lymph % (Auto) 18.8 L [place] % (Auto) 9.1 Eos % (Auto) 1.9 Baso % (Auto) 0.6 Absolute Neuts (auto) 6.8 Absolute Lymphs (auto) 1.85 Nucleated RBC % 0 Sodium 139 Potassium 3.9 Chloride 107 Carbon Dioxide 28.0 Anion Gap 4 L BUN 24 H Creatinine 1.51 H Estim Creat Clear Calc 22.44 Est GFR (MDRD) Af Amer 42 L Est GFR (MDRD) Non-Af 35 L BUN/Creatinine Ratio 15.9 Glucose 96 Calcium 9.4 Troponin I High Sens 8 Radiography Chest X-Ray - ED: Read by ED Physician EKG Initial EKG: Comments: 58 bpm, sinus bradycardia, left axis deviation, no ST elevation, reviewed and interpreted by attending ED physician <Dr. Isreal Kelly MD - Last Filed: 04/12/24 14:24> [facility] Lab Data Lab results narrative: BUN 24, creatinine 1.51, troponin 8 CBC shows a white count 9. H&H 13 and 43. Platelets 340. BUN and creatinine are baseline renal insufficiency. Chest x-ray chronic changes. No acute process. Labs: Laboratory Results - last 24 hr 04/12/24 12:40 WBC 9.8 RBC 4.49 Hgb 13.9 Hct 43.5 MCV 96.9 MCH 31.0 MCHC 32.0 RDW Std Deviation 48.9 H RDW Coeff of Dusty 13.7 Plt Count 340 MPV 10.6 Immature Gran % (Auto) 0.600 Neut % (Auto) 69.0 Lymph % (Auto) 18.8 L [place] % (Auto) 9.1 Eos % (Auto) 1.9 Baso % (Auto) 0.6 Absolute Neuts (auto) 6.8 Absolute Lymphs (auto) 1.85 Nucleated RBC % 0 Sodium 139 Potassium 3.9 Chloride 107 Carbon Dioxide 28.0 Anion Gap 4 L BUN 24 H Creatinine 1.51 H Estim Creat Clear Calc 22.44 Est GFR (MDRD) Af Amer 42 L Est GFR (MDRD) Non-Af 35 L BUN/Creatinine Ratio 15.9 Glucose 96 Calcium 9.4 Troponin I High Sens 8 Radiography Chest X-Ray - ED: 1 View, Read by ED Physician, Heart, Lungs, Mediastinum, Bony Structures, No Acute Disease and Chronic Changes Diagnostic Testing: Chest x-ray, portable, single view shows no acute abnormality. Chronic changes. Normal cardiac silhouette and lung miranda. Rhythm Strip Rhythm Strip: Sinus Rhythm Rate: 58 Ectopy: None EKG Initial EKG: Attestation: I personally reviewed and interpreted this EKG as follows: Interpretation: Sinus Rhythm, No Acute Injury Pattern and Sinus Bradycardia Discharge Plan Triage Chief Complaint: Chest Pain Other Complaint: Shortness of Breath ED Midlevel Provider: Angelika Nieves ED Provider: Isreal Kelly Dx/Rx/DC Orders Prescriptions: No Action cyanocobalamin (vitamin B-12) [Vitamin B-12] 5,000 mcg/mL drops 5,000 mcg SUBLINGUAL QDAY biotin 1 mg capsule 1,000 mcg PO QDAY PreserVision AREDS 4,296 mcg-226 mg-90 mg capsule 2 cap PO DAILY solifenacin [Vesicare] 5 mg tablet 5 mg PO DAILY aspirin 81 MG tablet,chewable 81 mg PO DAILY amlodipine 5 mg tablet 8 mg PO DAILY isosorbide mononitrate 30 mg tablet extended release 24 hr 30 mg PO DAILY Qty: 90 3RF atorvastatin 80 mg tablet 80 mg PO MOWEFR 90 Days Qty: 39 3RF Primary Care Provider: Estela Osborne Referrals: Estela Osborne DO [Primary Care Provider] - Print Language: Lao
--- NOTE | 2024-04-12 13:40 | RAD_ITS ---
STUDY: X-RAY CHEST REASON FOR EXAM: Female, 83 years old. chest pain TECHNIQUE: Single AP portable view of the chest. COMPARISON: August 31, 2021 FINDINGS: Stable spinal hardware. The lungs are clear and expanded. There is no demonstrated pleural abnormality. Normal size heart. Normal mediastinum and nahomy. Normal visualized pulmonary arteries. There is atherosclerotic calcification of the aortic arch with tortuosity. There are diffuse degenerative changes of the visualized thoracic spine. Normal visualized ribs, clavicles, and shoulders. There is no demonstrated abnormality of the visualized soft tissue structures of the upper abdomen. RAD/Chest 1 View (Portable) IMPRESSION: No acute process Electronically Signed: Mack Almeida MD at 14:39 EDT ,
[2024-04-12 13:49] LABS: Absolute Lymphocyte Count 1.85 X10^3/uL (0.83-4.51); Absolute Neutrophil Count 6.8 X10^3/uL (2.0-7.7); Basophil# 0.06 X10^3/uL; Basophil% 0.6 % (0-1); Eosinophil# 0.19 X10^3/uL; Eosinophils% 1.9 % (0-5); Hematocrit 43.5 % (37-47); Hemoglobin 13.9 g/dL (12.0-15.0); Lymphocyte # 1.85 X10^3/ul (0.83-4.51); Lymphocyte % 18.8 % (19-41); Mean Corpuscular Volume 96.9 fL (81-99); Mean Platelet Vol. 10.6 fl (6.2-12.0); Monocyte% 9.1 % (0-10); NRBC Flagged by Analyzer 0 % (0-5); Neutrophil # 6.78 X10^3/uL (2.7-7.7); Platelet Count 340 K/mm3 (150-450); RBC Distribution Width CV 13.7 % (11.6-14.6); RBC Distribution Width SD 48.9 fl (35.1-43.9); Red Blood Count 4.49 M/mm3 (4.2-5.4); White Blood Count 9.8 K/mm3 (4.4-11.0)
[2024-04-12 14:08] LABS: Anion Gap 4 (5-15); BUN 24 mg/dL (7-18); BUN/Creat Ratio 15.9 RATIO (10-20); Calcium,Total 9.4 mg/dL (8.5-10.1); Chloride 107 mmol/L (98-107); Creatinine, Serum 1.51 mg/dL (0.55-1.02); EST Glomerular Filtration Rate 35 mL/min (>60); Est Glom Filt Rate - Afr Amer 42 mL/min (>60); Estimated Creatinine Clearance 22.44 ml/min; Glucose 96 mg/dL (74-106); Potassium 3.9 mmol/L (3.5-5.1); Sodium Level 139 mmol/L (136-145); Troponin-I HS 8 pg/mL (3.0-54.0)
--- NOTE | 2024-04-12 16:09 | NURSING ---
OR THEN MED SURG FRIEND ESOPHAGEAL FOREIGN BODY
[2024-04-12] MEDS: Lactated Ringers 1,000 ML 15 ML IV (16:28)
--- NOTE | 2024-04-12 16:36 | PCM.HP.BLA ---
History and Physical Date of Admission: 04/12/24 Patient presenting today with midsternal chest discomfort that started while eating dinner around 6:30 PM. She reports that she was eating a hamburger and potatoes when a piece of her food felt like it did not completely go down. She tried finishing her dinner but the food kept coming back up. Today, she tried eating a piece of toast with her medications and a glass of tea but was unable to get any of that to stay down. She feels like something could be stuck in her esophagus. She denies any history of esophageal foreign body. She does have a history of GERD. She denies any abdominal pain. [facility] <TAWANDA Ramon - Last Filed: 04/12/24 14:23> [facility] Medical History Wears glasses Wears dentures Cancer Ambulates with cane History of renal disease Easy bruising High cholesterol History of echocardiogram History of stress test Hypertension History of heart attack Chest pain Cardiology follow-up encounter Acute pneumonia Tuttle's palsy Macular degeneration Renal insufficiency Osteoarthritis Spondylosis Scoliosis Lumbar spinal stenosis History of non-ST elevation myocardial infarction (NSTEMI) Essential (primary) hypertension Hyperlipidemia Atherosclerotic heart disease of [place] coronary artery without angina pectoris Low back pain Lumbar radiculopathy Home Medications ?Medication ?Instructions ?Recorded ?Last Taken ?Type aspirin 81 mg chewable tablet 81 mg PO DAILY heart health 08/09/15 02/22/24 History biotin 1 mg capsule 1,000 mcg PO QDAY supplement 06/04/18 02/22/24 History cyanocobalamin (vitamin B-12) 5,000 mcg sublingual QDAY 06/04/18 02/22/24 History 5,000 mcg/mL sublingual drops supplement (Vitamin B-12) vitamins A,C,Q-koff-maauud 4,296 2 cap PO DAILY 08/07/23 02/22/24 History mcg-226 mg-90 mg capsule (PreserVision AREDS) atorvastatin 80 mg tablet 80 mg PO MOWEFR cholesterol 90 09/01/23 02/20/24 Rx days #39 tabs isosorbide mononitrate 30 mg 30 mg PO DAILY #90 tabs 09/01/23 02/23/24 08:30 Rx tablet,extended release 24 hr amlodipine 5 mg tablet 8 mg PO DAILY 01/22/24 02/23/24 History solifenacin 5 mg tablet (Vesicare) 5 mg PO DAILY 02/03/24 Unknown History metoprolol succinate 25 mg 12.5 mg PO QDAY blood pressure 04/06/24 Unknown History tablet,extended release 24 hr Allergy/AdvReac Type Severity Reaction Status Date / Time gabapentin Allergy Hives Verified 04/12/24 12:30 tomato Allergy Rash Verified 04/12/24 12:30 Family History Father , Age 89 Congestive heart failureMother , Age 86 CVA (cerebral vascular accident) Hypertension HyperlipidemiaSister , age 11 in MVA No problems noted. Surgical History History of back surgery (~01/2024) History of cardiac catheterization History of appendectomy History of elbow surgery History of hysterectomy History of eyelid surgery (~06/2023) History of laminectomy (08/2018) History of coronary artery stent placement (07/19/15) Social History Smoking Status: Former smoker how long ago did patient quit smokin alcohol intake: current alcohol intake frequency: a few times a week Alcohol type: wine substance use type: does not use caffeine: Yes Type: tea Number of servings: 4 ROS <TAWANDA Ramon - Last Filed: 04/12/24 14:23> ROS ED Constitutional Constitutional ED: Denies chills or fever(s) Cardiovascular Cardiovascular: Reports chest pain; Denies palpitations Respiratory/Chest Respiratory/Chest: Reports dyspnea; Denies cough Gastrointestinal Gastrointestinal: Reports vomiting; Denies abdominal pain or diarrhea Musculoskeletal Musculoskeletal: Denies arthralgias or myalgias Integumentary Denies rash Neurologic Neurologic: Denies weakness EXAM <TAWANDA Ramon - Last Filed: 04/12/24 14:23> Physical Exam Const Vital Signs: 04/12/2412:31 04/12/2412:44 04/12/2413:30 Temperature 98.2 F Temperature Source Temporal Pulse Rate 61 57 L Respiratory Rate 16 17 Respiratory Effort Normal Blood Pressure 137/77 H 140/75 H Blood Pressure Mean 97 96 Pulse Ox 98 98 Oxygen Delivery Method Room Air Room Air Room Air 04/12/2413:30 04/12/2414:00 Temperature 97.1 F L Temperature Source Temporal Pulse Rate 58 L 65 Respiratory Rate 16 Respiratory Effort Blood Pressure 140/75 H 117/94 H Blood Pressure Mean 96 101 Pulse Ox 98 Oxygen Delivery Method Room Air <Dr. Isreal Kelly MD - Last Filed: 04/12/24 14:24> Physical Exam Const Vital Signs: 04/12/2412:31 04/12/2412:44 04/12/2413:30 Temperature 98.2 F Temperature Source Temporal Pulse Rate 61 57 L Respiratory Rate 16 17 Respiratory Effort Normal Blood Pressure 137/77 H 140/75 H Blood Pressure Mean 97 96 Pulse Ox 98 98 Oxygen Delivery Method Room Air Room Air Room Air 04/12/2413:30 04/12/2414:00 Temperature 97.1 F L Temperature Source Temporal Pulse Rate 58 L 65 Respiratory Rate 16 Respiratory Effort Blood Pressure 140/75 H 117/94 H Blood Pressure Mean 96 101 Pulse Ox 98 Oxygen Delivery Method Room Air MDM <TAWANDA Ramon - Last Filed: 04/12/24 14:23> [facility] MDM Narrative Medical decision making narrative: Patient presenting with symptoms that sound consistent with an esophageal foreign body. She initially reported to the triage nurse that she was having chest pain, but I do think that this is from the foreign body given she has not been able to swallow anything since dinner yesterday. She is tolerating her secretions. She did mention feeling slightly short of breath to the triage nurse, she is comfortable appearing, oxygen saturation 98% on room air. Given her history of CAD, cardiac workup will be obtained. Chest x-ray obtained to rule out cardiopulmonary abnormality and is negative for any acute findings. Workup overall is unremarkable. We spoke with Dr. Adhikari, she will be taken for a scope in stable condition. Lab Data Attestation: I reviewed the patient's lab results. Lab results narrative: BUN 24, creatinine 1.51, troponin 8 Labs: Laboratory Results - last 24 hr 04/12/24 12:40 WBC 9.8 RBC 4.49 Hgb 13.9 Hct 43.5 MCV 96.9 MCH 31.0 MCHC 32.0 RDW Std Deviation 48.9 H RDW Coeff of Dusty 13.7 Plt Count 340 MPV 10.6 Immature Gran % (Auto) 0.600 Neut % (Auto) 69.0 Lymph % (Auto) 18.8 L [place] % (Auto) 9.1 Eos % (Auto) 1.9 Baso % (Auto) 0.6 Absolute Neuts (auto) 6.8 Absolute Lymphs (auto) 1.85 Nucleated RBC % 0 Sodium 139 Potassium 3.9 Chloride 107 Carbon Dioxide 28.0 Anion Gap 4 L BUN 24 H Creatinine 1.51 H Estim Creat Clear Calc 22.44 Est GFR (MDRD) Af Amer 42 L Est GFR (MDRD) Non-Af 35 L BUN/Creatinine Ratio 15.9 Glucose 96 Calcium 9.4 Troponin I High Sens 8 Radiography Chest X-Ray - ED: Read by ED Physician EKG Initial EKG: Comments: 58 bpm, sinus bradycardia, left axis deviation, no ST elevation, reviewed and interpreted by attending ED physician <Dr. Isreal Kelly MD - Last Filed: 04/12/24 14:24> [facility] Lab Data Lab results narrative: BUN 24, creatinine 1.51, troponin 8 CBC shows a white count 9. H&H 13 and 43. Platelets 340. BUN and creatinine are baseline renal insufficiency. Chest x-ray chronic changes. No acute process. Labs: Laboratory Results - last 24 hr 04/12/24 12:40 WBC 9.8 RBC 4.49 Hgb 13.9 Hct 43.5 MCV 96.9 MCH 31.0 MCHC 32.0 RDW Std Deviation 48.9 H RDW Coeff of Dusty 13.7 Plt Count 340 MPV 10.6 Immature Gran % (Auto) 0.600 Neut % (Auto) 69.0 Lymph % (Auto) 18.8 L [place] % (Auto) 9.1 Eos % (Auto) 1.9 Baso % (Auto) 0.6 Absolute Neuts (auto) 6.8 Absolute Lymphs (auto) 1.85 Nucleated RBC % 0 Sodium 139 Potassium 3.9 Chloride 107 Carbon Dioxide 28.0 Anion Gap 4 L BUN 24 H Creatinine 1.51 H Estim Creat Clear Calc 22.44 Est GFR (MDRD) Af Amer 42 L Est GFR (MDRD) Non-Af 35 L BUN/Creatinine Ratio 15.9 Glucose 96 Calcium 9.4 Troponin I High Sens 8 Radiography Chest X-Ray - ED: 1 View, Read by ED Physician, Heart, Lungs, Mediastinum, Bony Structures, No Acute Disease and Chronic Changes Diagnostic Testing: Chest x-ray, portable, single view shows no acute abnormality. Chronic changes. Normal cardiac silhouette and lung miranda. Rhythm Strip Rhythm Strip: Sinus Rhythm Rate: 58 Ectopy: None Assessment & Plan Assessment/Plan (1) Esophageal foreign body: PLAN: She will undergo esophageal foreign body removal. She was explained alternatives, risk, benefits including not withstanding bleeding, infection, sepsis, perforation, need for emergent surgery and . She will have an ASA of 3.
--- NOTE | 2024-04-12 19:15 | OP.CCLET_ITS ---
04/12/2024 Estela Osborne [address] [facility] [place] [address] Re : Upper GI endoscopy procedure for Jamila Lopes Dear Dr. Osborne This procedure was performed on Friday, April 12, 2024. My impressions and recommendations are as follows: Impressions : - Tortuous esophagus. - Abnormal esophageal motility, suspicious for achalasia. - Food in the lower third of the esophagus. Removal was successful. - Large hiatal hernia. - No gross lesions in the second portion of the duodenum. Recommendations : - Discharge patient to home. - Full liquid diet for 3 days. - Use Protonix (pantoprazole) 40 mg PO BID for 3 months. - Continue present medications. My findings are described in the full procedure note, which is enclosed. If I can be of further assistance, please feel free to contact me at . Sincerely, Jarrod Friend, 04/12/2024 7:14:38 PM This report has been signed electronically.
--- NOTE | 2024-04-12 19:15 | OP.EGD_ITS ---
Patient Name: Jamila Lopes Procedure Date: 04/12/2024 6:38 PM Date of : 1940 Age: 83 Procedure: Upper GI endoscopy Indications: Dysphagia Providers: Jarrod Adhikari DO Medicines: Monitored Anesthesia Care Patient Profile: This is an 83 year old female. Refer to note in patient chart for documentation of history and physical. Patient has symptoms of dysphagia with both liquids and solids. Complications: No immediate complications. Procedure: Pre-Anesthesia Assessment: - Prior to the procedure, a History and Physical was performed, and patient medications and allergies were reviewed. The risks and benefits of the procedure and the sedation options and risks were discussed with the patient. All questions were answered and informed consent was obtained. Patient identification and proposed procedure were verified by the physician in the pre-procedure area. Mental Status Examination: alert and oriented. Airway Examination: normal oropharyngeal airway and neck mobility. Respiratory Examination: clear to auscultation. CV Examination: normal. Prophylactic Antibiotics: The patient does not require prophylactic antibiotics. Prior Anticoagulants: The patient has taken no anticoagulant or antiplatelet agents. ASA Grade Assessment: III - A patient with severe systemic disease. After reviewing the risks and benefits, the patient was deemed in satisfactory condition to undergo the procedure. The anesthesia plan was to use monitored anesthesia care (MAC). Immediately prior to administration of medications, the patient was re-assessed for adequacy to receive sedatives. The heart rate, respiratory rate, oxygen saturations, blood pressure, adequacy of pulmonary ventilation, and response to care were monitored throughout the procedure. The physical status of the patient was re-assessed after the procedure. After obtaining informed consent, the endoscope was passed under direct vision. Throughout the procedure, the patient's blood pressure, pulse, and oxygen saturations were monitored continuously. The Endoscope was introduced through the mouth, and advanced to the second part of duodenum. The upper GI endoscopy was accomplished without difficulty. The patient tolerated the procedure well. Scope In: 6:54:15 PM Scope Out: 7:08:38 PM Total Procedure Duration Time 0 hours 14 minutes 23 seconds Findings: The examined esophagus was significantly tortuous. Abnormal motility was noted in the esophagus. The cricopharyngeus was abnormal. There are extra peristaltic waves in the esophageal body. The distal esophagus/lower esophageal sphincter is spastic, but gives up passage to the endoscope. Tertiary peristaltic waves are noted. Food was found in the lower third of the esophagus. Removal was accomplished with a Hernandez net. Verification of patient identification for the specimen was done. Estimated blood loss was minimal. A large hiatal hernia was present. No other significant abnormalities were identified in a careful examination of the stomach. No gross lesions were noted in the second portion of the duodenum. Impression: - Tortuous esophagus. - Abnormal esophageal motility, suspicious for achalasia. - Food in the lower third of the esophagus. Removal was successful. - Large hiatal hernia. - No gross lesions in the second portion of the duodenum. Recommendation: - Discharge patient to home. - Full liquid diet for 3 days. - Use Protonix (pantoprazole) 40 mg PO BID for 3 months. - Continue present medications. Procedure Code(s): --- Professional --- 17956, Esophagogastroduodenoscopy, flexible, transoral; with removal of foreign body(s) CPT copyright 2021 [employer]. All rights reserved. The codes documented in this report are preliminary and upon footwear machinery instructor review may be revised to meet current compliance requirements. Jarrod Adhikari DO 04/12/2024 7:14:38 PM This report has been signed electronically. Number of Addenda: 0 Note Initiated On: 04/12/2024 6:38 PM
== END 2024-04-12 19:36 | disposition home or self-care (01) ==
LOC: ED 16:07 → SDC 16:20 → AC 16:20
PROVIDERS: Physician Assistant; Emergency Provider Emergency Medicine; PCP Family Medicine; Visit Provider Internal Medicine Gastroenterology
PROC: 0DJ08ZZ Inspection of Upper Intestinal Tract, Via Natural or Artificial Opening Endoscopic (ICD-10-PCS; CPT 43235; principal; 2024-04-12 16:55)
DX: T18.108A Unspecified foreign body in esophagus causing other injury, initial encounter (principal); I25.10 Atherosclerotic heart disease of native coronary artery without angina pectoris; K44.9 Diaphragmatic hernia without obstruction or gangrene; R13.10 Dysphagia, unspecified; I25.2 Old myocardial infarction; Q39.8 Other congenital malformations of esophagus; Z87.891 Personal history of nicotine dependence; X58.XXXA Exposure to other specified factors, initial encounter
CPT/HCPCS: 43247; 71045; 80048; 84484; 85025; 93005; 99285; J7120; A4216

== ENCOUNTER 2025-01-10 07:38 | Day surgery (SDC) | payer MEDICARE, SELFPAY ==
[2025-01-10] VITALS (9 sets, daily range): BP systolic 118–160; BP diastolic 49–100; PULSE 53–63; RESP 16; TEMP 36.2–36.7; O2SAT 95–100; BMI 26.7
--- NOTE | 2025-01-10 08:11 | PCM.PRE.AN2 ---
ASA Classification* ASA Classification ASA Classification: 2 Assessment & Plan Anesthesia* Anesthesia Assessment Anesthesia Assessment: Discussed sedation and/or anesthesia options, risks, benefits, and alternatives with patient/parents/legal guardian/POA. Questions invited. The patient/parents/legal guardian/POA seems to understand and agrees to proceed with anesthesia plan. Reviewed the physical assessment, medical history, allergy history and patient home medications list prior to surgery/procedure/anesthetic and documented any changes. Performed airway and anesthesia risk assessments. Anesthesia Type Anesthesia Type: MAC Anesthesia Focused Assessment* Temperature: 98.1 F Pulse Rate: 63 Blood Pressure: 160/77 Respiratory Rate: 16 Pulse Ox: 100 Airway Assessment Mouth opens: >3 cm Mallampati Score: II Focused Labs Anesthesia Preop lab: CBC WBC 9.8 K/mm3 (4.4-11.0) 04/12/24 12:40 04/12/24 RBC 4.49 M/mm3 (4.2-5.4) 04/12/24 12:40 04/12/24 Hgb 13.9 g/dL (12.0-15.0) 04/12/24 12:40 04/12/24 Hct 43.5 % (37-47) 04/12/24 12:40 04/12/24 Plt Count 340 K/mm3 (150-450) 04/12/24 12:40 04/12/24 CHEMISTRY Potassium 3.9 mmol/L (3.5-5.1) 04/12/24 12:40 04/12/24 Sodium 139 mmol/L (136-145) 04/12/24 12:40 04/12/24 Magnesium 2.3 mg/dL (1.6-2.6) 10/04/22 14:09 10/04/22 BUN 24 mg/dL (7-18) H 04/12/24 12:40 04/12/24 Creatinine 1.51 mg/dL (0.55-1.02) H 04/12/24 12:40 04/12/24 Glucose 96 mg/dL (74-106) 04/12/24 12:40 04/12/24 TSH 3.38 uIU/mL (0.358-3.74) 05/06/23 09:10 05/06/23 COAG PT 13.3 SECONDS (11.7-14.9) 07/21/15 02:30 07/21/15 Pre-Assessment Diagnosis/Proposed Procedure Planned Operative Procedure(s): Bilateral medial branch block L1-L3 Anesthesia History Anesthesia 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 When Was Last Pacemaker Check QUESTION #4 FULL TEXT: You/Your Family Experience fever (hyperthermia) with Anesthesia Last Oral Intake Last Oral intake: Last Oral Intake NPO since 00:00 01/10/25 08:04 Meds taken in AM with sips of water? Meds patient instructed to take am of surgery PONV PONV - federal appellate law clerk: PONV - federal appellate law clerk Female HX of Motion Sickness HX of N/V After Surgery Non-Smoker Duration of Surgery greater than 60 minutes Number of Risk Factors PONV Score Height & Weight Height & Weight: Anesthesia: Height & Weight Height 4 ft 11 in 01/10/25 08:04 Weight: 60.02 kg 01/10/25 08:04 Body Mass Index (BMI) 26.7 01/10/25 08:04 Respiratory Assessment Respiratory Assessment - federal appellate law clerk: Respiratory Tract Infection Hx - federal appellate law clerk Hx Respiratory Tract Infection No 12/02/24 15:16 STOP Sleep Apnea STOP Sleep Apnea - federal appellate law clerk: STOP Sleep Apnea - federal appellate law clerk Hx Hypertension Yes: CONTROLLED WITH MED 12/02/24 15:16 Hx Sleep Apnea No 12/02/24 15:16 CPAP BIPAP Do you snore loudly (louder than talking or can be heard Do you often feel tired/ fatigued/ sleepy during daytime? Has anyone observed you stop breathing during sleep? STOP Results QUESTION #5 FULL TEXT : Do you snore loudly (louder than talking or can be heard through closed doors)? 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 Specify any problems Hx of Preganancy in last 3 Months Nurse Filling Out Transfusion & Questions: Date: Time: Patient unable to answer at this time (ie. confused, unrespo /Reproduction History /Reproductive History - federal appellate law clerk: /Reproductive Hx- federal appellate law clerk Hx Now Gestational Age (in weeks): EDC: Hx Hx Para Hx Section SAB No 12/02/24 15:16 [facility] Medical History Wears glasses Wears dentures Cancer Ambulates with cane History of renal disease Easy bruising High cholesterol History of echocardiogram History of stress test Hypertension History of heart attack Chest pain Cardiology follow-up encounter Acute pneumonia Tuttle's palsy Macular degeneration Renal insufficiency Osteoarthritis Spondylosis Scoliosis Lumbar spinal stenosis History of non-ST elevation myocardial infarction (NSTEMI) Essential (primary) hypertension Hyperlipidemia Atherosclerotic heart disease of [place] coronary artery without angina pectoris Low back pain Lumbar radiculopathy Home Medications ?Medication ?Instructions ?Recorded ?Last Taken ?Type aspirin 81 mg chewable tablet 81 mg PO DAILY heart health 08/09/15 01/09/25 History biotin 1 mg capsule 1,000 mcg PO QDAY supplement 06/04/18 01/09/25 History cyanocobalamin (vitamin B-12) 5,000 mcg sublingual QDAY 06/04/18 01/09/25 History 5,000 mcg/mL sublingual drops supplement (Vitamin B-12) solifenacin 5 mg tablet (Vesicare) 5 mg PO DAILY 02/03/24 01/09/25 History pantoprazole 40 mg tablet,delayed 40 mg PO BID #60 tabs 04/12/24 01/09/25 Rx release amlodipine 5 mg tablet 5 mg PO DAILY #90 TABLETS 08/24/24 01/09/25 Rx atorvastatin 80 mg tablet 80 mg PO MOWEFR cholesterol 90 09/03/24 01/09/25 Rx days #39 tabs metoprolol succinate 25 mg 25 mg PO QDAY blood pressure #90 09/27/24 01/09/25 Rx tablet,extended release 24 hr tabs isosorbide mononitrate 30 mg 30 mg PO DAILY #90 tabs 10/27/24 01/09/25 Rx tablet,extended release 24 hr amitriptyline 10 mg tablet 10 mg PO QDAY #30 tabs 11/26/24 01/09/25 Rx Allergy/AdvReac Type Severity Reaction Status Date / Time gabapentin Allergy Hives Verified 01/10/25 08:03 tomato Allergy Rash Verified 01/10/25 08:03 Family History Father , Age 89 Congestive heart failure Mother , Age 86 CVA (cerebral vascular accident) Hypertension Hyperlipidemia Sister , age 11 in MVA No problems noted. Surgical History History of back surgery (~01/2024) History of cardiac catheterization History of appendectomy History of elbow surgery History of hysterectomy History of eyelid surgery (~06/2023) History of laminectomy (08/2018) History of coronary artery stent placement (07/19/15) Social History Smoking Status: Former smoker how long ago did patient quit smokin alcohol intake: current alcohol intake frequency: a few times a week Alcohol type: wine substance use type: does not use caffeine: Yes Type: tea Number of servings: 4 Review of Systems (Anesthesia) ROS Narrative System reviewed and no additional complaints, except as documented.
--- NOTE | 2025-01-10 08:50 | RAD_ITS ---
Fluoroscopy guidance was used intraoperatively. Please refer to the operative note for further details. Total 7 image. Total radiation dose 3.58 mGy. Total fluoroscopy time 9.6 seconds. Reading Location: [facility]
[2025-01-10] MEDS: Bupivacaine 0.25% 30 ML Vial (08:55)
[2025-01-10] MEDS: MethylPREDNISolone Acetate 80 MG/ML Vial (08:55)
[2025-01-10] MEDS: Lidocaine 1% (5 ml sdv) 5 ML Vial (08:55)
--- NOTE | 2025-01-10 09:00 | OP.PCM_ITS ---
Operative Report (Standard) Operative Information Date of Procedure: 01/10/25 Pre-Operative Diagnosis: 1 Post-Operative Diagnosis: 1 Surgery/Procedure Performed: 1 finishing pan operator: No Type of Anesthesia: Local MAC RN Documented Start/Stop Times: Operation Date: 01/10/25 09:20 Case Time Into Pre-Op 01/10/25 07:46 Out of Pre-Op 01/10/25 08:35 Anesthesia Start 01/10/25 08:48 Into Room 01/10/25 08:48 Procedure Start 01/10/25 08:54 Procedure End 01/10/25 08:59 Procedure Start Time: 09:00 Procedure Stop Time: 09:00 Select all DRAINS/GRAFTS/IMPLANTS that apply: None Estimated Blood Loss: 0 Specimen collected: No Description of surgery: Pre-Operative Diagnosis: Lumbosacral spondylosis, lumbosacral degenerative disc disease, lumbar facet arthropathy Post-Operative Diagnosis: Lumbosacral spondylosis, lumbosacral degenerative disc disease, lumbar facet arthropathy PROCEDURE PERFORMED: Bilateral lumbar medial branch block at, L1, L2, and L3 ANESTHESIA: MAC. BLOOD LOSS: Minimal. COMPLICATIONS: None. DESCRIPTION OF PROCEDURE: History and physical of today was reviewed. Risks and benefits of the procedure were explained. The patient understood and agreed to proceed. Informed consent was obtained. IV inserted per routine protocol. The patient was taken to the operating room and placed in the prone position with a pillow positioned underneath the abdomen. The lower back area was prepped and draped in a sterile fashion using iodine x3. Under fluoroscopy guidance on AP view, the L4 through S1 vertebral bodies were visualized. The skin and subcutaneous tissue was anesthetized with approximately 5 mL of 1% lidocaine using a 25-gauge regular needle. Under direct visualization with fluoroscopy, at approximately 25-degree angle, starting on the left L1, ending on the right L2, passing through the L2 and L3 bilaterally, using a 22-gauge 3-1/2-inch spinal needle, the needle was advanced via the skin. The tip of the needle was maneuvered and directed towards the superior medial gutter of the transverse process at the vicinity of the medial branch. Once tip of the needle was in contact with the bone, the needle was pulled approximately 2 mm off the bone. After negative aspiration for blood or CSF and confirmation on AP, oblique as well as lateral view, a total of 12 mL of preservative-free 0.25% Marcaine with 80 mg of Depo-Medrol was injected in divided doses between those six levels. The needles were then removed intact. The patient experienced no sign or symptoms of intrathecal or intravascular injection. The patient experienced no paresthesia. The procedure was completed without any apparent difficulty or any complications. The patient appeared to tolerate it well. ASSESSMENT AND PLAN: This is an 84-year-old female with lumbosacral spondylosis, lumbosacral degenerative disc disease, lumbar facet arthropathy status post bilateral lumbar medial branch block at L1-L3, patient will continue her current medications, patient will follow-up in approximately 2 weeks for reevaluation. Surgical Findings: none Complications Complications: No Admit VTE Documentation VTE Present on Admission: No VTE Mechan Device Prophylaxis: None VTE Pharm Prophylaxis ordered?: No
--- NOTE | 2025-01-10 09:06 | PCM.POST.ANE ---
Anesthesia: Postop Eval I Current Vital Signs Temperature: 97.2 F Pulse Rate: 53 Blood Pressure: 133/49 Respiratory Rate: 16 Pulse Ox: 100 Assessment Airway patent: Yes Spontaneous unlabored respirations: Yes nausea: No Vomiting: No Anesthesia Complication: No Fluid Hydration Crystalloid volume administer (ml): 10 Total IV fluid infused: 10 Progress Note Anesthesia document: Postop Eval 1 completed: Yes
--- NOTE | 2025-01-10 11:10 | POSTOPAN2_ITS ---
Anesthesia Postop Eval I Sum Postop Eval Completion status Anesthesia document: Postop Eval 1 completed: Yes Anesthesia Postop Eval I Summary Anesthesia Postop Eval I Summary: Anesthesia Postop Eval I: Assessment Summary Airway patent Yes 01/10/25 09:06 SENIOR ACCOUNT EXECUTIVE.TNES Spontaneous unlabored Yes 01/10/25 09:06 SENIOR ACCOUNT EXECUTIVE.TNES respirations Mental status nausea No 01/10/25 09:06 SENIOR ACCOUNT EXECUTIVE.TNES Vomiting No 01/10/25 09:06 SENIOR ACCOUNT EXECUTIVE.TNES Anesthesia Postop Eval I: Fluid Summary Crystalloid volume administer 10 01/10/25 09:06 SENIOR ACCOUNT EXECUTIVE.TNES (ml) Colloids volume administered ( ml) Blood Product volume administered (ml) Total IV fluid infused 10 01/10/25 09:06 SENIOR ACCOUNT EXECUTIVE.TNES Anesthesia Postop Eval I: Summary Notes Anesthesia Complication No 01/10/25 09:06 SENIOR ACCOUNT EXECUTIVE.TNES Anesthesia Complication Comment: Post-operative progress note Anesthesia: Postop Eval II Evaluation Mental status: Awake Pain Level: 0 nausea: No Vomiting: No
--- NOTE | 2025-01-10 11:10 | PCM.POSTANE2 ---
Anesthesia Postop Eval I Sum Postop Eval Completion status Anesthesia document: Postop Eval 1 completed: Yes Anesthesia Postop Eval I Summary Anesthesia Postop Eval I Summary: Anesthesia Postop Eval I: Assessment Summary Airway patent Yes 01/10/25 09:06 [email or web address] Spontaneous unlabored Yes 01/10/25 09:06 BOILER [email or web address] respirations Mental status nausea No 01/10/25 09:06 BOILER [email or web address] Vomiting No 01/10/25 09:06 [email or web address] [email or web address] Anesthesia Postop Eval I: Fluid Summary Crystalloid volume administer 10 01/10/25 09:06 BOILER [email or web address] (ml) Colloids volume administered ( ml) Blood Product volume administered (ml) Total IV fluid infused 10 01/10/25 09:06 [email or web address] Anesthesia Postop Eval I: Summary Notes Anesthesia Complication No 01/10/25 09:06 [email or web address] Anesthesia Complication Comment: Post-operative progress note Anesthesia: Postop Eval II Evaluation Mental status: Awake Pain Level: 0 nausea: No Vomiting: No
== END 2025-01-10 09:48 | disposition home or self-care (01) ==
LOC: SDC 07:44 → AC 07:45
PROVIDERS: PCP Family Medicine; Referring Provider Anesthesiology Pain Medicine; Visit Provider Anesthesiology Pain Medicine
PROC: 3E0S3BZ Introduction of Anesthetic Agent into Epidural Space, Percutaneous Approach (ICD-10-PCS; CPT 62322; principal; 2025-01-10 09:15)
DX: M47.817 Spondylosis without myelopathy or radiculopathy, lumbosacral region (principal); M51.379 Other intervertebral disc degeneration, lumbosacral region without mention of lumbar back pain or lower extremity pain; M46.96 Unspecified inflammatory spondylopathy, lumbar region; Z79.899 Other long term (current) drug therapy; Z79.82 Long term (current) use of aspirin
CPT/HCPCS: 64493; 64494; 01992; 64483; 72114; A4216

== ENCOUNTER → 2025-02-21 | Outpatient (CLI) | payer MEDICARE, SELFPAY ==
--- NOTE | 2025-02-21 13:36 | BI_ITS ---
EXAM: SCRN MAMM (CAD)W/MACO BILAT DATE: 02/21/2025 CLINICAL HISTORY: F, Age 84 y/o , SCREENING BREAST CANCER RISK ASSESSMENT: Has not been calculated. TECHNIQUE: Bilateral screening digital breast tomosynthesis with 2D and 3D images. Computer aided detection. COMPARISON: Prior exam(s) dated 02/20/2024 and 02/10/2023. FINDINGS: TISSUE DENSITY: The breast tissue is heterogenously dense, which may obscure small masses. Bilateral Breast Mammographic Findings: There are no suspicious masses, suspicious clustered microcalcifications, architectural distortion or secondary signs of malignancy identified in either breast. Stable nodular masslike densities are seen in both breasts. Benign round microcalcifications are seen in the right breast. BI/SCRN MAMM (CAD)W/MACO BILAT IMPRESSION: Right Breast: BIRADS 2 BENIGN FINDING. Left Breast: BIRADS 2 BENIGN FINDING. OVERALL FINAL ASSESSMENT: BIRADS 2 BENIGN FINDING RECOMMENDATION: Routine annual follow-up in 1 Year A letter with findings and recommendations will be mailed to the patient. Reading Location: [id number]
== END | disposition home or self-care (01) ==
PROVIDERS: PCP Family Medicine; Referring Provider Family Medicine; Visit Provider Family Medicine
DX: Z12.31 Encounter for screening mammogram for malignant neoplasm of breast (principal)
CPT/HCPCS: 77063; 77067

== ENCOUNTER 2025-03-25 09:44 | Inpatient (IN) | payer MEDICARE, SELFPAY ==
[2025-03-25] VITALS (7 sets, daily range): BP systolic 57–139; BP diastolic 39–97; PULSE 53–86; RESP 11–19; TEMP 36.8–37.7; O2SAT 92–100; BMI 27.8; BMI 27.1
--- NOTE | 2025-03-25 10:10 | EKG12_ITS ---
Test Reason : DIZZY Blood Pressure : */* mmHG Vent. Rate : 60 BPM Atrial Rate : 60 BPM P-R Int : 190 ms QRS Dur : 94 ms QT Int : 426 ms P-R-T Axes : 24 -41 40 degrees QTcB Int : 426 ms Normal sinus rhythm Left axis deviation Low voltage QRS Cannot rule out Anterior infarct , age undetermined Abnormal ECG Confirmed by ZARIA PARTIDA, LOUIS ([id number]), purchase request editor OBI CHAUDHARY ([id number]) on 03/28/2025 9:55:33 AM Referred By: Miguel Manning Confirmed By: LOUIS ENCISO MD
--- NOTE | 2025-03-25 10:11 | EDS_ITS ---
HPI History of Present Illness Chief Complaint: General Illness Informant: patient Onset/Context/Timing Onset: Days Context: Gradual Onset Timing: Continuous Maximum Severity: Mild Narrative Narrative: 84-year-old female is complaining of generalized weakness. States my legs feel like noodles. States has been going on the last 3 days. Denies any recent medication changes. States she just feels exhausted. She denies any nausea, vomiting or diarrhea. She denies any fever or chills. She denies any dysuria or melena. She denies any abdominal or chest pain. She denies any cough or shortness of breath. Prior similar symptoms: No Recent Illness/Hospitalization: No PFSH [facility] Medical History Wears glasses Wears dentures Cancer Ambulates with cane History of renal disease Easy bruising High cholesterol History of echocardiogram History of stress test Hypertension History of heart attack Chest pain Cardiology follow-up encounter Acute pneumonia Tuttle's palsy Macular degeneration Renal insufficiency Osteoarthritis Spondylosis Scoliosis Lumbar spinal stenosis History of non-ST elevation myocardial infarction (NSTEMI) Essential (primary) hypertension Hyperlipidemia Atherosclerotic heart disease of [place] coronary artery without angina pectoris Low back pain Lumbar radiculopathy Home Medications ?Medication ?Instructions ?Recorded ?Last Taken ?Type aspirin 81 mg chewable tablet 81 mg PO DAILY heart hea lth 08/09/15 01/09/25 History cyanocobalamin (vitamin B-12) 5,000 mcg sublingual QDA Y 06/04/18 01/09/25 History 5,000 mcg/mL sublingual drops supplement (Vitamin B-12) pantoprazole 40 mg tablet,delayed 40 mg PO BID #60 tab s 04/12/24 01/09/25 Rx release amlodipine 5 mg tablet 5 mg PO DAILY #90 TABLETS 01/09/25 Rx atorvastatin 80 mg tablet 80 mg PO MOWEFR cholesterol 90 09/03/24 01/09/25 Rx days #39 tabs metoprolol succinate 25 mg 25 mg PO QDAY blood pressur e #90 09/27/24 01/09/25 Rx tablet,extended release 24 hr tabs isosorbide mononitrate 30 mg 30 mg PO DAILY #90 tabs 1 12/28/23 01/09/25 Rx tablet,extended release 24 hr amitriptyline 10 mg tablet 10 mg PO QDAY #30 tabs 01/0 02/1501/09/25 Rx biotin 5 mg capsule 5 mg PO QDAY 03/14/25 Unknow n History cholecalciferol (vitamin D3) 25 25 mcg PO QDAY 5 Unknown History mcg (1,000 unit) tablet furosemide 20 mg tablet 20 mg PO QDAY swelling 03/14 Unknown History tramadol 50 mg tablet 25 - 50 mg PO TID PRN pain 0 03/14/25 Unknown History Allergy/AdvReac Type Severity Reaction Status Date / Time gabapentin Allergy Hives Verified 03/25/25 09:45 tomato Allergy Rash Verified 03/25/25 09:45 Family History Father , Age 89 Congestive heart failure Mother , Age 86 CVA (cerebral vascular accident) Hypertension Hyperlipidemia Sister , age 11 in MVA No problems noted. Surgical History History of back surgery (~01/2024) History of cardiac catheterization History of appendectomy History of elbow surgery History of hysterectomy History of eyelid surgery (~06/2023) History of laminectomy (08/2018) History of coronary artery stent placement (07/19/15) Social History Smoking Status: Former smoker how long ago did patient quit smokin alcohol intake: current alcohol intake frequency: a few times a week Alcohol type: wine substance use type: does not use caffeine: Yes Type: tea Number of servings: 4 ROS ROS ED ROS Narrative Generalized weakness. Constitutional Constitutional ED: Denies chills or fever(s) Eyes Eyes: Denies blurry vision ENT ENT ED: Denies ear pain Cardiovascular Cardiovascular: Denies chest pain Respiratory/Chest Respiratory/Chest: Denies cough or dyspnea Gastrointestinal Gastrointestinal: Denies abdominal pain, diarrhea, nausea or vomiting Genitourinary Genitourinary ED: Denies dysuria or hematuria Musculoskeletal Musculoskeletal: Denies arthralgias Integumentary Denies abscess Neurologic Neurologic: Denies headache(s) Psychiatric Psychiatric: Denies anxiety Endocrine Endocrinology: Denies cold intolerance Hematologic/Lymphatic Hematologic/Lymphatic: Reports none Allergic/Immunologic Allergic/Immunologic ED: Denies mouth swelling, tongue swelling or urticaria EXAM Physical Exam Narrative Exam Narrative: Well-appearing 84-year-old female. Vital signs are stable afebrile. Pulse ox 95% on room air no hypoxia. She is sitting upright in bed. No distress. No family with her. H EENT exam pupils round reactive light. No facial droop. No trauma. Moist mucous membranes. Normal speech. Neck nontender no JVD. Back nontender. Lungs clear to auscultation bilaterally. Heart regular rate and rhythm rate about 60 no murmur. Chest wall ribs nontender. Abdomen soft nontender. Moving all 4 extremities. 5 out of 5 dielectric tester strength. Dorsi plantarflexion intact. Can lift both upper and lower extremities without drift. Neurologically she is awake alert. Answering questions and following commands. No focal motor deficits. Acting appropriately. Benign nonfocal exam. Const Vital Signs: 03/25/25 09:45 03/25/25 11:44 03/25/25 11:48 Temperature 98.2 F Temperature Source Oral Pulse Rate 62 77 Pulse Rate [Standing (for 1 minute prior to obtaining)] 86 Respiratory Rate 19 H 19 H Blood Pressure 137/70 H 132/68 H Blood Pressure [Standing (for 1 minute prior to obtaining)] 57/39 L Blood Pressure Mean 92 89 Blood Pressure Mean [Standing (for 1 minute prior to obtaining)] 45 Pulse Ox 95 95 Oxygen Delivery Method Room Air Room Air 03/25/25 11:49 Temperature Temperature Source Pulse Rate 53 L Pulse Rate [Standing (for 1 minute prior to obtaining)] Respiratory Rate 11 L Blood Pressure 98/64 Blood Pressure [Standing (for 1 minute prior to obtaining)] Blood Pressure Mean 75 Blood Pressure Mean [Standing (for 1 minute prior to obtaining)] Pulse Ox 100 Oxygen Delivery Method Room Air Positive well nourished and well developed; Negative for obese, cachectic, contractures or unkempt General Appearance ED: well developed; Negative for unkempt, cachectic, contractures, cyanotic, diaphoretic or pallor Nutritional Appearance: Negative for cachectic or obese HEENT Reports moist mucous membranes Negative for trauma or tenderness Eyes PERRL and EOMs intact bilaterally Neck no lymphadenopathy, supple and no JVD General: Negative for tenderness Chest Wall inspection of chest normal and palpation of chest normal Resp normal respiratory effort and clear to auscultation bilaterally Effort and Inspection: Negative for retractions Auscultation: Negative for rales, rhonchi, wheezes or diminished lung sounds GI normal to inspection, nondistended, normoactive bowel sounds, non-tender, non- distended and no masses Auscultation: normoactive bowel sounds Palpation: soft; Negative for tender, guarding or rebound tenderness present Back/Spine no CVA tenderness General Back: Negative for CVA tenderness Cervical Spine: Negative for cervical spine tenderness Thoracic Spine / Upper Back: Negative for thoracic spinal tenderness or paraspinal muscle tenderness Lumbar Spine / Lower Back: Negative for lumbar spinal tenderness Extremity normal to inspection General Extremety ED: Negative for edema or tenderness General Extremity: Negative for edema Neuro oriented x3 and CN's II-XII intact bilaterally Sensorium / Orientation: alert; Negative for orientation impaired, lethargic or stuporous Motor Exam: strength 5/5 throughout Psych mental status grossly normal Appearance: Negative for unkempt Mood & Affect: Negative for depressed, anxious or tearful Skin no rashes or lesions noted and no wounds General Skin Exam: Negative for jaundice or pallor Lesions: No lesion noted Rashes: No rashes noted Trauma: Negative for abrasion Wounds: Negative for wounds noted MDM MDM MDM Narrative Medical decision making narrative: 84-year-old female complaining generalized weakness. Benign exam. She will be ambulated to see if she has any neurological findings with ambulation. She is sitting upright in bed and clinically looks well with a nonfocal exam. Screening labs will be obtained. She is having no urinary symptoms nor fever. Differential would include dehydration clinically she does not look dehydrated. UTI denies any urinary complaints. Pneumonia lungs are clear. Abnormal cardiac rhythm. Anemia eccentric. She has a nonfocal normal neurologic exam I do not think she needs a CAT scan at this time. Repeat exam no significant change. One of the labs of the patient and I believe a family member at bedside. I think the patient warrants admission due to her leukocytosis generalized weakness. She was able to ambulate with a walker to the restroom. They are getting a standing blood pressure because she gets dizzy when she gets out of bed. She is can be given a liter normal saline due to her worsening creatinine. And mild dehydration. I will discuss with the hospitalist if they want me to start her on antibiotics due to her leukocytosis and questionable UTI. A urine culture was sent. When the patient was stood up her blood pressure did drop. Again should be given a liter normal saline. I am going to start her on IV Rocephin for suspected UTI. History & Record Review Discussion w/independent historian: Patient Additional record(s) reviewed:: Prior inpatient record, Prior outpatient record, Prior ED visit and Prior labs Lab Data Attestation: I reviewed the patient's lab results. Lab results narrative: CBC shows an elevated white count of 17. H&H at 13 and 40. Platelets 325. Electrolytes show sodium 136. Gap 12. BUN and creatinine are 33 and 1.7 Liver functions unremarkable. UA shows 5-10 white cells 1+ bacteria no nitrates. No red cells. Labs: Laboratory Results - last 24 hr 03/25/25 03/25/25 10:25 10:35 WBC 17.0 H RBC 4.35 Hgb 13.7 Hct 40.6 MCV 93.3 MCH 31.5 MCHC 33.7 RDW Std Deviation 45.7 H RDW Coeff of Dusty 13.3 Plt Count 325 MPV 9.9 Immature Gran % (Auto) 0.500 Neut % (Auto) 79.9 H Lymph % (Auto) 7.9 L [place] % (Auto) 10.5 H Eos % (Auto) 0.8 Baso % (Auto) 0.4 Absolute Neuts (auto) 13.6 H Absolute Lymphs (auto) 1.34 Nucleated RBC % 0 Differential Comment Sodium 136 Potassium 3.3 Chloride 95 L Carbon Dioxide 28.6 Anion Gap 12 BUN 33 H Creatinine 1.71 H Estim Creat Clear Calc 19.86 L Est GFR (MDRD) Non-Af 29 L BUN/Creatinine Ratio 19.5 Glucose 103 H Calcium 9.4 Total Bilirubin 0.93 AST 24 ALT 10 Alkaline Phosphatase 108 H Total Protein 7.1 Albumin 4.1 Globulin 3.1 Albumin/Globulin Ratio 1.3 Urine Color Yellow Urine Clarity Clear Urine pH 6.0 Ur Specific [place] 1.010 Urine Protein 15 H Urine Glucose (UA) Normal Urine Ketones Negative Urine Occult Blood Negative Urine Nitrite Negative Urine Bilirubin Negative Urine Urobilinogen Normal Ur Leukocyte Esterase 100 H Urine RBC 0 SEEN Urine WBC 5-10 SEEN Ur Squamous Epith Cells 0 SEEN Urine Bacteria 1+ Urine Mucus 0 SEEN Radiography Chest X-Ray - ED: 2 View, Read by ED Physician, Read by Radiologist, Heart, Lungs, Mediastinum, Bony Structures and Chronic Changes Diagnostic Testing: Clinical Impression(s) from Imaging Studies Chest X-Ray 03/25/25 10:40 IMPRESSION: 1. Findings suggestive of mild interstitial edema or perhaps atypical pneumonia/pneumonitis in the bilateral lung bases. 2. Lower thoracic compression deformity is age indeterminate but new from 03/31/2018. There appears to have been kyphoplasty/vertebroplasty at this level. Correlate with history and point tenderness. 3. Additional description as above. Reading Location: [facility] Chest x-ray, 2 views, interpreted both by myself and radiologist shows either atelectasis cannot rule out a small effusion or pneumonitis in the lung bases. Chronic thoracic and lumbar vertebral changes. Lumbar hardware. Rhythm Strip Rhythm Strip: Sinus Rhythm Rate: 60 Ectopy: None EKG Initial EKG: Attestation: I personally reviewed and interpreted this EKG as follows: Interpretation: Sinus Rhythm and No Acute Injury Pattern Comments: Normal sinus rhythm rate of 60 no acute process. No IN or ischemia. No dysrhythmia. Discharge Plan Dx/Rx/DC Orders Clinical Impression: Generalized weakness, Leukocytosis, Acute dehydration, Orthostatic hypotension, Acute UTI, Chronic kidney disease Disposition Disposition: Acute Care Hospital [facility]
[2025-03-25 10:36] LABS: Absolute Lymphocyte Count 1.34 X10^3/uL (0.83-4.51); Absolute Neutrophil Count 13.6 X10^3/uL (2.0-7.7); Basophil# 0.07 X10^3/uL; Basophil% 0.4 % (0-1); Eosinophil# 0.13 X10^3/uL; Eosinophils% 0.8 % (0-5); Hematocrit 40.6 % (37-47); Hemoglobin 13.7 g/dL (12.0-15.0); Lymphocyte # 1.34 X10^3/ul (0.83-4.51); Lymphocyte % 7.9 % (19-41); Mean Corp Hgb Conc 33.7 g/dL (32-36); Mean Corpuscular Hgb 31.5 pg (27.0-32.0); Mean Corpuscular Volume 93.3 fL (81-99); Mean Platelet Vol. 9.9 fl (6.2-12.0); Monocyte# 1.78 X10^3/uL; Monocyte% 10.5 % (0-10); NRBC Flagged by Analyzer 0 % (0-5); Neutrophil # 13.59 X10^3/uL (2.7-7.7); Neutrophil % 79.9 % (47-70); POSITIVE DIFFERENTIAL YES; Platelet Count 325 K/mm3 (150-450); RBC Distribution Width CV 13.3 % (11.6-14.6); RBC Distribution Width SD 45.7 fl (35.1-43.9); Red Blood Count 4.35 M/mm3 (4.2-5.4)
--- NOTE | 2025-03-25 10:40 | RAD_ITS ---
PROCEDURE: CHEST PA AND LATERAL (RADCXR), 03/25/2025 REASON FOR EXAM: WEAKNESS TECHNIQUE: PA and lateral views of the chest were obtained. COMPARISON: 04/12/2024 FINDINGS: Lung apices partially obscured by the superimposed chin/neck. Heart: Unremarkable. Mediastinum: Trace atherosclerosis in the arch Lungs/pleura: Trace interstitial prominence in the lung bases no pleural effusion or visible pneumothorax. Bones: Demineralization. Partially imaged lumbar spinal fusion hardware. Lower thoracic anterior wedge compression deformity is age indeterminate but new from 03/31/2018. Suspect kyphoplasty/vertebroplasty at that level. Lines and support devices: None. Other: None. RAD/Chest PA and Lateral IMPRESSION: 1. Findings suggestive of mild interstitial edema or perhaps atypical pneumonia /pneumonitis in the bilateral lung bases. 2. Lower thoracic compression deformity is age indeterminate but new from 03/31. There appears to have been kyphoplasty/vertebroplasty at this level. Correlate with history and point ten derness. 3. Additional description as above. Reading Location: [id number]
[2025-03-25 10:42] LABS: Mucous, Urine 0 SEEN /hpf (<or=2+); Red Blood Cells-Urine 0 SEEN /hpf (0-5); Squamous Epithelial Cells - UA 0 SEEN /hpf (5-10)
[2025-03-25 10:45] LABS: Differential Indicated SCAN CRITERIA MET
[2025-03-25 10:49] LABS: Color, Urine Yellow (Yellow); Glucose, Dipstick Normal (Normal); Ketone-Dipstick Negative (Negative); Leukocyte Esterase-Dipstick 100 /ul (Negative); Nitrite-Dipstick Negative (Negative); Occult Blood-Urine Negative /ul (Negative); Protein-Dipstick 15 mg/dl (Negative); Urine Bilirubin Dipstick Negative (Negative); Urine Clarity Clear (Clear); Urine Urobilinogen Normal (Normal)
[2025-03-25 10:56] LABS: Bacteria 1+ /hpf (None Seen); White Blood Cells 5-10 SEEN /hpf (0-5)
[2025-03-25 11:07] LABS: ALB/GLOB Ratio 1.3 RATIO (0.9-2.4); AST(SGOT) 24 U/L (<=31); Alanine Aminotransfer ALT/SGPT 10 U/L (<=34); Albumin, Serum 4.1 g/dL (3.4-4.8); Alkaline Phosphatase 108 U/L (35-104); Anion Gap 12 (5-15); BUN 33 mg/dL (4-19); BUN/Creat Ratio 19.5 RATIO (10-20); Calcium,Total 9.4 mg/dL (7.6-11.0); Carbon Dioxide 28.6 mmol/L (21.0-32.0); Chloride 95 mmol/L (98-108); Creatinine, Serum 1.71 mg/dL (0.70-1.20); EST Glomerular Filtration Rate 29 (>60); Estimated Creatinine Clearance 19.86 ml/min (50-250); Globulin 3.1 g/dL (2.2-4.2); Glucose 103 mg/dL (70-99); Potassium 3.3 mmol/L (3.3-5.1); Protein, Total 7.1 g/dL (5.9-8.4); Sodium Level 136 mmol/L (133-145); Total Bilirubin 0.93 mg/dL (0.00-1.30)
[2025-03-25] MEDS: 0.9% Normal Saline (1000mL) 1,000 ML 999 ML IV (11:54)
[2025-03-25] MEDS: Ceftriaxone 1 GM/50 ML BAG IV (12:19)
[2025-03-25] MEDS: 0.9% Normal Saline (1000mL) 1,000 ML 75 ML IV (13:26)
--- NOTE | 2025-03-25 16:55 | PCM.HP.STD ---
HPI - General General Date of Admission: 03/25/25 HPI Narrative NORMA HARPER, is a 84 F who presents to the hospital with lightheadedness and dizziness with near syncope. She also says that for the last day or 2 she is not feeling chills at home and thinks that she had a fever though she never checked the temperature. On presentation to the hospital she was found to have a leukocytosis to 17 and she was severely orthostatic with a systolic down to the 50s with standing though blood pressures are normal when she is sitting or laying down. She does not have any dizziness when she is sitting or lying down only when she is standing. UA was mildly positive for a UTI so she was started on IV fluids and antibiotic. She denies any dysuria or frequency, no changes in her urination. [facility] Medical History Wears glasses Wears dentures Cancer Ambulates with cane History of renal disease Easy bruising High cholesterol History of echocardiogram History of stress test Hypertension History of heart attack Chest pain Cardiology follow-up encounter Acute pneumonia Tuttle's palsy Macular degeneration Renal insufficiency Osteoarthritis Spondylosis Scoliosis Lumbar spinal stenosis History of non-ST elevation myocardial infarction (NSTEMI) Essential (primary) hypertension Hyperlipidemia Atherosclerotic heart disease of [place] coronary artery without angina pectoris Low back pain Lumbar radiculopathy Home Medications ?Medication ?Instructions ?Recorded ?Last Taken ?Type aspirin 81 mg chewable tablet 81 mg PO DAILY heart health 08/09/15 03/25/25 History cyanocobalamin (vitamin B-12) 5,000 mcg sublingual QDAY 06/04/18 03/25/25 History 5,000 mcg/mL sublingual drops supplement (Vitamin B-12) pantoprazole 40 mg tablet,delayed 40 mg PO BID #60 tabs 04/12/24 03/25/25 Rx release amlodipine 5 mg tablet 5 mg PO DAILY #90 TABLETS 08/24/24 03/25/25 Rx atorvastatin 80 mg tablet 80 mg PO MOWEFR cholesterol 90 09/03/24 03/23/25 Rx days #39 tabs isosorbide mononitrate 30 mg 30 mg PO DAILY #90 tabs 10/27/24 03/25/25 Rx tablet,extended release 24 hr biotin 5 mg capsule 5 mg PO DAILY 03/14/25 03/25/25 History cholecalciferol (vitamin D3) 25 25 mcg PO DAILY 03/14/25 03/25/25 History mcg (1,000 unit) tablet furosemide 20 mg tablet 20 mg PO DAILY PRN swelling 03/14/25 Unknown History tramadol 50 mg tablet 25 - 50 mg PO TID PRN pain 03/14/25 03/24/25 History amitriptyline 10 mg tablet 10 mg PO DAILY 03/25/25 03/25/25 History metoprolol succinate 25 mg 25 mg PO DAILY blood pressure 03/25/25 03/25/25 History tablet,extended release 24 hr nemolizumab-ilto subcut 03/25/25 03/21/25 History Allergy/AdvReac Type Severity Reaction Status Date / Time gabapentin Allergy Hives Verified 03/25/25 09:45 tomato Allergy Rash Verified 03/25/25 09:45 Family History Father , Age 89 Congestive heart failure Mother , Age 86 CVA (cerebral vascular accident) Hypertension Hyperlipidemia Sister , age 11 in MVA No problems noted. Surgical History History of back surgery (~01/2024) History of cardiac catheterization History of appendectomy History of elbow surgery History of hysterectomy History of eyelid surgery (~06/2023) History of laminectomy (08/2018) History of coronary artery stent placement (07/19/15) Social History Smoking Status: Former smoker how long ago did patient quit smokin alcohol intake: current alcohol intake frequency: a few times a week Alcohol type: wine substance use type: does not use caffeine: Yes Type: tea Number of servings: 4 ROS Constitutional Constitutional: Reports chills and fever(s); Denies fatigue or malaise Eyes Eyes: Denies blurry vision ENT HEENT: Denies headache(s) or nasal discharge Cardiovascular Cardiovascular: Reports lightheadedness; Denies chest pain, dyspnea on exertion or syncope Respiratory/Chest Respiratory/Chest: Denies cough, shortness of breath at rest or shortness of breath with exertion Gastrointestinal Gastrointestinal: Denies constipation, diarrhea, nausea or vomiting Genitourinary Genitourinary: Denies dysuria Neurologic Neurologic: Denies focal weakness, numbness or tremor(s) Psychiatric Psychiatric: Denies anxiety or depression Vital Signs Vital Signs Vital Signs: 03/25/25 09:45 03/25/25 11:44 03/25/25 11:48 Temperature 98.2 F Temperature Source Oral Pulse Rate 62 77 Pulse Rate [Standing (for 1 minute prior to obtaining)] 86 Respiratory Rate 19 H 19 H Blood Pressure 137/70 H 132/68 H Blood Pressure [Standing (for 1 minute prior to obtaining)] 57/39 L Blood Pressure Mean 92 89 Blood Pressure Mean [Standing (for 1 minute prior to obtaining)] 45 Blood Pressure Source Blood Pressure Position Blood Pressure Location Pulse Ox 95 95 Oxygen Delivery Method Room Air Room Air 03/25/25 11:49 03/25/25 11:49 03/25/25 13:00 Temperature 98.2 F 98.2 F Temperature Source Oral Pulse Rate 53 L 53 L 74 Pulse Rate [Standing (for 1 minute prior to obtaining)] Respiratory Rate 11 L 11 L 15 Blood Pressure 98/64 98/64 139/97 H Blood Pressure [Standing (for 1 minute prior to obtaining)] Blood Pressure Mean 75 75 111 Blood Pressure Mean [Standing (for 1 minute prior to obtaining)] Blood Pressure Source Monitor Blood Pressure Position Semi-Fowlers Blood Pressure Location Left Arm Pulse Ox 100 100 99 Oxygen Delivery Method Room Air Room Air Weight Weight: 129 lb 13.636 oz Body Mass Index (BMI) 27.1 Physical Exam Narrative General: Alert, Oriented x3, Cooperative, No apparent distress HEENT: Atraumatic, PERRLA, EOMI, Normocephalic Oral: Moist Mucosa Neck: Supple, No JVD Lungs: Diminished, Normal air movement, No rhonchi, No wheeze, No rales, scattered crackles Cardiovascular: Regular rate, Regular Rhythm, Normal S1, Normal S2, No murmurs Abdomen: Soft, Non Tender, Non-Distended, No Hepato-splenomegaly Extremities: No edema, Capillary Refill Less than 3 Seconds Skin: No rashes, No breakdown Musculoskeletal: No Tenderness to Palpation of Joints or Extremities Neurological: No focal neurological deficits, Motor Exam 5/5 strength throughout, Sensory exam intact to light touch and pain Psych/Mental Status: Normal Affect, Appropriate Results Lab / Micro Data 03/25/25 10:25 03/25/25 10:25 Labs: Laboratory Results - last 24 hr 03/25/25 10:25: WBC 17.0 H, RBC 4.35, Hgb 13.7, Hct 40.6, MCV 93.3, MCH 31.5, MCHC 33.7, RDW Std Deviation 45.7 H, RDW Coeff of Dusty 13.3, Plt Count 325, MPV 9.9, Immature Gran % (Auto) 0.500, Neut % (Auto) 79.9 H, Lymph % (Auto) 7.9 L, [place] % (Auto) 10.5 H, Eos % (Auto) 0.8, Baso % (Auto) 0.4, Absolute Neuts (auto) 13.6 H, Absolute Lymphs (auto) 1.34, Nucleated RBC % 0, Differential Comment , Sodium 136, Potassium 3.3, Chloride 95 L, Carbon Dioxide 28.6, Anion Gap 12, BUN 33 H, Creatinine 1.71 H, Estim Creat Clear Calc 19.86 L, Est GFR (MDRD) Non-Af 29 L, BUN/Creatinine Ratio 19.5, Glucose 103 H, Calcium 9.4, Total Bilirubin 0.93, AST 24, ALT 10, Alkaline Phosphatase 108 H, Total Protein 7.1, Albumin 4.1, Globulin 3.1, Albumin/Globulin Ratio 1.3 03/25/25 10:35: Urine Color Yellow, Urine Clarity Clear, Urine pH 6.0, Ur Specific [place] 1.010, Urine Protein 15 H, Urine Glucose (UA) Normal, Urine Ketones Negative, Urine Occult Blood Negative, Urine Nitrite Negative, Urine Bilirubin Negative, Urine Urobilinogen Normal, Ur Leukocyte Esterase 100 H, Urine RBC 0 SEEN, Urine WBC 5-10 SEEN, Ur Squamous Epith Cells 0 SEEN, Urine Bacteria 1+, Urine Mucus 0 SEEN Rhythm Strip Rhythm Strip: Sinus Rhythm Rate: 60 Ectopy: None Imaging Radiology Impression Chest X-Ray 03/25/25 10:40 IMPRESSION: 1. Findings suggestive of mild interstitial edema or perhaps atypical pneumonia/pneumonitis in the bilateral lung bases. 2. Lower thoracic compression deformity is age indeterminate but new from 03/31/2018. There appears to have been kyphoplasty/vertebroplasty at this level. Correlate with history and point tenderness. 3. Additional description as above. Reading Location: [facility] Assessment & Plan Assessment/Plan (1) Acute UTI: (2) Orthostatic hypotension: PLAN: Plan 1. Orthostatic hypotension in the setting of an acute UTI ? No sepsis or shock ? Continue with IV fluids ? Will hold her blood pressure medications ? Will repeat orthostatic vital signs in the morning ? Continue with Rocephin ? Urine culture is pending 2. Essential HTN/HLD/CAD status post stent ? Continue with her home Lipitor but will hold her blood pressure medications pending repeat orthostatic vital signs tomorrow morning ? Her Lasix is for as needed swelling and it has been several weeks since she is taken 1 but she says that since she has been feeling sick she has not been eating or drinking very well which likely explains her orthostasis ? Will monitor and make adjustments as necessary 3. GERD ? Stable ? Continue with PPI 4. CKD 3 ? Baseline renal function is around 1.4-1.5 currently today on admission is 1.7 so not enough to: VINI ? Continue with gentle hydration ? Will recheck in the morning DVT: Heparin 75 minutes was spent on direct patient care, including documentation as well as chart review and collaboration with colleagues Charges/Coding Visit Charges Inpatient E&M: 36185 Init Hosp L3
[2025-03-25] MEDS: Atorvastatin Calcium 80 MG Tablet PO (21:28)
[2025-03-25] MEDS: Pantoprazole Sodium 40 MG Tablet PO (21:28)
[2025-03-25] MEDS: Heparin Injection (Vial) 5,000 UNIT/ML VIAL 5000 UNIT SC (21:29)
[2025-03-26] VITALS (9 sets, daily range): BP systolic 92–139; BP diastolic 58–76; PULSE 58–88; RESP 18; TEMP 36.8–37.1; O2SAT 92–95
[2025-03-26 05:37] LABS: Absolute Lymphocyte Count 1.94 X10^3/uL (0.83-4.51); Absolute Neutrophil Count 10.9 X10^3/uL (2.0-7.7); Basophil# 0.05 X10^3/uL; Basophil% 0.3 % (0-1); Eosinophil# 0.11 X10^3/uL; Eosinophils% 0.8 % (0-5); Hematocrit 34.4 % (37-47); Hemoglobin 11.5 g/dL (12.0-15.0); Lymphocyte # 1.94 X10^3/ul (0.83-4.51); Lymphocyte % 13.3 % (19-41); Mean Corp Hgb Conc 33.4 g/dL (32-36); Mean Corpuscular Hgb 31.3 pg (27.0-32.0); Mean Corpuscular Volume 93.5 fL (81-99); Mean Platelet Vol. 10.1 fl (6.2-12.0); Monocyte# 1.47 X10^3/uL; Monocyte% 10.1 % (0-10); NRBC Flagged by Analyzer 0 % (0-5); Neutrophil # 10.88 X10^3/uL (2.7-7.7); Neutrophil % 74.7 % (47-70); Platelet Count 257 K/mm3 (150-450); RBC Distribution Width CV 13.4 % (11.6-14.6); Red Blood Count 3.68 M/mm3 (4.2-5.4); White Blood Count 14.6 K/mm3 (4.4-11.0)
[2025-03-26 06:04] LABS: Anion Gap 12 (5-15); BUN 27 mg/dL (4-19); Calcium,Total 8.3 mg/dL (7.6-11.0); Chloride 101 mmol/L (98-108); Creatinine, Serum 1.41 mg/dL (0.70-1.20); EST Glomerular Filtration Rate 37 (>60); Estimated Creatinine Clearance 23.42 ml/min (50-250); Glucose 90 mg/dL (70-99); Potassium 3.3 mmol/L (3.3-5.1); Sodium Level 135 mmol/L (133-145)
--- NOTE | 2025-03-26 09:05 | CASEMGMT ---
RN CM Face to Face with patient for initial transition planning/care coordination assessment. RN CM introduced self and role at [facility]. Patient lying in bed, alert and oriented. Patient willing to participate in assessment and is able to answer all questions appropriately. Care providers, pharmacy, and demographics verified. Strata: 2 PCP: [place] Specialists: Herrera, vascular; Klever, pain; Friend, GI Preferred Pharmacy: [facility] Insurance: [facility] [place] Prescription Benefit: yes Living Will/HPOA: yes, grandson Gerald Quinn LNOK: grandson Living Arrangements: Patient lives alone in a single story home with 1 step and grab bar to enter. Patient is independent at home. Transportation: self, friend DME/HHC: Patient has shower chair, raised toilet, and cane at home. Patient is currently using walker in room, not sure if she would like one at discharge, states she will think about it. Green sheet with prescription on chart if patient would like walker at discharge. Patient has been to TCU in the past. No previous HHC. Patient wishes to discharge home, denies need for home health at this time. Patient states he has no further needs or concerns at this time. CM to follow for discharge planning needs that may arise. Disposition Plan: Patient to discharge home with family support and follow-up plans in place. Monica BARTON, RN, CM
[2025-03-26] MEDS: Aspirin 81 MG TAB.CHEW PO (09:06)
[2025-03-26] MEDS: Pantoprazole Sodium 40 MG Tablet PO ×2 (09:06→22:24)
[2025-03-26] MEDS: Metoprolol(XL)Succ 25 MG Tablet PO (09:06)
[2025-03-26] MEDS: Amitriptyline 10 MG Tablet PO (09:06)
[2025-03-26] MEDS: Heparin Injection (Vial) 5,000 UNIT/ML VIAL 5000 UNIT SC ×2 (09:07→22:24)
[2025-03-26] MEDS: Ceftriaxone 1 GM/50 ML BAG IV (09:07)
--- NOTE | 2025-03-26 13:02 | PN_ITS ---
Subjective Subjective Patient seen and examined. She did complain of some dizziness earlier this morning. She denied any chest pain, shortness of breath, palpitations, dizziness, nausea or vomiting. Review of systems otherwise negative. Objective Data Objective Data Vital Signs: Vital Signs Temp Pulse Resp BP Pulse Ox O2 Del Method 98.2 F 88 18 126/61 H 95 Room Air 03/26/25 08:59 03/26/25 09:06 03/26/25 08:59 03/26/25 09:06 03/26/25 08:59 03/26/25 08:59 Oxygen Delivery Method Room Air Weight: 129 lb 13.636 oz Body Mass Index (BMI) 27.1 Intake & Output: Intake and Output for Last 24 Hours 03/24/25 03/25/25 03/26/25 23:59 23:59 23:59 Intake Total 1050 / 1050 2150 / 2150 Balance 1050 / 1050 2150 / 2150 Lab / Micro Data 03/26/25 04:57 03/26/25 04:57 Labs: Laboratory Results - last 24 hr 03/26/25 04:57: WBC 14.6 H, RBC 3.68 L, Hgb 11.5 L, Hct 34.4 L, MCV 93.5, MCH 31.3, MCHC 33.4, RDW Std Deviation 46.0 H, RDW Coeff of Dusty 13.4, Plt Count 257, MPV 10.1, Immature Gran % (Auto) 0.800, Neut % (Auto) 74.7 H, Lymph % (Auto) 13.3 L, [place] % (Auto) 10.1 H, Eos % (Auto) 0.8, Baso % (Auto) 0.3, Absolute Neuts (auto) 10.9 H, Absolute Lymphs (auto) 1.94, Nucleated RBC % 0, Sodium 135, Potassium 3.3, Chloride 101, Carbon Dioxide 22.0, Anion Gap 12, BUN 27 H, C reatinine 1.41 H, Estim Creat Clear Calc 23.42 L, Est GFR (MDRD) Non-Af 37 L, BUN/Creatinine Ratio 19.0, Glucose 90, Calcium 8.3 Rhythm Strip Rhythm Strip: Sinus Rhythm Rate: 60 Ectopy: None Physical Exam Const alert, oriented x3, no apparent distress and well nourished General Appearance: cooperative and well developed HEENT normocephalic, head/scalp atraumatic, moist oral mucous membranes, oropharynx normal and gingiva normal Eyes PERRL and EOMs intact bilaterally Neck no lymphadenopathy and supple Lymph Lymphatic: no lymphadenopathy noted Resp normal respiratory effort, normal air movement and clear to auscultation bilaterally Cardio regular rate, regular rhythm, S1 normal heart sound, S2 normal heart sound and no murmurs GI normal to inspection, nondistended, normoactive bowel sounds, soft to palpation, non-tender and non-distended Extremity normal capillary refill, no clubbing, cyanosis or edema and no calf tenderness General Extremity: no tenderness to palpation of joints or extremities Skin General Skin Exam: no breakdown Neuro CN's II-XII intact bilaterally, no focal motor deficits and no sensory deficits noted Motor Exam: strength 5/5 throughout and general weakness Psych thought process normal, cooperative and affect normal Appearance: appropriate Assessment & Plan Assessment/Plan (1) Acute UTI: (2) Orthostatic hypotension: PLAN: Plan #Dizziness due ot orthostatic hypotension * Still feeling dizzy this morning. Continue gentle hydration with IV fluids. * Check orthostatics. #UTI: On IV ceftriaxone. Urine cultures pending. wbc is down to 14.6. # Hypertension: On metoprolol and amlodipine. #Hyperlipidemia: On statin #CAD s/p stents: On Imdur and statin as well as metoprolol and aspirin. #GERD: On PPI #CKD stage III: Creatinine at baseline. Will monitor. DVT prophylaxis: Heparin Charges/Coding Visit Charges Inpatient E&M: 17602 Subs Hosp L2
[2025-03-26] MEDS: 0.9% Normal Saline (1000mL) 1,000 ML 125 ML IV (15:50)
[2025-03-27] VITALS (7 sets, daily range): BP systolic 125–133; BP diastolic 62–81; PULSE 56–93; RESP 18; TEMP 36.6–36.8; O2SAT 92–95
[2025-03-27] MEDS: 0.9% Saline Lock 10 ML Syringe IV (01:38)
[2025-03-27] MEDS: 0.9% Normal Saline (1000mL) 1,000 ML 125 ML IV (01:39)
[2025-03-27 06:34] LABS: Absolute Lymphocyte Count 1.35 X10^3/uL (0.83-4.51); Absolute Neutrophil Count 7.3 X10^3/uL (2.0-7.7); Basophil# 0.06 X10^3/uL; Basophil% 0.6 % (0-1); Eosinophil# 0.26 X10^3/uL; Eosinophils% 2.6 % (0-5); Hematocrit 35.6 % (37-47); Hemoglobin 11.7 g/dL (12.0-15.0); Lymphocyte # 1.35 X10^3/ul (0.83-4.51); Lymphocyte % 13.6 % (19-41); Mean Corp Hgb Conc 32.9 g/dL (32-36); Mean Corpuscular Hgb 31.3 pg (27.0-32.0); Mean Corpuscular Volume 95.2 fL (81-99); Mean Platelet Vol. 10.3 fl (6.2-12.0); Monocyte# 0.91 X10^3/uL; Monocyte% 9.2 % (0-10); NRBC Flagged by Analyzer 0 % (0-5); Neutrophil # 7.25 X10^3/uL (2.7-7.7); Neutrophil % 73.3 % (47-70); Platelet Count 226 K/mm3 (150-450); RBC Distribution Width CV 13.2 % (11.6-14.6); RBC Distribution Width SD 46.9 fl (35.1-43.9); Red Blood Count 3.74 M/mm3 (4.2-5.4); White Blood Count 9.9 K/mm3 (4.4-11.0)
[2025-03-27 07:07] LABS: Anion Gap 11 (5-15); BUN 20 mg/dL (4-19); BUN/Creat Ratio 15.8 RATIO (10-20); Calcium,Total 8.3 mg/dL (7.6-11.0); Carbon Dioxide 21.4 mmol/L (21.0-32.0); Chloride 108 mmol/L (98-108); Creatinine, Serum 1.25 mg/dL (0.70-1.20); EST Glomerular Filtration Rate 42 (>60); Estimated Creatinine Clearance 26.42 ml/min (50-250); Glucose 88 mg/dL (70-99); Potassium 3.3 mmol/L (3.3-5.1); Sodium Level 139 mmol/L (133-145)
[2025-03-27] MEDS: Amitriptyline 10 MG Tablet PO (09:46)
[2025-03-27] MEDS: Aspirin 81 MG TAB.CHEW PO (09:46)
[2025-03-27] MEDS: Pantoprazole Sodium 40 MG Tablet PO (09:47)
[2025-03-27] MEDS: Metoprolol(XL)Succ 25 MG Tablet PO (09:47)
[2025-03-27] MEDS: Ceftriaxone 1 GM/50 ML BAG IV (09:48)
[2025-03-27] MEDS: Heparin Injection (Vial) 5,000 UNIT/ML VIAL 5000 UNIT SC (09:52)
--- NOTE | 2025-03-27 12:39 | DS.PCM_ITS ---
Providers Date of Admission: 03/25/25 Date of Discharge: 03/27/25 Primary Care Physician: Dr. Estela Osborne DO Reason For Visit: UTI WITH ORTHOSTASIS Diagnosis Discharge Diagnosis (1) Acute UTI: Status: Acute Code(s): N39.0 - Urinary tract infection, site not specified (2) Orthostatic hypotension: Status: Acute Code(s): I95.1 - Orthostatic hypotension Plan #Dizziness due ot orthostatic hypotension * Still feeling dizzy this morning. Continue gentle hydration with IV fluids. * Check orthostatics. #UTI: On IV ceftriaxone. Urine cultures pending. wbc is down to 14.6. # Hypertension: On metoprolol and amlodipine. #Hyperlipidemia: On statin #CAD s/p stents: On Imdur and statin as well as metoprolol and aspirin. #GERD: On PPI #CKD stage III: Creatinine at baseline. Will monitor. DVT prophylaxis: Heparin Medications at Discharge Home Medications aspirin 81 mg chewable tablet 81 mg PO DAILY [facility] 08/09/15 cyanocobalamin (vitamin B-12) 5,000 mcg/mL sublingual drops (Vitamin B-12) 5,000 mcg sublingual QDAY supplement 06/04/18 pantoprazole 40 mg tablet,delayed release 40 mg PO BID #60 tabs 04/12/24 amlodipine 5 mg tablet 5 mg PO DAILY #90 TABLETS 08/24/24 atorvastatin 80 mg tablet 80 mg PO MOWEFR cholesterol 90 days #39 tabs 09/03/24 isosorbide mononitrate 30 mg tablet,extended release 24 hr 30 mg PO DAILY #90 tabs 10/27/24 biotin 5 mg capsule 5 mg PO DAILY 03/14/25 cholecalciferol (vitamin D3) 25 mcg (1,000 unit) tablet 25 mcg PO DAILY 03/14/25 furosemide 20 mg tablet 20 mg PO DAILY PRN swelling 03/14/25 tramadol 50 mg tablet 25 - 50 mg PO TID PRN pain 03/14/25 amitriptyline 10 mg tablet 10 mg PO DAILY 03/25/25 metoprolol succinate 25 mg tablet,extended release 24 hr 25 mg PO DAILY blood pressure 03/25/25 nemolizumab-ilto subcut 03/25/25 cefdinir 300 mg capsule 300 mg PO BID 5 days #10 caps 03/27/25 Hospital Course Operations None Procedures None Summary of Care Provided Minutes Spent on Discharge: 38 Hospital Course: Patient is an 84-year-old female with past medical history as outlined was admitted through the ED on 03/25/2025 with complaint of lightheadedness and dizziness as well as near syncope. She also says she has been having some chills and fever at home. On admission she had leukocytosis of 17 and orthostatics were also positive. Urinalysis showed evidence of UTI. She was therefore admitted and managed for debility due to orthostatic hypotension and UTI. She was placed on IV ceftriaxone and hydrated with IV fluids. Orthostatic hypotension resolved. She is felt much better and leukocytosis also resolved with WBC trending down to 9 at time of discharge. Urine cultures grew E. coli which was pansensitive. She was therefore discharged home on 03/27/2025 on p.o. cefdinir 300 mg twice daily for 5 days. She is follow-up with her primary care doctor within 1 to 2 weeks. Patient seen and examined prior to discharge. She had no active complaints. Review of systems otherwise negative. Labs and vitals reviewed. Medication reviewed and reconciled. Physical Exam Const alert, oriented x3, no apparent distress and well nourished General Appearance: cooperative, comfortable, well kempt and well developed Orientation / Consciousness: awake HEENT normocephalic, head/scalp atraumatic, hearing grossly normal bilaterally, moist oral mucous membranes and oropharynx normal Mouth: oral and palatal mucosa normal Eyes PERRL, EOMs intact bilaterally and conjunctivae normal Neck no lymphadenopathy and supple Lymph Lymphatic: no lymphadenopathy noted Resp normal respiratory effort, normal air movement and clear to auscultation bilaterally Cardio regular rate, regular rhythm, S1 normal heart sound, S2 normal heart sound and no murmurs GI normal to inspection, nondistended, normoactive bowel sounds, soft to palpation, non-tender and non-distended Extremity normal to inspection, full ROM, no clubbing, cyanosis or edema and no calf tenderness General Extremity: no tenderness to palpation of joints or extremities Skin no rashes or lesions noted General Skin Exam: no breakdown Neuro oriented x3, CN's II-XII intact bilaterally, moves all extremities, no focal motor deficits and no sensory deficits noted Sensorium / Orientation: awake and alert Motor Exam: strength 5/5 throughout and general weakness Psych thought process normal, cooperative and affect normal Appearance: appropriate Weight / BMI Weight Weight: 129 lb 13.636 oz Body Mass Index (BMI) 27.1 ABG / Lab / Microbiology Data 03/27/25 06:05 03/27/25 06:05 Laboratory: Laboratory Results - last 24 hr 03/27/25 06:05: WBC 9.9, RBC 3.74 L, Hgb 11.7 L, Hct 35.6 L, MCV 95.2, MCH 31.3, MCHC 32.9, RDW Std Deviation 46.9 H, RDW Coeff of Dusty 13.2, Plt Count 226, MPV 10.3, Immature Gran % (Auto) 0.700, Neut % (Auto) 73.3 H, Lymph % (Auto) 13.6 L, [place] % (Auto) 9.2, Eos % (Auto) 2.6, Baso % (Auto) 0.6, Absolute Neuts (auto) 7.3, Absolute Lymphs (auto) 1.35, Nucleated RBC % 0, Sodium 139, Potassium 3.3, Chloride 108, Carbon Dioxide 21.4, Anion Gap 11, BUN 20 H, Creatinine 1.25 H, E stim Creat Clear Calc 26.42 L, Est GFR (MDRD) Non-Af 42 L, BUN/Creatinine Ratio 15.8, Glucose 88, Calcium 8.3 Microbiology: Microbiology 03/25/25 10:35 Urine, Random Urine Culture - Final Presumptive E. coli D/C Instructions Discharge Diet: Low fat / Low cholesterol Discharge Activity: Return to Normal Activity Weight Bearing Status: Weight bearing as tolerated Call your doctor if you observe: Fever of 101 or Higher, Shortness of breath, Dizziness, Swelling in the ankles and Chest pain DC O2, CPAP, BIPAP Needs Home O2 Discharge instructions: No DC home with Oxygen: No Meaningful Use Info Meaningful Use Meaningful Use Diagnoses (Choose all that apply): None applicable Ischemic Stroke Statin Dosing Therapy Reference: STATIN DOSE THERAPY REFERENCE: * Patients > 75 years receive moderate or high dose statin therapy. * Patients 75 years or YOUNGER should receive HIGH intensity statin dose unless contraindicated. You will be required to document reason for non-treatment if statin daily dose does not meet guidelines. HIGH DOSE STATIN THERAPY DAILY Atorvastatin > than or = to 40 mg Rosuvastatin > than or = to 20 mg Amlodipine + Atorvastatin > than or = to 2.5/40 mg Ezetimibe + Simvastatin 10/80 mg Simvastatin 80mg Discharge Plan Admission Admit Date/Time: 03/25/25 11:55 Primary Reason for Your Visit: UTI Attending Provider: Barbara Galloway Primary Care Provider: Estela Osborne Consulting Providers: Miguel Manning Instructions Patient Instructions: ED UTI Fem Ch Discharge Orders/Prescriptions Prescriptions: New cefdinir 300 mg capsule 300 mg PO BID 5 Days Qty: 10 0RF Continued cyanocobalamin (vitamin B-12) [Vitamin B-12] 5,000 mcg/mL drops 5,000 mcg SUBLINGUAL QDAY furosemide 20 mg tablet 20 mg PO DAILY PRN (Reason: swelling) cholecalciferol (vitamin D3) 25 mcg (1,000 unit) tablet 25 mcg PO DAILY biotin 5 mg capsule 5 mg PO DAILY tramadol 50 mg tablet 25 - 50 mg PO TID PRN (Reason: pain) Patient Comments: PT TAKES EVERY 3-4 HOURS. aspirin 81 MG tablet,chewable 81 mg PO DAILY nemolizumab-ilto [Nemluvio] subcut Patient Comments: UNSURE OF STRENGTH; PT WAS GIVEN TWO INJECTIONS ON FRIDAY. amitriptyline 10 mg tablet 10 mg PO DAILY metoprolol succinate 25 mg tablet extended release 24 hr 25 mg PO DAILY pantoprazole 40 mg tablet,delayed release (DR/EC) 40 mg PO BID Qty: 60 5RF amlodipine 5 mg tablet 5 mg PO DAILY Qty: 90 3RF atorvastatin 80 mg tablet 80 mg PO MOWEFR 90 Days Qty: 39 3RF Patient Comments: PT TAKES AT BEDTIME. isosorbide mononitrate 30 mg tablet extended release 24 hr 30 mg PO DAILY Qty: 90 3RF Referrals / Follow Up: Estela Osborne DO [Primary Care Provider] - Within 1 Week Disposition Disposition (needs filled in before D/C Order can be placed): Home, Self Care Charges/Coding Visit Charges Inpatient E&M: 35690 Disch Hosp >30min
== END 2025-03-27 14:00 | disposition home or self-care (01) | DRG 690 ==
LOC: ED 12:02 → PCU 12:07
PROVIDERS: Admitting Provider Family Medicine; Emergency Provider Emergency Medicine; PCP Family Medicine; Referring Provider Family Medicine; Visit Provider Student in an Organized Health Care Education/Training Program
DX: N39.0 Urinary tract infection, site not specified (principal); B96.20 Unspecified Escherichia coli [E. coli] as the cause of diseases classified elsewhere; N18.30 Chronic kidney disease, stage 3 unspecified; I12.9 Hypertensive chronic kidney disease with stage 1 through stage 4 chronic kidney disease, or unspecified chronic kidney disease; K21.9 Gastro-esophageal reflux disease without esophagitis; I25.10 Atherosclerotic heart disease of native coronary artery without angina pectoris; I95.1 Orthostatic hypotension; E78.00 Pure hypercholesterolemia, unspecified; I25.2 Old myocardial infarction; Z95.5 Presence of coronary angioplasty implant and graft; Z87.891 Personal history of nicotine dependence; Z79.82 Long term (current) use of aspirin; Z79.899 Other long term (current) drug therapy
CPT/HCPCS: 36415; 71046; 80048; 80053; 81001; 85025; 87040; 87086; 87088; 87186; 93005; 97116; 97162; 97166; 97530; 99285; A4216

== ENCOUNTER 2025-04-11 10:41 | Day surgery (SDC) | payer MEDICARE, SELFPAY ==
[2025-04-11] VITALS (8 sets, daily range): BP systolic 96–146; BP diastolic 59–76; PULSE 59–64; RESP 14–18; TEMP 36.2–36.7; O2SAT 94–99; BMI 26.2
[2025-04-11] MEDS: Lactated Ringers 1,000 ML 15 ML IV (11:17)
--- NOTE | 2025-04-11 11:17 | PCM.PRE.AN2 ---
ASA Classification* ASA Classification ASA Classification: 3 Assessment & Plan Anesthesia* Anesthesia Assessment Anesthesia Assessment: Discussed sedation and/or anesthesia options, risks, benefits, and alternatives with patient/parents/legal guardian/POA. Questions invited. The patient/parents/legal guardian/POA seems to understand and agrees to proceed with anesthesia plan. Reviewed the physical assessment, medical history, allergy history and patient home medications list prior to surgery/procedure/anesthetic and documented any changes. Performed airway and anesthesia risk assessments. Anesthesia Type Anesthesia Type: MAC Anesthesia Focused Assessment* Temperature: 97.1 F Pulse Rate: 62 Blood Pressure: 146/76 Respiratory Rate: 18 Pulse Ox: 99 Airway Assessment Mouth opens: >3 cm Mallampati Score: II Focused Labs Anesthesia Preop lab: CBC WBC 9.9 K/mm3 (4.4-11.0) 03/27/25 06:05 03/27/25 RBC 3.74 M/mm3 (4.2-5.4) L 03/27/25 06:05 03/27/25 Hgb 11.7 g/dL (12.0-15.0) L 03/27/25 06:05 03/27/25 Hct 35.6 % (37-47) L 03/27/25 06:05 03/27/25 Plt Count 226 K/mm3 (150-450) 03/27/25 06:05 03/27/25 CHEMISTRY Potassium 3.3 mmol/L (3.3-5.1) 03/27/25 06:05 03/27/25 Sodium 139 mmol/L (133-145) 03/27/25 06:05 03/27/25 Magnesium 2.3 mg/dL (1.6-2.6) 10/04/22 14:09 10/04/22 BUN 20 mg/dL (4-19) H 03/27/25 06:05 03/27/25 Creatinine 1.25 mg/dL (0.70-1.20) H 03/27/25 06:05 03/27/25 Glucose 88 mg/dL (70-99) 03/27/25 06:05 03/27/25 TSH 3.38 uIU/mL (0.358-3.74) 05/06/23 09:10 05/06/23 COAG PT 13.3 SECONDS (11.7-14.9) 07/21/15 02:30 07/21/15 Pre-Assessment Diagnosis/Proposed Procedure Planned Operative Procedure(s): Caudal block Anesthesia History 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 When Was Last Pacemaker Check QUESTION #4 FULL TEXT: You/Your Family Experience fever (hyperthermia) with Anesthesia Last Oral Intake Last Oral intake: Last Oral Intake NPO since Meds taken in AM with sips of water? Meds patient instructed to take am of surgery PONV PONV - corporate accounting manager: PONV - corporate accounting manager Female HX of Motion Sickness HX of N/V After Surgery Non-Smoker Duration of Surgery greater than 60 minutes Number of Risk Factors PONV Score Height & Weight Height & Weight: Anesthesia: Height & Weight Height 4 ft 11 in 04/11/25 11:08 Weight: 59 kg 04/11/25 11:08 Body Mass Index (BMI) 26.2 04/11/25 11:08 Respiratory Assessment Respiratory Assessment - corporate accounting manager: Respiratory Tract Infection Hx - corporate accounting manager Hx Respiratory Tract Infection No 12/02/24 15:16 STOP Sleep Apnea STOP Sleep Apnea - corporate accounting manager: STOP Sleep Apnea - corporate accounting manager Hx Hypertension Yes 03/25/25 16:09 Hx Sleep Apnea No 03/25/25 12:57 CPAP BIPAP Do you snore loudly (louder than talking or can be heard Do you often feel tired/ fatigued/ sleepy during daytime? Has anyone observed you stop breathing during sleep? STOP Results QUESTION #5 FULL TEXT : Do you snore loudly (louder than talking or can be heard through closed doors)? 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 Specify any problems Hx of Preganancy in last 3 Months Nurse Filling Out Transfusion & Questions: Date: Time: Patient unable to answer at this time (ie. confused, unrespo /Reproduction History /Reproductive History - corporate accounting manager: /Reproductive Hx- corporate accounting manager Hx Now Gestational Age (in weeks): EDC: Hx Hx Para Hx Section SAB No 12/02/24 15:16 Active Medications Active Medications: Current Medications Generic Name Dose Route Start Last Admin Trade Name Freq PRN Reason Stop Dose Admin Lactated Ringer's 1,000 mls @ 15 mls/hr 04/11/25 11:00 IV .Q48H JEWELL PFSH Medical History Wears glasses Wears dentures Cancer Ambulates with cane History of renal disease Easy bruising High cholesterol History of echocardiogram History of stress test Hypertension History of heart attack Chest pain Cardiology follow-up encounter Acute pneumonia Tuttle's palsy Macular degeneration Renal insufficiency Osteoarthritis Spondylosis Scoliosis Lumbar spinal stenosis History of non-ST elevation myocardial infarction (NSTEMI) Essential (primary) hypertension Hyperlipidemia Atherosclerotic heart disease of [place] coronary artery without angina pectoris Low back pain Lumbar radiculopathy Home Medications ?Medication ?Instructions ?Recorded ?Last Taken ?Type aspirin 81 mg chewable tablet 81 mg PO DAILY heart health 08/09/15 04/10/25 History cyanocobalamin (vitamin B-12) 5,000 mcg sublingual QDAY 06/04/18 03/25/25 History 5,000 mcg/mL sublingual drops supplement (Vitamin B-12) pantoprazole 40 mg tablet,delayed 40 mg PO BID reflux #60 tabs 04/12/24 03/25/25 Rx release amlodipine 5 mg tablet 5 mg PO DAILY blood pressure #90 08/24/24 03/25/25 Rx TABLETS atorvastatin 80 mg tablet 80 mg PO MOWEFR cholesterol 90 09/03/24 03/23/25 Rx days #39 tabs isosorbide mononitrate 30 mg 30 mg PO DAILY heart #90 tabs 10/27/24 03/25/25 Rx tablet,extended release 24 hr biotin 5 mg capsule 5 mg PO DAILY supplement 03/14/25 03/25/25 History cholecalciferol (vitamin D3) 25 25 mcg PO DAILY vitamin 03/14/25 03/25/25 History mcg (1,000 unit) tablet furosemide 20 mg tablet 20 mg PO DAILY PRN swelling 03/14/25 Unknown History tramadol 50 mg tablet 25 - 50 mg PO TID PRN pain 03/14/25 03/24/25 History amitriptyline 10 mg tablet 10 mg PO DAILY mental health 03/25/25 03/25/25 History metoprolol succinate 25 mg 25 mg PO DAILY blood pressure 03/25/25 03/25/25 History tablet,extended release 24 hr nemolizumab-ilto subcut 03/25/25 03/21/25 History cefdinir 300 mg capsule 300 mg PO BID 5 days #10 caps 03/27/25 Unknown Rx Allergy/AdvReac Type Severity Reaction Status Date / Time gabapentin Allergy Hives Verified 04/11/25 11:07 tomato Allergy Rash Verified 04/11/25 11:07 Family History Father , Age 89 Congestive heart failure Mother , Age 86 CVA (cerebral vascular accident) Hypertension Hyperlipidemia Sister , age 11 in MVA No problems noted. Surgical History History of back surgery (~01/2024) History of cardiac catheterization History of appendectomy History of elbow surgery History of hysterectomy History of eyelid surgery (~06/2023) History of laminectomy (08/2018) History of coronary artery stent placement (07/19/15) Social History Smoking Status: Former smoker how long ago did patient quit smokin alcohol intake: current alcohol intake frequency: a few times a week Alcohol type: wine substance use type: does not use caffeine: Yes Type: tea Number of servings: 4 Review of Systems (Anesthesia) ROS Narrative System reviewed and no additional complaints, except as documented.
--- NOTE | 2025-04-11 11:35 | RAD_ITS ---
PROCEDURE: FLUOR GUIDANCE FOR SPINE INJ 04/11/2025 REASON FOR EXAM: BLOCK, CAUDAL TECHNIQUE: Intraoperative fluoroscopic services provided for caudal block. 3.3 seconds of fluoroscopy. 1.11 mGy. 1 image was obtained. COMPARISON: None FINDINGS: Fluoroscopic services provided for caudal block RAD/Fluor Guidance for Spine Inj IMPRESSION: Fluoroscopic services provided for caudal block. Reading Location: [facility]--1
[2025-04-11] MEDS: 0.9% Normal Saline (Pres. free 10 ML Vial (11:57)
[2025-04-11] MEDS: Lidocaine 1% (5 ml sdv) 5 ML Vial (11:57)
[2025-04-11] MEDS: MethylPREDNISolone Acetate 80 MG/ML Vial (11:57)
[2025-04-11] MEDS: Bupivacaine 0.25% 30 ML Vial (11:57)
--- NOTE | 2025-04-11 12:01 | OP.PCM_ITS ---
Operative Report (Standard) Operative Information Date of Procedure: 04/11/25 Pre-Operative Diagnosis: Lumbosacral radiculopathy, lumbosacral degenerative disc disease, lumbosacral spinal stenosis Post-Operative Diagnosis: Lumbosacral radiculopathy, lumbosacral degenerative disc disease, lumbosacral spinal stenosis Surgery/Procedure Performed: Diagnostic/therapeutic caudal epidural steroid injection under fluoroscopic guidance talent acquisition administrator: No Type of Anesthesia: Local MAC RN Documented Start/Stop Times: Operation Date: 04/11/25 12:35 Case Time Into Pre-Op 04/11/25 10:57 Out of Pre-Op 04/11/25 11:39 Into Room 04/11/25 11:50 Anesthesia Start 04/11/25 11:51 Procedure Start 04/11/25 11:57 Procedure End 04/11/25 11:58 Procedure Start Time: 12:01 Procedure Stop Time: 12:01 Select all DRAINS/GRAFTS/IMPLANTS that apply: None Estimated Blood Loss: 0 Specimen collected: No Description of surgery: History and physical of today was reviewed. Risks and benefits of the procedure were explained. The patient understood and agreed to proceed. Informed consent was obtained. IV inserted per routine protocol. The patient was taken to the operating room and placed in the prone position with a pillow positioned underneath the abdomen. The lower back and tailbone area was prepped and draped in a sterile fashion using iodine x3. Under fluoroscopy guidance on a lateral view, the caudal space was identified. The skin and subcutaneous tissue was anesthetized with approximately 3 mL of 1% lidocaine using a 25-gauge regular needle. Under direct visualization with fluoroscopy, using a 22-gauge 3-1/2-inch spinal needle, the needle was advanced via the skin through the sacral hiatus. The tip of the needle was passed through the sacrococcygeal ligament and advanced to approximately S4 area. After negative aspiration of blood or CSF, a total of 3 mL of contrast was injected to confirm correct placement of the needle as well as cephalad spread. The spread was followed to approximately L5 area. After confirmation on AP as well as lateral view and repeated negative aspiration, a total of 15 mL of preservative-free 0.125% Marcaine with 80 mg of Depo-Medrol was injected easily. The needle was then removed intact. The patient experienced no sign or symptoms of intrathecal or intravascular injection. The patient experienced no paresthesia. The procedure was completed without any apparent difficulty or any complications. The patient appeared to tolerate it well. ASSESSMENT AND PLAN: This is an 84-year-old female with lumbosacral radiculopathy, lumbosacral degenerative disc disease, lumbosacral spinal stenosis status post diagnostic/therapeutic caudal epidural steroid injection under fluoroscopic guidance, patient will continue her current medications, patient will follow in approximately 2 weeks for reevaluation. Surgical Findings: 0 Complications Complications: No Admit VTE Documentation VTE Present on Admission: No VTE Mechan Device Prophylaxis: None VTE Pharm Prophylaxis ordered?: No
--- NOTE | 2025-04-11 12:08 | PCM.POST.ANE ---
Anesthesia: Postop Eval I Current Vital Signs Temperature: 97.1 F Pulse Rate: 62 Blood Pressure: 146/76 Respiratory Rate: 16 Pulse Ox: 99 Oxygen Delivery Method: Room Air Assessment Airway patent: Yes Spontaneous unlabored respirations: Yes Mental status: Awake and Calm nausea: No Vomiting: No Anesthesia Complication: No Fluid Hydration Crystalloid volume administer (ml): 200 Total IV fluid infused: 200 Progress Note Anesthesia document: Postop Eval 1 completed: Yes
--- NOTE | 2025-04-11 13:03 | POSTOPAN2_ITS ---
Anesthesia Postop Eval I Sum Postop Eval Completion status Anesthesia document: Postop Eval 1 completed: Yes Anesthesia Postop Eval I Summary Anesthesia Postop Eval I Summary: Anesthesia Postop Eval I: Assessment Summary Airway patent Yes 04/11/25 12:09 INSURANCE AGENCY [email or web address] Spontaneous unlabored Yes 04/11/25 12:09 INSURANCE AGENCY [email or web address] respirations Mental status Awake,Calm 04/11/25 12:09 INSURANCE AGENCY [email or web address] nausea No 04/11/25 12:09 INSURANCE AGENCY [email or web address] Vomiting No 04/11/25 12:09 INSURANCE AGENCY [email or web address] Anesthesia Postop Eval I: Fluid Summary Crystalloid volume administer 200 04/11/25 12:09 INSURANCE AGENCY [email or web address] (ml) Colloids volume administered ( ml) Blood Product volume administered (ml) Total IV fluid infused 200 04/11/25 12:09 INSURANCE AGENCY [email or web address] Anesthesia Postop Eval I: Summary Notes Anesthesia Complication No 04/11/25 12:09 INSURANCE AGENCY [email or web address] Anesthesia Complication Comment: Post-operative progress note Anesthesia: Postop Eval II Evaluation Mental status: Awake Pain Level: 0 nausea: No Vomiting: No
--- NOTE | 2025-04-11 13:03 | PCM.POSTANE2 ---
Anesthesia Postop Eval I Sum Postop Eval Completion status Anesthesia document: Postop Eval 1 completed: Yes Anesthesia Postop Eval I Summary Anesthesia Postop Eval I Summary: Anesthesia Postop Eval I: Assessment Summary Airway patent Yes 04/11/25 12:09 [email or web address] Spontaneous unlabored Yes 04/11/25 12:09 [email or web address] [email or web address] respirations Mental status Awake,Calm 04/11/25 12:09 [email or web address] [email or web address] nausea No 04/11/25 12:09 [email or web address] [email or web address] Vomiting No 04/11/25 12:09 [email or web address] [email or web address] Anesthesia Postop Eval I: Fluid Summary Crystalloid volume administer 200 04/11/25 12:09 [email or web address] [email or web address] (ml) Colloids volume administered ( ml) Blood Product volume administered (ml) Total IV fluid infused 200 04/11/25 12:09 [email or web address] [email or web address] Anesthesia Postop Eval I: Summary Notes Anesthesia Complication No 04/11/25 12:09 [email or web address] [email or web address] Anesthesia Complication Comment: Post-operative progress note Anesthesia: Postop Eval II Evaluation Mental status: Awake Pain Level: 0 nausea: No Vomiting: No
== END 2025-04-11 13:01 | disposition home or self-care (01) ==
LOC: SDC 10:48 → AC 10:49
PROVIDERS: PCP Family Medicine; Referring Provider Anesthesiology Pain Medicine; Visit Provider Anesthesiology Pain Medicine
PROC: 3E0S3BZ Introduction of Anesthetic Agent into Epidural Space, Percutaneous Approach (ICD-10-PCS; CPT 62282; principal; 2025-04-11 12:30)
DX: M51.17 Intervertebral disc disorders with radiculopathy, lumbosacral region (principal); M48.07 Spinal stenosis, lumbosacral region; E78.00 Pure hypercholesterolemia, unspecified; Z79.82 Long term (current) use of aspirin; Z79.899 Other long term (current) drug therapy
CPT/HCPCS: 62323; 01992; 36415; 64483; 77003; 80061; 80076

== ENCOUNTER → 2025-04-11 | Outpatient (CLI) | payer MEDICARE, SELFPAY ==
[2025-04-11 11:53] LABS: AST(SGOT) 25 U/L (<=31); Alanine Aminotransfer ALT/SGPT 11 U/L (<=34); Alkaline Phosphatase 110 U/L (35-104); Bilirubin, Direct 0.17 mg/dL (0.00-0.30); Cholesterol 176 mg/dL (<=200); Globulin 3.4 g/dL (2.2-4.2); High Density Lipoprotein 50 mg/dL; Low Density Lipoprotein Calc. 98 mg/dL; Protein, Total 7.4 g/dL (5.9-8.4); Total Bilirubin 0.42 mg/dL (0.00-1.30); Triglycerides 137 mg/dL; Very Low Density Lipoprotein 27 mg/dL (5-40); cholesterol:hdl ratio screen 3.49
== END | disposition home or self-care (01) ==
LOC: LAB 10:51
PROVIDERS: PCP Family Medicine; Referring Provider Nurse Practitioner Family; Visit Provider Nurse Practitioner Family
DX: E78.00 Pure hypercholesterolemia, unspecified (principal)
CPT/HCPCS: 36415; 80061; 80076

== ENCOUNTER 2025-06-13 07:16 | Day surgery (SDC) | payer MEDICARE, SELFPAY ==
--- NOTE | 2025-06-06 16:57 | PAT.ANESEVAL ---
Pre-Assessment Diagnosis/Proposed Procedure Planned Operative Procedure(s): (L) Radio Frequency Ablation, LEFT SIDED RADIOFREQUENCY ABLATION L1 L2 L3 UNDER FLUOROSCOPY Anesthesia History Anesthesia History - manufacturing project manager: Anesthesia History - manufacturing project manager Hx Hospitalization Yes: PNEUMONIA 06/06/25 15:18 Any Problems With Anesthesia No 06/06/25 15:18 Cholinesterase deficiency No 06/06/25 15:18 You/Your Family Experience No 06/06/25 15:18 fever (hyperthermia) with Relationship Recent Exposure to Contagious No 04/11/25 11:08 Disease Does patient have nerve No 06/06/25 15:18 stimulator Patient instructed to have device shut off --Does patient have Pacemaker or ICD? When Was Last Pacemaker Check QUESTION #4 FULL TEXT: You/Your Family Experience fever (hyperthermia) with Anesthesia Last Oral Intake Last Oral intake: Last Oral Intake NPO since Meds taken in AM with sips of water? Meds patient instructed to take am of surgery PONV PONV - manufacturing project manager: PONV - manufacturing project manager Female Yes 06/06/25 15:18 HX of Motion Sickness No 06/06/25 15:18 HX of N/V After Surgery No 06/06/25 15:18 Non-Smoker Yes 06/06/25 15:18 Duration of Surgery greater No 06/06/25 15:18 than 60 minutes Number of Risk Factors 2 06/06/25 15:18 PONV Score Moderate Risk 06/06/25 15:18 Height & Weight Height & Weight: Anesthesia: Height & Weight Height 4 ft 11 in 04/11/25 11:08 Respiratory Assessment Respiratory Assessment - manufacturing project manager: Respiratory Tract Infection Hx - manufacturing project manager Hx Respiratory Tract Infection No 06/06/25 15:18 STOP Sleep Apnea STOP Sleep Apnea - manufacturing project manager: STOP Sleep Apnea - manufacturing project manager Hx Hypertension Yes: ON MEDS 06/06/25 15:18 Hx Sleep Apnea No 06/06/25 15:18 CPAP No 04/11/25 12:11 BIPAP Do you snore loudly (louder No 06/06/25 15:18 than talking or can be heard Do you often feel tired/ No 06/06/25 15:18 fatigued/ sleepy during daytime? Has anyone observed you stop No 06/06/25 15:18 breathing during sleep? STOP Results Negative 06/06/25 15:18 QUESTION #5 FULL TEXT : Do you snore loudly (louder than talking or can be heard through closed doors)? Tobacco Use History Tobacco Use History - manufacturing project manager: Tobacco Use History - manufacturing project manager Tobacco Use Smoking Status Former smoker 06/06/25 15:18 Hx Tobacco Use No 06/06/25 15:18 Years Smoking Packs Smoked per Day Smoking Cessation Date was No - quit smoking greater 06/06/25 15:18 within the last 15 years than 15 years ago Hx Smoking Cessation Date 11/24/89 06/06/25 15:18 Hx Smoking Cessation Counseling Hematologic Medial History Hematologic Hx - manufacturing project manager: Hematologic Medical Hx - patient financial coordinator Hx of Blood Transfusion No 06/06/25 15:18 Hx of Transfusion in last 3 No 06/06/25 15:18 Months Date of Last Transfusion (if within last 3 months) Ever experience any problems No 06/06/25 15:18 with transfusion(s)? Specify any problems Hx of Preganancy in last 3 No 06/06/25 15:18 Months Nurse Filling Out Transfusion JZOLLALINE 06/06/25 15:18 & Questions: Date: 06/06/25 06/06/25 15:18 Time: 15:20 06/06/25 15:18 Patient unable to answer at this time (ie. confused, unrespo /Reproduction History /Reproductive History - manufacturing project manager: /Reproductive Hx- manufacturing project manager Hx Now No 06/06/25 15:18 Gestational Age (in weeks): EDC: Hx Hx Para Hx Section SAB No 06/06/25 15:18 PFSH Medical History (Updated 06/06/25 @ 15:18 by Ada Goodwin) Alcohol use Heartburn Former smoker Wears glasses Wears dentures Cancer Ambulates with cane History of renal disease Easy bruising High cholesterol History of echocardiogram History of stress test Hypertension History of heart attack Chest pain Cardiology follow-up encounter Acute pneumonia Tuttle's palsy Macular degeneration Renal insufficiency Osteoarthritis Spondylosis Scoliosis Lumbar spinal stenosis History of non-ST elevation myocardial infarction (NSTEMI) Essential (primary) hypertension Hyperlipidemia Atherosclerotic heart disease of [place] coronary artery without angina pectoris Low back pain Lumbar radiculopathy Home Medications ?Medication ?Instructions ?Recorded ?Last Taken ?Type aspirin 81 mg chewable tablet 81 mg PO DAILY heart health 08/09/15 04/10/25 History cyanocobalamin (vitamin B-12) 5,000 mcg sublingual QDAY 06/04/18 03/25/25 History 5,000 mcg/mL sublingual drops supplement (Vitamin B-12) amlodipine 5 mg tablet 5 mg PO DAILY blood pressure #90 08/24/24 03/25/25 Rx TABLETS atorvastatin 80 mg tablet 80 mg PO MOWEFR cholesterol 90 09/03/24 03/23/25 Rx days #39 tabs isosorbide mononitrate 30 mg 30 mg PO DAILY heart #90 tabs 10/27/24 03/25/25 Rx tablet,extended release 24 hr biotin 5 mg capsule 5 mg PO DAILY supplement 03/14/25 03/25/25 History cholecalciferol (vitamin D3) 25 25 mcg PO DAILY vitamin 03/14/25 03/25/25 History mcg (1,000 unit) tablet furosemide 20 mg tablet 20 mg PO DAILY PRN swelling 03/14/25 Unknown History tramadol 50 mg tablet 25 - 50 mg PO TID PRN pain 03/14/25 03/24/25 History metoprolol succinate 25 mg 25 mg PO DAILY blood pressure 03/25/25 03/25/25 History tablet,extended release 24 hr amitriptyline 10 mg tablet 10 mg PO DAILY #90 tabs 05/04/25 Unknown Rx pantoprazole 40 mg tablet,delayed 40 mg PO BID reflux #60 tabs 05/04/25 Unknown Rx release Allergy/AdvReac Type Severity Reaction Status Date / Time gabapentin Allergy Hives Verified 06/06/25 14:57 tomato Allergy Rash Verified 06/06/25 14:57 Family History Father , Age 89 Congestive heart failure Mother , Age 86 CVA (cerebral vascular accident) Hypertension Hyperlipidemia Sister , age 11 in MVA No problems noted. Surgical History History of back surgery (~01/2024) History of cardiac catheterization History of appendectomy History of elbow surgery History of hysterectomy History of eyelid surgery (~06/2023) History of laminectomy (08/2018) History of coronary artery stent placement (07/19/15) Social History Smoking Status: Former smoker how long ago did patient quit smokin alcohol intake: current alcohol intake frequency: a few times a week Alcohol type: wine substance use type: does not use caffeine: Yes Type: tea Number of servings: 4 Audit: Pertinent Findings HISTORY of Pertinent Findings History of Pertinent Findings: Echocardiogram 05/14/23: Interpretation Summary Normal LV size. Left ventricular systolic function is normal. The estimated ejection fraction is 60 %. Stage 1 diastolic dysfunction. Trivial eccentric aortic valve insufficiency. Echocardiogram 2014: Interpretation Summary Normal LV size. Left ventricular systolic function is normal. The estimated ejection fraction is 60 %. Mild (1+) mitral valve insufficiency. Mild (1+) tricuspid valve insufficiency. Transmitral and pulmonary venous doppler flow suggestive of impaired relaxation of left ventricle Stress Test 08/05/2022: Conclusion Normal exercise myocardial perfusion stress test. Preserved ejection fraction. Stress test 2019: Normal exercise myocardial perfusion stress test at a moderate workload. Preserved ejection fraction. Carotid duplex ultrasound 10/12/2021: Interpretation Summary Irregular calcific plaque at the proximal right internal carotid artery with less than 50% stenosis. Tortuous right internal carotid artery. Less than 50% stenosis right external carotid artery Irregular calcific plaque of the proximal left internal carotid artery Less than 50% stenosis left internal carotid artery Less than 50% stenosis left external carotid artery Patent antegrade vertebral arteries bilaterally Current findings do not suggest the velocity elevations previously identified on March 14, 2021. Carotid Duplex 03/14/21: Interpretation Summary Torturous right internal carotid artery with irregular calcific plaque and 50 to 69% stenosis. Less than 50% stenosis right external carotid artery Tortuous left internal carotid artery with irregular calcific plaque and 50 to 69% stenosis. Less than 50% stenosis left external carotid artery Patent and antegrade vertebral arteries bilaterally The examination was noted to be technically difficult. Pertinent Findings EKG Perinent findings: 03/25/25: Vent. Rate : 60 BPM Atrial Rate : 60 BPM P-R Int : 190 ms QRS Dur : 94 ms QT Int : 426 ms P-R-T Axes : 24 -41 40 degrees QTcB Int : 426 ms Normal sinus rhythm Left axis deviation Low voltage QRS Cannot rule out Anterior infarct , age undetermined Abnormal ECG Stress test pertinent findings: 08/05/22:Gated SPECT analysis: The gated ejection fraction is 77%. Conclusion: Normal exercise myocardial perfusion stress test. Preserved ejection fraction. Echo (EF%) pertinent findings: 05/15/2023: Normal LV size with an LVEF that is normal and estimated around 60%. Stage I diastolic dysfunction. Trivial eccentric aortic valve insufficiency. Consult pertinent findings: Cardiology visit with Leif Roberts NP from 03/14/2025 reports that her CAD status post stent placement appears to be stable there is no new or worsening shortness of breath. Will continue to monitor and did not make any medication regimens at this visit. Recommendation Anesthesia Recommendation Anesthesia recommendation: OPTIMIZED for anesthesia (Consider left lumbar facet RFA under local anesthesia versus nursing sedation. If anesthesia services are necessary she is optimized for anesthesia.)
[2025-06-13] VITALS (7 sets, daily range): BP systolic 108–136; BP diastolic 55–94; PULSE 54–83; RESP 12–18; TEMP 36.3–36.9; O2SAT 95–99; BMI 27.1
--- OUTSIDE RECORDS SUMMARY | 2025-06-13 07:19 | XMS RPT_ITS | CCD ---
Author Organization [facility] Care Team Providers Care Hide Washer Name Role Phone Roof WATER FILTRATION TECHNICIAN, Leif Castro Unavailable Thong PARTIDA, Yaya Aponte Unavailable [phone] Estela Osborne Primary Care Provider Anjana Doshi Unavailable Andrade, Mansfield S Unavailable Estela Osborne Primary Care Provider Anjana Doshi Unavailable Andrade, Carlos Eduardo S Unavailable ESTELA OSBORNE Primary Care Unavailable Anjana DOSHI Attending Unavailable Anjana DOSHI Attending Unavailable ESTELA OSBORNE Primary Care Unavailable Dr. Estela Osborne Primary Care Provider Dr. Estela Osborne Referring Provider Dr. Carlos Eduardo Zafar Attending Provider Aureliano LEAL, ELVIS-C Margaret Referring Provider Aureliano LEAL, ELVIS-C Margaret Other Provider [phone] Estela Osborne Primary Care Provider Dr. Estela Osborne Referring Provider ROBER Bedoya NPC Margaret Attending Provider Dr. Estela Osborne Primary Care Provider Dr. Estela Osborne Referring Provider [phone] ROBER Bedoya NPC Margaret Attending Provider Dr. Carlos Eduardo Zafar Attending Provider [place], Dr. Palmer Primary Care Provider Dr. Kevin Silverman Attending Provider [phone] [place], Dr. Palmer Referring Provider India, Dr. Palmer Primary Care Provider India, Dr. Palmer Referring Provider Dr. Kevin Silverman Attending Provider [phone] TAWANDA Ellison Attending Provider [phone] [place] DO, Dr. Palmer Primary Care Provider India DO, Dr. Palmer Referring Provider Olive Reich Attending Provider Kirt Castro Attending Provider Andrés PARTIDA, Dr. Loera Attending Provider Andrés PARTIDA, Dr. Loera Referring Provider India DO, Dr. Palmer Attending Provider India DO, Dr. Palmer Primary Care Provider India JENNINGS, Dr. Palmer Referring Provider [phone] [facility] WATER FILTRATION TECHNICIAN-C, Leif Castro Attending Provider Robin PARTIDA, Dr. Bach Emergency Provider [phone] Kerri PARTIDA, Dr. Miguel Dao Admit Provider Kerri PARTIDA, Dr. Miguel Dao Referring Provider Kerri PARTIDA, Dr. Miguel Dao Other Provider Laverne PARTIDA, Dr. Barbara Edmond Attending Provider Kerri PARTIDA, Dr. Miguel Dao Attending Provider Laverne PARTIDA, Dr. Barbara Edmond Other Provider Chad WATER FILTRATION TECHNICIAN-C, Leif Castro Referring Provider Olive Reich Attending Provider Malys, Estela Referring Unavailable Malys, Estela Attending Unavailable Malys, Estela Primary Care Unavailable Koram, Barbara Feli Attending Unavailable Kotsonis, Miguel F Admitting Unavailable Kotsonis, Miguel F Referring Unavailable Kotsonis, Miguel F Consulting Unavailable Malys, Estela Primary Care Unavailable Malys, Estela Primary Care Unavailable Andrés, Evaristo Referring Unavailable Andrés, Evaristo Attending Unavailable Koram, Barbara Feli Attending Unavailable Kotsonis, Miguel F Consulting Unavailable Kotsonis, Miguel F Admitting Unavailable Kotsonis, Miguel F Referring Unavailable Malys, Estela Primary Care Unavailable Koram, Barbara Feli Consulting Unavailable Malys, Estela Referring Unavailable Malys, Estela Primary Care Unavailable Roof WATER FILTRATION TECHNICIAN, Leif Castro Attending Unavailable Malys, Estela Primary Care Unavailable Malys, Estela Referring Unavailable AtaamilcarovOlive Attending Unavailable Malys, Estela Referring Unavailable AtanasovOlive Attending Unavailable Malys, Estela Primary Care Unavailable Malys, Estela Referring Unavailable EllisonKacie Attending Unavailable Malys, Estela Primary Care Unavailable Malys, Estela Referring Unavailable Atanasov, Olive Attending Unavailable Malys, Estela Primary Care Unavailable Malys, Estela Referring Unavailable Malys, Estela Primary Care Unavailable Kirt Castro Attending Unavailable Kotsonis, Miguel F Attending Unavailable Malys, Estela Primary Care Unavailable Andrés, Evaristo Referring Unavailable Evaristo Bowen Attending Unavailable Malys, Estela Primary Care Unavailable Evaristo Bowen Attending Unavailable AndrésEvaristo Referring Unavailable Malys, Estela Primary Care Unavailable Roof WATER FILTRATION TECHNICIAN, Leif Castro Referring Unavailable Roof WATER FILTRATION TECHNICIAN, Leif Castro Attending Unavailable Allergies Allergy Classification Reported Allergen(s) Allergy Type Date of Onset Reaction(s) Facility Anti-Epileptic Agents (1 source) gabapentin; Translations: [GABAPENTIN] Drug Allergy 04-08-2019 [facility] Repository tomato allergenic extract (1 source) tomato allergenic extract; Translations: [TOMATO] Drug Allergy 04-08-2019 [facility] Repository (20 sources) gabapentin; Translations: [GABAPENTIN] Drug Allergy 04-12-2015 [facility] Work Phone: (4 sources) FRESH TOMATOES; Translations: [FRESH TOMATOES] food allergy 04-07-[address] [facility] Work Phone: (16 sources) tomato allergenic extract; Translations: [tomato] Drug Allergy 04-08-2019 Rash [facility] Comment on above: fresh tomatoes Medications Current Medications Medication Drug Class(es) Dates Sig (Normalized) Sig (Original) amitriptyline hydrochloride 10 mg oral tablet (10 sources) Tricyclic Antidepressant Start: 08-11-2024 End: 05-04-2025 take 1 tablet by mouth once daily Amitriptyline 10 mg tablet Active 10 mg PO DAILY May 04, 2025 1:14pm amLODIPine 5 mg oral tablet (20 sources) Dihydropyridine Calcium Channel Ortega Start: 08-24-2024 take 1 tablet by mouth once daily Amlodipine 5 mg tablet Active 5 mg PO DAILY August 24, 2024 8:07am Start: 01-22-2024 End: 08-24-2024 take 8 mg by mouth once daily Amlodipine 5 mg tablet Discontinued 8 mg PO DAILY January 22, 2024 1:00am August 24, 2024 8:08am Start: 01-22-2024 take 8 mg by mouth once daily Amlodipine Active 8 MG PO DAILY January 22, 2024 1:00am Start: 05-05-2023 End: 01-22-2024 take 1 tablet by mouth once daily Amlodipine 5 mg tablet Discontinued 5 mg PO DAILY September 01, 2023 3:34pm January 22, 2024 11:37am biotin 5 mg oral capsule (20 sources) Start: 03-14-2025 take 1 capsule by mouth once daily Biotin 5 mg capsule Active 5 mg PO DAILY March 14, 2025 12:00am Start: 06-04-2018 End: 03-14-2025 Biotin 1 mg capsule Disconti nued 1000 ug PO daily June 04, 2018 12:00am March 14, 2025 1:46pm Start: 06-04-2018 take 1000 ug by mout h once daily Biotin Active 1000 MCG PO daily June 04, 2018 12:00am Start: 03-09-2018 BIOTIN 1000 MC G TABS 1 tablet daily BIOTIN [id number] Amisha Clemente HOMEBOUND TEACHER biotin 1 mg tabl et Take 1,000 mcg by mouth 3 (three) times a day . 0 Active cefdinir 300 mg oral capsule (2 sources) Cephalosporin Antibacterial Start: 03-27-2025 take 1 capsule by mouth twice daily Cefdinir 300 mg capsule Active 300 mg PO TWICE A DAY 10 March 27, 2025 12:00am cholecalciferol 0.025 mg oral tablet (20 sources) Vitamin D Start: 03-14-2025 take 1 tablet by mouth once daily Cholecalciferol (Vitamin D3) 25 mcg (1,000 unit) tablet Active 25 ug PO DAILY March 14, 2025 12:00am Start: 01-22-2024 End: 02-03-2024 take 1 capsule by mouth once daily Cholecalciferol (Vitamin D3) (Vitamin D3) 25 mcg (1,000 unit) capsule Discontinued 25 ug PO DAILY January 22, 2024 1:00am February 03, 2024 3:10pm Start: 12-25-2020 End: 03-08-2021 take 1 capsule by mouth every week cholecalciferol, vitamin D3, 1,250 mcg (50,000 unit) capsule Take 1 capsule by mouth once a week . 0 12/25/2020 03/08/2021 Discontinued (Patient's Request) Start: 06-04-2018 End: 07-03-2021 Cholecalciferol (Vitamin D3) 50,000 unit capsule Discontinued 55413 U PO TH June 04, 2018 12:00am July 03, 2021 1:27pm Start: 03-09-2018 VITAMIN D3 500 00 UNIT CAPS 1 capsule once weekly [id number] [facility] 50 mg delayed release oral tablet (1 source) Nonsteroidal Anti-inflammatory Drug Start: 12-05-2020 take 1 tablet by mouth twice daily at mealtime diclofenac sodium (VOLTAREN) 50 MG EC tablet Take 50 mg by mouth 2 (two) times a day with meals . 0 12/05/2020 Active ergocalciferol 72207 unt oral capsule (3 sources) Provitamin D2 Compound take 1 capsule by mouth every week ergocalciferol (VITAMIN D2) 50,000 unit capsule Take 50,000 Units by mouth once a week . 0 Active furosemide 20 mg oral tablet (2 sources) Loop Diuretic Start: 03-14-2025 take 1 tablet by mouth once daily as needed Furosemide 20 mg tablet Active 20 mg PO DAILY as needed for swelling March 14, 2025 12:00am multivitamin (multivitamin) per tablet (4 sources) take 1 tablet by mouth twice daily multivitamin (multivitamin) per tablet Take 1 tablet by mouth 2 (two) times a day . 0 Active take 1 tablet by mouth once yanick y multivitamin (multivitamin) per tablet Take 1 tablet by mouth daily . 0 Active nemolizumab-ilto (2 sources) Start: 03-25-2025 nemolizumab-ilto Active SC March 25, 2025 12:00am pantoprazole 40 mg delayed release oral tablet (4 sources) Proton Pump Inhibitor Start: 04-12-2024 End: 05-04-2025 take 1 tablet by mouth twice daily Pantoprazole 40 mg tablet,delayed release (DR/EC) Active 40 mg PO TWICE A DAY 60 May 04, 2025 1:14pm traMADol hydrochloride 50 mg oral tablet (8 sources) Opioid Agonist Start: 03-14-2025 take 25-50 mg by mouth three times daily as needed for pain Tramadol 50 mg tablet Active 25 - 50 mg PO THREE TIMES A DAY as needed for pain March 14, 2025 12:00am Start: 07-16-2017 TRAMADOL HCL 5 0 MG TABS 1 tablet daily as needed TRAMADOL HCL [id number] Amisha Clemente HOMEBOUND TEACHER Start: 02-09-2016 End: 04-08-2019 take 1 tablet by mouth three times daily TRAMADOL HCL 50 MG TABS One tablet by mouth three times daily TRAMADOL HCL [id number] Elsa Aldridge vitamin b12 5 mg/ml oral solution (20 sources) Vitamin B12 Start: 06-04-2018 Cyanocobalamin (Vitamin B-12) (Vitamin B-12) 5,000 mcg/mL drops Active 5000 ug SL daily June 04, 2018 12:00am Start: 03-09-2018 B-12 5000 MCG CAPS 1 capsule daily CYANOCOBALAMIN [id number] Amisha Clemente HOMEBOUND TEACHER take 5 tablets by mo uth once daily cyanocobalamin (vitamin B-12) 1000 MCG tablet Take 5,000 mcg by mouth daily . 0 Active Completed/Discontinued Medications Medication Drug Class(es) Dates Sig (Normalized) Sig (Original) acetaminophen 500 mg oral tablet (17 sources) Start: 09-25-2018 End: 02-03-2024 take 2 tablets by mouth every eight hours as needed for pain Acetaminophen 500 MG tablet Discontinued 1000 mg PO Q8H as needed for Mild Pain (-01/31) September 25, 2018 12:00am February 03, 2024 3:11pm Start: 09-25-2018 End: 02-03-2024 take 1000 mg by mouth every eight hours Acetaminophen Discontinued 1000 MG PO Q8H September 25, 2018 12:00am February 03, 2024 3:11pm Acetaminophen / HYDROcodone (16 sources) Opioid Agonist Start: 09-06-2018 End: 09-25-2018 take 1 tablet by mouth at bedtime Naalehu 5-325 Tablet Discontinued 1 TABLET PO AT BEDTIME September 06, 2018 12:55pm September 25, 2018 1:13pm Start: 09-06-2018 End: 09-25-2018 Naalehu 5-325 Tablet 1 TAB tab let Discontinued 1 {tbl} PO AT BEDTIME as needed for Pain September 06, 2018 12:00am September 25, 2018 1:13pm Start: 09-06-2018 End: 09-25-2018 take 1 tablet by mouth at bedtime Naalehu 5-325 Tablet Discontinued 1 TABLET PO AT BEDTIME September 05, 2018 11:00pm September 25, 2018 12:13pm Start: 09-06-2018 End: 09-25-2018 take 1 tablet by mouth at bedtime Naalehu 5-325 Tablet Discontinued 1 TABLET PO AT BEDTIME September 06, 2018 12:00am September 25, 2018 1:13pm acetaminophen 325 mg / oxyCODONE hydrochloride 5 mg oral tablet (16 sources) Opioid Agonist Start: 09-06-2018 End: 09-25-2018 Oxycodone-Acetaminophen 1 TABLET tablet Discontinued 1 {tbl} PO EVERY 6 HOURS NEEDED as needed for Mod-Severe Pain (-09/02) September 06, 2018 12:00am September 25, 2018 1:13pm Start: 09-06-2018 End: 09-25-2018 take 1 tablet by mouth every six hours as needed Oxycodone-Acetaminophen Discontinued 1 TABLET PO EVERY 6 HOURS NEEDED September 06, 2018 12:00am September 25, 2018 1:13pm aspirin (20 sources) Nonsteroidal Anti-inflammatory Drug Start: 07-16-2017 ASPIRIN ADULT LOW DOSE 81 MG TBEC 1 tablet once daily ASPIRIN [id number] Amishadusty Clemente LPN Start: 08-09-2015 take 1 tablet by randa th once daily Aspirin 81 MG tablet,chewable Active 81 mg PO DAILY August 09, 2015 12:00am Start: 07-28-2015 take 1 tablet by randa th once daily ASPIRIN 81 MG TABS One tablet by mouth daily ASPIRIN [id number] Anabela Garcia RN Start: 07-28-2015 take 1 tablet by randa th once daily ASPIRIN EC 81 MG TBEC One tablet by mouth daily ASPIRIN [id number] Carlos Eduardo Zafar MD atorvastatin 80 mg oral tablet (20 sources) HMG-CoA Reductase Inhibitor Start: 08-09-2015 End: 09-03-2024 Atorvastatin 80 mg tablet Discontinued 80 mg PO MOWEFR 39 90 September 01, 2023 3:34pm September 03, 2024 8:34am Start: 07-28-2015 ATORVASTATIN C ALCIUM 80 MG TABS 1 tablet once daily ATORVASTATIN CALCIUM [id number] Amisha Clemente HOMEBOUND TEACHER azithromycin 250 mg oral tablet (16 sources) Macrolide Antimicrobial Start: 08-24-2021 End: 07-12-2022 take 2-5 tablets by mouth once daily Azithromycin 250 mg tablet Discontinued 0 PO .COMPLEX 6 August 24, 2021 12:00am July 12, 2022 10:42am take 500 mg today (day 1), then 250 mg for 4 days (days 2-5) PO cefuroxime 250 mg oral tablet (16 sources) Cephalosporin Antibacterial Start: 09-25-2018 End: 04-15-2019 take 2 tablets by mouth every twelve hours Cefuroxime Axetil 250 MG tablet Discontinued 500 mg PO EVERY 12 HOURS September 25, 2018 12:00am April 15, 2019 1:30pm Start: 09-25-2018 End: 04-15-2019 take 500 mg by mouth every twelve hours Cefuroxime Axetil Discontinued 500 MG PO EVERY 12 HOURS September 25, 2018 12:00am April 15, 2019 1:30pm clopidogrel 75 mg oral tablet (20 sources) [id number] Platelet Inhibitor Start: 10-14-2019 End: 10-14-2019 take 1 tablet by mouth three times weekly Clopidogrel 75 mg tablet Discontinued 75 mg PO DAILY October 14, 2019 1:00am October 14, 2019 3:07pm 1 tab three times a week Start: 09-06-2018 End: 04-15-2019 Clopidogrel 75 MG tablet Discontinued 75 mg PO September 06, 2018 1:09pm April 15, 2019 1:47pm Start: 08-09-2015 End: 10-28-2017 Clopidogrel 75 MG tablet Discontinued 75 August 09, 2015 12:00am October 28, 2017 6:09pm Start: 08-09-2015 End: 10-28-2017 Clopidogrel Discontinued 75 August 09, 2015 12:00am October 28, 2017 6:09pm Start: 07-28-2015 End: 07-08-2019 take 1 tablet by mouth once daily Clopidogrel 75 mg tablet Discontinued 75 mg PO daily August 13, 2018 3:59pm September 06, 2018 1:09pm diazePAM 2 mg oral tablet (11 sources) Benzodiazepine Start: 05-06-2023 End: 08-07-2023 take 1 tablet by mouth once daily as needed Diazepam 2 mg tablet Discontinued 2 mg PO DAILY as needed May 06, 2023 12:00am August 07, 2023 1:24pm ferrous gluconate (1 source) Start: 03-09-2018 IRON 27 240 (2 7 Fe) MG TABS 1 tablet daily FERROUS GLUCONATE [id number] [facility] f[facility] sulfate (2 sources) End: 07-08-2019 ferrous sulfate (IRON ORAL) Take 29 mg by mouth Friday, Friday, Friday . 0 07/08/2019 Discontinued (Discontinued by another clinician) ferrous sulfate (IRON ORAL) Take 29 mg by mouth Friday, Friday, Friday . 0 Active 24 hr isosorbide mononitrate 30 mg extended release oral tablet (20 sources) Start: 07-04-2020 End: 10-27-2024 take 1 tablet by mouth once daily, then take 1 tablet by mouth every twenty-four hours Isosorbide Mononitrate 30 mg tablet extended release 24 hr Discontinued 30 mg PO DAILY September 01, 2023 3:34pm October 27, 2024 9:05am Start: 11-29-2019 End: 07-04-2020 take 1 tablet by mouth once daily in the morning, then take 2 tablets by mouth every twenty-four hours Isosorbide Mononitrate 60 mg tablet extended release 24 hr Discontinued 30 mg PO EVERY MORNING November 29, 2019 2:27pm July 04, 2020 2:14pm Start: 10-28-2017 End: 10-28-2017 take 1 tablet by mouth once daily in the morning, then take 1 tablet by mouth every twenty-four hours Isosorbide Mononitrate 60 mg tablet extended release 24 hr Discontinued 60 mg PO EVERY MORNING October 28, 2017 1:00am October 28, 2017 10:35am Start: 08-23-2015 End: 11-29-2019 Isosorbide Mononitrate 60 mg tablet extended release 24 hr Discontinued 90 mg PO EVERY MORNING August 13, 2018 3:59pm September 06, 2018 1:09pm Start: 08-23-2015 End: 04-08-2019 take 1 tablet by mouth once daily ISOSORBIDE MONONITRA TE ER 30 MG [id number] One tablet by mouth daily (Imdur) ISOSORBIDE MONONITRATE [id number] Carlos Eduardo Zafar MD Start: 08-23-2015 take 1 tablet by mouth once da ramona IMDUR 30 MG [id number] One tablet by mouth daily ISOSORBIDE MONONITRATE [id number] Carlos Eduardo Zafar MD levoFLOXacin 750 mg oral tablet (20 sources) Quinolone Antimicrobial Start: 08-31-2021 End: 07-12-2022 take 1 tablet by mouth once daily Levofloxacin 750 mg tablet Discontinued 750 mg PO DAILY July 12, 2022 10:42am July 12, 2022 10:54am lisinopril 2.5 mg oral tablet (20 sources) Angiotensin Converting Enzyme Inhibitor Start: 10-28-2017 End: 04-08-2019 take 1 tablet by mouth once daily Lisinopril 2.5 mg tablet Discontinued 2.5 mg PO daily October 28, 2017 6:11pm June 04, 2018 1:39pm loratadine 10 mg oral tablet (4 sources) Start: 09-30-2016 End: 05-20-2017 take 1 tablet by mouth once daily GNP LORATADINE 10 MG TABS One tablet by mouth daily LORATADINE [id number] Graciela Hurtado PA-C Start: 02-09-2016 End: 02-22-2016 take 1 tablet by mouth once daily as needed LORATADINE 10 MG TABS One tablet by mouth daily as needed LORATADINE [id number] Carlos Eduardo Zafar MD LUTEIN CAPS (1 source) Start: 03-09-2018 LUTEIN CAPS 2 capsules daily LUTEIN CAPS [id number] Amisha Clemente [employer]BOUND TEACHER meloxicam 7.5 mg oral tablet (4 sources) Nonsteroidal Anti-inflammatory Drug Start: 09-30-2016 End: 05-20-2017 take 1 tablet by mouth once daily MELOXICAM 7.5 MG TABS One tablet by mouth daily MELOXICAM [id number] Elsa Aldridge Start: 02-09-2016 End: 08-22-2016 take 1 tablet by mouth once daily MELOXICAM 15 MG TABS 1 po daily x 2 weeks MELOXICAM [id number] Estela Osborne, 24 hr metoprolol succinate 25 mg extended release oral tablet (20 sources) beta-Adrenergic Ortega Start: 05-26-2024 End: 03-25-2025 take 1 tablet by mouth once daily Metoprolol Succinate 25 mg tablet extended release 24 hr Discontinued 25 mg PO daily 2024 12:11pm March 25, 2025 12:07pm Start: 04-06-2024 End: 05-26-2024 take 2 tablets by mouth once daily Metoprolol Succinate 25 mg tablet extended release 24 hr Discontinued 12.5 mg PO daily April 06, 2024 2:08pm May 26, 2024 1:52pm Start: 01-22-2024 End: 04-06-2024 take 1 tablet by mouth once daily Metoprolol Succinate 25 mg tablet extended release 24 hr Discontinued 25 mg PO daily January 22, 2024 1:00am April 06, 2024 2:08pm Start: 05-06-2023 End: 01-22-2024 take 2 tablets by mouth once daily Metoprolol Succinate 25 mg tablet extended release 24 hr Discontinued 12.5 mg PO daily September 01, 2023 3:34pm January 22, 2024 11:37am Start: 05-06-2023 End: 01-22-2024 take 12.5 mg by mouth once daily Metoprolol Succinate Discontinued 12.5 MG PO daily September 01, 2023 3:34pm January 22, 2024 11:37am Start: 07-16-2017 METOPROLOL TAR TRATE 25 MG TABS 1 1/2 tablet once daily METOPROLOL TARTRATE [id number] Amisha Clemente LPN Start: 02-22-2016 End: 05-06-2023 take 1 tablet by mouth once daily Metoprolol Succinate 25 mg tablet extended release 24 hr Discontinued 25 mg PO daily October 30, 2020 2:57pm July 03, 2021 1:29pm Start: 07-28-2015 End: 10-28-2017 take 1 tablet by mouth twice daily Metoprolol Tartrate 25 MG tablet Discontinued 25 mg PO TWICE A DAY August 09, 2015 12:00am October 28, 2017 10:25am MULTIPLE VITAMIN (1 source) Start: 07-28-2015 take 1 tablet by mouth once daily MULTIVITAMINS TABS One tablet by mouth daily MULTIPLE VITAMIN Anabela Garcia RN MULTIPLE VITAMINS-MINERALS (2 sources) Start: 03-09-2018 MULTIVITAMIN A DULT TABS 1 tablet daily MULTIPLE VITAMINS-MINERALS [id number] Amisha Clemente LPN Start: 07-28-2015 take 1 tablet by randa th twice daily MULTIVITAMIN ADULT TABS One tablet by mouth twice daily MULTIPLE VITAMINS-MINERALS [id number] Estela Osborne DO nitroglycerin 0.4 mg sublingual tablet (20 sources) Nitrate Vasodilator Start: 09-25-2018 End: 01-15-2023 Nitroglycerin 0.4 mg tablet, sublingual Discontinued 0.4 mg SL Q5M as needed for Cardiac/Chest Pain July 03, 2021 1:53pm January 15, 2023 2:49pm Start: 09-25-2018 End: 01-15-2023 Nitroglycerin Discontinued 0 .4 MG SL Q5M July 03, 2021 1:53pm January 15, 2023 2:49pm oxyCODONE hydrochloride 5 mg oral tablet (16 sources) Opioid Agonist Start: 09-25-2018 End: 09-30-2018 take 1 tablet by mouth every four hours as needed for pain Oxycodone 5 MG tablet Discontinued 5 mg PO Q4H as needed for Moderate Pain (4-5/10) 30 5 September 25, 2018 12:00am September 29, 2018 1:00am September 30, 2018 1:09am polysaccharide iron complex 150 mg oral capsule (16 sources) Start: 09-25-2018 End: 07-12-2022 Polysaccharide Iron Complex 150 MG capsule Discontinued 150 mg PO TUTHSA@0800 September 25, 2018 12:00am July 12, 2022 10:43am raNITIdine 150 mg oral tablet (6 sources) Histamine-2 Receptor Antagonist Start: 07-16-2017 RANITIDINE HCL 150 MG TABS 1 tablet twice daily as needed RANITIDINE HCL [id number] Amisha Clemente GRAHAM Start: 02-09-2016 End: 04-08-2019 take 1 tablet by mouth twice daily RANITIDINE HCL 150 MG TABS One tablet by mouth twice daily RANITIDINE HCL [id number] KALIE TamC solifenacin succinate 5 mg oral tablet (19 sources) Cholinergic Muscarinic Antagonist Start: 02-03-2024 End: 03-14-2025 take 1 tablet by mouth once daily Solifenacin (Vesicare) 5 mg tablet Discontinued 5 mg PO DAILY February 03, 2024 12:00am March 14, 2025 1:47pm Start: 07-12-2022 End: 08-07-2023 take 1 tablet by mouth once daily Solifenacin (Vesicare) 5 mg tablet Discontinued 5 mg PO DAILY July 12, 2022 12:00am August 07, 2023 1:25pm Vitamins A,C,O-Rqta-Srlzxc (Preservision Areds) 4,296 mcg-226 mg-90 mg capsule (18 sources) Start: 08-07-2023 End: 01-10-2025 Vitamins A,C,F-Fxel-Yckkka (Preservision Areds) 4,296 mcg-226 mg-90 mg capsule Discontinued 2 NMA PO DAILY August 07, 2023 1:27pm January 10, 2025 9:03am Start: 08-07-2023 take 2 capsules by m out once daily Vitamins A,C,E-Hobn-Hxfecn (Preservision Areds) 4,296 mcg-226 mg-90 mg capsule Active 2 CAP PO DAILY August 07, 2023 1:27pm Start: 08-07-2023 take 2 capsules by m outh once daily Vitamins A,C,E-Bncl-Yshvwl (Preservision Areds) 4,296 mcg-226 mg-90 mg capsule Active 2 CAP PO DAILY August 07, 2023 12:27pm Start: 08-07-2023 End: 08-07-2023 Vitamins A,C,D-Gxmp-Uhxyqu (Preservision Areds) 4,296 mcg-226 mg-90 mg capsule Discontinued 2 NMA PO TWICE A DAY August 07, 2023 12:00am August 07, 2023 1:27pm Start: 08-07-2023 End: 08-07-2023 take 2 capsules by mouth twice daily Vitamins A,C,W-Azwo-Bwajnu (Preservision Areds) 4,296 mcg-226 mg-90 mg capsule Discontinued 2 CAP PO TWICE A DAY August 07, 2023 12:00am August 07, 2023 1:27pm Start: 08-07-2023 End: 08-07-2023 take 2 capsules by mouth twice daily Vitamins A,C,P-Fvlr-Ikhjnv (Preservision Areds) 4,296 mcg-226 mg-90 mg capsule Discontinued 2 CAP PO TWICE A DAY August 06, 2023 11:00pm August 07, 2023 12:27pm Problems Active Problems Problem Classification Problem Date Documented Da te Episodic/Chronic Acute and unspecified renal failure (1 source) Renal failure syndrome; Translations: [Chronic kidney disease, unspecified] Onset: 08-02-2015 08-02-2015 Chronic Acute bronchitis (16 sources) Acute bronchitis; Translations: [Acute bronchitis, unspecified] 07-11-2022 Episodic Acute myocardial infarction (1 source) Non-ST elevation (NSTEMI) myocardial infarction; Translations: [Non-ST elevation (NSTEMI) myocardial infarction] Onset: 07-28-2015 07-28-2015 Chronic Cardiac dysrhythmias (15 sources) Bradycardia; Translations: [Bradycardia, unspecified] Episodic Chronic kidney disease (2 sources) Chronic kidney disease; Translations: [Chronic kidney disease, unspecified] 03-25-2025 Chronic Coronary atherosclerosis and other heart disease (19 sources) Atherosclerotic heart disease of inupiat coronary artery without angina pectoris; 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] Onset: 07-24-2015 07-24-2015 Chronic Diseases of white blood cells (2 sources) Leukocytosis; Translations: [Elevated white blood cell count, unspecified] 03-25-2025 Chronic Disorders of lipid metabolism (20 sources) Hyperlipidemia; Translations: [Hyperlipidemia, unspecified] Onset: 08-02-2015 08-02-2015 Chronic Esophageal disorders (4 sources) Esophageal dysmotility; Translations: [Dyskinesia of esophagus] 11-26-2024 Chronic Essential hypertension (20 sources) Hypertensive disorder; Translations: [Essential hypertension] Onset: 08-02-2015 08-02-2015 Chronic Fluid and electrolyte disorders (2 sources) Dehydration; Translations: [Dehydration] 03-25-2025 Episodic Malaise and fatigue (20 sources) Fatigue; Translations: [Other fatigue] Episodic Open wounds of extremities (4 sources) Tear of skin; Translations: [Laceration without foreign body of left forearm, initial encounter] 12-03-2024 Episodic Osteoarthritis (1 source) Osteoarthritis of hip; Translations: [...] [Venous insufficiency] Onset: 04-08-2019 04-08-2019 Episodic Other circulatory disease (16 sources) Nasal discharge; Translations: [Other specified symptoms and signs involving the circulatory and respiratory systems] 07-11-2022 Episodic Other circulatory disease (4 sources) Orthostatic hypotension; Translations: [Orthostatic hypotension] 04-04-2025 Episodic Other circulatory disease (1 source) Orthostatic hypotension; Translations: [Orthostatic hypotension] Onset: 03-30-2025 Episodic Other connective tissue disease (2 sources) Other specified soft tissue disorders; Translations: [Right leg swelling] Onset: 04-08-2019 04-08-2019 Episodic Other connective tissue disease (4 sources) Swelling of right lower limb; Translations: [Right leg swelling] Onset: 04-08-2019 04-08-2019 Other diseases of veins and lymphatics (3 sources) Lymphedema; Translations: [Lymphedema, not elsewhere classified] 04-09-2024 Chronic Other diseases of veins and lymphatics (4 sources) Disorder of vein; Translations: [Venous insufficiency] Onset: 04-08-2019 04-08-2019 Episodic Other diseases of veins and lymphatics (5 sources) Peripheral venous insufficiency; Translations: [Venous insufficiency (chronic) (peripheral)] 02-04-2024 Episodic Comment on above: Venous Duplex 12/29/23 :Positive for reflux in the R above-knee GSV, ASV, and SSVPositive for reflux in the L below-knee GSV Other diseases of veins and lymphatics (2 sources) Venous insufficiency (chronic) (peripheral); Translations: [Venous (peripheral) insufficiency, unspecified] 02-03-2024 Episodic Other gastrointestinal disorders (4 sources) Loose stool; Translations: [Other fecal abnormalities] 11-26-2024 Episodic Other injuries and conditions due to external causes (3 sources) Foreign body in esophagus; Translations: [Unspecified foreign body in esophagus causing other injury, initial encounter] 04-12-2024 Episodic Other lower respiratory disease (16 sources) Dyspnea; Translations: [Shortness of breath] 07-11-2022 Episodic Other lower respiratory disease (16 sources) Cough; Translations: [Cough] 07-11-2022 Episodic Other upper respiratory infections (16 sources) Sore throat symptom; Translations: [Acute pharyngitis, unspecified] 07-11-2022 Episodic Pneumonia (except that caused by tuberculosis or sexually transmitted disease) (16 sources) Pneumonia; Translations: [Pneumonia, unspecified organism] 07-11-2022 Episodic Residual codes; unclassified (5 sources) Bilateral lower limb edema; Translations: [Localized edema] 02-04-2024 Episodic Residual codes; unclassified (2 sources) Localized edema; Translations: [Edema] 02-03-2024 Episodic Spondylosis; intervertebral disc disorders; other back problems (1 source) Spondylosis without myelopathy or radiculopathy, lumbosacral region; Translations: [Spondylosis without myelopathy or radiculopathy, lumbosacral region] Onset: 01-24-2025 Chronic Spondylosis; intervertebral disc disorders; other back problems (5 sources) Lumbar radiculopathy; Translations: [Chronic low back pain] Onset: 02-09-2016 09-30-2016 Episodic Unclassified (1 source) Body mass index (BMI) 30.0-30.9, adult; Translations: [Body mass index (BMI) 30.0-30.9, adult] Onset: 11-22-2015 11-22-2015 Chronic Unclassified (1 source) Long-term drug therapy; Translations: [Other terminal press operator (current) drug therapy] Onset: 08-02-2015 08-02-2015 Unclassified (1 source) Placement of stent in coronary artery ; Translations: [Presence of coronary angioplasty implant and graft] Onset: 07-24-2015 08-21-2016 Urinary tract infections (6 sources) Acute urinary tract infection; Translations: [Urinary tract infection, site not specified] Onset: 03-30-2025 04-04-2025 Episodic Past or Other Problems Problem Classification Problem Date Documented Da te Episodic/Chronic Coronary atherosclerosis and other heart disease (7 sources) Presence of coronary angioplasty implant and graft; Translations: [Percutaneous transluminal coronary angioplasty status] Onset: 07-19-2015 07-24-2015 Episodic Nonspecific chest pain (1 source) Chest pain; Translations: [Other chest pain] Onset: 08-22-2016 08-22-2016 Episodic Other connective tissue disease (1 source) Trochanteric bursitis, left hip; Translations: [Trochanteric bursitis, left hip] Onset: 07-16-2017 07-16-2017 Episodic Other screening for suspected conditions (not mental disorders or infectious disease) (14 sources) Serum creatinine raised; Translations: [Other specified abnormal findings of blood chemistry] Onset: 02-24-2025 10-04-2022 Episodic Unclassified (6 sources) FH: Hypertension; Translations: [FH: Raised blood lipids] Resolved: 02-22-2016 08-21-2015 Episodic Unclassified (1 source) Problem Results Test Name Value Interpretation Reference Range Facility MR/Indira 06-06-2025 MR/COTY [facility] Medical Records Department [address] [place], [place] [address] [address] PAT - Anesthesia 06/06/25 1657 MR#: [id number] Acct: [id number] Name: JAMILA LOPES Rep #: [id number] : 1940 84 From: Kali Stephen MD PCP: Dr. Estela Osborne, DO Status:PRE SD Y Race: C [place] [facility] [place] Pre-Assessment Diagnosis/Proposed Procedure Planned Operative Procedure(s): (L) Radio Frequency Ablation, LEFT SIDED RADIOFREQUENCY ABLATION L1 L2 L3 UNDER FLUOROSCOPY Anesthesia History Anesthesia History - police radio dispatcher: Anesthesia History - police radio dispatcher Hx Hospitalization Yes: PNEUMONIA 06/06/25 15:18 Any Problems With Anesthesia No 06/06/25 15:18 Cholinesterase deficiency No 06/06/25 15:18 You/Your Family Experience No 06/06/25 15:18 fever (hyperthermia) with Relationship Recent Exposure to Contagious No 04/11/25 11:08 Disease Does patient have nerve No 06/06/25 15:18 stimulator Patient instructed to have device shut off --Does patient have Pacemaker or ICD? When Was Last Pacemaker Check QUESTION #4 FULL TEXT: You/Your Family Experience fever (hyperthermia) with Anesthesia Last Oral Intake Last Oral intake: Last Oral Intake NPO since Meds taken in AM with sips of water? Meds patient instructed to take am of surgery PONV PONV - police radio dispatcher: PONV - police radio dispatcher Female Yes 06/06/25 15:18 HX of Motion Sickness No 06/06/25 15:18 HX of N/V After Surgery No 06/06/25 15:18 Non-Smoker Yes 06/06/25 15:18 Duration of Surgery greater No 06/06/25 15:18 than 60 minutes Number of Risk Factors 2 06/06/25 15:18 PONV Score Moderate Risk 06/06/25 15:18 Height Weight Height Weight: Anesthesia: Height Weight Height 4 ft 11 in 04/11/25 11:08 Respiratory Assessment Respiratory Assessment - police radio dispatcher: Respiratory Tract Infection Hx - police radio dispatcher Hx Respiratory Tract Infection No 06/06/25 15:18 STOP Sleep Apnea STOP Sleep Apnea - police radio dispatcher: STOP Sleep Apnea - police radio dispatcher Hx Hypertension Yes: ON MEDS 06/06/25 15:18 Hx Sleep Apnea No 06/06/25 15:18 CPAP No 04/11/25 12:11 BIPAP Do you snore loudly (louder No 06/06/25 15:18 than talking or can be heard Do you often feel tired/ No 06/06/25 15:18 fatigued/ sleepy during daytime? Has anyone observed you stop No 06/06/25 15:18 breathing during sleep? STOP Results Negative 06/06/25 15:18 QUESTION #5 FULL TEXT : Do you snore loudly (louder than talking or can be heard through closed doors)? 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 Specify any problems Hx of Preganancy in last 3 No 06/06/25 15:18 Months Nurse Filling Out Transfusion JZOMARCUS 06/06/25 15:18 Questions: Date: 06/06/25 06/06/25 15:18 Time: 15:20 06/06/25 15:18 Patient unable to answer at this time (ie. confused, unrespo /Reproduct ion History /Reproduct leobardo History - police radio dispatcher: /Reproduct leobardo Hx- police radio dispatcher Hx Now No 06/06/25 15:18 Gestational Age (in weeks): EDC: Hx Hx Para Hx Section SAB No 06/06/25 15:18 PFSH Medical History (Updated 06/06/25 @ 15:18 by Ada Goodwin) Alcohol use Heartburn Former smoker Wears glasses Wears dentures Cancer Ambulates with cane History of renal disease Easy bruising High cholesterol History of echocardiogram History of stress test Hypertension History of heart attack Chest pain Cardiology follow-up encounter Acute pneumonia Tuttle's palsy Macular degeneration Renal insufficiency Osteoarthritis Spondylosis Scoliosis Lumbar spinal stenosis History of non-ST elevation myocardial infarction (NSTEMI) Essential (primary) hypertension Hyperlipidemia Atherosclerotic heart disease of inupiat coronary artery without angina pectoris Low back pain Lumbar radiculopathy Home Medications ???Medication ???Instructions ???Re (more content not included)... Normal [facility] Gastroenterology Visit Repor ton 05-04-2025 Gastroenterology Visit Report [facility] Gastroenterology [address] [place] [address] OFFICE VISIT Date of Service: 05/04/25 MR#: [id number] Acct: [id number] Name: JAMILA LOPES Rep #: [id number] : 1940 Provider: TAWANDA Dang Age/Sex: 84/F [place] [facility] [place] Status: Signed Intake Vital Signs 05/26/24 13:24 04/11/25 11:08 Height 4 ft 11.06 in 4 ft 11 in Intake Visit Reasons: 6 M FU Chief Complaint: dysphagia Allergies gabapentin Allergy (Verified 04/11/25 11:07) Hives tomato Allergy (Verified 04/11/25 11:07) Rash Have you fallen in the past year?: Yes Nurse's Note: OV 05/04/25 Pt here for a f/u and pt reports trouble swallowing and then regurgitates. Otherwise pt reports she is doing well and has no complaints. Pt reports she has been out of her pantoprazole for a few weeks. [facility] Medical History Wears glasses Wears dentures Cancer Ambulates with cane History of renal disease Easy bruising High cholesterol History of echocardiogram History of stress test Hypertension History of heart attack Chest pain Cardiology follow-up encounter Acute pneumonia Tuttle's palsy Macular degeneration Renal insufficiency Osteoarthritis Spondylosis Scoliosis Lumbar spinal stenosis History of non-ST elevation myocardial infarction (NSTEMI) Essential (primary) hypertension Hyperlipidemia Atherosclerotic heart disease of inupiat coronary artery without angina pectoris Low back pain Lumbar radiculopathy Surgical History History of back surgery ( 01/2024) History of cardiac catheterization History of appendectomy History of elbow surgery History of hysterectomy History of eyelid surgery ( 06/2023) History of laminectomy (08/2018) History of coronary artery stent placement (07/19/15) Family History Father , Age 89 Congestive heart failure Mother , Age 86 CVA (cerebral vascular accident) Hypertension Hyperlipidemia Sister , age 11 in MVA No problems noted. Social History Smoking Status: Former smoker how long ago did patient quit smokin alcohol intake: current alcohol intake frequency: a few times a week Alcohol type: wine substance use type: does not use caffeine: Yes Type: tea Number of servings: 4 HPI HPI Chief Complaint: dysphagia Details: JAMILA LOPES, is a 84 F who presents to the office today for f/u. BGI established in March 2024 after presentation to the ED for globus sensation with possible food impactions. Underwent EGD EGD 04.12.24; Tortuous esophagus. - Abnormal esophageal motility, suspicious for achalasia. - Food in the lower third of the esophagus. Removal was successful. - Large hiatal hernia. - No gross lesions in the second portion of the duodenum. Last OV 1.3.25 Pt doing well on amitriptyline 10 mg for her esophageal dysphagia. pt having some loose stools that she relates to eating certain foods OV 6.11.25 Pt had had worsening in her swallowing the past couple weeks. She ran out of her PPI recently and feels it may be related. She had an episode of dysphagia on Friday when eating a slider with chopped ham and had to regurgitate it. She denies heartburn, constipation, n/v, abd pain, or diarrhea. ROS Const Constitutional: Positive for frequent falls and weakness; No fatigue, fever(s) or weight change ENT ENT: Positive for difficulty swallowing Gastro GI: Positive for difficulty swallowing and vomiting; No abdominal pain, belching, bloating, change in bowel habits, change in stool character, coffee ground emesis, constipation, cramping, diarrhea, heartburn, feeling full early, excessive flatus, incontinent of stools, Vomiting blood/hematemesis, Blood in stool, loose stools, Black,tarry stools, nausea/dyspepsia, pain with swallowing or other Musc Musculoskeletal: Positive for abnormal gait, joint pain, back pain, muscle weakness, numbness, stiffness, tingling, Arthritis and sciatica Skin Skin: Positive for lesions, itchy eyes and rash; No yellowing of the eye Neuro Neurology: Positive for abnormal gait, weakness, frequent falls, numbness and tingling Psych Psychiatric: No anxiety and No depression Endo Endocrine: No fatigue or weight change Aller/Imm Allergy/Immunologic : Positive for itchy eyes Marco Antonio/Lymp Hematologic/Lymphat ic: Positive for easy bleeding and easy bruising Exam Const General: cooperative and healthy appearing Resp Effort Inspection: normal respiratory effort Cardio Rate: regular rate Rhythm: regular rhythm GI Inspection: normal to inspection Auscultation: normal bowel sounds Palpation: s (more content not included)... Normal [facility] Bilirubin directOrdered By: Leif Bonilla on 04-11-2025 Bilirubin.direct [Mass/Vol] 0.17 mg/dL 0.00-0.30 [facility] Bilirubin, totalOrdered By: Leif Bonilla on 04-11-2025 Bilirubin [Mass/Vol] 0.42 mg/dL 0.00-1.30 [facility] Calculated very low density lipoprotein (VLDL) cholesterol measurementOrdered By: Leif Bonilla on 04-11-2025 Calculated very low density lipoprotein (VLDL) cholesterol measurement 27 mg/dL 5-40 [facility] Fluor Guidance for Spine Inj on 04-11-2025 Fluor Guidance for Spine Inj [facility] Imaging Services [address] [place] [address] Fluor Guidance for Spine Inj MR#: [id number] Acct: [id number] Name: JAMILA LOPES Rep #: [id number] : 1940 F 84 From: Chente polanco MD PCP: Dr. Estela Osborne, DO Status: DE[place] [facility] [place] Study: Fluor Guidance for Spine Inj Date of Exam: Exam# [id number] Ordering Dr: Evaristo Bowen MD PROCEDURE: FLUOR GUIDANCE FOR SPINE INJ 04/11/2025 REASON FOR EXAM: BLOCK, CAUDAL TECHNIQUE: Intraoperative fluoroscopic services provided for caudal block. 3.3 seconds of fluoroscopy. 1.11 mGy. 1 image was obtained. COMPARISON: None FINDINGS: Fluoroscopic services provided for caudal block RAD/Fluor Guidance for Spine Inj IMPRESSION: Fluoroscopic services provided for caudal block. Reading Location: [place] [address] CC: Dr. Evaristo Bowen MD; Dr. Estela Osborne DO Charity Fundraiser: Signed Normal [facility] LDL calc ser/plasOrdered By: Leif Bonilla on 04-11-2025 Cholesterol in LDL [Mass/Vol] 98 mg/dL [facility] Comment on above: Iasljpzrhw=876-301 m g/dL & Higher Caot=409 mg/dL or greater Laboratory - Chemistry and C hemistry - challengeOrdered By: Leif Bonilla on 04-11-2025 AST [Catalytic activity/Vol] 25 U/L <32 [facility] Lipid Profileon 04-11-2025 CHOL:HDL 3.49 Normal [facility] Comment on above: Performed By: #### L 500.3400, L500.4100 #### [facility] [address] [facility], [address] Cholesterol [Mass/Vol] 176 mg/dL Normal <=200 [facility] Comment on above: Result Comment: Chol esterol level, Desirable <200 mg/dL Borderline high cholesterol 200-239 mg/dL High cholesterol >=240 mg/dL Recommendations of the NCEP Adult Treatment Panel for the following risk-cutoff thresholds for the [place] population. Performed By: #### L 500.3400, L500.4100 #### [facility] [address] [place], [address] Cholesterol in HDL [Mass/Vol] 50 mg/dL Normal [facility] Comment on above: Result Comment: Aubree onal Cholesterol Education Program (NCEP) guidelines: <40 mg/dL: Low HDL-cholesterol (major risk factor for CHD) >= 60 mg/dL: High HDL-cholesterol (negative risk factor for CHD) HDL-cholesterol is affected by a number of factors, e.g. smoking, exercise, hormones, sex and age. Performed By: #### L 500.3400, L500.4100 #### [facility] [address] [place], [address] Cholesterol in LDL [Mass/Vol] 98 mg/dL Normal [facility] Comment on above: Result Comment: Bord vmpzlo=977-840 mg/dL Higher Ybic=789 mg/dL or greater Performed By: #### L 500.3400, L500.4100 #### [facility] [address] [place], [address] Cholesterol in VLDL [Mass/Vol] 27 mg/dL Normal 5-40 [facility] Comment on above: Performed By: #### L 500.3400, L500.4100 #### [facility] [address] [place], [address] Triglyceride [Mass/Vol] 137 mg/dL Normal [facility] Comment on above: Result Comment: The drugs N-Acetylcysteine and Metamizole may falsely depress this assay. Normal range: <150 mg/dL Borderline High: 150-199 mg/dL High: 200-499 mg/dL Very High: >500 mg/dL Performed By: #### L 500.3400, L500.4100 #### [facility] [address] [place], [address] Liver Profileon 04-11-2025 Albumin [Mass/Vol] 4.0 g/dL Normal 3.4-4.8 [facility] Comment on above: Performed By: #### L 500.3400, L500.4100 #### [facility] [address] [place], [address] ALK PHOS 110 U/L High 35-104 [facility] Comment on above: Performed By: #### L 500.3400, L500.4100 #### [facility] [address] [place], [address] ALT [Catalytic activity/Vol] 11 U/L Normal <=34 [facility] Comment on above: Performed By: #### L 500.3400, L500.4100 #### [facility] [address] [place], [address] AST [Catalytic activity/Vol] 25 U/L Normal <=31 [facility] Comment on above: Performed By: #### L 500.3400, L500.4100 #### [facility] [address] [place], [address] Bilirubin [Mass/Vol] 0.42 mg/dL Normal 0.00-1.30 [facility] Comment on above: Performed By: #### L 500.3400, L500.4100 #### [facility] [address] [place], [address] Bilirubin.direct [Mass/Vol] 0.17 mg/dL Normal 0.00-0.30 [facility] Comment on above: Performed By: #### L 500.3400, L500.4100 #### [facility] [address] [place], [address] Globulin (S) [Mass/Vol] 3.4 g/dL Normal 2.2-4.2 [facility] Comment on above: Performed By: #### L 500.3400, L500.4100 #### [facility] [address] [place], [address] T PROT 7.4 g/dL Normal 5.9-8.4 [facility] Comment on above: Performed By: #### L 500.3400, L500.4100 #### [facility] [address] [place], [address] MR/POSTOP.ANEon 04-11-2025 MR/POSTOP.[facility] Medical Records Department [address] [place] [address] Anesthesia Postop Eval I 04/11/25 1208 MR#: [id number] Acct: [id number] Name: JAMILA LOPES Rep #: [id number] : 1940 84 From: Vamsi Murry CRNA PCP: Dr. Estela Osborne, DO Status:[facility] Y Race: C Location: [place] [address] Anesthesia: Postop Eval I Current Vital Signs Temperature: 97.1 F Pulse Rate: 62 Blood Pressure: 146/76 Respiratory Rate: 16 Pulse Ox: 99 Oxygen Delivery Method: Room Air Assessment Airway patent: Yes Spontaneous unlabored respirations: Yes Mental status: Awake and Calm nausea: No Vomiting: No Anesthesia Complication: No Fluid Hydration Crystalloid volume administer (ml): 200 Total IV fluid infused: 200 Progress Note Anesthesia document: Postop Eval 1 completed: Yes 04/11/25 1209 Date Vamsi Murry PIPELINE INSPECTOR Cosigner Signature: Date CC: Signed Normal [facility] MR/[id number] 04-11-2025 [facility] Medical Records Department [address] [place] [address] Anesthesia Postop Eval II 04/11/25 1303 MR#: [id number] Acct: [id number] Name: JAMILA LOPES Rep #: [id number] : 1940 84 From: Cirilo Dunaway MD PCP: Dr. Estela Osborne, DO Status[facility] Y Race: C [place] [facility] [place]esthesia Postop Eval I Sum Postop Eval Completion status Anesthesia document: Postop Eval 1 completed: Yes Anesthesia Postop Eval I Summary Anesthesia Postop Eval I Summary: Anesthesia Postop Eval I: Assessment Summary Airway patent Yes 04/11/25 12:09 PIPELINE [email or web address].[email or web address] Spontaneous unlabored Yes 04/11/25 12:09 PIPELINE [email or web address].JBLOU respirations Mental status Awake,Calm 04/11/25 12:09 PIPELINE INSPECTOR.JBLOU nausea No 04/11/25 12:09 PIPELINE INSPECTOR.JBLOU Vomiting No 04/11/25 12:09 PIPELINE INSPECTOR.JBLOU Anesthesia Postop Eval I: Fluid Summary Crystalloid volume administer 200 04/11/25 12:09 PIPELINE INSPECTOR.JBLOU (ml) Colloids volume administered ( ml) Blood Product volume administered (ml) Total IV fluid infused 200 04/11/25 12:09 PIPELINE INSPECTOR.JBLOU Anesthesia Postop Eval I: Summary Notes Anesthesia Complication No 04/11/25 12:09 PIPELINE INSPECTOR.JBLOU Anesthesia Complication Comment: Post-operative progress note Anesthesia: Postop Eval II Evaluation Mental status: Awake Pain Level: 0 nausea: No Vomiting: No 04/11/25 1303 Date Cirilo Martinez Signature: Date CC: Signed Normal [facility] Operative Reporton 5 Operative Report [facility] Medical Records Department [address] [place] [address] Operative Report 04/11/25 1201 MR#: [id number] Acct: [id number] Name: JAMILA LOPES Rep #: [id number] : 1940 84 From: Evaristo Bowen MD PCP: Dr. Estela Osborne, DO Status:[facility] [place] Location: [place] [address] Operative Report (Standard) Operative Information Date of Procedure: 04/11/25 Pre-Operative Diagnosis: Lumbosacral radiculopathy, lumbosacral degenerative disc disease, lumbosacral spinal stenosis Post-Operative Diagnosis: Lumbosacral radiculopathy, lumbosacral degenerative disc disease, lumbosacral spinal stenosis Surgery/Procedure Performed: Diagnostic/therapeu tic caudal epidural steroid injection under fluoroscopic guidance career development consultant: No Type of Anesthesia: Local MAC RN Documented Start/Stop Times: Operation Date: 04/11/25 12:35 Case Time Into Pre-Op 04/11/25 10:57 Out of Pre-Op 04/11/25 11:39 Into Room 04/11/25 11:50 Anesthesia Start 04/11/25 11:51 Procedure Start 04/11/25 11:57 Procedure End 04/11/25 11:58 Procedure Start Time: 12:01 Procedure Stop Time: 12:01 Select all DRAINS/GRAFTS/IMPLA NTS that apply: None Estimated Blood Loss: 0 Specimen collected: No Description of surgery: History and physical of today was reviewed. Risks and benefits of the procedure were explained. The patient understood and agreed to proceed. Informed consent was obtained. IV inserted per routine protocol. The patient was taken to the operating room and placed in the prone position with a pillow positioned underneath the abdomen. The lower back and tailbone area was prepped and draped in a sterile fashion using iodine x3. Under fluoroscopy guidance on a lateral view, the caudal space was identified. The skin and subcutaneous tissue was anesthetized with approximately 3 mL of 1% lidocaine using a 25-gauge regular needle. Under direct visualization with fluoroscopy, using a 22-gauge 3-1/2-inch spinal needle, the needle was advanced via the skin through the sacral hiatus. The tip of the needle was passed through the sacrococcygeal ligament and advanced to approximately S4 area. After negative aspiration of blood or CSF, a total of 3 mL of contrast was injected to confirm correct placement of the needle as well as cephalad spread. The spread was followed to approximately L5 area. After confirmation on AP as well as lateral view and repeated negative aspiration, a total of 15 mL of preservative-free 0.125% Marcaine with 80 mg of Depo-Medrol was injected easily. The needle was then removed intact. The patient experienced no sign or symptoms of intrathecal or intravascular injection. The patient experienced no paresthesia. The procedure was completed without any apparent difficulty or any complications. The patient appeared to tolerate it well. ASSESSMENT AND PLAN: This is an 84-year-old female with lumbosacral radiculopathy, lumbosacral degenerative disc disease, lumbosacral spinal stenosis status post diagnostic/therapeu tic caudal epidural steroid injection under fluoroscopic guidance, patient will continue her current medications, patient will follow in approximately 2 weeks for reevaluation. Surgical Findings: 0 Complications Complications: No Admit VTE Documentation VTE Present on Admission: No VTE Mechan Device Prophylaxis: None VTE Pharm Prophylaxis ordered?: No 04/11/25 1202 Cosigner Signature (if applicable): CC: Dr. Evaristo Bowen MD; Dr. Estela Osborne DO Signed Normal [facility] Screening total cholesterol/ high density lipoprotein (HDL) cholesterol ratioOrdered By: Leif Bonilla on 04-11-2025 Cholesterol.total/Valery sterol in HDL [Mass ratio] 3.49 {ratio} [facility] Serum globulin measurementOr dered By: Leif Bonilla on 04-11-2025 Globulin (S) [Mass/Vol] 3.4 g/dL 2.2-4.2 [facility] Serum or plasma alanine bear otransferase (ALT) measurementOrdered By: Leif Bonilla on 04-11-2025 ALT [Catalytic activity/Vol] 11 U/L <35 [facility] Serum or plasma albumin colten urement (mass/volume)Ordered By: Leif Bonilla on 04-11-2025 Albumin [Mass/Vol] 4.0 g/dL 3.4-4.8 [facility] Serum or plasma alkaline sandra sphatase measurementOrdered By: Leif Bonilla on 04-11-2025 ALP [Catalytic activity/Vol] 110 U/L High 35-104 [facility] Serum or plasma cholesterol in HDL measurement (mass/volume)Ordered By: Leif Bonilla on 04-11-2025 Cholesterol in HDL [Mass/Vol] 50 mg/dL >40 [facility] Comment on above: National Cholesterol Education Program (NCEP) guidelines:<40 mg/dL: Low HDL-cholesterol (major risk factor for CHD)>= 60 mg/dL: High HDL-cholesterol (negative risk factor for CHD)HDL-cholesterol is affected by a number of factors, e.g. smoking, exercise, hormones, sex and age. Serum or plasma cholesterol measurement (mass/volume)Ordered By: Leif Bonilla on 04-11-2025 Cholesterol [Mass/Vol] 176 mg/dL <201 [facility] Comment on above: Cholesterol level, D esirable <200 mg/dLBorderline high cholesterol 200-239 mg/dLHigh cholesterol >=240 mg/dLRecommendations of the NCEP Adult Treatment Panel for the following risk-cutoff thresholds for the [place] population. Total proteinOrdered By: Slim Bonilla on 04-11-2025 Protein [Mass/Vol] 7.4 g/dL 5.9-8.4 [facility] Triglycerides measurementOrd ered By: Leif Chad on 04-11-2025 Triglyceride [Mass/Vol] 137 mg/dL <199 [facility] Comment on above: The drugs N-Acetylcy steine and Metamizole may falsely depress this assay. Normal range: <150 mg/dLBorderline High: 150-199 mg/dLHigh: 200-499 mg/dLVery High: >500 mg/dL Basic Metabolic Profile (BMP )on 04-03-2025 BUN Normal 4-19 [facility] Comment on above: Result Comment: Canc elled via OM: Order cancelled - Patient discharged Performed By: #### L 100.0100, L500.2500 #### [facility] [address] [facility] [address] BUN/CRE Normal 10-20 [facility] Comment on above: Result Comment: Canc elled via OM: Order cancelled - Patient discharged Performed By: #### L 100.0100, L500.2500 #### [facility] [address] [place], [address] Calcium Normal 7.6-11.0 [facility] Comment on above: Result Comment: Canc elled via OM: Order cancelled - Patient discharged Performed By: #### L 100.0100, L500.2500 #### [facility] [address] [place], [address] CL Normal 98-108 [facility] Comment on above: Result Comment: Canc elled via OM: Order cancelled - Patient discharged Performed By: #### L 100.0100, L500.2500 #### [facility] [address] [place], [address] CO2 Normal 21.0-32.0 [facility] Comment on above: Result Comment: Canc elled via OM: Order cancelled - Patient discharged Performed By: #### L 100.0100, L500.2500 #### [facility] [address] [place], [address] CREAT,SERUM Normal 0.70-1.20 [facility] Comment on above: Result Comment: Canc elled via OM: Order cancelled - Patient discharged Performed By: #### L 100.0100, L500.2500 #### [facility] [address] [place], [address] eGFR Normal >60 [facility] Comment on above: Result Comment: Canc elled via OM: Order cancelled - Patient discharged Performed By: #### L 100.0100, L500.2500 #### [facility] [address] [place], [address] GAP Normal 5-15 [facility] Comment on above: Result Comment: Canc elled via OM: Order cancelled - Patient discharged Performed By: #### L 100.0100, L500.2500 #### [facility] [address] [place], [address] GLU Normal 70-99 [facility] Comment on above: Result Comment: Canc elled via OM: Order cancelled - Patient discharged Performed By: #### L 100.0100, L500.2500 #### [facility] [address] [place], [address] Potassium Normal 3.3-5.1 [facility] Comment on above: Result Comment: Canc elled via OM: Order cancelled - Patient discharged Performed By: #### L 100.0100, L500.2500 #### [facility] [address] [place], [address] Basic Metabolic Profile (BMP) Normal 133-145 [facility] Comment on above: Result Comment: Canc elled via OM: Order cancelled - Patient discharged Performed By: #### L 100.0100, L500.2500 #### [facility] [address] [place], [address] CBC W/Diff, Automatedon 05-1 Absolute Neut Normal 2.0-7.7 [facility] Comment on above: Result Comment: Canc elled via OM: Order cancelled - Patient discharged Performed By: #### L 100.0100, L500.2500 #### [facility] [address] [place], [address] HCT Normal 37-47 [facility] Comment on above: Result Comment: Canc elled via OM: Order cancelled - Patient discharged Performed By: #### L 100.0100, L500.2500 #### [facility] [address] [place], [address] HGB Normal 12.0-15.0 [facility] Comment on above: Result Comment: Canc elled via OM: Order cancelled - Patient discharged Performed By: #### L 100.0100, L500.2500 #### [facility] [address] [place], [address] MCH Normal 27.0-32.0 [facility] Comment on above: Result Comment: Canc elled via OM: Order cancelled - Patient discharged Performed By: #### L 100.0100, L500.2500 #### [facility] [address] [place], [address] MCHC Normal 32-36 [facility] Comment on above: Result Comment: Canc elled via OM: Order cancelled - Patient discharged Performed By: #### L 100.0100, L500.2500 #### [facility] [address] [place], [address] MCV Normal 81-99 [facility] Comment on above: Result Comment: Canc elled via OM: Order cancelled - Patient discharged Performed By: #### L 100.0100, L500.2500 #### [facility] [address] [place], [address] NEUT% Normal 47-70 [facility] Comment on above: Result Comment: Canc elled via OM: Order cancelled - Patient discharged Performed By: #### L 100.0100, L500.2500 #### [facility] [address] [place], [address] PLT Normal 150-450 [facility] Comment on above: Result Comment: Canc elled via OM: Order cancelled - Patient discharged Performed By: #### L 100.0100, L500.2500 #### [facility] [address] [place], [address] RBC Normal 4.2-5.4 [facility] Comment on above: Result Comment: Canc elled via OM: Order cancelled - Patient discharged Performed By: #### L 100.0100, L500.2500 #### [facility] [address] [place], [address] RDW CV Normal 11.6-14.6 [facility] Comment on above: Result Comment: Canc elled via OM: Order cancelled - Patient discharged Performed By: #### L 100.0100, L500.2500 #### [facility] [address] [place], [address] RDW SD Normal 35.1-43.9 [facility] Comment on above: Result Comment: Canc elled via OM: Order cancelled - Patient discharged Performed By: #### L 100.0100, L500.2500 #### [facility] [address] [place], [address] WBC Normal 4.4-11.0 [facility] Comment on above: Result Comment: Canc elled via OM: Order cancelled - Patient discharged Performed By: #### L 100.0100, L500.2500 #### [facility] [address] [place], [address] Basic Metabolic Profile (BMP )on 04-02-2025 BUN Normal 4-19 [facility] Comment on above: Result Comment: Canc elled via OM: Order cancelled - Patient discharged Performed By: #### L 100.0100, L500.2500 #### [facility] [address] [place], [address] BUN/CRE Normal 10-20 [facility] Comment on above: Result Comment: Canc elled via OM: Order cancelled - Patient discharged Performed By: #### L 100.0100, L500.2500 #### [facility] [address] [place], [address] Calcium Normal 7.6-11.0 [facility] Comment on above: Result Comment: Canc elled via OM: Order cancelled - Patient discharged Performed By: #### L 100.0100, L500.2500 #### [facility] [address] [place], [address] CL Normal 98-108 [facility] Comment on above: Result Comment: Canc elled via OM: Order cancelled - Patient discharged Performed By: #### L 100.0100, L500.2500 #### [facility] [address] [place], [address] CO2 Normal 21.0-32.0 [facility] Comment on above: Result Comment: Canc elled via OM: Order cancelled - Patient discharged Performed By: #### L 100.0100, L500.2500 #### [facility] [address] [place], [address] CREAT,SERUM Normal 0.70-1.20 [facility] Comment on above: Result Comment: Canc elled via OM: Order cancelled - Patient discharged Performed By: #### L 100.0100, L500.2500 #### [facility] [address] [place], [address] eGFR Normal >60 [facility] Comment on above: Result Comment: Canc elled via OM: Order cancelled - Patient discharged Performed By: #### L 100.0100, L500.2500 #### [facility] [address] [place], [address] GAP Normal 5-15 [facility] Comment on above: Result Comment: Canc elled via OM: Order cancelled - Patient discharged Performed By: #### L 100.0100, L500.2500 #### [facility] [address] [place], [address] GLU Normal 70-99 [facility] Comment on above: Result Comment: Canc elled via OM: Order cancelled - Patient discharged Performed By: #### L 100.0100, L500.2500 #### [facility] [address] [place], [address] Potassium Normal 3.3-5.1 [facility] Comment on above: Result Comment: Canc elled via OM: Order cancelled - Patient discharged Performed By: #### L 100.0100, L500.2500 #### [facility] [address] [place], [address] Basic Metabolic Profile (BMP) Normal 133-145 [facility] Comment on above: Result Comment: Canc elled via OM: Order cancelled - Patient discharged Performed By: #### L 100.0100, L500.2500 #### [facility] [address] [place], [address] CBC W/Diff, Automatedon 05-1 0-2024 Absolute Neut Normal 2.0-7.7 [facility] Comment on above: Result Comment: Canc elled via OM: Order cancelled - Patient discharged Performed By: #### L 100.0100, L500.2500 #### [facility] [address] [place], [address] HCT Normal 37-47 [facility] Comment on above: Result Comment: Canc elled via OM: Order cancelled - Patient discharged Performed By: #### L 100.0100, L500.2500 #### [facility] [address] [place], [address] HGB Normal 12.0-15.0 [facility] Comment on above: Result Comment: Canc elled via OM: Order cancelled - Patient discharged Performed By: #### L 100.0100, L500.2500 #### [facility] [address] [place], [address] MCH Normal 27.0-32.0 [facility] Comment on above: Result Comment: Canc elled via OM: Order cancelled - Patient discharged Performed By: #### L 100.0100, L500.2500 #### [facility] [address] [place], [address] MCHC Normal 32-36 [facility] Comment on above: Result Comment: Canc elled via OM: Order cancelled - Patient discharged Performed By: #### L 100.0100, L500.2500 #### [facility] [address] [place], [address] MCV Normal 81-99 [facility] Comment on above: Result Comment: Canc elled via OM: Order cancelled - Patient discharged Performed By: #### L 100.0100, L500.2500 #### [facility] [address] [place], [address] NEUT% Normal 47-70 [facility] Comment on above: Result Comment: Canc elled via OM: Order cancelled - Patient discharged Performed By: #### L 100.0100, L500.2500 #### [facility] [address] [place], [address] PLT Normal 150-450 [facility] Comment on above: Result Comment: Canc elled via OM: Order cancelled - Patient discharged Performed By: #### L 100.0100, L500.2500 #### [facility] [address] [place], [address] RBC Normal 4.2-5.4 [facility] Comment on above: Result Comment: Canc elled via OM: Order cancelled - Patient discharged Performed By: #### L 100.0100, L500.2500 #### [facility] [address] [place], [address] RDW CV Normal 11.6-14.6 [facility] Comment on above: Result Comment: Canc elled via OM: Order cancelled - Patient discharged Performed By: #### L 100.0100, L500.2500 #### [facility] [address] [place], [address] RDW SD Normal 35.1-43.9 [facility] Comment on above: Result Comment: Canc elled via OM: Order cancelled - Patient discharged Performed By: #### L 100.0100, L500.2500 #### [facility] [address] [place], [address] WBC Normal 4.4-11.0 [facility] Comment on above: Result Comment: Canc elled via OM: Order cancelled - Patient discharged Performed By: #### L 100.0100, L500.2500 #### [facility] [address] [place], [address] Basic Metabolic Profile (BMP )on 04-01-2025 BUN Normal 4-19 [facility] Comment on above: Result Comment: Canc elled via OM: Order cancelled - Patient discharged Performed By: #### L 100.0100, L500.2500 #### [facility] [address] [place], [address] BUN/CRE Normal 10-20 [facility] Comment on above: Result Comment: Canc elled via OM: Order cancelled - Patient discharged Performed By: #### L 100.0100, L500.2500 #### [facility] [address] [place], [address] Calcium Normal 7.6-11.0 [facility] Comment on above: Result Comment: Canc elled via OM: Order cancelled - Patient discharged Performed By: #### L 100.0100, L500.2500 #### [facility] [address] [place], [address] CL Normal 98-108 [facility] Comment on above: Result Comment: Canc elled via OM: Order cancelled - Patient discharged Performed By: #### L 100.0100, L500.2500 #### [facility] [address] [place], [address] CO2 Normal 21.0-32.0 [facility] Comment on above: Result Comment: Canc elled via OM: Order cancelled - Patient discharged Performed By: #### L 100.0100, L500.2500 #### [facility] [address] [place], [address] CREAT,SERUM Normal 0.70-1.20 [facility] Comment on above: Result Comment: Canc elled via OM: Order cancelled - Patient discharged Performed By: #### L 100.0100, L500.2500 #### [facility] [address] [place], [address] eGFR Normal >60 [facility] Comment on above: Result Comment: Canc elled via OM: Order cancelled - Patient discharged Performed By: #### L 100.0100, L500.2500 #### [facility] [address] [place], [address] GAP Normal 5-15 [facility] Comment on above: Result Comment: Canc elled via OM: Order cancelled - Patient discharged Performed By: #### L 100.0100, L500.2500 #### [facility] [address] [place], [address] GLU Normal 70-99 [facility] Comment on above: Result Comment: Canc elled via OM: Order cancelled - Patient discharged Performed By: #### L 100.0100, L500.2500 #### [facility] [address] [place], [address] Potassium Normal 3.3-5.1 [facility] Comment on above: Result Comment: Canc elled via OM: Order cancelled - Patient discharged Performed By: #### L 100.0100, L500.2500 #### [facility] [address] [place], [address] Basic Metabolic Profile (BMP) Normal 133-145 [facility] Comment on above: Result Comment: Canc elled via OM: Order cancelled - Patient discharged Performed By: #### L 100.0100, L500.2500 #### [facility] [address] [place], [address] CBC W/Diff, Automatedon 05-0 9-2024 Absolute Neut Normal 2.0-7.7 [facility] Comment on above: Result Comment: Canc elled via OM: Order cancelled - Patient discharged Performed By: #### L 100.0100, L500.2500 #### [facility] [address] [place], [address] HCT Normal 37-47 [facility] Comment on above: Result Comment: Canc elled via OM: Order cancelled - Patient discharged Performed By: #### L 100.0100, L500.2500 #### [facility] [address] [place], [address] HGB Normal 12.0-15.0 [facility] Comment on above: Result Comment: Canc elled via OM: Order cancelled - Patient discharged Performed By: #### L 100.0100, L500.2500 #### [facility] [address] [place], [address] MCH Normal 27.0-32.0 [facility] Comment on above: Result Comment: Canc elled via OM: Order cancelled - Patient discharged Performed By: #### L 100.0100, L500.2500 #### [facility] [address] [place], [address] MCHC Normal 32-36 [facility] Comment on above: Result Comment: Canc elled via OM: Order cancelled - Patient discharged Performed By: #### L 100.0100, L500.2500 #### [facility] [address] [place], [address] MCV Normal 81-99 [facility] Comment on above: Result Comment: Canc elled via OM: Order cancelled - Patient discharged Performed By: #### L 100.0100, L500.2500 #### [facility] [address] [place], [address] NEUT% Normal 47-70 [facility] Comment on above: Result Comment: Canc elled via OM: Order cancelled - Patient discharged Performed By: #### L 100.0100, L500.2500 #### [facility] [address] [place], [address] PLT Normal 150-450 [facility] Comment on above: Result Comment: Canc elled via OM: Order cancelled - Patient discharged Performed By: #### L 100.0100, L500.2500 #### [facility] [address] [place], [address] RBC Normal 4.2-5.4 [facility] Comment on above: Result Comment: Canc elled via OM: Order cancelled - Patient discharged Performed By: #### L 100.0100, L500.2500 #### [facility] [address] [place], [address] RDW CV Normal 11.6-14.6 [facility] Comment on above: Result Comment: Canc elled via OM: Order cancelled - Patient discharged Performed By: #### L 100.0100, L500.2500 #### [facility] [address] [place], [address] RDW SD Normal 35.1-43.9 [facility] Comment on above: Result Comment: Canc elled via OM: Order cancelled - Patient discharged Performed By: #### L 100.0100, L500.2500 #### [facility] [address] [place], [address] WBC Normal 4.4-11.0 [facility] Comment on above: Result Comment: Canc elled via OM: Order cancelled - Patient discharged Performed By: #### L 100.0100, L500.2500 #### [facility] [address] [place], [address] Basic Metabolic Profile (BMP )on 03-31-2025 BUN Normal 4-19 [facility] Comment on above: Result Comment: Canc elled via OM: Order cancelled - Patient discharged Performed By: #### L 100.0100, L500.2500 #### [facility] [address] [place], [address] BUN/CRE Normal 10-20 [facility] Comment on above: Result Comment: Canc elled via OM: Order cancelled - Patient discharged Performed By: #### L 100.0100, L500.2500 #### [facility] [address] [place], [address] Calcium Normal 7.6-11.0 [facility] Comment on above: Result Comment: Canc elled via OM: Order cancelled - Patient discharged Performed By: #### L 100.0100, L500.2500 #### [facility] [address] [place], [address] CL Normal 98-108 [facility] Comment on above: Result Comment: Canc elled via OM: Order cancelled - Patient discharged Performed By: #### L 100.0100, L500.2500 #### [facility] [address] [place], [address] CO2 Normal 21.0-32.0 [facility] Comment on above: Result Comment: Canc elled via OM: Order cancelled - Patient discharged Performed By: #### L 100.0100, L500.2500 #### [facility] [address] [place], [address] CREAT,SERUM Normal 0.70-1.20 [facility] Comment on above: Result Comment: Canc elled via OM: Order cancelled - Patient discharged Performed By: #### L 100.0100, L500.2500 #### [facility] [address] [place], [address] eGFR Normal >60 [facility] Comment on above: Result Comment: Canc elled via OM: Order cancelled - Patient discharged Performed By: #### L 100.0100, L500.2500 #### [facility] [address] [place], [address] GAP Normal 5-15 [facility] Comment on above: Result Comment: Canc elled via OM: Order cancelled - Patient discharged Performed By: #### L 100.0100, L500.2500 #### [facility] [address] [place], [address] GLU Normal 70-99 [facility] Comment on above: Result Comment: Canc elled via OM: Order cancelled - Patient discharged Performed By: #### L 100.0100, L500.2500 #### [facility] [address] [place], [address] Potassium Normal 3.3-5.1 [facility] Comment on above: Result Comment: Canc elled via OM: Order cancelled - Patient discharged Performed By: #### L 100.0100, L500.2500 #### [facility] [address] [place], [address] Basic Metabolic Profile (BMP) Normal 133-145 [facility] Comment on above: Result Comment: Canc elled via OM: Order cancelled - Patient discharged Performed By: #### L 100.0100, L500.2500 #### [facility] [address] [place], [address] CBC W/Diff, Automatedon 05-0 8-2024 Absolute Neut Normal 2.0-7.7 [facility] Comment on above: Result Comment: Canc elled via OM: Order cancelled - Patient discharged Performed By: #### L 100.0100, L500.2500 #### [facility] [address] [place], [address] HCT Normal 37-47 [facility] Comment on above: Result Comment: Canc elled via OM: Order cancelled - Patient discharged Performed By: #### L 100.0100, L500.2500 #### [facility] [address] [place], [address] HGB Normal 12.0-15.0 [facility] Comment on above: Result Comment: Canc elled via OM: Order cancelled - Patient discharged Performed By: #### L 100.0100, L500.2500 #### [facility] [address] [place], [address] MCH Normal 27.0-32.0 [facility] Comment on above: Result Comment: Canc elled via OM: Order cancelled - Patient discharged Performed By: #### L 100.0100, L500.2500 #### [facility] [address] [place], [address] MCHC Normal 32-36 [facility] Comment on above: Result Comment: Canc elled via OM: Order cancelled - Patient discharged Performed By: #### L 100.0100, L500.2500 #### [facility] [address] [place], [address] MCV Normal 81-99 [facility] Comment on above: Result Comment: Canc elled via OM: Order cancelled - Patient discharged Performed By: #### L 100.0100, L500.2500 #### [facility] [address] [place], [address] NEUT% Normal 47-70 [facility] Comment on above: Result Comment: Canc elled via OM: Order cancelled - Patient discharged Performed By: #### L 100.0100, L500.2500 #### [facility] [address] [place], [address] PLT Normal 150-450 [facility] Comment on above: Result Comment: Canc elled via OM: Order cancelled - Patient discharged Performed By: #### L 100.0100, L500.2500 #### [facility] [address] [place], [address] RBC Normal 4.2-5.4 [facility] Comment on above: Result Comment: Canc elled via OM: Order cancelled - Patient discharged Performed By: #### L 100.0100, L500.2500 #### [facility] [address] [place], [address] RDW CV Normal 11.6-14.6 [facility] Comment on above: Result Comment: Canc elled via OM: Order cancelled - Patient discharged Performed By: #### L 100.0100, L500.2500 #### [facility] [address] [place], [address] RDW SD Normal 35.1-43.9 [facility] Comment on above: Result Comment: Canc elled via OM: Order cancelled - Patient discharged Performed By: #### L 100.0100, L500.2500 #### [facility] [address] [place], [address] WBC Normal 4.4-11.0 [facility] Comment on above: Result Comment: Canc elled via OM: Order cancelled - Patient discharged Performed By: #### L 100.0100, L500.2500 #### [facility] [address] [place], [address] Basic Metabolic Profile (BMP )on 03-30-2025 BUN Normal 4-19 [facility] Comment on above: Result Comment: Canc elled via OM: Order cancelled - Patient discharged Performed By: #### L 500.2500, L100.0100 #### [facility] [address] [place], [address] BUN/CRE Normal 10-20 [facility] Comment on above: Result Comment: Canc elled via OM: Order cancelled - Patient discharged Performed By: #### L 500.2500, L100.0100 #### [facility] [address] [place], [address] Calcium Normal 7.6-11.0 [facility] Comment on above: Result Comment: Canc elled via OM: Order cancelled - Patient discharged Performed By: #### L 500.2500, L100.0100 #### [facility] [address] [place], [address] CL Normal 98-108 [facility] Comment on above: Result Comment: Canc elled via OM: Order cancelled - Patient discharged Performed By: #### L 500.2500, L100.0100 #### [facility] [address] [place], [address] CO2 Normal 21.0-32.0 [facility] Comment on above: Result Comment: Canc elled via OM: Order cancelled - Patient discharged Performed By: #### L 500.2500, L100.0100 #### [facility] [address] [place], [address] CREAT,SERUM Normal 0.70-1.20 [facility] Comment on above: Result Comment: Canc elled via OM: Order cancelled - Patient discharged Performed By: #### L 500.2500, L100.0100 #### [facility] [address] [place], [address] eGFR Normal >60 [facility] Comment on above: Result Comment: Canc elled via OM: Order cancelled - Patient discharged Performed By: #### L 500.2500, L100.0100 #### [facility] [address] [place], [address] GAP Normal 5-15 [facility] Comment on above: Result Comment: Canc elled via OM: Order cancelled - Patient discharged Performed By: #### L 500.2500, L100.0100 #### [facility] [address] [place], [address] GLU Normal 70-99 [facility] Comment on above: Result Comment: Canc elled via OM: Order cancelled - Patient discharged Performed By: #### L 500.2500, L100.0100 #### [facility] [address] [place], [address] Potassium Normal 3.3-5.1 [facility] Comment on above: Result Comment: Canc elled via OM: Order cancelled - Patient discharged Performed By: #### L 500.2500, L100.0100 #### [facility] [address] [place], [address] Basic Metabolic Profile (BMP) Normal 133-145 [facility] Comment on above: Result Comment: Canc elled via OM: Order cancelled - Patient discharged Performed By: #### L 500.2500, L100.0100 #### [facility] [address] [place], [address] CBC W/Diff, Automatedon 05-0 7-2024 Absolute Neut Normal 2.0-7.7 [facility] Comment on above: Result Comment: Canc elled via OM: Order cancelled - Patient discharged Performed By: #### L 500.2500, L100.0100 #### [facility] [address] [place], [address] HCT Normal 37-47 [facility] Comment on above: Result Comment: Canc elled via OM: Order cancelled - Patient discharged Performed By: #### L 500.2500, L100.0100 #### [facility] [address] [place], [address] HGB Normal 12.0-15.0 [facility] Comment on above: Result Comment: Canc elled via OM: Order cancelled - Patient discharged Performed By: #### L 500.2500, L100.0100 #### [facility] [address] [place], [address] MCH Normal 27.0-32.0 [facility] Comment on above: Result Comment: Canc elled via OM: Order cancelled - Patient discharged Performed By: #### L 500.2500, L100.0100 #### [facility] [address] [place], [address] MCHC Normal 32-36 [facility] Comment on above: Result Comment: Canc elled via OM: Order cancelled - Patient discharged Performed By: #### L 500.2500, L100.0100 #### [facility] [address] [place], [address] MCV Normal 81-99 [facility] Comment on above: Result Comment: Canc elled via OM: Order cancelled - Patient discharged Performed By: #### L 500.2500, L100.0100 #### [facility] [address] [place], [address] NEUT% Normal 47-70 [facility] Comment on above: Result Comment: Canc elled via OM: Order cancelled - Patient discharged Performed By: #### L 500.2500, L100.0100 #### [facility] [address] [place], [address] PLT Normal 150-450 [facility] Comment on above: Result Comment: Canc elled via OM: Order cancelled - Patient discharged Performed By: #### L 500.2500, L100.0100 #### [facility] [address] [place], [address] RBC Normal 4.2-5.4 [facility] Comment on above: Result Comment: Canc elled via OM: Order cancelled - Patient discharged Performed By: #### L 500.2500, L100.0100 #### [facility] [address] [place], [address] RDW CV Normal 11.6-14.6 [facility] Comment on above: Result Comment: Canc elled via OM: Order cancelled - Patient discharged Performed By: #### L 500.2500, L100.0100 #### [facility] [address] [place], [address] RDW SD Normal 35.1-43.9 [facility] Comment on above: Result Comment: Canc elled via OM: Order cancelled - Patient discharged Performed By: #### L 500.2500, L100.0100 #### [facility] [address] [place], [address] WBC Normal 4.4-11.0 [facility] Comment on above: Result Comment: Canc elled via OM: Order cancelled - Patient discharged Performed By: #### L 500.2500, L100.0100 #### [facility] [address] [place], [address] Culture, Blood (WB)on 2024 CUB Blood cultures x2, from two different sites No growth in 5 days. Normal [facility] Comment on above: Performed By: #### L 100.0100, L500.2500 #### [facility] [address] [place], [address] Basic Metabolic Profile (BMP )on 03-29-2025 BUN Normal 4-19 [facility] Comment on above: Result Comment: Canc elled via OM: Order cancelled - Patient discharged Performed By: #### L 100.0100, L500.2500 #### [facility] [address] [place], [address] BUN/CRE Normal 10-20 [facility] Comment on above: Result Comment: Canc elled via OM: Order cancelled - Patient discharged Performed By: #### L 100.0100, L500.2500 #### [facility] [address] [place], [address] Calcium Normal 7.6-11.0 [facility] Comment on above: Result Comment: Canc elled via OM: Order cancelled - Patient discharged Performed By: #### L 100.0100, L500.2500 #### [facility] [address] [place], [address] CL Normal 98-108 [facility] Comment on above: Result Comment: Canc elled via OM: Order cancelled - Patient discharged Performed By: #### L 100.0100, L500.2500 #### [facility] [address] [place], [address] CO2 Normal 21.0-32.0 [facility] Comment on above: Result Comment: Canc elled via OM: Order cancelled - Patient discharged Performed By: #### L 100.0100, L500.2500 #### [facility] [address] [place], [address] CREAT,SERUM Normal 0.70-1.20 [facility] Comment on above: Result Comment: Canc elled via OM: Order cancelled - Patient discharged Performed By: #### L 100.0100, L500.2500 #### [facility] [address] [place], [address] eGFR Normal >60 [facility] Comment on above: Result Comment: Canc elled via OM: Order cancelled - Patient discharged Performed By: #### L 100.0100, L500.2500 #### [facility] [address] [place], [address] GAP Normal 5-15 [facility] Comment on above: Result Comment: Canc elled via OM: Order cancelled - Patient discharged Performed By: #### L 100.0100, L500.2500 #### [facility] [address] [place], [address] GLU Normal 70-99 [facility] Comment on above: Result Comment: Canc elled via OM: Order cancelled - Patient discharged Performed By: #### L 100.0100, L500.2500 #### [facility] [address] [place], [address] Potassium Normal 3.3-5.1 [facility] Comment on above: Result Comment: Canc elled via OM: Order cancelled - Patient discharged Performed By: #### L 100.0100, L500.2500 #### [facility] [address] [place], [address] Basic Metabolic Profile (BMP) Normal 133-145 [facility] Comment on above: Result Comment: Canc elled via OM: Order cancelled - Patient discharged Performed By: #### L 100.0100, L500.2500 #### [facility] [address] [place], [address] CBC W/Diff, Automatedon 05-0 6-2024 Absolute Neut Normal 2.0-7.7 [facility] Comment on above: Result Comment: Canc elled via OM: Order cancelled - Patient discharged Performed By: #### L 100.0100, L500.2500 #### [facility] [address] [place], [address] HCT Normal 37-47 [facility] Comment on above: Result Comment: Canc elled via OM: Order cancelled - Patient discharged Performed By: #### L 100.0100, L500.2500 #### [facility] [address] [place], [address] HGB Normal 12.0-15.0 [facility] Comment on above: Result Comment: Canc elled via OM: Order cancelled - Patient discharged Performed By: #### L 100.0100, L500.2500 #### [facility] [address] [place], [address] MCH Normal 27.0-32.0 [facility] Comment on above: Result Comment: Canc elled via OM: Order cancelled - Patient discharged Performed By: #### L 100.0100, L500.2500 #### [facility] [address] [place], [address] MCHC Normal 32-36 [facility] Comment on above: Result Comment: Canc elled via OM: Order cancelled - Patient discharged Performed By: #### L 100.0100, L500.2500 #### [facility] [address] [place], [address] MCV Normal 81-99 [facility] Comment on above: Result Comment: Canc elled via OM: Order cancelled - Patient discharged Performed By: #### L 100.0100, L500.2500 #### [facility] [address] [place], [address] NEUT% Normal 47-70 [facility] Comment on above: Result Comment: Canc elled via OM: Order cancelled - Patient discharged Performed By: #### L 100.0100, L500.2500 #### [facility] [address] [place], [address] PLT Normal 150-450 [facility] Comment on above: Result Comment: Canc elled via OM: Order cancelled - Patient discharged Performed By: #### L 100.0100, L500.2500 #### [facility] [address] [place], [address] RBC Normal 4.2-5.4 [facility] Comment on above: Result Comment: Canc elled via OM: Order cancelled - Patient discharged Performed By: #### L 100.0100, L500.2500 #### [facility] [address] [place], [address] RDW CV Normal 11.6-14.6 [facility] Comment on above: Result Comment: Canc elled via OM: Order cancelled - Patient discharged Performed By: #### L 100.0100, L500.2500 #### [facility] [address] [place], [address] RDW SD Normal 35.1-43.9 [facility] Comment on above: Result Comment: Canc elled via OM: Order cancelled - Patient discharged Performed By: #### L 100.0100, L500.2500 #### [facility] [address] [place], [address] WBC Normal 4.4-11.0 [facility] Comment on above: Result Comment: Canc elled via OM: Order cancelled - Patient discharged Performed By: #### L 100.0100, L500.2500 #### [facility] [address] [place], [address] Basic Metabolic Profile (BMP )on 03-28-2025 BUN Normal 4-19 [facility] Comment on above: Result Comment: Canc elled via OM: Order cancelled - Patient discharged Performed By: #### L 100.0100, L500.2500 #### [facility] [address] [place], [address] BUN/CRE Normal 10-20 [facility] Comment on above: Result Comment: Canc elled via OM: Order cancelled - Patient discharged Performed By: #### L 100.0100, L500.2500 #### [facility] [address] [place], [address] Calcium Normal 7.6-11.0 [facility] Comment on above: Result Comment: Canc elled via OM: Order cancelled - Patient discharged Performed By: #### L 100.0100, L500.2500 #### [facility] [address] [place], [address] CL Normal 98-108 [facility] Comment on above: Result Comment: Canc elled via OM: Order cancelled - Patient discharged Performed By: #### L 100.0100, L500.2500 #### [facility] [address] [place], [address] CO2 Normal 21.0-32.0 [facility] Comment on above: Result Comment: Canc elled via OM: Order cancelled - Patient discharged Performed By: #### L 100.0100, L500.2500 #### [facility] [address] [place], [address] CREAT,SERUM Normal 0.70-1.20 [facility] Comment on above: Result Comment: Canc elled via OM: Order cancelled - Patient discharged Performed By: #### L 100.0100, L500.2500 #### [facility] [address] [place], [address] eGFR Normal >60 [facility] Comment on above: Result Comment: Canc elled via OM: Order cancelled - Patient discharged Performed By: #### L 100.0100, L500.2500 #### [facility] [address] [place], [address] GAP Normal 5-15 [facility] Comment on above: Result Comment: Canc elled via OM: Order cancelled - Patient discharged Performed By: #### L 100.0100, L500.2500 #### [facility] [address] [place], [address] GLU Normal 70-99 [facility] Comment on above: Result Comment: Canc elled via OM: Order cancelled - Patient discharged Performed By: #### L 100.0100, L500.2500 #### [facility] [address] [place], [address] Potassium Normal 3.3-5.1 [facility] Comment on above: Result Comment: Canc elled via OM: Order cancelled - Patient discharged Performed By: #### L 100.0100, L500.2500 #### [facility] [address] [place], [address] Basic Metabolic Profile (BMP) Normal 133-145 [facility] Comment on above: Result Comment: Canc elled via OM: Order cancelled - Patient discharged Performed By: #### L 100.0100, L500.2500 #### [facility] [address] [place], [address] CBC W/Diff, Automatedon 05-0 5-2025 Absolute Neut Normal 2.0-7.7 [facility] Comment on above: Result Comment: Canc elled via OM: Order cancelled - Patient discharged Performed By: #### L 100.0100, L500.2500 #### [facility] [address] [place], [address] HCT Normal 37-47 [facility] Comment on above: Result Comment: Canc elled via OM: Order cancelled - Patient discharged Performed By: #### L 100.0100, L500.2500 #### [facility] [address] [place], [address] HGB Normal 12.0-15.0 [facility] Comment on above: Result Comment: Canc elled via OM: Order cancelled - Patient discharged Performed By: #### L 100.0100, L500.2500 #### [facility] [address] [place], [address] MCH Normal 27.0-32.0 [facility] Comment on above: Result Comment: Canc elled via OM: Order cancelled - Patient discharged Performed By: #### L 100.0100, L500.2500 #### [facility] [address] [place], [address] MCHC Normal 32-36 [facility] Comment on above: Result Comment: Canc elled via OM: Order cancelled - Patient discharged Performed By: #### L 100.0100, L500.2500 #### [facility] [address] [place], [address] MCV Normal 81-99 [facility] Comment on above: Result Comment: Canc elled via OM: Order cancelled - Patient discharged Performed By: #### L 100.0100, L500.2500 #### [facility] [address] [place], [address] NEUT% Normal 47-70 [facility] Comment on above: Result Comment: Canc elled via OM: Order cancelled - Patient discharged Performed By: #### L 100.0100, L500.2500 #### [facility] [address] [place], [address] PLT Normal 150-450 [facility] Comment on above: Result Comment: Canc elled via OM: Order cancelled - Patient discharged Performed By: #### L 100.0100, L500.2500 #### [facility] [address] [place], [address] RBC Normal 4.2-5.4 [facility] Comment on above: Result Comment: Canc elled via OM: Order cancelled - Patient discharged Performed By: #### L 100.0100, L500.2500 #### [facility] [address] [place], [address] RDW CV Normal 11.6-14.6 [facility] Comment on above: Result Comment: Canc elled via OM: Order cancelled - Patient discharged Performed By: #### L 100.0100, L500.2500 #### [facility] [address] [place], [address] RDW SD Normal 35.1-43.9 [facility] Comment on above: Result Comment: Canc elled via OM: Order cancelled - Patient discharged Performed By: #### L 100.0100, L500.2500 #### [facility] [address] [place], [address] WBC Normal 4.4-11.0 [facility] Comment on above: Result Comment: Canc elled via OM: Order cancelled - Patient discharged Performed By: #### L 100.0100, L500.2500 #### [facility] [address] [place], [address] Absolute lymphocyte countOrd ered By: Barbara Galloway on 03-27-2025 Lymphocytes Auto (Unsp spec) [#/Vol] 1.35 10*3/uL 0.83-4.51 [facility] Absolute neutrophil countOrd ered By: Barbara Galloway on 03-27-2025 Neutrophils (Bld) [#/Vol] 7.3 10*3/uL 2.0-7.7 [facility] Anion gap in Serum or Plasma Ordered By: Barbara Galloway on 03-27-2025 Anion gap [Moles/Vol] 11 mmol/L 5-15 [facility] Automated lymphocyte count a s percentage of total leukocytesOrdered By: Barbara Galloway on 03-27-2025 Lymphocytes/100 WBC Auto (Unsp spec) 13.6 % Low 19-41 [facility] BUN/creatinine ratioOrdered By: Barbara Galloway on 03-27-2025 Urea nitrogen/Creatinine [Mass ratio] 15.8 mg/mg - [facility] Basic Metabolic Profile (BMP )on 03-27-2025 BUN/CRE 15.8 RATIO Normal - [facility] Comment on above: Performed By: #### L 100.0100, L500.2500 #### [facility] [address] [place], [address] Calcium [Mass/Vol] 8.3 mg/dL Normal 7.6-11.0 [facility] Comment on above: Performed By: #### L 100.0100, L500.2500 #### [facility] [address] [place], [address] Chloride [Moles/Vol] 108 mmol/L Normal 98-108 [facility] Comment on above: Performed By: #### L 100.0100, L500.2500 #### [facility] [address] [place], [address] CO2 [Moles/Vol] 21.4 mmol/L Normal 21.0-32.0 [facility] Comment on above: Performed By: #### L 100.0100, L500.2500 #### [facility] [address] [place], [address] Creatinine [Mass/Vol] 1.25 mg/dL High 0.70-1.20 [facility] Comment on above: Performed By: #### L 100.0100, L500.2500 #### [facility] [address] [place], [address] ECRCL 26.42 ml/min Low 50-250 [facility] Comment on above: Performed By: #### L 100.0100, L500.2500 #### [facility] [address] [place], [address] GAP 11 Normal 5-15 [facility] Comment on above: Performed By: #### L 100.0100, L500.2500 #### [facility] [address] [place], [address] GFR/1.73 sq M.predicted among non-blacks MDRD (S/P/Bld) [Vol rate/Area] 42 mL/min/{1.73_m2} Low >60 [facility] Comment on above: Result Comment: mL/m in/1.73m2 CKD-EPI Creatinine Equation (2020) Performed By: #### L 100.0100, L500.2500 #### [facility] [address] [place], [address] Glucose [Mass/Vol] 88 mg/dL Normal 70-99 [facility] Comment on above: Performed By: #### L 100.0100, L500.2500 #### [facility] [address] [place], [address] Potassium [Moles/Vol] 3.3 mmol/L Normal 3.3-5.1 [facility] Comment on above: Performed By: #### L 100.0100, L500.2500 #### [facility] [address] [place], [address] Sodium [Moles/Vol] 139 mmol/L Normal 133-145 [facility] Comment on above: Performed By: #### L 100.0100, L500.2500 #### [facility] [address] [place], [address] Urea nitrogen [Mass/Vol] 20 mg/dL High 4-19 [facility] Comment on above: Performed By: #### L 100.0100, L500.2500 #### [facility] [address] [place], [address] Basophil percentageOrdered B y: Barbara Galloway on 03-27-2025 Basophils/100 WBC (Bld) 0.6 % 0-1 [facility] CBC W/Diff, Automatedon Absolute Lymph 1.35 X10 3/uL Normal 0.83-4.51 [facility] Comment on above: Performed By: #### L 100.0100, L500.2500 #### [facility] [address] [place], [address] Absolute Neut 7.3 X10 3/uL Normal 2.0-7.7 [facility] Comment on above: Performed By: #### L 100.0100, L500.2500 #### [facility] [address] [place], [address] Basophils/100 WBC (Bld) 0.6 % Normal 0-1 [facility] Comment on above: Performed By: #### L 100.0100, L500.2500 #### [facility] [address] [place], [address] Eosinophils/100 WBC (Bld) 2.6 % Normal 0-5 [facility] Comment on above: Performed By: #### L 100.0100, L500.2500 #### [facility] [address] [place], [address] Erythrocyte distribution width (RBC) [Ratio] 13.2 % Normal 11.6-14.6 [facility] Comment on above: Performed By: #### L 100.0100, L500.2500 #### [facility] [address] [place], [address] Hematocrit (Bld) [Volume fraction] 35.6 % Low 37-47 [facility] Comment on above: Performed By: #### L 100.0100, L500.2500 #### [facility] [address] [place], [address] Hemoglobin (Bld) [Mass/Vol] 11.7 g/dL Low 12.0-15.0 [facility] Comment on above: Performed By: #### L 100.0100, L500.2500 #### [facility] [address] [place], [address] IG% 0.700 Normal 0.0-0.9 [facility] Comment on above: Result Comment: IG% - Immature Granulocytes (promyelocytes, myelocytes and metamyelocytes) > 1% indicates that a LEFT SHIFT is Present. Performed By: #### L 100.0100, L500.2500 #### [facility] [address] [place], [address] Lymphocytes/100 WBC (Bld) 13.6 % Low 19-41 [facility] Comment on above: Performed By: #### L 100.0100, L500.2500 #### [facility] [address] [place], [address] MCH (RBC) [Entitic mass] 31.3 pg Normal 27.0-32.0 [facility] Comment on above: Performed By: #### L 100.0100, L500.2500 #### [facility] [address] [place], [address] MCHC (RBC) [Mass/Vol] 32.9 g/dL Normal 32-36 [facility] Comment on above: Performed By: #### L 100.0100, L500.2500 #### [facility] [address] [place], [address] MCV (RBC) [Entitic vol] 95.2 fL Normal 81-99 [facility] Comment on above: Performed By: #### L 100.0100, L500.2500 #### [facility] [address] [place], [address] Monocytes/100 WBC (Bld) 9.2 % Normal 0-10 [facility] Comment on above: Performed By: #### L 100.0100, L500.2500 #### [facility] [address] [place], [address] Neutrophils/100 WBC (Bld) 73.3 % High 47-70 [facility] Comment on above: Performed By: #### L 100.0100, L500.2500 #### [facility] [address] [place], [address] Nucleated RBC (Bld) [#/Vol] 0 10*3/uL Normal 0-5 [facility] Comment on above: Performed By: #### L 100.0100, L500.2500 #### [facility] [address] [place], [address] Platelet mean volume (Bld) [Entitic vol] 10.3 fL Normal 6.2-12.0 [facility] Comment on above: Performed By: #### L 100.0100, L500.2500 #### [facility] [address] [place], [address] Platelets (Bld) [#/Vol] 226 10*3/uL Normal 150-450 [facility] Comment on above: Performed By: #### L 100.0100, L500.2500 #### [facility] [address] [place], [address] RBC (Bld) [#/Vol] 3.74 10*6/uL Low 4.2-5.4 [facility] Comment on above: Performed By: #### L 100.0100, L500.2500 #### [facility] [address] [place], [address] RDW SD 46.9 fl High 35.1-43.9 [facility] Comment on above: Performed By: #### L 100.0100, L500.2500 #### [facility] [address] [place], [address] WBC (Bld) [#/Vol] 9.9 10*3/uL Normal 4.4-11.0 [facility] Comment on above: Performed By: #### L 100.0100, L500.2500 #### [facility] [address] [place], [address] Carbon dioxide, total [Moles /volume] in Central venous bloodOrdered By: Barbara Galloway on 03-27-2025 CO2 [Moles/Vol] 21.4 mmol/L 21.0-32.0 [facility] Chloride assayOrdered By: Na juana Galloway on 03-27-2025 Chloride [Moles/Vol] 108 mmol/L 98-108 [facility] Discharge Instructionon Discharge Instruction [facility] Medical Records Department [address] [place] [address] Instructions for Home/Discharge Instructions 03/27/25 1238 MR#: [id number] Acct: [id number] Name: JAMILA LOPES Rep #: [id number] : 1940 84 From: Barbara Galloway MD PCP: Dr. Estela Osborne, DO Status:ADM IN Discharge Instructions Diet Discharge Diet: Low fat / Low cholesterol DC O2, CPAP, BIPAP needs Home O2 Discharge instructions: No Dressing / Incision Discharge Activity: Return to Normal Activity Weight Bearing Status: Weight bearing as tolerated Dressing / Incision Call your doctor if you observe: Fever of 101 or Higher, Shortness of breath, Dizziness, Swelling in the ankles and Chest pain Follow Up Care Test Results: Test results from this visit will be discussed in further detail at your follow-up appointment, if applicable. Discharge Plan Admission Admit Date/Time: 03/25/25 11:55 Primary Reason for Your Visit: UTI Attending Provider: Barbara Galloway Primary Care Provider: Estela Osborne Consulting Providers: Miguel Manning Instructions Patient Instructions: ED UTI Fem Ch Discharge Orders/Prescription s Prescriptions: New cefdinir 300 mg capsule 300 mg PO BID 5 Days Qty: 10 0RF Continued cyanocobalamin (vitamin B-12) [Vitamin B-12] 5,000 mcg/mL drops 5,000 mcg SUBLINGUAL QDAY furosemide 20 mg tablet 20 mg PO DAILY PRN (Reason: swelling) cholecalciferol (vitamin D3) 25 mcg (1,000 unit) tablet 25 mcg PO DAILY biotin 5 mg capsule 5 mg PO DAILY tramadol 50 mg tablet 25 - 50 mg PO TID PRN (Reason: pain) Patient Comments: PT TAKES EVERY 3-4 HOURS. aspirin 81 MG tablet,chewable 81 mg PO DAILY nemolizumab-ilto [Nemluvio] subcut Patient Comments: UNSURE OF STRENGTH; PT WAS GIVEN TWO INJECTIONS ON FRIDAY. amitriptyline 10 mg tablet 10 mg PO DAILY metoprolol succinate 25 mg tablet extended release 24 hr 25 mg PO DAILY pantoprazole 40 mg tablet,delayed release (DR/EC) 40 mg PO BID Qty: 60 5RF amlodipine 5 mg tablet 5 mg PO DAILY Qty: 90 3RF atorvastatin 80 mg tablet 80 mg PO MOWEFR 90 Days Qty: 39 3RF Patient Comments: PT TAKES AT BEDTIME. isosorbide mononitrate 30 mg tablet extended release 24 hr 30 mg PO DAILY Qty: 90 3RF Referrals / Follow Up: Estela Osborne DO [Primary Care Provider] - Within 1 Week Disposition Disposition (needs filled in before D/C Order can be placed): Home, Self Care 03/27/25 1238 Barbara Galloway MD CC: Dr. Estela Osborne DO; Dr. Miguel Manning MD Signed Normal [facility] Eosinophil percentageOrdered By: Barbara Galloway on 03-27-2025 Eosinophils/100 WBC (Bld) 2.6 % 0-5 [facility] Erythrocyte distribution wid th ratioOrdered By: Barbara Galloway on 03-27-2025 Erythrocyte distribution width (RBC) [Ratio] 13.2 % 11.6-14.6 [facility] Erythrocyte distribution wid th standard deviationOrdered By: Barbara Galloway on 03-27-2025 Erythrocyte distribution width (RBC) [Ratio] 46.9 fl High 35.1-43.9 [facility] Glomerular filtration rate ( GFR) estimation/1.73 sq m using serum, plasma, or whole bOrdered By: Barbara Galloway on 03-27-2025 GFR/1.73 sq M.predicted among non-blacks MDRD (S/P/Bld) [Vol rate/Area] 42 mL/min/{1.73_m2} Low >60 [facility] Comment on above: mL/min/1.73m2 CKD-EP I Creatinine Equation (2020) Hematocrit Auto (Bld) [Volum e fraction]Ordered By: Barbara Galloway on 03-27-2025 Hematocrit (Bld) [Volume fraction] 35.6 % Low 37-47 [facility] Hemoglobin measurementOrdere d By: Barbara Galloway on 03-27-2025 Hemoglobin (Bld) [Mass/Vol] 11.7 g/dL Low 12.0-15.0 [facility] Immature granulocytes/100 WB C Auto (Bld)Ordered By: Barbara Galloway on 03-27-2025 Immature granulocytes/100 WBC (Bld) 0.700 % 0.0-0.9 [facility] Comment on above: IG% - Immature Granu locytes (promyelocytes, myelocytes and metamyelocytes) > 1% indicates that a LEFT SHIFT is Present. MCV (mean corpuscular volume ) determinationOrdered By: Barbara Galloway on 03-27-2025 MCV (RBC) [Entitic vol] 95.2 fL 81-99 [facility] Mean corpuscular hemoglobin (MCH) determinationOrdered By: Barbara Galloway on 03-27-2025 MCH (RBC) [Entitic mass] 31.3 pg 27.0-32.0 [facility] Mean corpuscular hemoglobin concentration (MCHC) determinationOrdered By: Barbara Galloway on 03-27-2025 MCHC (RBC) [Mass/Vol] 32.9 g/dL 32-36 [facility] Mean platelet volume determi nationOrdered By: Barbara Galloway on 03-27-2025 Platelet mean volume (Bld) [Entitic vol] 10.3 fL 6.2-12.0 [facility] Monocyte percentageOrdered B y: Barbara Galloway on 03-27-2025 Monocytes/100 WBC (Bld) 9.2 % 0-10 [facility] Neutrophil percentageOrdered By: Barbara Galloway on 03-27-2025 Neutrophils/100 WBC (Bld) 73.3 % High 47-70 [facility] Nucleated red blood cell per centageOrdered By: Barbara Galloway on 03-27-2025 Nucleated RBC/100 WBC (Bld) [Ratio] 0 % 0-5 [facility] Platelet countOrdered By: Juana Galloway on 03-27-2025 Platelets (Bld) [#/Vol] 226 10*3/uL 150-450 [facility] Potassium measurement (mass/ volume)Ordered By: Barbara Galloway on 03-27-2025 Potassium (Unsp spec) [Mass/Vol] 3.3 mmol/L 3.3-5.1 [facility] RBC Auto (Bld) [#/Vol]Ordere d By: Barbara Laverne on 03-27-2025 RBC (Bld) [#/Vol] 3.74 10*6/uL Low 4.2-5.4 [facility] Serum creatinine measurement (mass/volume)Ordered By: Barbara Galloway on 03-27-2025 Creatinine [Mass/Vol] 1.25 mg/dL High 0.70-1.20 [facility] Serum glucose measurement (m ass/volume)Ordered By: Barbara Galloway on 03-27-2025 Glucose [Mass/Vol] 88 mg/dL 70-99 [facility] Serum or plasma calcium colten urement (mass/volume)Ordered By: Barbara Galloway on 03-27-2025 Calcium [Mass/Vol] 8.3 mg/dL 7.6-11.0 [facility] Serum or plasma urea nitroge n measurement (mass/volume)Ordered By: Barbara Galloway on 03-27-2025 Urea nitrogen [Mass/Vol] 20 mg/dL High 4-19 [facility] Sodium levelOrdered By: [facility] on 03-27-2025 Sodium [Moles/Vol] 139 mmol/L 133-145 [facility] Urine Cultureon 03-27-2025 URC Presumptive E. coli [place] Count >100,000 Presumptive E. coli: REACTION Ampicillin Islt MANNY <=2 Ampicillin+Sulbac Islt MANNY <=2 S Cefepime Islt MANNY <=0.12 S cefTRIAXone Islt MANNY <=0.25 S Ciprofloxacin Islt MANNY <=0.06 S B-Lactamase Extended Susc Islt NEG Gentamicin Islt MANNY <=1 S levoFLOXacin Islt MANNY <=0.12 S Meropenem Islt MANNY <=0.25 S Nitrofurantoin Islt MANNY <=16 S Pip+Tazo Islt MANNY <=4 S TMP SMX Islt MANNY <=20 S Normal [facility] Comment on above: Performed By: #### L 100.0100, L500.2500 #### [facility] [place], [address] White blood cell (WBC) count Ordered By: Barbara Galloway on 03-27-2025 WBC (Bld) [#/Vol] 9.9 10*3/uL 4.4-11.0 [facility] Basic Metabolic Profile (BMP )on 03-26-2025 BUN/CRE 19.0 RATIO Normal 10-20 [facility] Comment on above: Performed By: #### L 100.0100, L500.2500 #### [facility] [address] [place], [address] Calcium [Mass/Vol] 8.3 mg/dL Normal 7.6-11.0 [facility] Comment on above: Performed By: #### L 100.0100, L500.2500 #### [facility] [address] [place], [address] Chloride [Moles/Vol] 101 mmol/L Normal 98-108 [facility] Comment on above: Performed By: #### L 100.0100, L500.2500 #### [facility] [address] [place], [address] CO2 [Moles/Vol] 22.0 mmol/L Normal 21.0-32.0 [facility] Comment on above: Performed By: #### L 100.0100, L500.2500 #### [facility] [address] [place], [address] Creatinine [Mass/Vol] 1.41 mg/dL High 0.70-1.20 [facility] Comment on above: Performed By: #### L 100.0100, L500.2500 #### [facility] [address] [place], [address] ECRCL 23.42 ml/min Low 50-250 [facility] Comment on above: Performed By: #### L 100.0100, L500.2500 #### [facility] [address] [place], [address] GAP 12 Normal 5-15 [facility] Comment on above: Performed By: #### L 100.0100, L500.2500 #### [facility] [address] [place], [address] GFR/1.73 sq M.predicted among non-blacks MDRD (S/P/Bld) [Vol rate/Area] 37 mL/min/{1.73_m2} Low >60 [facility] Comment on above: Result Comment: mL/m in/1.73m2 CKD-EPI Creatinine Equation (2020) Performed By: #### L 100.0100, L500.2500 #### [facility] [address] [place], [address] Glucose [Mass/Vol] 90 mg/dL Normal 70-99 [facility] Comment on above: Performed By: #### L 100.0100, L500.2500 #### [facility] [address] [place], [address] Potassium [Moles/Vol] 3.3 mmol/L Normal 3.3-5.1 [facility] Comment on above: Performed By: #### L 100.0100, L500.2500 #### [facility] [address] [place], [address] Sodium [Moles/Vol] 135 mmol/L Normal 133-145 [facility] Comment on above: Performed By: #### L 100.0100, L500.2500 #### [facility] [address] [place], [address] Urea nitrogen [Mass/Vol] 27 mg/dL High 4-19 [facility] Comment on above: Performed By: #### L 100.0100, L500.2500 #### [facility] [address] [place], [address] CBC W/Diff, Automatedon 05-0 -2024 Absolute Lymph 1.94 X10 3/uL Normal 0.83-4.51 [facility] Comment on above: Performed By: #### L 100.0100, L500.2500 #### [facility] [address] [place], [address] Absolute Neut 10.9 X10 3/uL High 2.0-7.7 [facility] Comment on above: Performed By: #### L 100.0100, L500.2500 #### [facility] [address] [place], [address] Basophils/100 WBC (Bld) 0.3 % Normal 0-1 [facility] Comment on above: Performed By: #### L 100.0100, L500.2500 #### [facility] [address] [place], [address] Eosinophils/100 WBC (Bld) 0.8 % Normal 0-5 [facility] Comment on above: Performed By: #### L 100.0100, L500.2500 #### [facility] [address] [place], [address] Erythrocyte distribution width (RBC) [Ratio] 13.4 % Normal 11.6-14.6 [facility] Comment on above: Performed By: #### L 100.0100, L500.2500 #### [facility] [address] [place], [address] Hematocrit (Bld) [Volume fraction] 34.4 % Low 37-47 [facility] Comment on above: Performed By: #### L 100.0100, L500.2500 #### [facility] [address] [place], [address] Hemoglobin (Bld) [Mass/Vol] 11.5 g/dL Low 12.0-15.0 [facility] Comment on above: Performed By: #### L 100.0100, L500.2500 #### [facility] [address] [place], [address] IG% 0.800 Normal 0.0-0.9 [facility] Comment on above: Result Comment: IG% - Immature Granulocytes (promyelocytes, myelocytes and metamyelocytes) > 1% indicates that a LEFT SHIFT is Present. Performed By: #### L 100.0100, L500.2500 #### [facility] [address] [place], [address] Lymphocytes/100 WBC (Bld) 13.3 % Low 19-41 [facility] Comment on above: Performed By: #### L 100.0100, L500.2500 #### [facility] [address] [place], [address] MCH (RBC) [Entitic mass] 31.3 pg Normal 27.0-32.0 [facility] Comment on above: Performed By: #### L 100.0100, L500.2500 #### [facility] [address] [place], [address] MCHC (RBC) [Mass/Vol] 33.4 g/dL Normal 32-36 [facility] Comment on above: Performed By: #### L 100.0100, L500.2500 #### [facility] [address] [place], [address] MCV (RBC) [Entitic vol] 93.5 fL Normal 81-99 [facility] Comment on above: Performed By: #### L 100.0100, L500.2500 #### [facility] [address] [place], [address] Monocytes/100 WBC (Bld) 10.1 % High 0-10 [facility] Comment on above: Performed By: #### L 100.0100, L500.2500 #### [facility] [address] [place], [address] Neutrophils/100 WBC (Bld) 74.7 % High 47-70 [facility] Comment on above: Performed By: #### L 100.0100, L500.2500 #### [facility] [address] [place], [address] Nucleated RBC (Bld) [#/Vol] 0 10*3/uL Normal 0-5 [facility] Comment on above: Performed By: #### L 100.0100, L500.2500 #### [facility] [address] [place], [address] Platelet mean volume (Bld) [Entitic vol] 10.1 fL Normal 6.2-12.0 [facility] Comment on above: Performed By: #### L 100.0100, L500.2500 #### [facility] [address] [place], [address] Platelets (Bld) [#/Vol] 257 10*3/uL Normal 150-450 [facility] Comment on above: Performed By: #### L 100.0100, L500.2500 #### [facility] [address] [place], [address] RBC (Bld) [#/Vol] 3.68 10*6/uL Low 4.2-5.4 [facility] Comment on above: Performed By: #### L 100.0100, L500.2500 #### [facility] [address] [place], [address] RDW SD 46.0 fl High 35.1-43.9 [facility] Comment on above: Performed By: #### L 100.0100, L500.2500 #### [facility] [address] [place], [address] WBC (Bld) [#/Vol] 14.6 10*3/uL High 4.4-11.0 [facility] Comment on above: Performed By: #### L 100.0100, L500.2500 #### [facility] [address] [place], [address] 12 Lead EKGon 03-25-2025 12 Lead EKG [facility] Cardiovascular Services [address] [place] [address] 12 Lead EKG 03/25/25 1020 MR#: [id number] Acct: [id number] Name: JAMILA LOPES Rep #: [id number] : 1940 84 From: Carlos Eduardo Zafar MD Attending Dr: Dr. Barbara Galloway MD Status: DI S IN Ordering Dr: Isreal Kelly MD Date: 03/25/25 Location: [facility] Sex: F C Admitted: 03/25/25 Test Reason : DIZZY Blood Pressure : */* mmHG Vent. Rate : 60 BPM Atrial Rate : 60 BPM P-R Int : 190 ms QRS Dur : 94 ms QT Int : 426 ms P-R-T Axes : 24 -41 40 degrees QTcB Int : 426 ms Normal sinus rhythm Left axis deviation Low voltage QRS Cannot rule out Anterior infarct , age undetermined Abnormal ECG Confirmed by CARLOS EDUARDO ZAFAR MD ([id number]), school photograph editor OBI CHAUDHARY ([id number]) on 03/28/2025 9:55:33 AM Referred By: Miguel Manning Confirmed By: CARLOS EDUARDO ZAFAR MD 03/28/25 0955 Date Carlos Eduardo Zafar MD CC: Dr. Isreal Kelly MD; Dr. Estela Osborne DO; Dr. Barbara Galloway MD; Dr. Miguel Manning MD Signed Normal [facility] Bilirubin Test strip Ql (U)O rdered By: Isreal Kelly on 03-25-2025 Bilirubin Ql (U) Negative Negative [facility] Bilirubin, totalOrdered By: Isreal Kelly on 03-25-2025 Bilirubin [Mass/Vol] 0.93 mg/dL 0.00-1.30 [facility] Blood cultureOrdered By: Macario Kelly on 03-25-2025 Bacteria identified Cx Nom (Bld) No growth in 5 days. [facility] Blood manual differential co mment interpretation (narrative result)Ordered By: Isreal Kelly on 03-25-2025 Manual differential comment Carlos (Bld) [Interp] See comment [facility] Comment on above: MONOCYTOSIS CBC W/Diff, Automatedon 05-0 SMEAR COMMENT Normal [facility] Comment on above: Result Comment: MONO CYTOSIS Performed By: #### L 100.0100, L500.2500 #### [facility] [address] [facility], [address] Chest PA and Lateralon 03-25 Chest PA and Lateral [facility] Imaging Services [address] [place], [place] [address] Chest PA and Lateral MR#: [id number] Acct: [id number] Name: JAMILA LOPES Rep #: [id number] : 1940 F 84 From: Hilario Vasquez MD PCP: Dr. Estela Osborne, DO Status: REG ER Study: Chest PA and Lateral Date of Exam: 03/25/25 Exam# [id number] Ordering Dr: Isreal Kelly MD PROCEDURE: CHEST PA AND LATERAL (RADCXR), 03/25/2025 REASON FOR EXAM: WEAKNESS TECHNIQUE: PA and lateral views of the chest were obtained. COMPARISON: 04/12/2024 FINDINGS: Lung apices partially obscured by the superimposed chin/neck. Heart: Unremarkable. Mediastinum: Trace atherosclerosis in the arch Lungs/pleura: Trace interstitial prominence in the lung bases no pleural effusion or visible pneumothorax. Bones: Demineralization. Partially imaged lumbar spinal fusion hardware. Lower thoracic anterior wedge compression deformity is age indeterminate but new from 03/31/2018. Suspect kyphoplasty/vertebr oplasty at that level. Lines and support devices: None. Other: None. RAD/Chest PA and Lateral IMPRESSION: 1. Findings suggestive of mild interstitial edema or perhaps atypical pneumonia/pneumonit is in the bilateral lung bases. 2. Lower thoracic compression deformity is age indeterminate but new from 03/31/2018. There appears to have been kyphoplasty/vertebr oplasty at this level. Correlate with history and point tenderness. 3. Additional description as above. Reading Location: [id number] CC: Dr. Isreal Kelly MD; Dr. Estela Osborne DO Charity Fundraiser: Signed Normal [facility] Comprehensive Metabolic Prof ilon 03-25-2025 Albumin [Mass/Vol] 4.1 g/dL Normal 3.4-4.8 [facility] Comment on above: Performed By: #### L 100.0100, L500.2500 #### [facility] [address] [place], [address] Albumin/Globulin [Mass ratio] 1.3 {ratio} Normal 0.9-2.4 [facility] Comment on above: Performed By: #### L 100.0100, L500.2500 #### [facility] [address] [place], [address] ALK PHOS 108 U/L High 35-104 [facility] Comment on above: Performed By: #### L 100.0100, L500.2500 #### [facility] [address] [place], [address] ALT [Catalytic activity/Vol] 10 U/L Normal <=34 [facility] Comment on above: Performed By: #### L 100.0100, L500.2500 #### [facility] [address] [place], [address] AST [Catalytic activity/Vol] 24 U/L Normal <=31 [facility] Comment on above: Performed By: #### L 100.0100, L500.2500 #### [facility] [address] [place], [address] Bilirubin [Mass/Vol] 0.93 mg/dL Normal 0.00-1.30 [facility] Comment on above: Performed By: #### L 100.0100, L500.2500 #### [facility] [address] [place], [address] BUN/CRE 19.5 RATIO Normal 10-20 [facility] Comment on above: Performed By: #### L 100.0100, L500.2500 #### [facility] [address] [place], [address] Calcium [Mass/Vol] 9.4 mg/dL Normal 7.6-11.0 [facility] Comment on above: Performed By: #### L 100.0100, L500.2500 #### [facility] [address] [place], [address] Chloride [Moles/Vol] 95 mmol/L Low 98-108 [facility] Comment on above: Performed By: #### L 100.0100, L500.2500 #### [facility] [address] [place], [address] CO2 [Moles/Vol] 28.6 mmol/L Normal 21.0-32.0 [facility] Comment on above: Performed By: #### L 100.0100, L500.2500 #### [facility] [address] [place], [address] Creatinine [Mass/Vol] 1.71 mg/dL High 0.70-1.20 [facility] Comment on above: Performed By: #### L 100.0100, L500.2500 #### [facility] [address] [place], [address] ECRCL 19.86 ml/min Low 50-250 [facility] Comment on above: Performed By: #### L 100.0100, L500.2500 #### [facility] [address] [place], [address] GAP 12 Normal 5-15 [facility] Comment on above: Performed By: #### L 100.0100, L500.2500 #### [facility] [address] [place], [address] GFR/1.73 sq M.predicted among non-blacks MDRD (S/P/Bld) [Vol rate/Area] 29 mL/min/{1.73_m2} Low >60 [facility] Comment on above: Result Comment: mL/m in/1.73m2 CKD-EPI Creatinine Equation (2020) Performed By: #### L 100.0100, L500.2500 #### [facility] [address] [place], [address] Globulin (S) [Mass/Vol] 3.1 g/dL Normal 2.2-4.2 [facility] Comment on above: Performed By: #### L 100.0100, L500.2500 #### [facility] [address] [place], [address] Glucose [Mass/Vol] 103 mg/dL High 70-99 [facility] Comment on above: Performed By: #### L 100.0100, L500.2500 #### [facility] [address] [place], [address] Potassium [Moles/Vol] 3.3 mmol/L Normal 3.3-5.1 [facility] Comment on above: Performed By: #### L 100.0100, L500.2500 #### [facility] [address] [place], [address] Sodium [Moles/Vol] 136 mmol/L Normal 133-145 [facility] Comment on above: Performed By: #### L 100.0100, L500.2500 #### [facility] [address] [place], [address] T PROT 7.1 g/dL Normal 5.9-8.4 [facility] Comment on above: Performed By: #### L 100.0100, L500.2500 #### [facility] [address] [place], [address] Urea nitrogen [Mass/Vol] 33 mg/dL High 4-19 [facility] Comment on above: Performed By: #### L 100.0100, L500.2500 #### [facility] [address] [place], [address] Emergency Department Summary on 03-25-2025 Emergency Department Summary [facility] Medical Records Department [address] [place] [address] Emergency Department Summary 03/25/25 MR#: [id number] Acct: [id number] Name: JAMILA LOPES Rep #: [id number] : 1940 84 From: Isreal Kelly MD PCP: Dr. Estela Osborne, DO Status:REG ER Location: ED HPI History of Present Illness Chief Complaint: General Illness Informant: patient Onset/Context/Timin g Onset: Days Context: Gradual Onset Timing: Continuous Maximum Severity: Mild Narrative Narrative: 84-year-old female is complaining of generalized weakness. States my legs feel like noodles. States has been going on the last 3 days. Denies any recent medication changes. States she just feels exhausted. She denies any nausea, vomiting or diarrhea. She denies any fever or chills. She denies any dysuria or melena. She denies any abdominal or chest pain. She denies any cough or shortness of breath. Prior similar symptoms: No Recent Illness/Hospitaliza tion: No PFSH PFSH Medical History Wears glasses Wears dentures Cancer Ambulates with cane History of renal disease Easy bruising High cholesterol History of echocardiogram History of stress test Hypertension History of heart attack Chest pain Cardiology follow-up encounter Acute pneumonia Tuttle's palsy Macular degeneration Renal insufficiency Osteoarthritis Spondylosis Scoliosis Lumbar spinal stenosis History of non-ST elevation myocardial infarction (NSTEMI) Essential (primary) hypertension Hyperlipidemia Atherosclerotic heart disease of inupiat coronary artery without angina pectoris Low back pain Lumbar radiculopathy Home Medications ???Medication ???Instructions ???Recorded ???Last Taken ???Type aspirin 81 mg chewable tablet 81 mg PO DAILY heart health 01/09/25 History cyanocobalamin (vitamin B-12) 5,000 mcg sublingual QDAY 06/04/18 01/09/25 History 5,000 mcg/mL sublingual drops supplement (Vitamin B-12) pantoprazole 40 mg tablet,delayed 40 mg PO BID #60 tabs 04/12/24 Rx release amlodipine 5 mg tablet 5 mg PO DAILY #90 TABLETS 08/24/24 01/09/25 Rx atorvastatin 80 mg tablet 80 mg PO MOWEFR cholesterol 90 10/1701/09/25 Rx days #39 tabs metoprolol succinate 25 mg 25 mg PO QDAY blood pressure #90 1 11/27/23 01/09/25 Rx tablet,extended release 24 hr tabs isosorbide mononitrate 30 mg 30 mg PO DAILY #90 tabs 10/27/24 0 01/09/25 Rx tablet,extended release 24 hr amitriptyline 10 mg tablet 10 mg PO QDAY #30 tabs 11/26/24 Rx biotin 5 mg capsule 5 mg PO QDAY 03/14/25 Unknown Hist ory cholecalciferol (vitamin D3) 25 25 mcg PO QDAY 03/14/25 Unknown Hi story mcg (1,000 unit) tablet furosemide 20 mg tablet 20 mg PO QDAY swelling 03/14/25 Un known History tramadol 50 mg tablet 25 - 50 mg PO TID PRN pain 5 Unknown History Allergy/AdvReac Type Severity Reaction Status Date / Time gabapentin Allergy Hives Verified 03/25/25 09:45 tomato Allergy Rash Verified 03/25/25 09:45 Family History Father , Age 89 Congestive heart failure Mother , Age 86 CVA (cerebral vascular accident) Hypertension Hyperlipidemia Sister , age 11 in MVA No problems noted. Surgical History History of back surgery ( 01/2024) History of cardiac catheterization History of appendectomy History of elbow surgery History of hysterectomy History of eyelid surgery ( 06/2023) History of laminectomy (08/2018) History of coronary artery stent placement (07/19/15) Social History Smoking Status: Former smoker how long ago did patient quit smokin alcohol intake: current alcohol intake frequency: a few times a week Alcohol type: wine substance use type: does not use caffeine: Yes Type: tea Number of servings: 4 ROS ROS ED ROS Narrative Generalized weakness. Constitutional Constitutional ED: Denies chills or fever(s) Eyes Eyes: Denies blurry vision ENT ENT ED: Denies ear pain Cardiovascular Cardiovascular: Denies chest pain Respiratory/Chest Respiratory/Chest: Denies cough or dyspnea Gastrointestinal Gastrointestinal: Denies abdominal pain, diarrhea, nausea or vomiting Genitourinary Genitourinary ED: Denies dysuria or hematuria Musculoskeletal Musculoskeletal: Denies arthralgias Integumentary Denies abscess Neurologic Neurologic: Denies headache(s) Psychiatric Psychiatric: Denies anxiety Endocrine Endocrinology: Denies cold intolerance Hematologic/Lymphat ic Hematologic/Lymphat ic: Reports none Allergic/Immunologi c Allergic/Immunologi c ED: Denies mouth (more content not included)... Normal [facility] H AND P Exam - Hospitaliston 03-25-2025 H&P Exam - Hospitalist [facility] Medical Records Department [address] [place] [address] H P Exam - Hospitalist 03/25/25 1655 MR#: [id number] Acct: [id number] Name: JAMILA LOPES Rep #: [id number] : 1940 84 From: Miguel Manning MD PCP: Dr. Estela Osborne, DO Status:ADM IN Location: [facility] [id number] HPI - General General Date of Admission: 03/25/25 HPI Narrative JAMILA LOPES, is a 84 F who presents to the hospital with lightheadedness and dizziness with near syncope. She also says that for the last day or 2 she is not feeling chills at home and thinks that she had a fever though she never checked the temperature. On presentation to the hospital she was found to have a leukocytosis to 17 and she was severely orthostatic with a systolic down to the 50s with standing though blood pressures are normal when she is sitting or laying down. She does not have any dizziness when she is sitting or lying down only when she is standing. UA was mildly positive for a UTI so she was started on IV fluids and antibiotic. She denies any dysuria or frequency, no changes in her urination. [facility] Medical History Wears glasses Wears dentures Cancer Ambulates with cane History of renal disease Easy bruising High cholesterol History of echocardiogram History of stress test Hypertension History of heart attack Chest pain Cardiology follow-up encounter Acute pneumonia Tuttle's palsy Macular degeneration Renal insufficiency Osteoarthritis Spondylosis Scoliosis Lumbar spinal stenosis History of non-ST elevation myocardial infarction (NSTEMI) Essential (primary) hypertension Hyperlipidemia Atherosclerotic heart disease of inupiat coronary artery without angina pectoris Low back pain Lumbar radiculopathy Home Medications ???Medication ???Instructions ???Recorded ???Last Taken ???Type aspirin 81 mg chewable tablet 81 mg PO DAILY heart health 03/25/25 History cyanocobalamin (vitamin B-12) 5,000 mcg sublingual QDAY 06/04/18 03/25/25 History 5,000 mcg/mL sublingual drops supplement (Vitamin B-12) pantoprazole 40 mg tablet,delayed 40 mg PO BID #60 tabs 04/12/24 Rx release amlodipine 5 mg tablet 5 mg PO DAILY #90 TABLETS 08/24/24 03/25/25 Rx atorvastatin 80 mg tablet 80 mg PO MOWEFR cholesterol 90 10/1703/23/25 Rx days #39 tabs isosorbide mononitrate 30 mg 30 mg PO DAILY #90 tabs 10/27/24 0 03/25/25 Rx tablet,extended release 24 hr biotin 5 mg capsule 5 mg PO DAILY 03/14/25 03/25/25 Hi story cholecalciferol (vitamin D3) 25 25 mcg PO DAILY 03/14/25 03/25/25 History mcg (1,000 unit) tablet furosemide 20 mg tablet 20 mg PO DAILY PRN swelling Unknown History tramadol 50 mg tablet 25 - 50 mg PO TID PRN pain 5 03/24/25 History amitriptyline 10 mg tablet 10 mg PO DAILY 03/25/25 03/25/25 H istory metoprolol succinate 25 mg 25 mg PO DAILY blood pressure 01/1803/25/25 History tablet,extended release 24 hr nemolizumab-ilto subcut 03/25/25 03/21/25 History Allergy/AdvReac Type Severity Reaction Status Date / Time gabapentin Allergy Hives Verified 03/25/25 09:45 tomato Allergy Rash Verified 03/25/25 09:45 Family History Father , Age 89 Congestive heart failure Mother , Age 86 CVA (cerebral vascular accident) Hypertension Hyperlipidemia Sister , age 11 in MVA No problems noted. Surgical History History of back surgery ( 01/2024) History of cardiac catheterization History of appendectomy History of elbow surgery History of hysterectomy History of eyelid surgery ( 06/2023) History of laminectomy (08/2018) History of coronary artery stent placement (07/19/15) Social History Smoking Status: Former smoker how long ago did patient quit smokin alcohol intake: current alcohol intake frequency: a few times a week Alcohol type: wine substance use type: does not use caffeine: Yes Type: tea Number of servings: 4 ROS Constitutional Constitutional: Reports chills and fever(s); Denies fatigue or malaise Eyes Eyes: Denies blurry vision ENT HEENT: Denies headache(s) or nasal discharge Cardiovascular Cardiovascular: Reports lightheadedness; Denies chest pain, dyspnea on exertion or syncope Respiratory/Chest Respiratory/Chest: Denies cough, shortness of breath at rest or shortness of breath with exertion Gastrointestinal Gastrointestinal: Denies constipation, diarrhea, nausea or vomiting Genitourinary Genitourinary: Denies dysuria Neurologic Neurologic: Denies focal weakness, numbness or tremor(s) Psychiatric Psy (more content not included)... Normal [facility] Ketones Test strip Ql (U)Ord ered By: Isreal Kelly on 03-25-2025 Ketones Ql (U) Negative Negative [facility] - Chemistry and C hemistry - challengeOrdered By: Isreal Kelly on 03-25-2025 AST [Catalytic activity/Vol] 24 U/L <32 [facility] Microscopic analysis of urin e for red blood cells (RBC)Ordered By: Isreal Kelly on 03-25-2025 Microscopic analysis of urine for red blood cells (RBC) 0 SEEN /hpf 0-5 [facility] Mucus LM Ql (Urine sed)Order ed By: Isreal Kelly on 03-25-2025 Mucus Ql (Urine sed) 0 SEEN /hpf [facility] Nitrite Test strip Ql (U)Ord ered By: Isreal Kelly on 03-25-2025 Nitrite Ql (U) Negative Negative [facility] Protein Test strip Ql (U)Ord ered By: Isreal Kelly on 03-25-2025 Protein Ql (U) 15 mg/dl High Negative [facility] Serum globulin measurementOr dered By: Isreal Kelly on 03-25-2025 Globulin (S) [Mass/Vol] 3.1 g/dL 2.2-4.2 [facility] Serum or plasma alanine bear otransferase (ALT) measurementOrdered By: Isreal Kelly on 03-25-2025 ALT [Catalytic activity/Vol] 10 U/L <35 [facility] Serum or plasma albumin colten urement (mass/volume)Ordered By: Isreal Kelly on 03-25-2025 Albumin [Mass/Vol] 4.1 g/dL 3.4-4.8 [facility] Serum or plasma albumin/glob ulin mass ratioOrdered By: Isreal Kelly on 03-25-2025 Albumin/Globulin [Mass ratio] 1.3 {ratio} 0.9-2.4 [facility] Serum or plasma alkaline sandra sphatase measurementOrdered By: Isreal Kelly on 03-25-2025 ALP [Catalytic activity/Vol] 108 U/L High 35-104 [facility] Squamous epithelial cells de tection in urine sediment by light microscopyOrdered By: Isreal Kelly on 03-25-2025 Epithelial cells.squamous LM Ql (Urine sed) 0 SEEN /hpf 5-10 [facility] Total proteinOrdered By: Macario Kelly on 03-25-2025 Protein [Mass/Vol] 7.1 g/dL 5.9-8.4 [facility] Urinalysis, Completeon 03-25 BACTERIA 1+ /hpf Normal None Seen [facility] Comment on above: Order Comment: CLEAN CATCH Performed By: #### L 100.0100, L500.2500 #### [facility] [address] [place], [address] WBC 5-10 SEEN Normal 0-5 [facility] Comment on above: Order Comment: CLEAN CATCH Performed By: #### L 100.0100, L500.2500 #### [facility] [address] [place], [address] EPI,SQUAMOUS 0 SEEN Normal 5-10 [facility] Comment on above: Order Comment: CLEAN CATCH Performed By: #### L 100.0100, L500.2500 #### [facility] [address] [place], [address] Mucus Ql (Urine sed) 0 SEEN Normal [facility] Comment on above: Order Comment: CLEAN CATCH Performed By: #### L 100.0100, L500.2500 #### [facility] [address] [place], [address] RBC 0 SEEN Normal 0-5 [facility] Comment on above: Order Comment: CLEAN CATCH Performed By: #### L 100.0100, L500.2500 #### [facility] [address] [place], [address] Urine clarityOrdered By: Macario Kelly on 03-25-2025 Clarity (U) Clear Clear [facility] Urine color determinationOrd ered By: Isreal Kelly on 03-25-2025 Color (U) Yellow Yellow [facility] Urine cultureOrdered By: Macario Kelly on 03-25-2025 Bacteria identified Cx Nom (U) Presumptive E. coli Abnormal [facility] Urine glucose detectionOrder ed By: Isreal Kelly on 03-25-2025 Glucose Ql (U) Normal mg/dl Normal [facility] Urine leukocyte esterase det ection by dipstickOrdered By: Isreal Kelly on 03-25-2025 Leukocyte esterase Test strip Ql (U) 100 /ul High Negative [facility] Urine pHOrdered By: Isreal Jama ghjorden on 03-25-2025 pH (U) 6.0 [pH] 5.0 - 8.0 [facility] Urine sediment bacteria coun t by microscopy (number/high power field)Ordered By: Isreal Kelly on 03-25-2025 Bacteria LM.HPF (Urine sed) [#/Area] 1 /[HPF] None Seen [facility] Urine specific gravity measu rementOrdered By: Isreal Kelly on 03-25-2025 Specific gravity (U) [Rel density] 1.010 1.002-1.030 [facility] Urine urobilinogen measureme ntOrdered By: Isreal Kelly on 03-25-2025 Urobilinogen Ql (U) Normal mg/dl Normal [facility] White blood cell countOrdere d By: Isreal Kelly on 03-25-2025 White blood cell count 5-10 SEEN /hpf 0-5 [facility] Cardiology Visit Reporton Cardiology Visit Report [facility] [address] [address] [place], [place] [address] OFFICE VISIT Date of Service: 03/14/25 MR#: [id number] Acct: [id number] Name: JAMILA LOPES Rep #: [id number] : 1940 Provider: REJI dao Age/Sex: 84/F Location: [facility] Status: Signed HPI HPI History of Present Illness Details: JAMILA LOPES, is an 84 F who presents to the office today for a cardiovascular followup. She has a history of coronary artery disease. She had a heart catheterization in July of 2015 which demonstrated stenosis of the LAD, circumflex and RCA. She had angioplasty and stenting with drug- eluting stents to her LAD as well as her circumflex. She also has a history of hypertension, and hyperlipidemia. She did undergo stress testing in July 2022 with no evidence of ischemia and a recent echocardiogram from April of this year with an ejection fraction of 60% with stage I diastolic dysfunction. She denies chest, arm, jaw, or neck discomfort. She denies palpitations. She utilizes compression stockings/pumps to assist with bilateral lower extremity edema. She denies claudication. She states shortness of breath with hurried activity. She denies shortness of breath at rest, orthopnea, or PND. She denies chronic cough. She denies significant, sudden weight gain. She states lightheadedness. She denies dizziness, near-syncope, or syncope. She denies blood in urine, blood in stool, or epistaxis. He denies fever with chills. She denies myalgia. She states fatigue. Her exercise level has remained stable. Intake Vital Signs 05/26/24 13:24 12/02/24 15:16 01/10/25 08:04 03/14/25 13:39 Height 4 ft 11.06 in 4 ft 11.06 in 4 ft 11 in 4 ft 11 in Weight: 131 lb BMI 26.4 BP 128/81 H Blood Pressure Location Lt brachial Position Sitting Respiration 16 Pulse 67 Pulse Source NIBP Intake Visit Reasons: 6 M FU Disintegrator Operator Required: No Is patient in pain?: No Allergies gabapentin Allergy (Verified 03/14/25 13:43) Hives tomato Allergy (Verified 03/14/25 13:43) Rash Medications ???Medication ???Instructions ???Recorded ???Confirmed ???Type aspirin 81 mg chewable tablet 81 mg PO DAILY heart health 03/14/25 History cyanocobalamin (vitamin B-12) 5,000 mcg sublingual QDAY 06/04/18 03/14/25 History 5,000 mcg/mL sublingual drops supplement (Vitamin B-12) pantoprazole 40 mg tablet,delayed 40 mg PO BID #60 tabs 04/12/24 Rx release amlodipine 5 mg tablet 5 mg PO DAILY #90 TABLETS 08/24/24 03/14/25 Rx atorvastatin 80 mg tablet 80 mg PO MOWEFR cholesterol 90 10/1703/14/25 Rx days #39 tabs metoprolol succinate 25 mg 25 mg PO QDAY blood pressure #90 1 11/27/23 03/14/25 Rx tablet,extended release 24 hr tabs isosorbide mononitrate 30 mg 30 mg PO DAILY #90 tabs 10/27/24 0 03/14/25 Rx tablet,extended release 24 hr amitriptyline 10 mg tablet 10 mg PO QDAY #30 tabs 11/26/24 Rx biotin 5 mg capsule 5 mg PO QDAY 03/14/25 03/14/25 His tory cholecalciferol (vitamin D3) 25 25 mcg PO QDAY 03/14/25 03/14/25 H istory mcg (1,000 unit) tablet furosemide 20 mg tablet 20 mg PO QDAY swelling 03/14/25 History tramadol 50 mg tablet 25 - 50 mg PO TID PRN pain 5 03/14/25 History Ejection fraction %: 60 Have you fallen in the past year?: Yes PFSH Medical History Wears glasses Wears dentures Cancer Ambulates with cane History of renal disease Easy bruising High cholesterol History of echocardiogram History of stress test Hypertension History of heart attack Chest pain Cardiology follow-up encounter Acute pneumonia Tuttle's palsy Macular degeneration Renal insufficiency Osteoarthritis Spondylosis Scoliosis Lumbar spinal stenosis History of non-ST elevation myocardial infarction (NSTEMI) Essential (primary) hypertension Hyperlipidemia Atherosclerotic heart disease of inupiat coronary artery without angina pectoris Low back pain Lumbar radiculopathy Surgical History History of back surgery ( 01/2024) History of cardiac catheterization History of appendectomy History of elbow surgery History of hysterectomy History of eyelid surgery ( 06/2023) History of laminectomy (08/2018) History of coronary artery stent placement (07/19/15) Family History Father , Age 89 Congestive heart failure Mother , Age 86 CVA (cerebral vascular accident) Hypertension Hyperlipidemia Sister , age 11 in MVA No problems noted. Social History Smoking Status: Former smoker how long ago did patient quit smokin (more content not included)... Normal [facility] Breast imaging reportOrdered By: Elba Peralta on 02-21-2025 Study report [facility] Imaging Services [address] [place], [place] [id number] SCRN MAMM (CAD)W/MACO MARTINEZ MR#: [id number] Acct: [id number] Name: JAMILA LOPES Rep #: [id number] : 1940 F 84 From: Olayinka Peralta DO PCP: Dr. Estela Osborne, DO Status: REG CLI Study:SCRN MAMM (CAD)W/MACO BILAT Date of Exa m: 02/21/25 Exam# [id number] Ordering Dr: Le Osborne sa, DO EXAM: SCRN MAMM (CAD)W/MACO BILAT DATE: 02/21/2025 CLINICAL HISTORY: F, Age 84 y/o , SCREENING BREAST CANCER RISK ASSESSMENT: Has not been calculated. TECHNIQUE: Bilateral screening digital breast tomosynthesis with 2D and 3D images. Computeraided detection. COMPARISON: Prior exam(s) dated 02/20/2024 and 02/10/2023. FINDINGS: TISSUE DENSITY: The breast tissue is heterogenously dense, which may obscure small masses. Bilateral Breast Mammographic Findings: There are no suspicious masses, suspicious clustered microcalcifications , architectural distortion or secondary signs of malignancy identified in either breast. Stable nodular masslike densities are seen in both breasts. Benign round microcalcifications are seen in the right breast. BI/SCRN MAMM (CAD)W/MACO BILAT IMPRESSION: Right Breast: BIRADS 2 BENIGN FINDING. Left Breast: BIRADS 2 BENIGN FINDING. OVERALL FINAL ASSESSMENT: BIRADS 2 BENIGN FINDING RECOMMENDATION: Routine annual follow-up in 1 Year A letter with findings and recommendations will be mailed to the patient. Reading Location: [id number] CC: Dr. Estela Osborne DO ~ Charity Fundraiser: Signed [facility] SCRN MAMM (CAD)W/MACO BILATo n 02-21-2025 SCRN MAMM (CAD)W/MACO BILAT [facility] Imaging Services [address] [place] [address] [id number] SCRN MAMM (CAD)W/MACO BILAT MR#: [id number] Acct: [id number] Name: JAIMLA LOPES Rep #: [id number] : 1940 F 84 From: Elba Brewster PCP: Dr. Estela Osborne DO Status: REG CLI Study: SCRN MAMM (CAD)W/MACO BILAT Date of Exam: 01/24 12/18 Exam# [id number] Ordering Dr: Estela Osborne DO EXAM: SCRN MAMM (CAD)W/MACO BILAT DATE: 02/21/2025 CLINICAL HISTORY: F, Age 84 y/o , SCREENING BREAST CANCER RISK ASSESSMENT: Has not been calculated. TECHNIQUE: Bilateral screening digital breast tomosynthesis with 2D and 3D images. Computer aided detection. COMPARISON: Prior exam(s) dated 02/20/2024 and 02/10/2023. FINDINGS: TISSUE DENSITY: The breast tissue is heterogenously dense, which may obscure small masses. Bilateral Breast Mammographic Findings: There are no suspicious masses, suspicious clustered microcalcifications , architectural distortion or secondary signs of malignancy identified in either breast. Stable nodular masslike densities are seen in both breasts. Benign round microcalcifications are seen in the right breast. BI/SCRN MAMM (CAD)W/MACO BILAT IMPRESSION: Right Breast: BIRADS 2 BENIGN FINDING. Left Breast: BIRADS 2 BENIGN FINDING. OVERALL FINAL ASSESSMENT: BIRADS 2 BENIGN FINDING RECOMMENDATION: Routine annual follow-up in 1 Year A letter with findings and recommendations will be mailed to the patient. Reading Location: [facility] CC: Dr. Estela Osborne DO Charity Fundraiser: Signed Normal [facility] L/S Spine w Bend Min 6 Vwon 01-10-2025 L/S Spine w Bend Min 6 Vw [facility] Imaging Services [address] [place], [place] [address] L/S Spine w Bend Min 6 Vw MR#: [id number] Acct: [id number] Name: JAMILA LOPES Rep #: [id number] : 1940 F 84 From: Hilario Deluna MD PCP: Dr. Estela Osborne DO Status: [facility] Study: L/S Spine w Bend Min 6 Vw Date of Exam: Exam# [id number] Ordering Dr: Evaristo Bowen MD Fluoroscopy guidance was used intraoperatively. Please refer to the operative note for further details. Total 7 image. Total radiation dose 3.58 mGy. Total fluoroscopy time 9.6 seconds. Reading Location: [facility] CC: Dr. Evaristo Bowen MD; Dr. Estela Osborne DO Charity Fundraiser: Signed [facility] MR/POSTOP.ANEon 01-10-2025 MR/POSTOP.[facility] Medical Records Department [address] [place] [address] Anesthesia Postop Eval I 01/10/25 0906 MR#: [id number] Acct: [id number] Name: JAMILA LOPES Rep #: [id number] : 1940 84 From: Jamaal Wan CRNA PCP: Dr. Estela Osborne, DO Status:[facility] Y Race: C Location: [place] [address] Anesthesia: Postop Eval I Current Vital Signs Temperature: 97.2 F Pulse Rate: 53 Blood Pressure: 133/49 Respiratory Rate: 16 Pulse Ox: 100 Assessment Airway patent: Yes Spontaneous unlabored respirations: Yes nausea: No Vomiting: No Anesthesia Complication: No Fluid Hydration Crystalloid volume administer (ml): 10 Total IV fluid infused: 10 Progress Note Anesthesia document: Postop Eval 1 completed: Yes 01/10/25906 Date Jamaal Wan PIPELINE INSPECTOR Cosigner Signature: Date CC: Signed [facility] MR/[id number] 01-10-2025 MR/POSTOPAN2 [facility] Medical Records Department [address] [address] Anesthesia Postop Eval II 01/10/25 1110 MR#: [id number] Acct: [id number] Name: JAMILA LOPES Rep #: [id number] : 1940 84 From: Cirilo Dunaway MD PCP: Dr. Estela Osborne, DO Status:DEP [facility] Y Race: C Location: [facility] Anesthesia Postop Eval I Sum Postop Eval Completion status Anesthesia document: Postop Eval 1 completed: Yes Anesthesia Postop Eval I Summary Anesthesia Postop Eval I Summary: Anesthesia Postop Eval I: Assessment Summary Airway patent Yes 01/10/25 09:06 PIPELINE INSPECTOR.TNES Spontaneous unlabored Yes 01/10/25 09:06 PIPELINE INSPECTOR.TNES respirations Mental status nausea No 01/10/25 09:06 PIPELINE INSPECTOR.TNES Vomiting No 01/10/25 09:06 PIPELINE INSPECTOR.TNES Anesthesia Postop Eval I: Fluid Summary Crystalloid volume administer 10 01/10/25 09:06 PIPELINE INSPECTOR.TNES (ml) Colloids volume administered ( ml) Blood Product volume administered (ml) Total IV fluid infused 10 01/10/25 09:06 PIPELINE INSPECTOR.TNES Anesthesia Postop Eval I: Summary Notes Anesthesia Complication No 01/10/25 09:06 PIPELINE INSPECTOR.TNES Anesthesia Complication Comment: Post-operative progress note Anesthesia: Postop Eval II Evaluation Mental status: Awake Pain Level: 0 nausea: No Vomiting: No 01/10/25 1110 Date Cirilo Martinez Signature: Date CC: Signed [facility] Operative Reporton 5 Operative Report [facility] Medical Records Department [address] [place] [address] Operative Report 01/10/25 0900 MR#: [id number] Acct: [id number] Name: MEREDITH,JAMILA S Rep #: [id number] : 1940 84 From: Evaristo Bowen MD PCP: Dr. Estela Osborne, DO Status:REG [facility] Location: [place] [address] Operative Report (Standard) Operative Information Date of Procedure: 01/10/25 Pre-Operative Diagnosis: 1 Post-Operative Diagnosis: 1 Surgery/Procedure Performed: 1 career development consultant: No Type of Anesthesia: Local MAC RN Documented Start/Stop Times: Operation Date: 01/10/25 09:20 Case Time Into Pre-Op 01/10/25 07:46 Out of Pre-Op 01/10/25 08:35 Anesthesia Start 01/10/25 08:48 Into Room 01/10/25 08:48 Procedure Start 01/10/25 08:54 Procedure End 01/10/25 08:59 Procedure Start Time: 09:00 Procedure Stop Time: 09:00 Select all DRAINS/GRAFTS/IMPLA NTS that apply: None Estimated Blood Loss: 0 Specimen collected: No Description of surgery: Pre-Operative Diagnosis: Lumbosacral spondylosis, lumbosacral degenerative disc disease, lumbar facet arthropathy Post-Operative Diagnosis: Lumbosacral spondylosis, lumbosacral degenerative disc disease, lumbar facet arthropathy PROCEDURE PERFORMED: Bilateral lumbar medial branch block at, L1, L2, and L3 ANESTHESIA: MAC. BLOOD LOSS: Minimal. COMPLICATIONS: None. DESCRIPTION OF PROCEDURE: History and physical of today was reviewed. Risks and benefits of the procedure were explained. The patient understood and agreed to proceed. Informed consent was obtained. IV inserted per routine protocol. The patient was taken to the operating room and placed in the prone position with a pillow positioned underneath the abdomen. The lower back area was prepped and draped in a sterile fashion using iodine x3. Under fluoroscopy guidance on AP view, the L4 through S1 vertebral bodies were visualized. The skin and subcutaneous tissue was anesthetized with approximately 5 mL of 1% lidocaine using a 25-gauge regular needle. Under direct visualization with fluoroscopy, at approximately 25-degree angle, starting on the left L1, ending on the right L2, passing through the L2 and L3 bilaterally, using a 22-gauge 3-1/2-inch spinal needle, the needle was advanced via the skin. The tip of the needle was maneuvered and directed towards the superior medial gutter of the transverse process at the vicinity of the medial branch. Once tip of the needle was in contact with the bone, the needle was pulled approximately 2 mm off the bone. After negative aspiration for blood or CSF and confirmation on AP, oblique as well as lateral view, a total of 12 mL of preservative-free 0.25% Marcaine with 80 mg of Depo-Medrol was injected in divided doses between those six levels. The needles were then removed intact. The patient experienced no sign or symptoms of intrathecal or intravascular injection. The patient experienced no paresthesia. The procedure was completed without any apparent difficulty or any complications. The patient appeared to tolerate it well. ASSESSMENT AND PLAN: This is an 84-year-old female with lumbosacral spondylosis, lumbosacral degenerative disc disease, lumbar facet arthropathy status post bilateral lumbar medial branch block at L1-L3, patient will continue her current medications, patient will follow-up in approximately 2 weeks for reevaluation. Surgical Findings: none Complications Complications: No Admit VTE Documentation VTE Present on Admission: No VTE Mechan Device Prophylaxis: None VTE Pharm Prophylaxis ordered?: No 01/10/25 0901 Cosigner Signature (if applicable): CC: Dr. Evaristo Bowen MD; Dr. Estela Osborne DO Signed [facility] Urgent Care Visit Reporton 0 12-02-2024 Urgent Care Visit Report [facility] [address], [address] [place] [address] OFFICE VISIT Date of Service: 12/02/24 MR#: [id number] Acct: [id number] Name: JAMILA LOPES Rep #: [id number] : 1940 Provider: TAWANDA Armas Age/Sex: 84/F Location: [facility] Status: Signed Intake Vital Signs 05/26/24 13:24 12/02/24 15:16 Height 4 ft 11.06 in 4 ft 11.06 in Weight: 133 lb 131 lb 4 oz BMI 26.8 26.4 BP 120/71 118/66 Blood Pressure Location Lt brachial Rt brachial Position Sitting Sitting Respiration 18 17 Pulse 75 82 Pulse Source Monitor NIBP Temp 97.7 F L Temp Source Oral Pulse Oximetry (%) 93 96 Oxygen Delivery Method room air Intake Visit Reasons: L ARM OPEN WOUND FROM FALL Chief Complaint: left forearm wound Disintegrator Operator Required: No Is patient in pain?: No Allergies gabapentin Allergy (Verified 12/02/24 15:31) Hives tomato Allergy (Verified 12/02/24 15:31) Rash Is last menstrual period known: No Post menopausal: Yes Patient : No Have you fallen in the past year?: Yes Nurse's Note: wound left forearm s/p fall one week ago. large wound mid forearm noted, wound bed with red/beefy tissue, no signs of infection noted and no active bleeding. pt looking for bandage assistance as whatever she tries creates bleeding upon removal. [facility] Medical History Wears glasses Wears dentures Cancer Ambulates with cane History of renal disease Easy bruising High cholesterol History of echocardiogram History of stress test Hypertension History of heart attack Chest pain Cardiology follow-up encounter Acute pneumonia Tuttle's palsy Macular degeneration Renal insufficiency Osteoarthritis Spondylosis Scoliosis Lumbar spinal stenosis History of non-ST elevation myocardial infarction (NSTEMI) Essential (primary) hypertension Hyperlipidemia Atherosclerotic heart disease of inupiat coronary artery without angina pectoris Low back pain Lumbar radiculopathy Surgical History History of back surgery ( 01/2024) History of cardiac catheterization History of appendectomy History of elbow surgery History of hysterectomy History of eyelid surgery ( 06/2023) History of laminectomy (08/2018) History of coronary artery stent placement (07/19/15) Family History Father , Age 89 Congestive heart failure Mother , Age 86 CVA (cerebral vascular accident) Hypertension Hyperlipidemia Sister , age 11 in MVA No problems noted. Social History Smoking Status: Former smoker how long ago did patient quit smokin alcohol intake: current alcohol intake frequency: a few times a week Alcohol type: wine substance use type: does not use caffeine: Yes Type: tea Number of servings: 4 HPI HPI Chief Complaint: left forearm wound Details: JAMILA LOPES, is a 84 F who presents to the office today for evaluation of a left arm wound. Patient states that she fell a week ago and sustained a skin tear to the left upper forearm and is looking for advice on how to treat it. She states that she has been using gauze and tape however this causes the scabbing to be ripped off every time she changes it. She denies any numbness, tingling or loss range of motion to the arm. She has had no fever, chills, sweats. No other associated symptoms or alleviating/aggrava ting factors. ROS Const Constitutional: Positive for other (6 system ROS completed with pertinent findings in the HPI otherwise normal.) Exam Const General: cooperative and healthy appearing Resp Effort Inspection: normal respiratory effort Cardio Rate: regular rate Skin Other: Skin tear left upper forearm with appropriate granulation tissue no extending erythema beyond the skin tear itself. The skin tear measures approximately 5 cm x 7 cm in a triangular pattern. Neuro General: patient alert Psych Appearance: grossly normal Mental Status: mental status grossly normal Coding Level of Care Code Off vis,est,level 3 Diagnoses Skin tear of left forearm without complication S51.812A Assessment and Plan Assessment and Plan (1) Skin tear of left forearm without complication: Status: Acute Plan: Wound was cleansed with Hibiclens and then dressed with oral emulsion dressing and Coban. Patient advised of ongoing wound management. Advised to follow-up with her PCP in 7 to 10 days if no better or sooner if worse. Patient verbalized understanding and agreement with all the above. Clinical Quality Measures Falls Risk Screening/Assistive Devices Have you fallen in the past year?: Yes 12/03/24 0713 (more content not included)... Normal [facility] Gastroenterology Visit Repor ton 11-26-2024 Gastroenterology Visit Report [facility] Gastroenterology [address] [place] [address] OFFICE VISIT Date of Service: 11/26/24 MR#: [id number] Acct: [id number] Name: JAMILA LOPES Rep #: [id number] : 1940 Provider: TAWANDA Dang Age/Sex: 84/F Location[place] [facility] Status: Signed Intake Vital Signs 05/26/24 13:24 Height 4 ft 11.06 in Weight: 133 lb BMI 26.8 BP 120/71 Blood Pressure Location Lt brachial Position Sitting Respiration 18 Pulse 75 Pulse Source Monitor Pulse Oximetry (%) 93 Intake Visit Reasons: 3 M FU Chief Complaint: dysphagia Allergies gabapentin Allergy (Verified 09/15/24 15:38) Hives tomato Allergy (Verified 09/15/24 15:38) Rash Have you fallen in the past year?: Yes Nurse's Note: OV 11.26.24 Pt here for f/u. Reports BM daily with consistency from loose to formed depending on diet. No other complaints at this time. Continues taking pantoprazole and amitriptyline daily. [facility] Medical History Wears glasses Wears dentures Cancer Ambulates with cane History of renal disease Easy bruising High cholesterol History of echocardiogram History of stress test Hypertension History of heart attack Chest pain Cardiology follow-up encounter Acute pneumonia Tuttle's palsy Macular degeneration Renal insufficiency Osteoarthritis Spondylosis Scoliosis Lumbar spinal stenosis History of non-ST elevation myocardial infarction (NSTEMI) Essential (primary) hypertension Hyperlipidemia Atherosclerotic heart disease of inupiat coronary artery without angina pectoris Low back pain Lumbar radiculopathy Surgical History History of back surgery ( 01/2024) History of cardiac catheterization History of appendectomy History of elbow surgery History of hysterectomy History of eyelid surgery ( 06/2023) History of laminectomy (08/2018) History of coronary artery stent placement (07/19/15) Family History Father , Age 89 Congestive heart failure Mother , Age 86 CVA (cerebral vascular accident) Hypertension Hyperlipidemia Sister , age 11 in MVA No problems noted. Social History Smoking Status: Former smoker how long ago did patient quit smokin alcohol intake: current alcohol intake frequency: a few times a week Alcohol type: wine substance use type: does not use caffeine: Yes Type: tea Number of servings: 4 HPI HPI Chief Complaint: dysphagia Details: JAMILA LOPES, is a 84 F who presents to the office today f/u. In March 2024, she presented to the ED after one day of feeling food stuck in her esophagus. She underwent EGD with Dr. Adhikari. EGD 04.12.24; Tortuous esophagus. - Abnormal esophageal motility, suspicious for achalasia. - Food in the lower third of the esophagus. Removal was successful. - Large hiatal hernia. - No gross lesions in the second portion of the duodenum. OV 08.11.24 Pt has been doing ok since [facility] ED visit. She has had three episodes of dysphagia with food getting stuck in her esophagus. During these episodes she will vomit. She has not had an incident severe enough to warrant an ED visit. She continues to take pantoprazole 40 mg BID. She denies any other GI symptoms. OV 1.3.25 Pt has been doing well with amitriptyline 10 mg for esophageal dysphagia. She is not longing getting food stuck in her esophagus. She is having some loose stools but feels this is related to the holidays and eating unhealthy foods. ROS Const Constitutional: Positive for frequent falls; No fatigue, fever(s) or weight change ENT ENT: No difficulty swallowing Gastro GI: Positive for change in bowel habits and diarrhea; No abdominal pain, belching, bloating, change in stool character, coffee ground emesis, constipation, cramping, heartburn, difficulty swallowing, feeling full early, excessive flatus, incontinent of stools, Vomiting blood/hematemesis, Blood in stool, loose stools, Black,tarry stools, nausea/dyspepsia, pain with swallowing, vomiting or other Musc Musculoskeletal: Positive for back pain, muscle weakness and Arthritis; No joint pain Skin Skin: No yellowing of the eye or itchy eyes Neuro Neurology: Positive for dizziness and frequent falls Psych Psychiatric: No anxiety and No depression Endo Endocrine: No fatigue or weight change Aller/Imm Allergy/Immunologic : No itchy eyes Marco Antonio/Lymp Hematologic/Lymphat ic: Positive for easy bruising; No easy bleeding Exam Const General: cooperative and comfortable Nutritional Appearance: average body habitus and well nourished HENID Head: normal to inspection Ears: hearing grossl (more content not included)... Normal [facility] MR/BMS.[place] 09-15-2024 MR/BMS.RICHS [facility] Vascular Surgery [address] [place] [address] OFFICE VISIT Date of Service: 09/15/24 MR#: [id number] Acct: [id number] Name: JAMILA LOPES Rep #: [id number] : 1940 Provider: TAWANDA Chou Age/Sex: 83/F Location: [facility] Status: Signed Intake Vital Signs 02/23/24 09:51 05/26/24 13:24 09/15/24 15:37 Height 4 ft 11 in 4 ft 11.06 in Weight: 133 lb BP 156/80 H Blood Pressure Location Lt brachial Position Sitting Respiration 14 Pulse 78 Pulse Source Monitor Temp 97.7 F L Temp Source Temporal Pulse Oximetry (%) 95 Oxygen Delivery Method room air Intake Visit Reasons: 5 M F/U Is patient in pain?: Yes Allergies gabapentin Allergy (Verified 09/15/24 15:38) Hives tomato Allergy (Verified 09/15/24 15:38) Rash Medications ???Medication ???Instructions ???Recorded ???Confirmed ???Type aspirin 81 mg chewable tablet 81 mg PO DAILY heart health 08/09/15 09/15/24 History biotin 1 mg capsule 1,000 mcg PO QDAY supplement 06/04/18 09/15/24 History cyanocobalamin (vitamin B-12) 5,000 mcg sublingual QDAY 06/04/18 09/15/24 History 5,000 mcg/mL sublingual drops supplement (Vitamin B-12) vitamins A,C,D-mkjb-xywjzl 4,296 2 cap PO DAILY 08/07/23 09/15/24 History mcg-226 mg-90 mg capsule (PreserVision AREDS) isosorbide mononitrate 30 mg 30 mg PO DAILY #90 tabs 09/01/23 09/15/24 Rx tablet,extended release 24 hr solifenacin 5 mg tablet (Vesicare) 5 mg PO DAILY 02/03/24 09/15/24 History pantoprazole 40 mg tablet,delayed 40 mg PO BID #60 tabs 04/12/24 09/15/24 Rx release metoprolol succinate 25 mg 25 mg PO QDAY blood pressure 05/26/24 09/15/24 History tablet,extended release 24 hr amitriptyline 10 mg tablet 10 mg PO QDAY #30 tabs 08/11/24 09/15/24 Rx amlodipine 5 mg tablet 5 mg PO DAILY #90 TABLETS 08/24/24 09/15/24 Rx atorvastatin 80 mg tablet 80 mg PO MOWEFR cholesterol 90 09/03/24 09/15/24 Rx days #39 tabs Is last menstrual period known: No Post menopausal: Yes Patient : No Have you fallen in the past year?: Yes [facility] Medical History Wears glasses Wears dentures Cancer Ambulates with cane History of renal disease Easy bruising High cholesterol History of echocardiogram History of stress test Hypertension History of heart attack Chest pain Cardiology follow-up encounter Acute pneumonia Tuttle's palsy Macular degeneration Renal insufficiency Osteoarthritis Spondylosis Scoliosis Lumbar spinal stenosis History of non-ST elevation myocardial infarction (NSTEMI) Essential (primary) hypertension Hyperlipidemia Atherosclerotic heart disease of inupiat coronary artery without angina pectoris Low back pain Lumbar radiculopathy Surgical History History of back surgery ( 01/2024) History of cardiac catheterization History of appendectomy History of elbow surgery History of hysterectomy History of eyelid surgery ( 06/2023) History of laminectomy (08/2018) History of coronary artery stent placement (07/19/15) Family History Father , Age 89 Congestive heart failure Mother , Age 86 CVA (cerebral vascular accident) Hypertension Hyperlipidemia Sister , age 11 in MVA No problems noted. Social History Smoking Status: Former smoker how long ago did patient quit smokin alcohol intake: current alcohol intake frequency: a few times a week Alcohol type: wine substance use type: does not use caffeine: Yes Type: tea Number of servings: 4 HPI HPI HPI: JAMILA LOPES, is a 83 F who presents to the office today for follow-up of her bilateral lower extremity edema and chronic venous insufficiency. She did receive the lymphedema pumps and has been using them religiously twice a day. She has noticed improvement in both legs, though still having some residual RLE swelling and intermittent achiness. She does sometimes where compression stockings, usually on days she knows she is going to be on her feet a lot. She has difficulty applying these so not able to be very consistent with the stockings. She does not have any wounds. She does not have any varicosities which are focally symptomatic. Her venous reflux study 12/29/23 showed R thigh GSV, ASV calf, and SSV calf reflux; L GSV below knee reflux. ROS General General: No weight change, appetite, fatigue, colon cancer, breast cancer or weakness HEENT HEENT: No difficulty swallowing, eye injury, eye surgery, swollen glands or hoarseness Endo Endocrine: Yes cold intolerance; No thyroid disease, diabetes mellitus, thy (more content not included)... Normal [facility] Gastroenterology Visit Repor ton 08-11-2024 Gastroenterology Visit Report [facility] Gastroenterology [address] [place] [address] OFFICE VISIT Date of Service: 08/11/24 MR#: [id number] Acct: [id number] Name: JAMILA LOPES Rep #: [id number] : 1940 Provider: TAWANDA Dang Age/Sex: 83/F Location[place] [facility] Status: Signed Intake Vital Signs 05/26/24 13:24 Height 4 ft 11.06 in Weight: 133 lb BMI 26.8 BP 120/71 Blood Pressure Location Lt brachial Position Sitting Respiration 18 Pulse 75 Pulse Source Monitor Pulse Oximetry (%) 93 Intake Visit Reasons: Dysphagia Chief Complaint: dysphagia Allergies gabapentin Allergy (Verified 05/26/24 13:39) Hives tomato Allergy (Verified 05/26/24 13:39) Rash Medications ???Medication ???Instructions ???Recorded ???Confirmed ???Type aspirin 81 mg chewable tablet 81 mg PO DAILY heart health 08/09/15 08/11/24 History biotin 1 mg capsule 1,000 mcg PO QDAY supplement 06/04/18 08/11/24 History cyanocobalamin (vitamin B-12) 5,000 mcg sublingual QDAY 06/04/18 08/11/24 History 5,000 mcg/mL sublingual drops supplement (Vitamin B-12) vitamins A,C,[id number] 4,296 2 cap PO DAILY 08/07/23 08/11/24 History mcg-226 mg-90 mg capsule (PreserVision AREDS) atorvastatin 80 mg tablet 80 mg PO MOWEFR cholesterol 90 09/01/23 08/11/24 Rx days #39 tabs isosorbide mononitrate 30 mg 30 mg PO DAILY #90 tabs 09/01/23 08/11/24 Rx tablet,extended release 24 hr amlodipine 5 mg tablet 8 mg PO DAILY 01/22/24 08/11/24 History solifenacin 5 mg tablet (Vesicare) 5 mg PO DAILY 02/03/24 08/11/24 History pantoprazole 40 mg tablet,delayed 40 mg PO BID #60 tabs 04/12/24 08/11/24 Rx release metoprolol succinate 25 mg 25 mg PO QDAY blood pressure 05/26/24 08/11/24 History tablet,extended release 24 hr Have you fallen in the past year?: No PFSH Medical History (Reviewed 05/26/24 @ 13:38 by Margaret Bedoya WATER FILTRATION TECHNICIAN, WATER FILTRATION TECHNICIAN-C) Wears glasses Wears dentures Cancer Ambulates with cane History of renal disease Easy bruising High cholesterol History of echocardiogram History of stress test Hypertension History of heart attack Chest pain Cardiology follow-up encounter Acute pneumonia Tuttle's palsy Macular degeneration Renal insufficiency Osteoarthritis Spondylosis Scoliosis Lumbar spinal stenosis History of non-ST elevation myocardial infarction (NSTEMI) Essential (primary) hypertension Hyperlipidemia Atherosclerotic heart disease of inupiat coronary artery without angina pectoris Low back pain Lumbar radiculopathy Surgical History (Reviewed 05/26/24 @ 13:38 by Margaret Bedoya WATER FILTRATION TECHNICIAN, WATER FILTRATION TECHNICIAN-C) History of back surgery ( 01/2024) History of cardiac catheterization History of appendectomy History of elbow surgery History of hysterectomy History of eyelid surgery ( 06/2023) History of laminectomy (08/2018) History of coronary artery stent placement (07/19/15) Family History (Reviewed 05/26/24 @ 13:38 by Margaret Bedoya WATER FILTRATION TECHNICIAN, WATER FILTRATION TECHNICIAN-C) Father , Age 89 Congestive heart failure Mother , Age 86 CVA (cerebral vascular accident) Hypertension Hyperlipidemia Sister , age 11 in MVA No problems noted. Social History (Reviewed 05/26/24 @ 13:38 by Margaret Bedoya WATER FILTRATION TECHNICIAN, WATER FILTRATION TECHNICIAN-C) Smoking Status: Former smoker how long ago did patient quit smokin alcohol intake: current alcohol intake frequency: a few times a week Alcohol type: wine substance use type: does not use caffeine: Yes Type: tea Number of servings: 4 HPI HPI Chief Complaint: dysphagia Details: JAMILA LOPES, is a 83 F who presents to the office today for hospital f/u. In March 2024, she presented to the ED after one day of feeling food stuck in her esophagus. She underwent EGD with Dr. Adhikair. EGD 04.12.24; - Tortuous esophagus. - Abnormal esophageal motility, suspicious for achalasia. - Food in the lower third of the esophagus. Removal was successful. - Large hiatal hernia. - No gross lesions in the second portion of the duodenum. OV 9.18.24 Pt has been doing ok since [facility] ED visit. She has had three episodes of dysphagia with food getting stuck in her esophagus. During these episodes she will vomit. She has not had an incident severe enough to warrant an ED visit. She continues to take pantoprazole 40 mg BID. She denies any other GI symptoms. ROS Const Constitutional: No fatigue, fever(s) or weight change ENT ENT: No difficulty swallowing Gastro GI: Positive for nausea/dyspepsia and vomiting; No abdominal pain, belching, bloating, change in bowel habits, change in stool character, coffee ground emesis, constipation, cramping, diarrhea, heartburn, difficulty swallowing, feeling full early, excessive flatus, incontinent of stools, Vomiting blood/hematemesis, Blood in stool, loose stools, Black,tarry stoo (more content not included)... Normal [facility] Basophil percentageOrdered B y: Margaret Bedoya on 02-23-2024 Bilirubin [Mass/Vol] 0.40 mg/dL 0.20-1.00 [facility] Comment on above: For patients on eltr ombopag therapy, use of Dimension [place] TBIL is not recommended. Cholesterol [Mass/Vol] 146 mg/dL <200 [facility] Comment on above: <200 mg/dL Desirable 200-240 mg/dL Borderline >240 mg/dL High Risk Protein [Mass/Vol] 6.9 g/dL 6.4-8.2 [facility] Triglyceride [Mass/Vol] 96 mg/dL <199 [facility] Comment on above: The drugs N-Acetylcy steine and Metamizole may falsely depress this assay.Serum Triglycerides Reference Interval Normal <150 mg/dL Borderline high 150 - 199 mg/dL High 200 - 499 mg/dL Very High > or = 500 mg/dL Direct bilirubinOrdered By: Margaret Bedoya on 02-23-2024 Bilirubin.direct [Mass/Vol] 0.10 mg/dL 0.00-0.30 [facility] Laboratory - Chemistry and C hemistry - challengeOrdered By: Margaret Bedoya on 02-23-2024 ALP [Catalytic activity/Vol] 104 U/L 45-117 [facility] ALT [Catalytic activity/Vol] 16 U/L 13-56 [facility] Cholesterol in HDL [Mass/Vol] 55 mg/dL >40 [facility] Comment on above: The drugs N-Acetylcy steine and Metamizole may falsely depress this assay. Reference Range HDL <40 mg/dL Low HDL Cholesterol HDL >or= 60 mg/dL High HDL Cholesterol Cholesterol in LDL [Mass/Vol] 72 mg/dL 0-130 [facility] Globulin (S) [Mass/Vol] 3.7 g/dL 2.2-4.2 [facility] No Panel InformationOrdered By: Margaret Bedoya on 02-23-2024 VLDL Cholesterol 19 mg/dL 5-40 [facility] Thin prep Papanicolaou smear with manual screeningOrdered By: Margaret Bedoya on 02-23-2024 Thin prep Papanicolaou smear with manual screening 3.2 g/dL 3.2-5.0 [facility] Thin prep Papanicolaou smear with manual screening 20 U/L 15-37 [facility] Basophil percentageOrdered B y: Margaret Bedoya on 08-01-2023 Bilirubin [Mass/Vol] 0.50 mg/dL 0.20-1.00 [facility] Comment on above: For patients on eltr ombopag therapy, use of Dimension [place] TBIL is not recommended. Cholesterol [Mass/Vol] 138 mg/dL <200 [facility] Comment on above: <200 mg/dL Desirable 200-240 mg/dL Borderline >240 mg/dL High Risk Protein [Mass/Vol] 7.2 g/dL 6.4-8.2 [facility] Triglyceride [Mass/Vol] 106 mg/dL <199 [facility] Comment on above: The drugs N-Acetylcy steine and Metamizole may falsely depress this assay.Serum Triglycerides Reference Interval Normal <150 mg/dL Borderline high 150 - 199 mg/dL High 200 - 499 mg/dL Very High > or = 500 mg/dL Direct bilirubinOrdered By: Margaret Bedoya on 08-01-2023 Bilirubin.direct [Mass/Vol] 0.17 mg/dL 0.00-0.30 [facility] Laboratory - Chemistry and C hemistry - challengeOrdered By: Margaret Bedoya on 08-01-2023 ALP [Catalytic activity/Vol] 114 U/L 45-117 [facility] ALT [Catalytic activity/Vol] 17 U/L 13-56 [facility] Globulin (S) [Mass/Vol] 3.9 g/dL 2.2-4.2 [facility] Serum or plasma albumin colten urement (mass/volume)Ordered By: Margaret Bedoya on 08-01-2023 Albumin [Mass/Vol] 3.3 g/dL 3.2-5.0 [facility] Serum or plasma cholesterol in HDL measurement (mass/volume)Ordered By: Margaret Bedoya on 08-01-2023 Cholesterol in HDL [Mass/Vol] 59 mg/dL >40 [facility] Comment on above: The drugs N-Acetylcy steine and Metamizole may falsely depress this assay. Reference Range HDL <40 mg/dL Low HDL Cholesterol HDL >or= 60 mg/dL High HDL Cholesterol Serum or plasma cholesterol in VLDL measurement (mass/volume)Ordered By: Margaret Bedoya on 08-01-2023 Cholesterol in VLDL [Mass/Vol] 21 mg/dL 5-40 [facility] Serum or plasma low density lipoprotein (LDL) cholesterol measurement (mass/volume)Ordered By: Margaret Bedoya on 08-01-2023 Cholesterol in LDL [Mass/Vol] 58 mg/dL 0-130 [facility] Thin prep Papanicolaou smear with manual screeningOrdered By: Margaret Bedoya on 08-01-2023 Thin prep Papanicolaou smear with manual screening 18 U/L 15-37 [facility] Absolute lymphocyte countOrd ered By: Margaret Bedoya on 05-06-2023 Lymphocytes Auto (Unsp spec) [#/Vol] 1.80 10*3/uL 0.83-4.51 [facility] Basophil percentageOrdered B y: Margaret Bedoya on 05-06-2023 Basophils/100 WBC (Bld) 1.0 % 0-1 [facility] Chloride [Moles/Vol] 110 mmol/L 98-107 [facility] Eosinophils/100 WBC (Bld) 4.4 % 0-5 [facility] Glucose [Mass/Vol] 94 mg/dL 74-106 [facility] Neutrophils (Bld) [#/Vol] 4.8 10*3/uL 2.0-7.7 [facility] Neutrophils/100 WBC (Bld) 60.8 % 47-70 [facility] Potassium [Moles/Vol] 4.1 mmol/L 3.5-5.1 [facility] Sodium [Moles/Vol] 142 mmol/L 136-145 [facility] WBC (Bld) [#/Vol] 7.9 10*3/uL 4.4-11.0 [facility] Blood erythrocytes count (nu mber/volume)Ordered By: Margaret Bedoya on 05-06-2023 RBC (Bld) [#/Vol] 4.29 10*6/uL 4.2-5.4 [facility] Blood hemoglobin measurement (mass/volume)Ordered By: Margaret Bedoay on 05-06-2023 Hemoglobin (Bld) [Mass/Vol] 13.6 g/dL 12.0-15.0 [facility] Blood lymphocytes/100 leukoc ytesOrdered By: Margaret Bedoya on 05-06-2023 Lymphocytes/100 WBC (Bld) 22.7 % 19-41 [facility] Blood monocytes/100 leukocyt esOrdered By: Margaret Bedoya on 05-06-2023 Monocytes/100 WBC (Bld) 10.6 % 0-10 [facility] Blood platelet mean volumeOr dered By: Margaret Bedoya on 05-06-2023 Platelet mean volume (Bld) [Entitic vol] 10.2 fL 6.2-12.0 [facility] Determination of erythrocyte mean corpuscular volume (MCV)Ordered By: Margaret Bedoya on 05-06-2023 MCV (RBC) [Entitic vol] 98.4 fL 81-99 [facility] Hematocrit Auto (Bld) [Volum e fraction]Ordered By: Margaret Bedoya on 05-06-2023 Hematocrit (Bld) [Volume fraction] 42.2 % 37-47 [facility] Laboratory - Chemistry and C hemistry - challengeOrdered By: Margaret Bedoya on 05-06-2023 CO2 [Moles/Vol] 27.0 mmol/L 21.0-32.0 [facility] Urea nitrogen/Creatinine [Mass ratio] 19.9 mg/mg 10-20 [facility] Laboratory - Hematology and Cell countsOrdered By: Margaret Bedoya on 05-06-2023 Erythrocyte distribution width (RBC) [Entitic vol] 46.1 fL 35.1-43.9 [facility] Erythrocyte distribution width (RBC) [Ratio] 12.9 % 11.6-14.6 [facility] Immature granulocytes/100 WBC (Bld) 0.500 % 0.0-0.9 [facility] Comment on above: IG% - Immature Granu locytes (promyelocytes, myelocytes and metamyelocytes) > 1% indicates that a LEFT SHIFT is Present. MCH (RBC) [Entitic mass] 31.7 pg 27.0-32.0 [facility] Nucleated RBC/100 WBC (Bld) [Ratio] 0 % 0-5 [facility] MCHC Auto (RBC) [Mass/Vol]Or dered By: Margaret Bedoya on 05-06-2023 MCHC (RBC) [Mass/Vol] 32.2 g/dL 32-36 [facility] No Panel InformationOrdered By: Margaret Bedoya on 05-06-2023 Estimated GFR (MDRD) Amer 46 mL/min >60 [facility] Comment on above: GFR Calc Estimated GFR (MDRD) Non-Af Amer 38 mL/min >60 [facility] Comment on above: Non- GFR Calc Thyroid Stimulating Hormone (TSH) 3.38 uIU/mL 0.358-3.74 [facility] Platelets bldOrdered By: Jeferson Bedoya on 05-06-2023 Platelets (Bld) [#/Vol] 297 10*3/uL 150-450 [facility] Serum or plasma calcium colten urement (mass/volume)Ordered By: Margaret Bedoya on 05-06-2023 Calcium [Mass/Vol] 9.1 mg/dL 8.5-10.1 [facility] Serum or plasma creatinine m easurement (mass/volume)Ordered By: Margaret Bedoya on 05-06-2023 Creatinine [Mass/Vol] 1.41 mg/dL 0.55-1.02 [facility] Comment on above: The validity of the calculated GFR & GFRAA in patients over 70 years has not been determined. Clinical correlation is essential. Serum or plasma urea nitroge n measurement (mass/volume)Ordered By: Margaret Bedoya on 05-06-2023 Urea nitrogen [Mass/Vol] 28 mg/dL 7-18 [facility] Thin prep Papanicolaou smear with manual screeningOrdered By: Margaret Bedoya on 05-06-2023 Thin prep Papanicolaou smear with manual screening 5 5-15 [facility] Basophil percentageOrdered B y: Margaret Bedoya on 02-04-2023 Bilirubin [Mass/Vol] 0.50 mg/dL 0.20-1.00 [facility] Comment on above: For patients on eltr ombopag therapy, use of Dimension [place] TBIL is not recommended. Cholesterol [Mass/Vol] 160 mg/dL <200 [facility] Comment on above: <200 mg/dL Desirable 200-240 mg/dL Borderline >240 mg/dL High Risk Protein [Mass/Vol] 7.4 g/dL 6.4-8.2 [facility] Triglyceride [Mass/Vol] 102 mg/dL <199 [facility] Comment on above: The drugs N-Acetylcy steine and Metamizole may falsely depress this assay.Serum Triglycerides Reference Interval Normal <150 mg/dL Borderline high 150 - 199 mg/dL High 200 - 499 mg/dL Very High > or = 500 mg/dL Direct bilirubinOrdered By: Margaret Bedoya on 02-04-2023 Bilirubin.direct [Mass/Vol] 0.14 mg/dL 0.00-0.30 [facility] Laboratory - Chemistry and C hemistry - challengeOrdered By: Margaret Bedoya on 02-04-2023 ALP [Catalytic activity/Vol] 103 U/L 45-117 [facility] ALT [Catalytic activity/Vol] 19 U/L 13-56 [facility] Globulin (S) [Mass/Vol] 4.0 g/dL 2.2-4.2 [facility] Serum or plasma albumin colten urement (mass/volume)Ordered By: Margaret Bedoya on 02-04-2023 Albumin [Mass/Vol] 3.4 g/dL 3.2-5.0 [facility] Serum or plasma cholesterol in HDL measurement (mass/volume)Ordered By: Margaret Bedoya on 02-04-2023 Cholesterol in HDL [Mass/Vol] 63 mg/dL >40 [facility] Comment on above: The drugs N-Acetylcy steine and Metamizole may falsely depress this assay. Reference Range HDL <40 mg/dL Low HDL Cholesterol HDL >or= 60 mg/dL High HDL Cholesterol Serum or plasma cholesterol in VLDL measurement (mass/volume)Ordered By: Margaret Bedoya on 02-04-2023 Cholesterol in VLDL [Mass/Vol] 20 mg/dL 5-40 [facility] Serum or plasma low density lipoprotein (LDL) cholesterol measurement (mass/volume)Ordered By: Margaret Bedoya on 02-04-2023 Cholesterol in LDL [Mass/Vol] 77 mg/dL 0-130 [facility] Thin prep Papanicolaou smear with manual screeningOrdered By: Margaret Bedoya on 02-04-2023 Thin prep Papanicolaou smear with manual screening 22 U/L 15-37 [facility] Basophil percentageon 2021 Bilirubin [Mass/Vol] 0.70 mg/dL 0.20-1.00 [facility] Work Phone: Comment on above: For patients on eltr ombopag therapy, use of Dimension [place] TBIL is not recommended. Cholesterol [Mass/Vol] 146 mg/dL <200 [facility] Work Phone: Comment on above: <200 mg/dL Desirable 200-240 mg/dL Borderline >240 mg/dL High Risk Protein [Mass/Vol] 7.1 g/dL 6.4-8.2 [facility] Work Phone: Triglyceride [Mass/Vol] 74 mg/dL <199 [facility] Work Phone: Comment on above: The drugs N-Acetylcy steine and Metamizole may falsely depress this assay.Serum Triglycerides Reference Interval Normal <150 mg/dL Borderline high 150 - 199 mg/dL High 200 - 499 mg/dL Very High > or = 500 mg/dL Direct bilirubinon 2 Bilirubin.direct [Mass/Vol] 0.17 mg/dL 0.00-0.30 [facility] Work Phone: Laboratory - Chemistry and C hemistry - challengeon 07-04-2022 ALP [Catalytic activity/Vol] 97 U/L 45-117 [facility] Work Phone: ALT [Catalytic activity/Vol] 15 U/L 13-56 [facility] Work Phone: Globulin (S) [Mass/Vol] 4.0 g/dL 2.2-4.2 [facility] Work Phone: Serum or plasma albumin colten urement (mass/volume)on 07-04-2022 Albumin [Mass/Vol] 3.1 g/dL 3.2-5.0 [facility] Work Phone: Serum or plasma cholesterol in HDL measurement (mass/volume)on 07-04-2022 Cholesterol in HDL [Mass/Vol] 54 mg/dL >40 [facility] Work Phone: Comment on above: The drugs N-Acetylcy steine and Metamizole may falsely depress this assay. Reference Range HDL <40 mg/dL Low HDL Cholesterol HDL >or= 60 mg/dL High HDL Cholesterol Serum or plasma cholesterol in VLDL measurement (mass/volume)on 07-04-2022 Cholesterol in VLDL [Mass/Vol] 15 mg/dL 5-40 [facility] Work Phone: Serum or plasma low density lipoprotein (LDL) cholesterol measurement (mass/volume)on 07-04-2022 Cholesterol in LDL [Mass/Vol] 77 mg/dL 0-130 [facility] Work Phone: Thin prep Papanicolaou smear with manual screeningon 07-04-2022 Thin prep Papanicolaou smear with manual screening 19 U/L 15-37 [facility] Work Phone: Basophil percentageon 2020 Chloride [Moles/Vol] 109 mmol/L 98-107 [facility] Work Phone: Glucose [Mass/Vol] 99 mg/dL 74-106 [facility] Work Phone: Comment on above: Please note revised GLUCOSE reference range effective 2017. Potassium [Moles/Vol] 4.6 mmol/L 3.5-5.1 [facility] Work Phone: Sodium [Moles/Vol] 141 mmol/L 136-145 [facility] Work Phone: Laboratory - Chemistry and C hemistry - challengeon 10-23-2021 CO2 [Moles/Vol] 25.0 mmol/L 21.0-32.0 [facility] Work Phone: Urea nitrogen/Creatinine [Mass ratio] 21.2 mg/mg 10-20 [facility] Work Phone: No Panel Informationon 10-23 Estimated GFR (MDRD) Amer 44 mL/min >60 [facility] Work Phone: Comment on above: GFR Calc Estimated GFR (MDRD) Non-Af Amer 36 mL/min >60 [facility] Work Phone: Comment on above: Non- GFR Calc Serum or plasma calcium colten urement (mass/volume)on 10-23-2021 Calcium [Mass/Vol] 8.7 mg/dL 8.5-10.1 [facility] Work Phone: Serum or plasma creatinine m easurement (mass/volume)on 10-23-2021 Creatinine [Mass/Vol] 1.46 mg/dL 0.55-1.02 [facility] Work Phone: Comment on above: The validity of the calculated GFR & GFRAA in patients over 70 years has not been determined. Clinical correlation is essential. Serum or plasma urea nitroge n measurement (mass/volume)on 10-23-2021 Urea nitrogen [Mass/Vol] 31 mg/dL 7-18 [facility] Work Phone: Thin prep Papanicolaou smear with manual screeningon 10-23-2021 Thin prep Papanicolaou smear with manual screening 7 5-15 [facility] Work Phone: Clinical Summary: HMSPatient IDon 07-29-2018 OOP Invalid Interpretation Code [facility] Work Phone: Office Visit: New/Est - 1st visit with physician, Rm: 07-29-2018 NEGATED: Highlighted rowMRI (magnetic resonance imaging) history of the Lumbar spine on 07/20/2018 at [facility] Invalid Interpretation Code [facility] Work Phone: NEGATED: Highlighted rowProtein mass conc Done Invalid Interpretation Code [facility] Work Phone: Lab Report: Lipid Profileon 05-23-2017 Cholesterol 131 mg/dL Invalid Interpretation Code 200 [facility] Work Phone: HDL Cholesterol 65 mg/dL Invalid Interpretation Code [facility] Work Phone: LDL Cholesterol 52 mg/dL Invalid Interpretation Code 0-130 [facility] Work Phone: Triglyceride 68 mg/dL Invalid Interpretation Code [facility] Work Phone: very low density lipoproteins 14 mg/dL Invalid Interpretation Code 5-40 [facility] Work Phone: Lab Report: Liver Profileon 05-23-2017 Alanine aminotransferase (ALT) 24 U/L Invalid Interpretation Code 12-78 [facility] Work Phone: Albumin 2.9 g/dL Low 3.4-5.0 [facility] Work Phone: Alkaline phosphatase (ALP) 145 U/L High 45-117 [facility] Work Phone: Aspartate aminotransferase (AST) 18 U/L Invalid Interpretation Code 15-37 [facility] Work Phone: Bilirubin (direct) 0.15 mg/dL Invalid Interpretation Code 0.00-0.30 [facility] Work Phone: Bilirubin (total) 0.60 mg/dL Invalid Interpretation Code 0.20-1.00 [facility] Work Phone: Globulin 3.6 g/dL High 2.3-3.5 [facility] Work Phone: Protein 6.5 g/dL Invalid Interpretation Code 6.4-8.2 [facility] Work Phone: Office Visit: [facility] 05-20-20 17 Documentation of current medications (procedure) Done Invalid Interpretation Code [facility] Work Phone: Fall risk assessment No Invalid Interpretation Code [facility] Work Phone: Office Visiton 11-21-2016 Left ventricular Ejection fraction 60 % Invalid Interpretation Code [facility] Work Phone: Tobacco use CPHS Former smoker Invalid Interpretation Code [facility] Work Phone: Office Visit: Spine Visiton 09-30-2016 Dietary management education, guidance, and counseling (procedure) yes Invalid Interpretation Code [facility] Work Phone: Tobacco smoking status NHIS Never Invalid Interpretation Code [facility] Work Phone: Office Visiton 08-23-2015 cardiac risk group C Invalid Interpretation Code [facility] Work Phone: General cardiovascular disease 10Y risk [#] [place] N/A Invalid Interpretation Code [facility] Work Phone: Clinical Lists 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: 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 Anion gap 12 mmol/L Invalid Interpretation Code [facility] Work Phone: Calcium 8.2 mg/dL Low [facility] Work Phone: Chloride 109 mmol/L High [facility] Work Phone: CO2 22 mmol/L Invalid Interpretation Code [facility] Work Phone: Creatinine 1.17 mg/dL High [facility] Work Phone: Erythrocyte distribution width Auto Ratio (RBC) 13.2 % Invalid Interpretation Code [facility] Work Phone: Erythrocytes (RBC) 3.77 10*6/uL Invalid Interpretation Code [facility] Work Phone: Glucose mass conc 75 mg/dL Invalid Interpretation Code [facility] Work Phone: Hematocrit (HCT) 34.5 % Invalid Interpretation Code [facility] Work Phone: Hemoglobin mass conc (Bld) 11.1 g/dL Invalid Interpretation Code [facility] Work Phone: MCH 29.4 pg Invalid Interpretation Code [facility] Work Phone: MCHC mass conc (RBC) 32.2 g/dL Invalid Interpretation Code [facility] Work Phone: MCV 91.5 fL Invalid Interpretation Code [facility] Work Phone: Platelets 282 10*3/mm3 Invalid Interpretation Code [facility] Work Phone: PMV by Shirlene 10.3 fL Invalid Interpretation Code [facility] Work Phone: Potassium molar conc 3.9 mmol/L Invalid Interpretation Code [facility] Work Phone: Sodium 139 mmol/L Invalid Interpretation Code [facility] Work Phone: Urea nitrogen 17 mg/dL Invalid Interpretation Code [facility] Work Phone: WBC (Leukocytes) 8.6 10*3/uL Invalid Interpretation Code [facility] Work Phone: Vital Signs Date Time Vital Sign Value Performing Clinician Facility 04-11-2025 12:21-0400 Body temperature 98.1 [degF] Dr. Estela Osborne DO Work Phone: [facility] 04-11-2025 12:21-0400 Diastolic blood pressure 66 mm[Hg] Dr. Estela Osborne DO Work Phone: [facility] 04-11-2025 12:21-0400 Heart rate 62 /min Dr. Estela Osborne DO Work Phone: [facility] 04-11-2025 12:21-0400 Respiratory rate 14 /min Dr. Estela Osborne DO Work Phone: [facility] 04-11-2025 12:21-0400 SaO2% (BldA) [Mass fraction] 97 % Dr. Estela Osborne DO Work Phone: [facility] 04-11-2025 12:21-0400 Systolic blood pressure 113 mm[Hg] Dr. Estela Osborne DO Work Phone: [facility] 04-11-2025 11:08-0400 Body height 149.[address] Estela Osborne DO Work Phone: [facility] 04-11-2025 11:08-0400 Body mass index (BMI) [Ratio] 26.2 kg/m2 Dr. Estela Osborne DO Work Phone: [facility] 04-11-2025 11:08-0400 Body weight [address] Estela Osborne DO Work Phone: [facility] 03-27-2025 13:09-0400 Body temperature 98 [degF] Dr. Estela Osborne DO Work Phone: [facility] 03-27-2025 13:09-0400 Diastolic blood pressure 75 mm[Hg] Dr. Estela Osborne DO Work Phone: [facility] 03-27-2025 13:09-0400 Heart rate 90 /min Dr. Estela Osborne DO Work Phone: [facility] 03-27-2025 13:09-0400 Respiratory rate 18 /min Dr. Estela Osborne DO Work Phone: [facility] 03-27-2025 13:09-0400 SaO2% (BldA) [Mass fraction] 94 % Dr. Estela Osborne DO Work Phone: [facility] 03-27-2025 13:09-0400 Systolic blood pressure 125 mm[Hg] Dr. Estela Osborne DO Work Phone: [facility] 03-25-2025 12:55-0400 Body mass index (BMI) [Ratio] 27.1 kg/m2 Dr. Estela Osborne DO Work Phone: [facility] 03-25-2025 12:55-0400 Body weight 58.[address] Estela Osborne DO Work Phone: [facility] 03-14-2025 13:39-0400 Body mass index (BMI) [Ratio] 26.4 kg/m2 Dr. Estela Osborne DO Work Phone: [facility] 03-14-2025 13:39-0400 Body weight 59.[address] Estela Osborne DO Work Phone: [facility] 03-14-2025 13:39-0400 Diastolic blood pressure 81 mm[Hg] Dr. Estela Osborne DO Work Phone: [facility] 03-14-2025 13:39-0400 Heart rate 67 /min Dr. Estela Osborne DO Work Phone: [facility] 03-14-2025 13:39-0400 Respiratory rate 16 /min Dr. Estela Osborne DO Work Phone: [facility] 03-14-2025 13:39-0400 Systolic blood pressure 128 mm[Hg] Dr. Estela Osborne DO Work Phone: [facility] 01-10-2025 09:17-0500 Body temperature 97.1 [degF] Dr. Estela Osborne DO Work Phone: [facility] 01-10-2025 09:17-0500 Diastolic blood pressure 59 mm[Hg] Dr. Estela Osborne DO Work Phone: [facility] 01-10-2025 09:17-0500 Heart rate 55 /min Dr. Estela Osborne DO Work Phone: [facility] 01-10-2025 09:17-0500 Respiratory rate 16 /min Dr. Estela Osborne DO Work Phone: [facility] 01-10-2025 09:17-0500 SaO2% (BldA) [Mass fraction] 98 % Dr. Estela Osborne DO Work Phone: [facility] 01-10-2025 09:17-0500 Systolic blood pressure 146 mm[Hg] Dr. Estela Osborne DO Work Phone: [facility] 01-10-2025 08:04-0500 Body height 149.[address] Estela Osborne DO Work Phone: [facility] 01-10-2025 08:04-0500 Body mass index (BMI) [Ratio] 26.7 kg/m2 Dr. Estela Osborne DO Work Phone: [facility] 01-10-2025 08:04-0500 Body weight 60.[address] Estela Osborne DO Work Phone: [facility] 12-02-2024 15:16-0500 Body mass index (BMI) [Ratio] 26.4 kg/m2 Dr. Estela Osborne DO Work Phone: [facility] 12-02-2024 15:16-0500 Body temperature 97.7 [degF] Dr. Estela Osborne DO Work Phone: [facility] 12-02-2024 15:16-0500 Body weight 59.[address] Estela Osborne DO Work Phone: [facility] 12-02-2024 15:16-0500 Diastolic blood pressure 66 mm[Hg] Dr. Estela Osborne DO Work Phone: [facility] 12-02-2024 15:16-0500 Heart rate 82 /min Dr. Estela Osborne DO Work Phone: [facility] 12-02-2024 15:16-0500 Respiratory rate 17 /min Dr. Estela Osborne DO Work Phone: [facility] 12-02-2024 15:16-0500 SaO2% (BldA) [Mass fraction] 96 % Dr. Estela Osborne DO Work Phone: [facility] 12-02-2024 15:16-0500 Systolic blood pressure 118 mm[Hg] Dr. Estela Osborne DO Work Phone: [facility] 02-23-2024 12:10-0400 Body temperature 98.1 [degF] Dr. Estela Osborne Work Phone: [facility] 02-23-2024 12:10-0400 Diastolic blood pressure 63 mm[Hg] Dr. Estela Osborne Work Phone: [facility] 02-23-2024 12:10-0400 Heart rate 53 /min Dr. Estela Osborne Work Phone: [facility] 02-23-2024 12:10-0400 Respiratory rate 16 /min Dr. Estela Osborne Work Phone: [facility] 02-23-2024 12:10-0400 SaO2% (BldA) [Mass fraction] 95 % Dr. Estela Osborne Work Phone: [facility] 02-23-2024 12:10-0400 Systolic blood pressure 137 mm[Hg] Dr. Estela Osborne Work Phone: [facility] 02-23-2024 09:51-0400 Body height 149.[address] Estela Osborne Work Phone: [facility] 02-23-2024 09:51-0400 Body mass index (BMI) [Ratio] 28.1 kg/m2 Dr. Estela Osborne Work Phone: [facility] 02-23-2024 09:51-0400 Body weight 63.[address] Estela Osborne Work Phone: [facility] 02-03-2024 15:08-0400 Body temperature 98 [degF] Dr. Estela Osborne Work Phone: [facility] 02-03-2024 15:08-0400 Body weight 62.[address] Estela Osborne Work Phone: [facility] 02-03-2024 15:08-0400 Diastolic blood pressure 77 mm[Hg] Dr. Estela Osborne Work Phone: [facility] 02-03-2024 15:08-0400 Heart rate 66 /min Dr. Estela Osborne Work Phone: [facility] 02-03-2024 15:08-0400 Respiratory rate 16 /min Dr. Estela Osborne Work Phone: [facility] 02-03-2024 15:08-0400 SaO2% (BldA) [Mass fraction] 93 % Dr. Estela Osborne Work Phone: [facility] 02-03-2024 15:08-0400 Systolic blood pressure 133 mm[Hg] Dr. Estela Osborne Work Phone: [facility] 01-26-2024 12:39-0500 Body temperature 97.6 [degF] Dr. Estela Osborne Work Phone: [facility] 01-26-2024 12:39-0500 Diastolic blood pressure 58 mm[Hg] Dr. Estela Osborne Work Phone: [facility] 01-26-2024 12:39-0500 Heart rate 61 /min Dr. Estela Osborne Work Phone: [facility] 01-26-2024 12:39-0500 Respiratory rate 16 /min Dr. Estela Osborne Work Phone: [facility] 01-26-2024 12:39-0500 SaO2% (BldA) [Mass fraction] 93 % Dr. Estela Osborne Work Phone: [facility] 01-26-2024 12:39-0500 Systolic blood pressure 109 mm[Hg] Dr. Estela Osborne Work Phone: [facility] 01-26-2024 10:04-0500 Body height 149.[address] Estela Osborne Work Phone: [facility] 01-26-2024 10:04-0500 Body mass index (BMI) [Ratio] 28 kg/m2 Dr. Estela Osborne Work Phone: [facility] 01-26-2024 10:04-0500 Body weight 63.[address] Estela Osborne Work Phone: [facility] 05-06-2023 08:31-0400 Body height 149.[address] Estela Osborne Work Phone: [facility] 05-06-2023 08:31-0400 Body mass index (BMI) [Ratio] 28 kg/m2 Dr. Estela Osborne Work Phone: [facility] 05-06-2023 08:31-0400 Body weight 63.[address] Estela Osborne Work Phone: [facility] 05-06-2023 08:31-0400 Diastolic blood pressure 83 mm[Hg] Dr. Estela Osborne Work Phone: [facility] 05-06-2023 08:31-0400 Heart rate 53 /min Dr. Estela Osborne Work Phone: [facility] 05-06-2023 08:31-0400 Respiratory rate 18 /min Dr. Estela Osborne Work Phone: [facility] 05-06-2023 08:31-0400 SaO2% (BldA) [Mass fraction] 95 % Dr. Estela Osborne Work Phone: [facility] 05-06-2023 08:31-0400 Systolic blood pressure 134 mm[Hg] Dr. Estela Osborne Work Phone: [facility] 02-18-2023 13:02-0400 Body height 149.[address] Estela Osborne Work Phone: [facility] 01-15-2023 14:23-0500 Body height 149.[address] Estela Osborne Work Phone: [facility] 01-15-2023 14:23-0500 Body mass index (BMI) [Ratio] 28.3 kg/m2 Dr. Estela Osborne Work Phone: [facility] 01-15-2023 14:23-0500 Body weight 63.[address] Estela Osborne Work Phone: [facility] 01-15-2023 14:23-0500 Diastolic blood pressure 75 mm[Hg] Dr. Estela Osborne Work Phone: [facility] 01-15-2023 14:23-0500 Heart rate 76 /min Dr. Estela Osborne Work Phone: [facility] 01-15-2023 14:23-0500 Respiratory rate 18 /min Dr. Estela Osborne Work Phone: [facility] 01-15-2023 14:23-0500 SaO2% (BldA) [Mass fraction] 96 % Dr. Estela Osborne Work Phone: [facility] 01-15-2023 14:23-0500 Systolic blood pressure 144 mm[Hg] Dr. Estela Osborne Work Phone: [facility] 07-12-2022 10:39-0400 Body height 149.[address] Estela Osborne Work Phone: [facility] Work Phone: 07-12-2022 10:39-0400 Body mass index (BMI) [Ratio] 27.6 kg/m2 Dr. Estela Osborne Work Phone: [facility] Work Phone: 07-12-2022 10:39-0400 Body weight 62.[address] Estela Osborne Work Phone: [facility] Work Phone: 07-12-2022 10:39-0400 Diastolic blood pressure 74 mm[Hg] Dr. Estela Osborne Work Phone: [facility] Work Phone: 07-12-2022 10:39-0400 Heart rate 68 /min Dr. Estela Osborne Work Phone: [facility] Work Phone: 07-12-2022 10:39-0400 Respiratory rate 16 /min Dr. Estela Osborne Work Phone: [facility] Work Phone: 07-12-2022 10:39-0400 Systolic blood pressure 120 mm[Hg] Dr. Estela Osborne Work Phone: [facility] Work Phone: 03-08-2021 10:10-0400 BP Diastolic 77 mm[Hg] [facility] 03-08-2021 10:10-0400 BP Systolic 123 mm[Hg] [facility] 03-08-2021 10:03-0400 BMI (Body Mass Index) 29.69 kg/m2 [facility] 03-08-2021 10:03-0400 Body weight 68.95 kg [facility] 03-08-2021 10:03-0400 Height 152.4 cm [facility] 03-08-2021 10:03-0400 Pulse (Heart Rate) 65 /min [facility] 07-08-2019 09:40-0400 BP Diastolic 79 mm[Hg] [facility] 07-08-2019 09:40-0400 BP Systolic 131 mm[Hg] [facility] 07-08-2019 09:35-0400 BMI (Body Mass Index) 28.51 kg/m2 [facility] 07-08-2019 09:35-0400 Body weight 66.22 kg [facility] 07-08-2019 09:35-0400 Height 152.4 cm [facility] 07-08-2019 09:35-0400 Pulse (Heart Rate) 64 /min [facility] 04-08-2019 08:39-0400 BP Diastolic 83 mm[Hg] [facility] 04-08-2019 08:39-0400 BP Systolic 150 mm[Hg] [facility] 04-08-2019 08:39-0400 Pulse (Heart Rate) 63 /min [facility] 04-08-2019 08:37-0400 BMI (Body Mass Index) 28.03 kg/m2 [facility] 04-08-2019 08:37-0400 Height 152.4 cm [facility] 04-08-2019 08:37-0400 Respiratory Rate 16 /min Anjana Doshi [facility] 04-08-2019 08:37-0400 Weight 65.09 kg Anjana Doshi [facility] 05-20-2017 10:07-0400 BMI (Body Mass Index) 28.9 kg/m2 Leif Bonilla NP [facility] Work Phone: 05-20-2017 10:07-0400 BP Diastolic 80 mm[Hg] Leif Bonilla NP [facility] Work Phone: 05-20-2017 10:07-0400 BP Systolic 120 mm[Hg] Leif Bonilla NP [facility] Work Phone: 05-20-2017 10:07-0400 Pulse (Heart Rate) 68 /min Leif Bonilla NP [facility] Work Phone: 05-20-2017 10:07-0400 Weight 67.13 kg Leif Bonilla NP [facility] Work Phone: 11-21-2016 13:31-0500 BSA (Body Surface Area) 1.67 m2 Leif Bonilla NP [facility] Work Phone: 11-21-2016 13:31-0500 Height 152.4 cm Leif Bonilla NP [facility] Work Phone: 11-21-2016 13:31-0500 Respiratory Rate 18 /min Leif Bonilla NP [facility] Work Phone: 02-09-2016 09:36-0400 Body Temperature 98.2 [degF] Leif Bonilla NP [facility] Work Phone: NEGATED: Highlighted [id number] 16:51-0400 BMI (Body Mass Index) 27.05 kg/m2 Mini Harris AT [facility] Work Phone: NEGATED: Highlighted [id number] 16:51-0400 BP Diastolic 79 mm[Hg] Mini Harris AT [facility] Work Phone: NEGATED: Highlighted [id number] 16:51-0400 BP Diastolic 92 mm[Hg] Mini Harris AT [facility] Work Phone: NEGATED: Highlighted [id number] 16:51-0400 BP Systolic 174 mm[Hg] Mini Steven AT [facility] Work Phone: NEGATED: Highlighted [id number] 16:51-0400 BP Systolic 176 mm[Hg] Mini Steven AT [facility] Work Phone: NEGATED: Highlighted [id number] 16:51-0400 Height 152.4 [address] Steven [address] [facility] Work Phone: NEGATED: Highlighted [id number] 16:51-0400 Height 152 [address] Mini Steven [address] [facility] Work Phone: NEGATED: Highlighted [id number] 16:51-0400 Pulse (Heart Rate) 66 /min Mini Steven AT [facility] Work Phone: NEGATED: Highlighted [id number] 16:51-0400 Weight 62.6 [address] Steven AT [facility] Work Phone: NEGATED: Highlighted [id number] 16:51-0400 Weight 63 kg Mini Steven AT [facility] Work Phone: Encounters Encounter Date Encounter Type Care Provider Facility Start: 06-13-2025 ambulatory Estela Osborne Facility:[facility] Start: 05-04-2025 End: 05-04-2025 Patient encounter procedure Olive NEFF -[facility] Work Phone: Start: 05-04-2025 End: 05-04-[address] Estela Osborne DO Work Phone: [facility] Work Phone: Start: 04-11-2025 End: 04-11-2025 Patient encounter procedure Leif MENDOZA -Laboratory Work Phone: Start: 04-11-2025 End: 04-11-2025 Admission to same day surgery center Dr. Evaristo Bowen MD -[facility] Start: 04-11-2025 End: 04-11-[address] Estela Osborne DO Work Phone: [facility] Work Phone: Start: 04-11-2025 End: 04-11-2025 ambulatory Estela Crouse [facility] Facility:[facility] Start: 03-27-2025 Non-patient / Non-visit Dr. Juana Galloway MD -[facility] Work Phone: Start: 03-26-2025 Non-patient / Non-visit Dr. Juana Galloway MD -[facility] Work Phone: Start: 03-25-2025 Non-patient / Non-visit Dr. Catalina Manning MD -[facility] Work Phone: Start: 03-25-2025 ambulatory Barbara Galloway [place] Start: 03-25-2025 End: 03-27-2025 Evaluation and management of inpatient Dr. Barbara Galloway MD -Progressive Care Unit Work Phone: Start: 03-14-2025 End: 03-14-2025 Patient encounter procedure Leif MENDOZA -[facility] Work Phone: Start: 03-14-2025 End: 03-14-2025 ambulatory Estela Osborne [place] Start: 02-21-2025 End: 02-21-[address] Estela Osborne DO Work Phone: [facility] Work Phone: Start: 02-21-2025 End: 02-21-[address] Estela Osborne DO -Outpatient Breast Imaging Work Phone: Start: 02-21-2025 End: 02-21-2025 ambulatory Estela Osborne Facility:[facility] Start: 01-10-2025 End: 01-10-2025 Admission to same day surgery center Dr. Evaristo Bowen MD -[facility] Start: 01-10-2025 End: 01-10-2025 ambulatory Estela Osborne Facility:[facility] Start: 12-02-2024 End: 12-02-2024 Patient encounter procedure Kirt NEFF -[facility] Work Phone: Start: 12-02-2024 End: 12-02-2024 ambulatory Estela Osborne Facility:[facility] Start: 11-26-2024 End: 11-26-2024 Patient encounter procedure Olive NEFF -[facility] Work Phone: Start: 11-26-2024 End: 11-26-2024 ambulatory Estela Osborne Facility:[facility] Start: 09-15-2024 End: 09-15-2024 ambulatory Estela India Facility:[facility] Start: 08-11-2024 End: 08-11-2024 ambulatory Estela Malkate Facility:[facility] Start: 02-23-2024 End: 02-23-2024 Admission to same day surgery center Dr. Estela Osborne Work Phone: [facility] Start: 02-23-2024 End: 02-23-[address] Estlea Osborne Work Phone: [facility] Work Phone: Start: 02-20-2024 End: 02-20-[address] Estela Osborne Work Phone: [facility] Work Phone: Start: 02-20-2024 End: 02-20-[address] Estela Osborne Work Phone: [facility]-Outpatient Breast Imaging Work Phone: Start: 02-03-2024 End: 02-03-[address] Estela Osborne Work Phone: [facility] Work Phone: Start: 01-26-2024 End: 01-26-2024 Admission to same day surgery center Dr. Estela Osborne Work Phone: [facility] Start: 01-26-2024 End: 01-26-[address] Estela Osborne Work Phone: [facility] Work Phone: Start: 01-09-2024 End: 01-09-[address] Estela Osborne Work Phone: [facility] Work Phone: Start: 01-09-2024 End: 01-09-[address] Estela Osborne Work Phone: [facility]-MRI - [facility] Work Phone: Start: 12-26-2023 Non-patient / Non-visit Dr. Le Osborne Work Phone: [facility] Start: 12-26-2023 End: 12-26-[address] Estela Osborne Work Phone: [facility] Work Phone: Start: 12-26-2023 End: 12-26-2023 Patient encounter procedure [facility]-Cardiovascular Services Work Phone: Start: 12-23-2023 End: 12-23-2023 ambulatory [facility] Work Phone: Start: 12-23-2023 End: 12-23-2023 Patient encounter procedure [facility]-Radiology, [facility] Work Phone: Start: 08-01-2023 End: 08-01-[address] Estela Osborne Work Phone: [facility] Work Phone: Start: 08-01-2023 End: 08-01-[address] Estela Osborne Work Phone: [facility]-Laboratory Work Phone: Start: 05-14-2023 Non-patient / Non-visit Dr. Le Osborne Work Phone: [facility] Start: 05-14-2023 End: 05-14-[address] Estela Osborne Work Phone: [facility]-Cardiovascular Services Work Phone: Start: 05-06-2023 End: 05-06-[address] Estela Osborne Work Phone: [facility] Work Phone: Start: 05-06-2023 End: 05-06-[address] Estela Osborne Work Phone: [facility] Start: 02-18-2023 End: 02-18-[address] Estela Osborne Work Phone: [facility] Work Phone: Start: 02-18-2023 End: 02-18-[address] Estela Osborne Work Phone: [facility]-Outpatient Bone Densitometry Start: 02-04-2023 End: 02-04-[address] Estela Osborne Work Phone: [facility] Work Phone: Start: 02-04-2023 End: 02-04-[address] Estela Osborne Work Phone: [facility]-Laboratory Start: 02-04-[address] Estela archer Work Phone: [facility]-Cardiovascular Services Start: 01-15-2023 End: 01-15-[address] Estela Osborne Work Phone: [facility] Start: 08-05-2022 Non-patient / Non-visit [facility]. Le [facility] Start: 08-05-2022 End: 08-05-[address] Estela Osborne Work Phone: [facility] Work Phone: Start: 08-05-2022 End: 08-05-[address] Estela Osborne Work Phone: [facility]-Cardiovascular Services Start: 07-12-2022 End: 07-12-[address] Estela Osborne Work Phone: [facility] Start: 07-04-2022 End: 07-04-2022 Patient encounter procedure [facility]-Laboratory Start: 02-15-2022 End: 02-15-2022 Patient encounter procedure [facility]-Outpatient Breast Imaging Start: 10-23-2021 Patient encounter procedure [facility]-Laboratory Start: 03-08-2021 End: 03-12-2021 ambulatory ESTELA OSBORNE [facility] Start: 03-08-2021 End: 03-08-2021 Office outpatient visit 15 minutes WSilvestre Doshi Work Phone: [facility] Comment on above: Right leg swelling ( Primary Dx); Venous insufficiency Start: 12-28-2020 End: 01-01-2021 ambulatory Anjana DOSHI [facility] Start: 12-07-2020 End: 12-07-2020 Orders Only Amaya Ambrocio Work Phone: [facility] Start: 07-08-2019 End: 07-08-2019 Office outpatient visit 15 minutes WSilvestre Doshi Work Phone: [facility] Comment on above: Venous insufficiency (Primary Dx) Start: 04-08-2019 End: 04-08-2019 Office outpatient new 30 minutes WSilvestre Doshi Work Phone: [facility] Comment on above: Venous insufficiency (Primary Dx); Right leg swelling Start: 07-29-2018 End: 07-29-2018 Patient encounter procedure Yaya Benito MD Work Phone: [facility] Work Phone: Procedures Date Procedure Procedure Detail Performing Clinician Start: 04-11-2025 Local anesthetic sac ral epidural block Dr. Estela Osborne DO Work Phone: Start: 04-11-2025 Injection of spinal epidural space Dr. Estela Osborne DO Work Phone: Start: 04-11-2025 Injection using fluoroscopic guidance Dr. Estela Osborne DO Work Phone: Start: 03-27-[address] Estela Osborne DO Work Phone: Start: 03-25-[address] Estela Osborne DO Work Phone: Start: 03-25-[address] Estela Osborne DO Work Phone: Start: 03-25-2025 X-ray of chest, PA a nd lateral views Dr. Estela Osborne DO Work Phone: Start: 03-25-2025 Urnls dip stick/tabl et reagent auto microscopy Dr. Estela Osborne DO Work Phone: Start: 02-21-2025 Screening mammography Alexandr Osborne DO Work Phone: Start: 01-10-2025 Complete x-ray serie s of lumbar spine with bending views Dr. Estela Osborne DO Work Phone: Start: 01-10-2025 Injection of facet joint Dr. Estela Osborne DO Work Phone: Start: 01-10-2025 End: 01-10-2025 Injection of spinal epidural space Dr. Estela Osborne DO Work Phone: Start: 02-23-2024 Injection of facet joint Dr. Estela Osborne Work Phone: Start: 02-23-2024 Injection of spinal epidural space Dr. Estela Osborne Work Phone: Start: 02-23-2024 X-ray of lumbar spin e, two or three views Dr. Estela Osborne Work Phone: Start: 02-23-2024 Local anesthetic lum bar facet joint nerve block Dr. Estela Osborne Work Phone: Start: 02-20-2024 Screening mammography Alexandr Osborne Work Phone: Start: 01-26-2024 Balloon kyphoplasty of fracture of spine Dr. Estela Osborne Work Phone: Start: 01-26-2024 Fluoroscopic guidance Alexandr Osborne Work Phone: Start: 01-26-[address] Silvestre Osborne Work Phone: Start: 01-09-2024 MRI of lumbar spine Dr. Estela Osborne Work Phone: Start: 12-23-2023 X-ray of cervical spine Start: 12-23-2023 Radiography of thora cic spine Start: 02-18-2023 Dual energy X-ray absorptiometry Dr. Estela Osborne Work Phone: Start: 02-18-2023 Screening mammography Alexandr Osborne Work Phone: Start: 08-05-2022 Radionuclide imaging of perfusion of myocardium under exercise stress Dr. Estela Osborne Work Phone: Start: 02-15-2022 Screening mammography Start: 07-29-2018 End: 07-29-2018 Blood pressure outside [...] Eduardo Zafar MD Start: 05-20-2017 End: 05-20-2017 INSTRUCTIONAL [employer]IA SERVICES TECHNICIAN Graciela Hurtado PA-C Work Phone: Start: 05-20-2017 End: 05-20-2017 Follow Up Appt 6 months Graciela Hurtado PA-C Work Phone: Start: 11-21-2016 End: 11-22-2016 *Hepatic Function Panel Fadi Sinclair Start: 11-21-2016 End: 11-21-2016 Follow Up Appt 6 months Fadi Sinclair Start: 11-21-2016 End: 11-22-2016 Lipid Candy panel - Serum or Plasma Carlos Eduardo Zafar MD Start: 11-21-2016 End: 11-21-2016 [facility] Carlos Eduardo Zafar MD Start: 10-21-2016 End: 11-26-2016 *Hepatic Function Panel Fadi Sinclair Start: 10-21-2016 End: 11-26-2016 Lipid Candy panel - Serum or Plasma Carlos Eduardo Zafar MD Start: 08-22-2016 End: 08-22-2016 ALEK Zafar MD Start: 08-22-2016 End: 08-22-2016 Follow Up Appt 3 months Carlos Eduardo S Andrade, M D Start: 04-11-2016 End: 04-18-2016 *Hepatic Function Panel Fadi Sinclair Start: 04-11-2016 End: 04-18-2016 Lipid 1996 panel - Serum or Plasma Carlos Eduardo Zafar MD Start: 02-22-2016 End: 05-14-2017 Follow Up Appt 6 months Fadi Sinclair Start: 02-22-2016 End: 05-14-2017 MMFadi Zafar MD Start: 11-22-2015 End: 11-22-2015 INSTRUCTIONAL MEDIA SERVICES TECHNICIAN Graciela Hurtado PA-C Work Phone: Start: 11-22-2015 End: 11-22-2015 Follow Up Appt 3 months Graciela Hurtado PA-C Work Phone: Start: 08-23-2015 End: 11-09-2015 *Hepatic Function Panel Fadi Sinclair Start: 08-23-2015 End: 08-24-2015 Documentation of current medications Carlos Eduardo Zafar MD Start: 08-23-2015 End: 11-15-2015 Echocardiography Carlos Eduardo Zafar MD Start: 08-23-2015 End: 08-23-2015 Follow Up Appt 3 months Fadi Sinclair Start: 08-23-2015 End: 11-09-2015 Lipid 1996 panel - Serum or Plasma Carlos Eduardo Zafar MD Start: 08-23-2015 End: 08-23-2015 MMFadi Zafar MD Start: 07-28-2015 End: 08-21-2015 Nuclear stress test -exercise Carlos Eduardo Zafar MD Start: 07-24-2015 End: 05-14-2017 Cardiac Rehab Carlos Eduardo Zafar MD Start: 07-19-2015 History of placement of stent for coronary artery disease History of coronary artery stent placement Leif Bonilla [employer] TECHNICIANG[employer]orC Comment on above: PCI-NINA-Mid LAD w/ 2 .5 x 12 mm Promus PREMIER RX and NINA-Mid LCx w/ 2.25 x 12 mm Promus PREMIER RX 07/19/2015 Plan of Treatment Date Care Activity Detail Author Start: 04-11-2025 Anes dx/ther nerve block/injection prone pos ANESTH N BLOCK/INJ PRONE [facility] Start: 04-11-2025 Njx dx/ther sbst intrlmnr lmbr/sac w/img gdn NJX INTERLAMINAR LMBR/SAC [facility] Start: 04-11-2025 Injection of spinal epidural space [facility] Start: 04-11-2025 Injection using fluoroscopic guidance [facility] Start: 04-11-2025 Patient discharge [facility] Start: 03-27-2025 Patient discharge [facility] Start: 03-25-2025 Referral to occupational therapist [facility] Start: 03-25-2025 End: 03-25-2025 Referral to service [facility] Start: 03-25-2025 Assessment of risk of venous thromboembolism [facility] Start: 03-25-2025 Insertion of catheter into peripheral vein [facility] Start: 03-25-2025 Measuring intake and output [facility] Start: 03-25-2025 Providing care according to standard [facility] Start: 03-25-2025 [facility] Start: 03-25-2025 Following clinical pathway protocol [facility] Start: 03-25-2025 Admission procedure [facility] Start: 03-25-2025 [facility] Start: 01-10-2025 Anes dx/ther nerve block/injection prone pos ANESTH N BLOCK/INJ PRONE [facility] Start: 01-10-2025 Njx dx/ther agt pvrt facet jt lmbr/sac 1 level INJ PARAVERT F JNT L/S 1 LEV [facility] Start: 01-10-2025 Njx dx/ther agt pvrt facet jt lmbr/sac 2nd level INJ PARAVERT F JNT L/S 2 LEV [facility] Start: 01-10-2025 Patient discharge [facility] Start: 02-23-2024 Injection of spinal epidural space [facility] Start: 02-23-2024 X-ray of lumbar spine, two or three views Lumbar Spine 2 or 3 Views [facility] Start: 02-23-2024 Patient discharge [facility] Start: 01-26-2024 Anes dx/ther nerve block/injection prone pos ANESTH N BLOCK/INJ PRONE [facility] Start: 01-26-2024 Perq vert agmntj cavity crtj uni/bi cannulation PERQ VERTEBRAL AUGMENTATION [facility] Start: 01-26-2024 Radiography of spine [facility] Start: 01-26-2024 Patient discharge [facility] Start: 07-25-2020 Influenza vaccination given Sequential Influenza Vaccine (#1) [facility] Start: 07-25-2019 Influenza vaccination given [facility] Start: 07-08-2019 End: 07-08-2019 Office Visit 07/08/2019 Office Visit Cardiology Anjana Doshi III, DO [address] [place] [address] [phone] [facility] Start: 07-29-2018 End: 07-29-2018 Appointment Appointment [facility] Work Phone: Start: 07-29-2018 End: 07-29-2018 Radex spine lumbosacral minimum 4 views XR LUMBAR 4VWS FLEX/EX [facility] Work Phone: Start: 12-04-2017 End: 12-04-2017 Appointment Appointment [facility] Work Phone: Start: 11-24-2017 End: 05-29-2017 *Hepatic Function Panel *Hepatic Function Panel [facility] Work Phone: Start: 11-24-2017 End: 05-29-2017 Lipid panel [AGGREGATE] *Lipid Profile CC PCP [facility] Work Phone: Start: 05-23-2017 End: 05-24-2017 *Hepatic Function Panel *Hepatic Function Panel [facility] Work Phone: Start: 05-23-2017 End: 05-24-2017 Lipid panel [AGGREGATE] *Lipid Profile CC PCP [facility] Work Phone: Start: 05-20-2017 End: 05-20-2017 INSTRUCTIONAL MEDIA SERVICES TECHNICIAN INSTRUCTIONAL MEDIA SERVICES TECHNICIAN [facility] Work Phone: Start: 05-20-2017 End: 05-20-2017 Follow Up Appt 6 months Follow Up Appt 6 months [facility] Work Phone: Start: 11-21-2016 End: 11-22-2016 *Hepatic Function Panel *Hepatic Function Panel [facility] Work Phone: Start: 11-21-2016 End: 11-21-2016 Follow Up Appt 6 months Follow Up Appt 6 months [facility] Work Phone: Start: 11-21-2016 End: 11-22-2016 Lipid panel [AGGREGATE] *Lipid Profile CC PCP [facility] Work Phone: Start: 11-21-2016 End: 11-21-2016 MMM MMM [facility] Work Phone: Start: 10-21-2016 End: 11-26-2016 *Hepatic Function Panel *Hepatic Function Panel [facility] Work Phone: Start: 10-21-2016 End: 11-26-2016 Lipid panel [AGGREGATE] *Lipid Profile CC PCP [facility] Work Phone: Start: 09-30-2016 End: 09-30-2016 Mri spinal canal lumbar w/o contrast material MRI Lumbar Spine [facility] Work Phone: Start: 09-30-2016 End: 09-30-2016 Radex spine lumbosacral minimum 4 views X-Ray, Spine, Lumbosacral 2-3 views [facility] Work Phone: Start: 08-22-2016 End: 08-22-2016 INSTRUCTIONAL MEDIA SERVICES TECHNICIAN INSTRUCTIONAL MEDIA SERVICES TECHNICIAN [facility] Work Phone: Start: 08-22-2016 End: 08-22-2016 Follow Up Appt 3 months Follow Up Appt 3 months [facility] Work Phone: Start: 04-11-2016 End: 04-18-2016 *Hepatic Function Panel *Hepatic Function Panel [facility] Work Phone: Start: 04-11-2016 End: 04-18-2016 Lipid panel [AGGREGATE] *Lipid Profile CC PCP [facility] Work Phone: Start: 02-22-2016 End: 05-14-2017 Follow Up Appt 6 months Follow Up Appt 6 months [facility] Work Phone: Start: 02-22-2016 End: 05-14-2017 MMM MMM [facility] Work Phone: Start: 11-22-2015 End: 11-22-2015 INSTRUCTIONAL MEDIA SERVICES TECHNICIAN INSTRUCTIONAL MEDIA SERVICES TECHNICIAN [facility] Work Phone: Start: 11-22-2015 End: 11-22-2015 Follow Up Appt 3 months Follow Up Appt 3 months [facility] Work Phone: Start: 08-23-2015 End: 11-09-2015 *Hepatic Function Panel *Hepatic Function Panel [facility] Work Phone: Start: 08-23-2015 End: 08-23-2015 Echocardiography Echocardiogram (complete) [facility] Work Phone: Start: 08-23-2015 End: 08-23-2015 Follow Up Appt 3 months Follow Up Appt 3 months [facility] Work Phone: Start: 08-23-2015 End: 11-09-2015 Lipid panel [AGGREGATE] *Lipid Profile CC PCP [facility] Work Phone: Start: 08-23-2015 End: 08-23-2015 MMM MMM [facility] Work Phone: Start: 07-28-2015 End: 07-28-2015 Nuclear stress test -exercise Nuclear stress test -exercise [facility] Work Phone: Start: 07-24-2015 End: 07-24-2015 Cardiac Rehab Card[facility] [address] [place], [address] [facility] Work Phone: Start: 2004 Fall risk assessment Falls Risk Assessment [facility] Start: 2004 Pneumococcal vaccination PNEUMOCOCCAL VACCINE AGE 65+ (1 of 2 - PCV13) [facility] Start: 1989 Administration of herpes zoster vaccine Zoster Vaccines (1 of 2) [facility] Start: 1951 Adolescent depression screening assessment Depression Screening (PHQ9) [facility] Start: 1942 History and physical examination, annual for health maintenance Wellness Visit [facility] Start: 1939 Fall risk assessment Falls Risk Assessment [facility] Start: 1939 Protein mass conc Mammogram [facility] Start: 1939 Screening for osteoporosis Dexa Scan [facility] Start: 1939 Screening mammography Mammogram [facility] Start: 1939 Tetanus vaccination [facility] Blood chemistry [facility] Work Phone: CBC W Auto Different ial panel - Blood [facility] Work Phone: Magnesium [Mass/volu me] in Serum or Plasma [facility] Work Phone: Patient Education [facility] Work Phone: Patient referral [facility] Work Phone: T4 free measurement [facility] Work Phone: Thyroid stimulating hormone measurement [facility] Work Phone: [facility] Immunizations Immunization Date Immunization Notes Care Provider Fa cility 01-11-2021 Covid (Moderna) [facility] 12-14-2020 Covid (Moderna) [facility] 09-09-2018 influenza, injectabl e, quadrivalent, preservative free Dr. Estela Osborne Work Phone: [facility] 09-09-2018 influenza, seasonal, injectable [facility] 12-19-2014 pneumococcal polysaccharide vaccine, 23 valent [facility] 01-10-2013 pneumococcal conjuga te vaccine, 13 valent [facility] No information available. Mini Harris AT [facility] Work Phone: Payers Date Payer Category Payer Self-pay [id number] 2024 Medicare [id number] 2004 Medicare MEDICARE MEDICAR E PART A & B [id number] 2004-Present [place] [id number] 2004 Medicare MEDICARE MEDICAR E PART A & B [id number] 2004-Present [place] [id number] 2004 Medicare [id number] 1940 Unknown [id number] 1940 Unknown [id number] Unknown [employer] AFTER MEDICARE [id number] Effective for all dates xxxxxxxxxx [id number] Unknown [employer]ERCIAL [employer] HOUG[employer] AFTER MEDICARE [id number] Effective for all dates [id number] Unknown [id number] Unknown [id number] Unknown [id number] [id number] Unknown [id number] [id number] Unknown [id number] [id number] Unknown [id number] [id number] Unknown [id number] [id number] Unknown [id number] [id number] Unknown [id number] [id number] Unknown [id number] [id number] Unknown [id number] [id number] Unknown [id number] [id number] Unknown [id number] [id number] Unknown [id number] [id number] Unknown [id number] [id number] Unknown [id number] Social History Date Type Detail Facility Start: 08-31-2021 End: 02-03-2024 Assertion Unknown if ever smoked [facility] Work Phone: Start: 04-08-2019 End: 03-25-2025 Tobacco smoking status NHIS Former smoker [facility] End: 11-24-1992 History of tobacco use Current smoker [facility] Start: 04-08-2019 End: 03-08-2021 Cigarettes smoked current (pack per day) - Reported [facility] Start: 04-08-2019 Alcohol Comment social [facility] Sex Assigned At Not on file [facility] Start: 07-08-2019 End: 03-08-2021 Tobacco use and exposure Never used [facility] Start: 07-08-2019 End: 03-08-2021 Alcohol intake Current drinker of alcohol (finding) [facility] Exposure to SARS-CoV-2 (event) Not sure [facility] Start: 09-07-2018 Rare [facility] Start: 09-07-2018 None [facility] Start: 09-07-2018 Alone [facility] Start: 09-25-2018 Non-smoker [facility] Start: 1940 Sex Assigned At Female [facility] Start: 02-24-2025 Sex Female (finding) [facility] NEGATED: Highlighted row [facility] Medical Equipment Procedure Code Equipment Code Equipment Origin al Text Equipment Identifier Dates Kyphoplasty Orthopaedic ceme nt, non-antimicrobial [id number] FDA Start: 01-26-2024 Goals Date Patient Goal Desired Activity /State Functional Status Date Assessment Result Facility 03-27-2025 Functional status Ambulates [facility] Work Phone: Mental Status Date Assessment Result Facility 04-11-2025 Cognitive function Voice/Name;Touch/Shaki [facility] Work Phone: 03-27-2025 Cognitive function Voice/Name [facility] Work Phone: 01-10-2025 Cognitive function Voice/Name [facility] Work Phone: 02-23-2024 Cognitive function Voice/Name [facility] Work Phone: 01-26-2024 [facility]: Clinical Notes 07-19-2015 to 04-11-2025 Note Date & Type Note Facility 04-11-2025 Consult note [facility] 04-11-2025 Procedure note [facility] 04-11-2025 Consult note [facility] 03-27-2025 Note [facility] Medical Records Department [address] [place] [address] Discharge Summary 03/27/25 1239 MR#: [id number] Acct: [id number] Name: JAMILA LOPES Rep #: [id number] : 1940 84 From: Barbara Galloway MD PCP: Dr. Estela Osborne DO Status:ADM IN Location: [place] [address] Providers Date of Admission: 03/25/25 Date of Discharge: 03/27/25 Primary Care Physician: Dr. Estela Osborne DO Reason For Visit: UTI WITH ORTHOSTASIS Diagnosis Discharge Diagnosis (1) Acute UTI: Status: Acute Code(s): N39.0 - Urinary tract infection, site not specified (2) Orthostatic hypotension: Status: Acute Code(s): I95.1 - Orthostatic hypotension Plan #Dizziness due ot orthostatic hypotension * Still feeling dizzy this morning. Continue gentle hydration with IV fluids. * Check orthostatics. #UTI: On IV ceftriaxone. Urine cultures pending. wbc is down to 14.6. # Hypertension: On metoprolol and amlodipine. #Hyperlipidemia: On statin #CAD s/p stents: On Imdur and statin as well as metoprolol and aspirin. #GERD: On PPI #CKD stage III: Creatinine at baseline. Will monitor. DVT prophylaxis: Heparin Medications at Discharge Home Medications aspirin 81 mg chewable tablet 81 mg PO DAILY [facility] 08/09/15 cyanocobalamin (vitamin B-12) 5,000 mcg/mL sublingual drops (Vitamin B-12) 5,000 mcg sublingual QDAY supplement 06/04/18 pantoprazole 40 mg tablet,delayed release 40 mg PO BID #60 tabs 04/12/24 amlodipine 5 mg tablet 5 mg PO DAILY #90 TABLETS 08/24/24 atorvastatin 80 mg tablet 80 mg PO MOWEFR cholesterol 90 days #39 tabs 09/03/24 isosorbide mononitrate 30 mg tablet,extended release 24 hr 30 mg PO DAILY #90 tabs 10/27/24 biotin 5 mg capsule 5 mg PO DAILY 03/14/25 cholecalciferol (vitamin D3) 25 mcg (1,000 unit) tablet 25 mcg PO DAILY 03/14/25 furosemide 20 mg tablet 20 mg PO DAILY PRN swelling 03/14/25 tramadol 50 mg tablet 25 - 50 mg PO TID PRN pain 03/14/25 amitriptyline 10 mg tablet 10 mg PO DAILY 03/25/25 metoprolol succinate 25 mg tablet,extended release 24 hr 25 mg PO DAILY blood pressure 03/25/25 nemolizumab-ilto subcut 03/25/25 cefdinir 300 mg capsule 300 mg PO BID 5 days #10 caps 03/27/25 Hospital Course Operations None Procedures None Summary of Care Provided Minutes Spent on Discharge: 38 Hospital Course: Patient is an 84-year-old female with past medical history as outlined was admitted through the ED on 03/25/2025 with complaint of lightheadedness and dizziness as well as near syncope. She also says she has been having some chills and fever at home. On admission she had leukocytosis of 17 and orthostatics were also positive. Urinalysis showed evidence of UTI. She was therefore admitted and managed for debility due to orthostatic hypotension and UTI. She was placed on IV ceftriaxone and hydrated with IV fluids. Orthostatic hypotension resolved. She is felt much better and leukocytosis also resolved with WBC trending down to 9 at time of discharge. Urine cultures grew E. coli which was pansensitive. She was therefore discharged home on 03/27/2025 on p.o. cefdinir 300 mg twice daily for 5 days. She is follow-up with her primary care doctor within 1 to 2 weeks. Patient seen and examined prior to discharge. She had no active complaints. Review of systems otherwise negative. Labs and vitals reviewed. Medication reviewed and reconciled. Physical Exam Const alert, oriented x3, no apparent distress and well nourished General Appearance: cooperative, comfortable, well kempt and well developed Orientation / Consciousness: awake HEENT normocephalic, head/scalp atraumatic, hearing grossly normal bilaterally, moist oral mucous membranes and oropharynx normal Mouth: oral and palatal mucosa normal Eyes PERRL, EOMs intact bilaterally and conjunctivae normal Neck no lymphadenopathy and supple Lymph Lymphatic: no lymphadenopathy noted Resp normal respiratory effort, normal air movement and clear to auscultation bilaterally Cardio regular rate, regular rhythm, S1 normal heart sound, S2 normal heart sound and no murmurs GI normal to inspection, nondistended, normoactive bowel sounds, soft to palpation, non-tender and non- distended Extremity normal to inspection, full ROM, no clubbing, cyanosis or edema and no calf tenderness General Extremity: no tenderness to palpation of joints or extremities Skin no rashes or lesions noted General Skin Exam: no breakdown Neuro oriented x3, CN's II-XII intact bilaterally, moves all extremities, no focal motor deficits and no sensory deficits noted Sensorium / Orientation: awake and alert Motor Exam: strength 5/5 throughout and general weakness Psych thought process normal, cooperative and affect normal Appearance: appropriate Weight / BMI Weight Weight: 129 lb 13.636 oz Body Mass Index (BMI) 27.1 (more content not included)... [facility] 03-14-2025 Evaluation note Diagnosis Onset Date Resolution Fatigue acute March 14, 2025 1:28pm Essential (primary) hypertension chronic March 14, 2025 1:28pm Hyperlipidemia chronic February 1:28pm History of coronary artery stent placement July 19, 2015 resolved March 14, 2025 1:28pm Acute UTI resolved March 25, 2025 11:55am Orthostatic hypotension resolved March 25, 2025 11:55am [facility] Work Phone: 1(216) 638-493801-03-2025 Evaluation note* Diagnosis Onset Date Resolution Status Admit Date Esophageal dysmotilities acute November 26, 2024 12:43pm Loose stools acute November 26, 2024 12:43pm Skin tear of left forearm without complication acute November 3:25pm [facility] Work Phone: 1(177) 933-265204-01-2024 Procedure [facility] 01-26-2024 Procedure [facility]08-26-2015 Evaluation note* Diagnosis Onset Date Resolution Status Essential (primary) hypertension chronic Hyperlipidemia chronic History of coronary artery stent placement June resolved [facility] Work Phone: 1(223) 604-918508-26-2015 Evaluation note* Diagnosis Onset Date Resolution Status Essential (primary) hypertension chronic Hyperlipidemia chronic History of coronary artery stent placement June resolved Fatigue acute Essential (primary) hypertension chronic Hyperlipidemia chronic History of coronary artery stent placement June resolved [facility] Work Phone: 1(989) 894-525008-26-2015 Evaluation note* Diagnosis Onset Date Resolution Status Fatigue acute Essential (primary) hypertension chronic Hyperlipidemia chronic History of coronary artery stent placement June resolved [facility] Work Phone: Consult note Author Cirilo Dunaway [facility] Note Date/Time April 11, 2025 11:18 am [facility] Medical Records Department [address] [place] [address] Pre-Anesthesia Evaluation 04/11/25 1117 MR#: [id number] Acct: [id number] Name: JAMILA LOPES Rep #:[id number] : 1940 84 From: Cirilo Dunaway MD PCP: Dr. Estela Osborne, DO Status:REG SDC Y Race: C Location: [place] [address] ASA Classification* ASA Classification ASA Classification: 3 Assessment & Plan Anesthesia* Anesthesia Assessment Anesthesia Assessment: Discussed sedation and/or anesthesia options, risks, benefits, and alternatives with patient/parents/legal guardian/POA. Questions invited. The patient/parents/legal guardian/POA seems to understand and agrees to proceedwith anesthesia plan. Reviewed the physical assessment, medical history, allergy history and patient home medications list prior to surgery/procedure/anesthetic and documented any changes. Performed airway and anesthesia risk assessments. Anesthesia Type Anesthesia Type: MAC Anesthesia Focused Assessment* Temperature: 97.1 F Pulse Rate: 62 Blood Pressure: 146/76 Respiratory Rate: 18 Pulse Ox: 99 Airway Assessment Mouth opens: >3 cm Mallampati Score: II Focused Labs Anesthesia Preop lab: CBC WBC 9.9 K/mm3 (4.4-11.0) 03/27/25 06:05 03/27/25 RBC 3.74 M/mm3 (4.2-5.4) L 03/27/25 06:05 03/27/25 Hgb 11.7 g/dL (12.0-15.0) L 03/27/25 06:05 5 Hct 35.6 % (37-47) L 03/27/25 06:05 03/27/25 Plt Count 226 K/mm3 (150-450) 03/27/25 06:05 03/27/25 CHEMISTRY Potassium 3.3 mmol/L (3.3-5.1) 03/27/25 06:05 03/27/25 Sodium 139 mmol/L (133-145) 03/27/25 06:05 03/27/25 Magnesium 2.3 mg/dL (1.6-2.6) 10/04/22 14:09 10/04/22 BUN 20 mg/dL (4-19) H 03/27/25 06:05 03/27/25 Creatinine 1.25 mg/dL (0.70-1.20) H 03/27/25 06:05 Glucose 88 mg/dL (70-99) 03/27/25 06:05 03/27/25 TSH 3.38 uIU/mL (0.358-3.74) 05/06/23 09:10 COAG PT 13.3 SECONDS (11.7-14.9) 07/21/15 02:30 Pre-Assessment Diagnosis/Proposed Procedure Planned Operative Procedure(s): Caudal block Anesthesia History Anesthesia History - 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 When Was Last Pacemaker Check QUESTION #4 FULL TEXT: You/Your Family Experience fever (hyperthermia) with Anesthesia Last Oral Intake Last Oral intake: Last Oral Intake NPO since Meds taken in AM with sips of water? Meds patient instructed to take am of surgery PONV PONV - police radio dispatcher: PONV - police radio dispatcher Female HX of Motion Sickness HX of N/V After Surgery Non-Smoker Duration of Surgery greater than 60 minutes Number of Risk Factors PONV Score Height & Weight Height & Weight: Anesthesia: Height & Weight Height 4 ft 11 in 04/11/25 11:08 Weight: 59 kg 04/11/25 11:08 Body Mass Index (BMI) 26.2 04/11/25 11:08 Respiratory Assessment Respiratory Assessment - police radio dispatcher: Respiratory Tract Infection Hx - police radio dispatcher Hx Respiratory Tract Infection No 12/02/24 15:16 STOP Sleep Apnea STOP Sleep Apnea - police radio dispatcher: STOP Sleep Apnea - police radio dispatcher Hx Hypertension Yes 03/25/25 16:09 Hx Sleep Apnea No 03/25/25 12:57 CPAP BIPAP Do you snore loudly (louder than talking or can be heard Do you often feel tired/ fatigued/ sleepy during daytime? Has anyone observed you stop breathing during sleep? STOP Results QUESTION #5 FULL TEXT : Do you snore loudly (louder than talking or can be heard through closed doors)? 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 Specify any problems Hx of Preganancy in last 3 Months Nurse Filling Out Transfusion & Questions: Date: Time: Patient unable to answer at this time (ie. confused, unrespo /Reproduction History /Reproductive History - police radio dispatcher: /Reproductive Hx- police radio dispatcher Hx Now Gestational Age (in weeks): EDC: Hx Hx Para Hx Section SAB No 12/02/24 15:16 Active Medications Active Medications: Current Medications Generic Name Dose Route Start Last Admin Trade Name Freq PRN Reason Stop Dose Admin Lactated Ringer's 1,000 mls @ 15 mls/hr 04/11/25 11:00 IV .Q48H JEWELL PFSH Medical History Wears glasses Wears dentures Cancer Ambulates with cane History of renal disease Easy bruising High cholesterol History of echocardiogram History of stress test Hypertension History of heart attack Chest pain Cardiology follow-up encounter Acute pneumonia Tuttle's palsy Macular degeneration Renal insufficiency Osteoarthritis Spondylosis Scoliosis Lumbar spinal stenosis History of non-ST elevation myocardial infarction (NSTEMI) Essential (primary) hypertension Hyperlipidemia Atherosclerotic heart disease of inupiat coronary artery without angina pectoris Low back pain Lumbar radiculopathy Home Medications ?Medication ?Instructions ?Recorded ?Last Taken ?Type aspirin 81 mg chewable tablet 81 mg PO DAILY heart hea lth 08/09/15 04/10/25 History cyanocobalamin (vitamin B-12) 5,000 mcg sublingual QDA Y 06/04/18 03/25/25 History 5,000 mcg/mL sublingual drops supplement (Vitamin B-12) pantoprazole 40 mg tablet,delayed 40 mg PO BID reflux #60 tabs 04/12/24 03/25/25 Rx release amlodipine 5 mg tablet 5 mg PO DAILY blood pressure #90 08/24/24 03/25/25 Rx TABLETS atorvastatin 80 mg tablet 80 mg PO MOWEFR cholesterol 90 09/03/24 03/23/25 Rx days #39 tabs isosorbide mononitrate 30 mg 30 mg PO DAILY heart #90 tabs 10/27/24 03/25/25 Rx tablet,extended release 24 hr biotin 5 mg capsule 5 mg PO DAILY supplement 03/25/25 History cholecalciferol (vitamin D3) 25 25 mcg PO DAILY vitami n 03/14/25 03/25/25 History mcg (1,000 unit) tablet furosemide 20 mg tablet 20 mg PO DAILY PRN swelling 03/14/25 Unknown History tramadol 50 mg tablet 25 - 50 mg PO TID PRN pain 0 03/14/25 03/24/25 History amitriptyline 10 mg tablet 10 mg PO DAILY mental healt h 03/25/25 03/25/25 History metoprolol succinate 25 mg 25 mg PO DAILY blood pressu re 03/25/25 03/25/25 History tablet,extended release 24 hr nemolizumab-ilto subcut 03/25/25 03/21/25 His tory cefdinir 300 mg capsule 300 mg PO BID 5 days #10 cap s 03/27/25 Unknown Rx Allergy/AdvReac Type Severity Reaction Status Date / Time gabapentin Allergy Hives Verified 04/11/25 11:07 tomato Allergy Rash Verified 04/11/25 11:07 Family History Father , Age 89 Congestive heart failure Mother , Age 86 CVA (cerebral vascular accident) Hypertension Hyperlipidemia Sister , age 11 in MVA No problems noted. Surgical History History of back surgery (~01/2024) History of cardiac catheterization History of appendectomy History of elbow surgery History of hysterectomy History of eyelid surgery (~06/2023) History of laminectomy (08/2018) History of coronary artery stent placement (07/19/15) Social History Smoking Status: Former smoker how long ago did patient quit smokin alcohol intake: current alcohol intake frequency: a few times a week Alcohol type: wine substance use type: does not use caffeine: Yes Type: tea Number of servings: 4 Review of Systems (Anesthesia) ROS Narrative System reviewed and no additional complaints, except as documented. 04/11/25 1118 <Electronically signed by Cirilo Dunaway MD > Date _ Cirilo Dunaway MD Cosigner Signature: Date CC: ~ Signed [facility] Work Phone: Consult note Author [facility] Note Date/Time April 11, 2025 12:09 pm [facility] Medical Records Department [address] [place] [id number] Anesthesia Postop Eval I 04/11/25 1208 MR#: [id number] Acct: [id number] Name: JAMILA LOPES Rep #:[id number] : 1940 84 From: Vamsi SAWYER PCP: Dr. Estela Osborne, DO Status:REG SDC Y Race: C Location: [place] [address] Anesthesia: Postop Eval I Current Vital Signs Temperature: 97.1 F Pulse Rate: 62 Blood Pressure: 146/76 Respiratory Rate: 16 Pulse Ox: 99 Oxygen Delivery Method: Room Air Assessment Airway patent: Yes Spontaneous unlabored respirations: Yes Mental status: Awake and Calm nausea: No Vomiting: No Anesthesia Complication: No Fluid Hydration Crystalloid volume administer (ml): 200 Total IV fluid infused: 200 Progress Note Anesthesia document: Postop Eval 1 completed: Yes 04/11/25 1209 <Electronically signed by Vamsi Murry CRNA> Date _ Vamsi Murry CRNA Cosigner Signature: Date CC: ~ Signed [facility] Work Phone: Evaluation noteNo assessment information available [facility] Work Phone: Evaluation note* Diagnosis Onset Date Resolution Status Bradycardia acute Fatigue acute Weakness acute Essential (primary) hypertension chronic Hyperlipidemia chronic History of coronary artery stent placement June resolved [facility] Work Phone: Evaluation note* Diagnosis Onset Date Resolution Status Bilateral lower extremity edema acute Venous insufficiency (chronic) (peripheral) chronic [facility] Work Phone: Hospital Discharge instructions Additional Instructions Implant Used?: Yes [facility] Work Phone: Reason for referral (narrative)No reason for referral information availableMarietta [facility] Work Phone: Instructions Instruction Description Start Date Please follow-up with Primar y Care Physician or Coremaker Helper for treatment or adjustment of medication regarding elevated blood pressure.Patient advised to follow-up with Primary Care Physician for BMI management. 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 Advance Directives and Living Will Advance Directive Response Recorded Date/ Time Advance Directives Yes October 9:33am Living Will Yes September 07 10:39am Power of Field Liability Generalist Yes September 07, 2018 10:39am Advance Directive Response Recorded Date/ Time Advance Directives Yes October 8:33am Living Will Yes September 07 9:39am Power of Field Liability Generalist Yes September 07, 2018 9:39am Advance Directive Response Recorded Date/ Time Name of Medical Power of Field Liability Generalist VALERIE VIEIRA January 22, 2024 10:38am Advance Directives Yes October 8:33am Living Will Yes December 10:38am Power of Field Liability Generalist Yes January 22, 2024 10:38am Advance Directive Response Recorded Date/ Time Name of Medical Power of Field Liability Generalist VALERIE VIEIRA January 22, 2024 11:38am Advance Directives Yes October 9:33am Living Will Yes December 11:38am Power of Field Liability Generalist Yes January 22, 2024 11:38am Advance Directive Response Recorded Date/ Time Living Will Yes April 12, 2024 1 2:37pm Do you have a Healthcare Power of Field Liability Generalist? Yes April 12, 2024 12:37pm Advance Directives Yes December 02, 2024 4:16pm Advance Directive Response Recorded Date/ Time Living Will Yes April 12, 2024 1 2:37pm Do you have a Healthcare Pow er of Field Liability Generalist? Yes April 12, 2024 12:37pm Do you have a Healthcare Pow er of Field Liability Generalist? Yes March 25, 2025 12:57pm Name of Medical Power of Field Liability Generalist juancarlos Hadley March 25, 2025 12:57pm Advance Directives Yes December 02, 2024 4:16pm Assessments Diagnosis Venous insufficiency- Primary Unspecified venous (peripheral) insufficiency Right leg swelling Diagnosis Venous insufficiency- Primary Unspecified venous (peripheral) insufficiency Diagnosis Right leg swelling- Primary Venous insufficiency Unspecified venous (peripheral) insufficiency Review of System There may be information available, but it has not been provided by the sender. Family History No Family History Records Found Relationship Condition Age at Onset Recorded Date/T daniel father Congestive heart failure Unknown mother Cerebrovascular accident (CVA) Unknown Hypertension Unknown Hyperlipidemia Unknown History of Present Illness * Anjana Doshi [...] a history of cardiac disease with an CT 3years ago. She had catheterization with stent [...] She did undergo venous duplex scan at [facility] on March 23, 2019 which showed no [...] duplex scan with insufficiency testing performed at [facility] on March 23, 2019 indicates no evidence [...] normal. documented in this encounter Summary Purpose Chief Complaint and Reason for Visit Chief Complaint SCREENING Chief Complaint E ORDER Chief Complaint E ORDER 1 Y FU BRADYCARDIA BRADYCARDIA Reason for Visit Bradycardia Fatigue Weakness Essential (primary) hypertension Hyperlipidemia History of coronary artery stent placement Chief Complaint 3 M FU SCREENING INT LABS Reason for Visit Essential (primary) hypertension Hyperlipidemia History of coronary artery stent placement Chief Complaint 3 M FU SCREENING INT LABS OSTEOPORSIS, SCREENING Reason for Visit Essential (primary) hypertension Hyperlipidemia History of coronary artery stent placement Chief Complaint 3 M FU SCREENING INT LABS OSTEOPORSIS, SCREENING Very high bp's 200 systolic L.L. E ORDERS Reason for Visit Essential (primary) hypertension Hyperlipidemia History of coronary artery stent placement Fatigue Essential (primary) hypertension Hyperlipidemia History of coronary artery stent placement Chief Complaint Very high bp's 200 s ystolic L.L. E ORDERS Atherosclerotic heart disease of inupiat coronary a E ORDER Reason for Visit Fatigue Essential (primary) hypertension Hyperlipidemia History of coronary artery stent placement Chief Complaint M54.6 VENOUS INSUFF Chief Complaint M54.6 VENOUS INSUFF RT LEG PAIN AND WEAKNESS Chief Complaint M54.6 VENOUS INSUFF RT LEG PAIN AND WEAKNESS CONSULT-VENOUS INCOMPETENCE SCREENING FOR BREAST CANCER Reason for Visit Bilateral lower extr emity edema Venous insufficiency (chronic) (peripheral) Chief Complaint Admit Date 3 M FU November 26, 2024 12 :43pm L ARM OPEN WOUND FROM fallDecember 02, 2024 3:25pm SCREENING February 21, 2025 1:0 4pm Reason for Visit Admit Date Esophageal dysmotilities November 26 12:43pm Loose stools November 26, 2024 12 :43pm Skin tear of left forearm without compli cation December 02, 2024 3:25pm Chief Complaint Admit Date SCREENING February 21, 2025 1:0 4pm 6 M FU March 14, 2025 1:2 8pm UTI WITH ORTHOSTASIS March 25, 2025 11:55 am UTI WITH ORTHOSTASIS March 25, 2025 4:55p m UTI WITH ORTHOSTASIS March 26, 2025 1:02p m UTI WITH ORTHOSTASIS March 27, 2025 12:39 pm EORDER April 11, 2025 10:50 am Reason for Visit Admit Date Fatigue March 14, 2025 1:2 8pm Essential (primary) hypertension February 232024 1:28pm Hyperlipidemia March 14, 2025 1:2 8pm History of coronary artery stent placeme nt March 14, 2025 1:28pm Acute UTI March 25, 2025 11:55a m Orthostatic hypotension March 25, 2025 11 :55am Chief Complaint Admit Date SCREENING February 21, 2025 1:0 4pm 6 M FU March 14, 2025 1:2 8pm UTI WITH ORTHOSTASIS March 25, 2025 11:55 am UTI WITH ORTHOSTASIS March 25, 2025 4:55p m UTI WITH ORTHOSTASIS March 26, 2025 1:02p m UTI WITH ORTHOSTASIS March 27, 2025 12:39 pm EORDER April 11, 2025 10:50 am 6 M FU May 04, 2025 12:4 9pm Additional Source Comments Reason for Visit (unrecogniz ed section and content) Reason Comments Venous Incompentence Status Reason Specialty Diagnoses / Procedures Referred By Contact Referred To Contact Closed Specialty Services Required/Patient 's Best Interest Cardiology Diagnoses Venous incompetence Estela Osborne, [address] [place] [address] [facility] [address] [place] [address] [place] [address] Reason Comments Follow-up 3mo Reason Comments Follow-up 2mo INFORMATION SOURCE (unrecogn ized section and content) DATE CREATED AUTHOR 03/14/2021 [facility] DATE CREATED AUTHOR AUTHOR'S ORGANIZ ATION 06/10/2025 [facility] Goals (unrecognized section and content) Goals may be documented in a n alternate sectionGoals may be documented in an alternate sectionGoals may be documented in an alternate sectionGoals may be documented in an alternate sectionGoals may be documented in an alternate sectionGoals may be documented in an alternate sectionGoals may be documented in an alternate sectionGoals may be documented in an alternate sectionGoals may be documented in an alternate sectionGoals may be documented in an alternate section Care Teams (unrecognized sec tion and content) Team Status: Active Member Role Status Dates Dr. Estela Osborne DO Family Provider Active Dr. Estela Osborne DO Primary Care Provider Active Team Status: Inactive Member Role Status Dates Dr. Estela Osborne DO Primary Care Provider, Referring P rovider Active Margaret Bedoya WATER FILTRATION TECHNICIAN, WATER FILTRATION TECHNICIAN-C Attending Provider Active Team Status: Active Member Role Status Dates Dr. Estela Osborne DO Primary Care Provider Active Self Referred Attending Provider Active Team Status: Inactive Member Role Status Dates Dr. Estela Osborne DO Primary Care Provider Active Margaret Bedoya WATER FILTRATION TECHNICIAN, WATER FILTRATION TECHNICIAN-C Attending Provider, Referring P rovider Active Team Status: Inactive Member Role Status Dates Dr. Estela Osborne DO Primary Care Provider, Attending P rovider Active Team Status: Active Member Role Status Dates Dr. Estela Osborne DO Primary Care Provider Active Dr. Carlos Eduardo Zafar MD Attending Provider Active Team Status: Active Member Role Status Dates Dr. Estela Osborne DO Primary Care Provide r, Attending Provider, Referring Provider Active Team Status: Inactive Member Role Status Dates Dr. Estela Osborne DO Primary Care Provide r, Attending Provider, Referring Provider Active Team Status: Active Member Role Status Dates Dr. Estela Osborne DO Primary Care Provider Active Dr. Kevin Silverman MD Attending Provider Active Team Status: Active Member Role Status Dates Dr. Estela Osborne DO Primary Care Provider, Referring P rovider Active Dr. Kevin Silverman MD Attending Provider Active Team Status: Inactive Member Role Status Dates Dr. Estela Osborne DO Primary Care Provider Active Dr. Evaristo Bowen MD Attending Provider, Referring Provider Active Team Status: Inactive Member Role Status Dates Dr. Estela Osborne DO Primary Care Provider, Referring P rovider Active TAWANDA Chou Attending Provider Active Team Status: Inactive Member Role Status Dates Dr. Estela Osborne DO Primary Care Provider Active Dr. Evaristo Bowen MD Attending Provider, Referring Provider Active Margaret Bedoya WATER FILTRATION TECHNICIAN, WATER FILTRATION TECHNICIAN-C Other Provider Active Team Status: Active Member Role Status Dates Dr. Estela Osborne DO Primary Care Provider Active Team Status: Inactive Member Role Status Dates Dr. Estela Osborne DO Primary Care Provider Active Start: November 26, 2024 End: November 26, 2024 Dr. Estela Osborne DO Referring Provider Active St art: November 26, 2024 End: November 26, 2024 TAWANDA Dang Attending Provider Active Start: November 26, 2024 End: November 26, 2024 Team Status: Inactive Member Role Status Dates Dr. Estela Osborne DO Primary Care Provider Active Start: December 02, 2024 End: December 02, 2024 Dr. Estela Osborne DO Referring Provider Active St art: December 02, 2024 End: December 02, 2024 Kirt NEFF PA Attending Provider Active Sta rt: December 02, 2024 End: December 02, 2024 Team Status: Inactive Member Role Status Dates Dr. Estela Osborne DO Primary Care Provider Active Start: January 10, 2025 End: January 10, 2025 Dr. Evaristo Bowen MD Attending Provider Active Start: January 10, 2025 End: January 10, 2025 Dr. Evaristo Bowen MD Referring Provider Active Start: January 10, 2025 End: January 10, 2025 Team Status: Inactive Member Role Status Dates Dr. Estela Osborne DO Primary Care Provider Active Start: February 21, 2025 End: February 21, 2025 Dr. Estela Osborne DO Attending Provider Active St art: February 21, 2025 End: February 21, 2025 Dr. Estela Osborne DO Referring Provider Active St art: February 21, 2025 End: February 21, 2025 Team Status: Inactive Member Role Status Dates Dr. Estela Osborne DO Primary Care Provider Active Start: March 14, 2025 End: March 14, 2025 Dr. Estela Osborne DO Referring Provider Active St art: March 14, 2025 End: March 14, 2025 Leif Bonilla WATER FILTRATION TECHNICIAN, WATER FILTRATION TECHNICIAN-C Attending Provider Active S tart: March 14, 2025 End: March 14, 2025 Team Status: Inactive Member Role Status Dates Dr. Estela Osborne DO Primary Care Provider Active Start: March 25, 2025 End: March 27, 2025 Dr. Isreal Kelly MD Emergency Provider Active S tart: March 25, 2025 End: March 27, 2025 Dr. Miguel Manning MD Admit Provider Active Start: March 25, 2025 End: March 27, 2025 Dr. Miguel Manning MD Referring Provider Active Start: March 25, 2025 End: March 27, 2025 Dr. Miguel Manning MD Other Provider Active Start: March 25, 2025 End: March 27, 2025 Dr. Barbara Galloway MD Attending Provider Active Start: March 25, 2025 End: March 27, 2025 Team Status: Active Member Role Status Dates Dr. Estela Osborne DO Primary Care Provider Active Start: March 25, 2025 Dr. Isreal Kelly MD Emergency Provider Active S tart: March 25, 2025 Dr. Miguel Manning MD Admit Provider Active Start: March 25, 2025 Dr. Miguel Manning MD Attending Provider Active Start: March 25, 2025 Dr. Miguel Manning MD Other Provider Active Start: March 25, 2025 Team Status: Active Member Role Status Dates Dr. Estela Osborne DO Primary Care Provider Active Start: March 26, 2025 Dr. Isreal Kelly MD Emergency Provider Active S tart: March 26, 2025 Dr. Miguel Manning MD Admit Provider Active Start: March 26, 2025 Dr. Miguel Manning MD Other Provider Active Start: March 26, 2025 Dr. Barbara Galloway MD Attending Provider Active Start: March 26, 2025 Dr. Barbara Galloway MD Other Provider Active St art: March 26, 2025 Team Status: Active Member Role Status Dates Dr. Estela Osborne DO Primary Care Provider Active Start: March 27, 2025 Dr. Isreal Kelly MD Emergency Provider Active S tart: March 27, 2025 Dr. Miguel Manning MD Admit Provider Active Start: March 27, 2025 Dr. Miguel Manning MD Other Provider Active Start: March 27, 2025 Dr. Barbara Galloway MD Attending Provider Active Start: March 27, 2025 Dr. Barbara Galloway MD Other Provider Active St art: March 27, 2025 Team Status: Inactive Member Role Status Dates Dr. Estela Osborne DO Primary Care Provider Active Start: April 11, 2025 End: April 11, 2025 Dr. Evaristo Bowen MD Attending Provider Active Start: April 11, 2025 End: April 11, 2025 Dr. Evaristo Bowen MD Referring Provider Active Start: April 11, 2025 End: April 11, 2025 Team Status: Active Member Role Status Dates Dr. Estela Osborne DO Primary Care Provider Active Start: April 11, 2025 Leif Bonilla WATER FILTRATION TECHNICIAN, WATER FILTRATION TECHNICIAN-C Attending Provider Active S tart: April 11, 2025 Leif Bonilla WATER FILTRATION TECHNICIAN, WATER FILTRATION TECHNICIAN-C Referring Provider Active S tart: April 11, 2025 Team Status: Inactive Member Role Status Dates Dr. Estela Osborne DO Primary Care Provider Active Start: April 11, 2025 End: April 11, 2025 Leif Bonilla WATER FILTRATION TECHNICIAN, WATER FILTRATION TECHNICIAN-C Attending Provider Active S tart: April 11, 2025 End: April 11, 2025 Leif Bonilla WATER FILTRATION TECHNICIAN, WATER FILTRATION TECHNICIAN-C Referring Provider Active S tart: April 11, 2025 End: April 11, 2025 Team Status: Inactive Member Role Status Dates Dr. Estela Osborne DO Primary Care Provider Active Start: May 04, 2025 End: May 04, 2025 Dr. Estela Osborne DO Referring Provider Active St art: May 04, 2025 End: May 04, 2025 TAWANDA Dang Attending Provider Active Start: May 04, 2025 End: May 04, 2025 FOR RECORDS PERTAINING TO PATIENTS WHO ARE [...] BE BASED ON THE PRIMARY CLINICAL RECORDS. [facility] provides no warranty or guarantee of the accuracy or completeness of information in this document.
[2025-06-13] MEDS: Lactated Ringers 1,000 ML 15 ML IV (08:00)
--- NOTE | 2025-06-13 08:07 | PCM.PRE.AN2 ---
ASA Classification* ASA Classification ASA Classification: 3 Assessment & Plan Anesthesia* Anesthesia Assessment Anesthesia Assessment: Discussed sedation and/or anesthesia options, risks, benefits, and alternatives with patient/parents/legal guardian/POA. Questions invited. The patient/parents/legal guardian/POA seems to understand and agrees to proceed with anesthesia plan. Reviewed the physical assessment, medical history, allergy history and patient home medications list prior to surgery/procedure/anesthetic and documented any changes. Performed airway and anesthesia risk assessments. Anesthesia Type Anesthesia Type: MAC History Source History Obtained from:: Patient and Chart Anesthesia Focused Assessment* Temperature: 98.5 F Pulse Rate: 68 Blood Pressure: 136/71 Respiratory Rate: 16 Pulse Ox: 99 Oxygen Delivery Method: Room Air Airway Assessment Mouth opens: >3 cm Mallampati Score: I Teeth Condition: Dentures (Patient has full upper and lower dentures. They will remain in.) Neck Range of motion (ROM): Full ROM Labs Anesthesia Preop lab: CBC WBC 9.9 K/mm3 (4.4-11.0) 03/27/25 06:05 03/27/25 RBC 3.74 M/mm3 (4.2-5.4) L 03/27/25 06:05 03/27/25 Hgb 11.7 g/dL (12.0-15.0) L 03/27/25 06:05 03/27/25 Hct 35.6 % (37-47) L 03/27/25 06:05 03/27/25 Plt Count 226 K/mm3 (150-450) 03/27/25 06:05 03/27/25 CHEMISTRY Potassium 3.3 mmol/L (3.3-5.1) 03/27/25 06:05 03/27/25 Sodium 139 mmol/L (133-145) 03/27/25 06:05 03/27/25 Magnesium 2.3 mg/dL (1.6-2.6) 10/04/22 14:09 10/04/22 BUN 20 mg/dL (4-19) H 03/27/25 06:05 03/27/25 Creatinine 1.25 mg/dL (0.70-1.20) H 03/27/25 06:05 03/27/25 Glucose 88 mg/dL (70-99) 03/27/25 06:05 03/27/25 TSH 3.38 uIU/mL (0.358-3.74) 05/06/23 09:10 05/06/23 COAG PT 13.3 SECONDS (11.7-14.9) 07/21/15 02:30 07/21/15 Pre-Assessment Diagnosis/Proposed Procedure Planned Operative Procedure(s): (L) Radio Frequency Ablation, LEFT SIDED RADIOFREQUENCY ABLATION L1 L2 L3 UNDER FLUOROSCOPY Anesthesia History 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 When Was Last Pacemaker Check QUESTION #4 FULL TEXT: You/Your Family Experience fever (hyperthermia) with Anesthesia Last Oral Intake Last Oral intake: Last Oral Intake NPO since 20:00 06/13/25 07:45 Meds taken in AM with sips of No 06/13/25 07:45 water? Meds patient instructed to take am of surgery PONV PONV - railway head tender: PONV - railway head tender Female Yes 06/06/25 15:18 HX of Motion Sickness No 06/06/25 15:18 HX of N/V After Surgery No 06/06/25 15:18 Non-Smoker Yes 06/06/25 15:18 Duration of Surgery greater No 06/06/25 15:18 than 60 minutes Number of Risk Factors 2 06/06/25 15:18 PONV Score Moderate Risk 06/06/25 15:18 Height & Weight Height & Weight: Anesthesia: Height & Weight Height 4 ft 10 in 06/13/25 07:45 Weight: 59 kg 06/13/25 07:45 Body Mass Index (BMI) 27.1 06/13/25 07:45 Respiratory Assessment Respiratory Assessment - railway head tender: Respiratory Tract Infection Hx - railway head tender Hx Respiratory Tract Infection No 06/06/25 15:18 STOP Sleep Apnea STOP Sleep Apnea - railway head tender: STOP Sleep Apnea - railway head tender Hx Hypertension Yes: ON MEDS 06/06/25 15:18 Hx Sleep Apnea No 06/06/25 15:18 CPAP No 04/11/25 12:11 BIPAP Do you snore loudly (louder No 06/06/25 15:18 than talking or can be heard Do you often feel tired/ No 06/06/25 15:18 fatigued/ sleepy during daytime? Has anyone observed you stop No 06/06/25 15:18 breathing during sleep? STOP Results Negative 06/06/25 15:18 QUESTION #5 FULL TEXT : Do you snore loudly (louder than talking or can be heard through closed doors)? 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 Specify any problems Hx of Preganancy in last 3 No 06/06/25 15:18 Months Nurse Filling Out Transfusion [email or web address] 06/06/25 15:18 & Questions: Date: 06/06/25 06/06/25 15:18 Time: 15:20 06/06/25 15:18 Patient unable to answer at this time (ie. confused, unrespo /Reproduction History /Reproductive History - railway head tender: /Reproductive Hx- railway head tender Hx Now No 06/06/25 15:18 Gestational Age (in weeks): EDC: Hx Hx Para Hx Section SAB No 06/06/25 15:18 Active Medications Active Medications: Current Medications Generic Name Dose Route Start Last Admin Trade Name Freq PRN Reason Stop Dose Admin Lactated Ringer's 1,000 mls @ 15 mls/hr 06/13/25 07:30 06/13/25 08:00 IV 15 mls/hr .Q48H JEWELL Administration PFSH Medical History (Updated 06/13/25 @ 08:[address] Emery Ramírez MD) Alcohol use Heartburn Former smoker Wears glasses Wears dentures Cancer Ambulates with cane History of renal disease Easy bruising High cholesterol History of echocardiogram History of stress test Hypertension History of heart attack Chest pain Cardiology follow-up encounter Acute pneumonia Tuttle's palsy Macular degeneration Renal insufficiency Osteoarthritis Spondylosis Scoliosis Lumbar spinal stenosis History of non-ST elevation myocardial infarction (NSTEMI) Essential (primary) hypertension Hyperlipidemia Atherosclerotic heart disease of lime coronary artery without angina pectoris Low back pain Lumbar radiculopathy Home Medications ?Medication ?Instructions ?Recorded ?Last Taken ?Type aspirin 81 mg chewable tablet 81 mg PO DAILY heart health 08/09/15 04/10/25 History cyanocobalamin (vitamin B-12) 5,000 mcg sublingual QDAY 06/04/18 03/25/25 History 5,000 mcg/mL sublingual drops supplement (Vitamin B-12) amlodipine 5 mg tablet 5 mg PO DAILY blood pressure #90 08/24/24 03/25/25 Rx TABLETS atorvastatin 80 mg tablet 80 mg PO MOWEFR cholesterol 90 09/03/24 03/23/25 Rx days #39 tabs isosorbide mononitrate 30 mg 30 mg PO DAILY heart #90 tabs 10/27/24 03/25/25 Rx tablet,extended release 24 hr biotin 5 mg capsule 5 mg PO DAILY supplement 03/14/25 03/25/25 History cholecalciferol (vitamin D3) 25 25 mcg PO DAILY vitamin 03/14/25 03/25/25 History mcg (1,000 unit) tablet furosemide 20 mg tablet 20 mg PO DAILY PRN swelling 03/14/25 Unknown History tramadol 50 mg tablet 25 - 50 mg PO TID PRN pain 03/14/25 03/24/25 History metoprolol succinate 25 mg 25 mg PO DAILY blood pressure 03/25/25 03/25/25 History tablet,extended release 24 hr amitriptyline 10 mg tablet 10 mg PO DAILY #90 tabs 05/04/25 Unknown Rx pantoprazole 40 mg tablet,delayed 40 mg PO BID reflux #60 tabs 05/04/25 Unknown Rx release Allergy/AdvReac Type Severity Reaction Status Date / Time gabapentin Allergy Hives Verified 06/13/25 07:39 tomato Allergy Rash Verified 06/13/25 07:39 Family History Father , Age 89 Congestive heart failure Mother , Age 86 CVA (cerebral vascular accident) Hypertension Hyperlipidemia Sister , age 11 in MVA No problems noted. Surgical History History of back surgery (~01/2024) History of cardiac catheterization History of appendectomy History of elbow surgery History of hysterectomy History of eyelid surgery (~06/2023) History of laminectomy (08/2018) History of coronary artery stent placement (07/19/15) Social History Smoking Status: Former smoker how long ago did patient quit smokin alcohol intake: current alcohol intake frequency: a few times a week Alcohol type: wine substance use type: does not use caffeine: Yes Type: tea Number of servings: 4 Review of Systems (Anesthesia) ROS Narrative System reviewed and no additional complaints, except as documented.
--- NOTE | 2025-06-13 08:37 | RAD_ITS ---
EXAM: XR Lumbosacral Spine, 2 or 3 Views CLINICAL INDICATION: LT LUMBAR RADIOFREQUENCY ABLATION L1 L2 L3 TECHNIQUE: Frontal and lateral views of the lumbar spine and sacrum. COMPARISON: No relevant prior studies available. FINDINGS: OTHER FINDINGS: Total of 8 fluoroscopic images were obtained. Total fluoroscopy time 28.3 seconds. Total radiation dose 4.42 mGy. RAD/Lumbar Spine 2 or 3 Views IMPRESSION: Fluoroscopic guidance was used intraoperatively. Please refer to the operative note for further details. Reading Location: [id number]
[2025-06-13] MEDS: Lidocaine 1% (30 ml sdv) 30 ML Vial (08:48)
--- NOTE | 2025-06-13 09:04 | PCM.POST.ANE ---
Anesthesia: Postop Eval I Current Vital Signs Temperature: 97.7 F Pulse Rate: 83 Blood Pressure: 131/78 Respiratory Rate: 18 Pulse Ox: 97 Oxygen Delivery Method: Room Air Assessment Airway patent: Yes Spontaneous unlabored respirations: Yes Mental status: Awake and Calm nausea: No Vomiting: No Anesthesia Complication: No Fluid Hydration Crystalloid volume administer (ml): 300 Total IV fluid infused: 300 Progress Note Anesthesia document: Postop Eval 1 completed: Yes
--- NOTE | 2025-06-13 09:14 | PCM.OPRPT ---
Operative Report (Standard) Operative Information Date of Procedure: 06/13/25 Pre-Operative Diagnosis: 1 Post-Operative Diagnosis: 1 Surgery/Procedure Performed: 1 emergency medical service manager: No Type of Anesthesia: Local MAC RN Documented Start/Stop Times: Operation Date: 06/13/25 09:00 Case Time Into Pre-Op 06/13/25 07:20 Anesthesia Start 06/13/25 08:37 Into Room 06/13/25 08:37 Procedure Start 06/13/25 08:45 Procedure End 06/13/25 08:56 Out of Room 06/13/25 08:59 Into Recovery 06/13/25 09:00 Anesthesia End 06/13/25 09:01 Procedure Start Time: 09:14 Procedure Stop Time: 09:14 Select all DRAINS/GRAFTS/IMPLANTS that apply: None Estimated Blood Loss: 1 Specimen collected: No Description of surgery: PREOPERATIVE DIAGNOSIS: Lumbosacral spondylosis, lumbosacral degenerative disc disease, lumbar facet arthropathy POSTOPERATIVE DIAGNOSIS:Lumbosacral spondylosis, lumbosacral degenerative disc disease, lumbar facet arthropathy PROCEDURE PERFORMED: Left-sided lumbar radiofrequency ablation of the medial branch at L1, L2, L3 ANESTHESIA: MAC. BLOOD LOSS: Minimal. COMPLICATIONS: None. DESCRIPTION OF PROCEDURE: History and physical of today was reviewed. Risks and benefits of the procedure were explained. The patient understood and agreed to proceed. Informed consent was obtained. IV inserted per routine protocol. The patient was taken to the operating room and placed in the prone position with a pillow positioned underneath the abdomen. The left side of her lower back was prepped and draped in a sterile fashion using iodine x3. Under fluoroscopy guidance in an oblique view, the L1 through L4 vertebral bodies were visualized. The skin and subcutaneous tissue was anesthetized with approximately 10 mL of 1% lidocaine using a 25-gauge regular needle. Under direct visualization on fluoroscopy at approximately 25-degree angle, starting on the left L1, ending on the left L4, passing through the L2 and L3, using a 20-gauge 15-cm with a 10-mm curved active-tip radiofrequency ablation needle, the needle was passed through the skin. The tip of the needle was maneuvered and directed towards the superior medial gutter of the transverse process at the vicinity of the medial branch. Once the tip of the needle was in contact with the bone, the needle was pulled approximately 2 mm off the bone. The stylette of each needle was then removed. After negative aspiration of blood or CSF and confirmation on AP, oblique as well as lateral view, the radiofrequency ablation probe was then inserted at each level. Impedance was then recorded at L1 to be 238 ohm, at L2 to be 214 ohm, at L3 to be 241 ohm, and at L4 to be 233 ohm. Motor evoked potential was then initiated to 1.5 volt without any motor response at each corresponding level. The probe was then removed intact and a total of 6 mL of preservative-free 1% lidocaine was injected in divided doses between those four levels after negative aspiration of blood or CSF. The radiofrequency ablation probe was then reinserted. After confirmation on AP, oblique as well as lateral view, radiofrequency ablation was then initiated to 80 degree Celsius for 90 second at each level. Once concluded, the probe was then removed intact. A total of 6 mL of preservative-free 0.25% Marcaine with 40 mg of Depo-Medrol was injected in divided doses between those four levels. The needles were then removed intact. The patient experienced no sign or symptoms of intrathecal or intravascular injection. The patient experienced no paresthesia. The procedure was completed without any apparent difficulty or any complications. The patient appeared to tolerate it well. Sensory as well as motor exam was unchanged from prior to the procedure. ASSESSMENT AND PLAN: This is an 84-year-old female with lumbosacral spondylosis, lumbosacral generative disc disease, lumbar facet arthropathy status post left-sided lumbar radiofrequency ablation of the medial branch L1-L3, patient will continue her current medications, patient will follow-up in approximately 2 weeks for reevaluation. Surgical Findings: 1 Complications Complications: No Admit VTE Documentation VTE Present on Admission: No VTE Mechan Device Prophylaxis: None VTE Pharm Prophylaxis ordered?: No
--- NOTE | 2025-06-13 13:58 | POSTOPAN2_ITS ---
Anesthesia Postop Eval I Sum Postop Eval Completion status Anesthesia document: Postop Eval 1 completed: Yes Anesthesia Postop Eval I Summary Anesthesia Postop Eval I Summary: Anesthesia Postop Eval I: Assessment Summary Airway patent Yes 06/13/25 09:04 CLOTH [email or web address] Spontaneous unlabored Yes 06/13/25 09:04 CLOTH [email or web address] respirations Mental status Awake,Calm 06/13/25 09:04 CLOTH [email or web address] nausea No 06/13/25 09:04 CLOTH PAINTER.[email or web address] Vomiting No 06/13/25 09:04 CLOTH [email or web address].ABAR Anesthesia Postop Eval I: Fluid Summary Crystalloid volume administer 300 06/13/25 09:04 CLOTH PAINTER.ABAR (ml) Colloids volume administered ( ml) Blood Product volume administered (ml) Total IV fluid infused 300 06/13/25 09:04 CLOTH [email or web address].ABAR Anesthesia Postop Eval I: Summary Notes Anesthesia Complication No 06/13/25 09:04 CLOTH PAINTER.ABAR Anesthesia Complication Comment: Post-operative progress note Anesthesia: Postop Eval II Evaluation Mental status: Awake and Calm Pain Level: 2 nausea: No Vomiting: No Complications Anesthesia Complication: No
--- NOTE | 2025-06-13 13:58 | PCM.POSTANE2 ---
Anesthesia Postop Eval I Sum Postop Eval Completion status Anesthesia document: Postop Eval 1 completed: Yes Anesthesia Postop Eval I Summary Anesthesia Postop Eval I Summary: Anesthesia Postop Eval I: Assessment Summary Airway patent Yes 06/13/25 09:04 FRONT END DRUPAL [email or web address] Spontaneous unlabored Yes 06/13/25 09:04 FRONT END DRUPAL [email or web address].[email or web address] respirations Mental status Awake,Calm 06/13/25 09:04 FRONT END DRUPAL [email or web address].[email or web address] nausea No 06/13/25 09:04 FRONT END DRUPAL [email or web address].[email or web address] Vomiting No 06/13/25 09:04 FRONT END DRUPAL DEVELOPER.ABAR Anesthesia Postop Eval I: Fluid Summary Crystalloid volume administer 300 06/13/25 09:04 FRONT END DRUPAL DEVELOPER.ABAR (ml) Colloids volume administered ( ml) Blood Product volume administered (ml) Total IV fluid infused 300 06/13/25 09:04 FRONT END DRUPAL DEVELOPER.ABAR Anesthesia Postop Eval I: Summary Notes Anesthesia Complication No 06/13/25 09:04 FRONT END DRUPAL [email or web address].ABAR Anesthesia Complication Comment: Post-operative progress note Anesthesia: Postop Eval II Evaluation Mental status: Awake and Calm Pain Level: 2 nausea: No Vomiting: No Complications Anesthesia Complication: No
== END 2025-06-13 09:49 | disposition home or self-care (01) ==
LOC: SDC 07:23 → AC 07:56
PROVIDERS: PCP Family Medicine; Referring Provider Anesthesiology Pain Medicine; Visit Provider Anesthesiology Pain Medicine
PROC: (CPT 64635; principal; 2025-06-13 08:55)
DX: M47.817 Spondylosis without myelopathy or radiculopathy, lumbosacral region (principal); M51.379 Other intervertebral disc degeneration, lumbosacral region without mention of lumbar back pain or lower extremity pain; M46.97 Unspecified inflammatory spondylopathy, lumbosacral region; Z79.899 Other long term (current) drug therapy; Z79.82 Long term (current) use of aspirin
CPT/HCPCS: 64635; 64636; 01992; 72100; 76000

== ENCOUNTER → 2025-08-31 | Outpatient (CLI) | payer MEDICARE, SELFPAY ==
[2025-08-31 09:49] LABS: AST(SGOT) 21 U/L (<=31); Alanine Aminotransfer ALT/SGPT 9 U/L (<=34); Albumin, Serum 3.9 g/dL (3.4-4.8); Alkaline Phosphatase 115 U/L (35-104); Bilirubin, Direct 0.22 mg/dL (0.00-0.30); Globulin 2.7 g/dL (2.2-4.2)
[2025-08-31 12:18] LABS: Cholesterol 156 mg/dL (<=200); Low Density Lipoprotein Calc. 78 mg/dL; Triglycerides 116 mg/dL; Very Low Density Lipoprotein 23 mg/dL (5-40); cholesterol:hdl ratio screen 2.86
== END | disposition home or self-care (01) ==
LOC: LAB 08:10
PROVIDERS: PCP Family Medicine; Referring Provider Nurse Practitioner Family; Visit Provider Nurse Practitioner Family
DX: E78.00 Pure hypercholesterolemia, unspecified (principal)
CPT/HCPCS: 36415; 80061; 80076

== ENCOUNTER → 2025-09-23 | Outpatient (CLI) | payer MEDICARE, SELFPAY ==
--- NOTE | 2025-09-23 12:40 | RAD_ITS ---
PROCEDURE: FOOT MIN 3 VIEWS 09/23/2025 REASON FOR EXAM: LEFT FOOT PAIN TECHNIQUE: Procedure Code: RADFO Modality: DX Procedure: FOOT MIN 3 VIEWS Laterality: Left foot COMPARISON: None FINDINGS: Bones: Nondisplaced transverse fracture of the base of the 5th metatarsal. Small plantar calcaneal spur. Joints: Normal alignment. Mild degenerative changes. Soft tissues: Soft tissue swelling. Other: RAD/Foot min 3 Views IMPRESSION: Nondisplaced transverse fracture of the base of the 5th metatarsal with overlyi ng soft tissue swelling. Reading Location: [id number]
== END | disposition home or self-care (01) ==
LOC: MTRAD 12:37
PROVIDERS: PCP Family Medicine; Referring Provider Physician Assistant Surgical; Visit Provider Physician Assistant Surgical
DX: M79.672 Pain in left foot (principal)
CPT/HCPCS: 73630

== ENCOUNTER → 2025-11-21 | Outpatient (CLI) | payer MEDICARE, SELFPAY ==
--- NOTE | 2025-11-21 15:49 | RAD_ITS ---
PROCEDURE: CHEST PA AND LATERAL 11/21/2025 REASON FOR EXAM: PNEUMONIA TECHNIQUE: Procedure Code: RADCXR Modality: DX Procedure: CHEST PA AND LATERAL FINDINGS: Diffuse reticular opacities may reflect pulmonary interstitial edema versus atypical pneumonia. No focal consolidation. No pleural effusion or pneumothorax. Cardiac silhouette is within normal limits. No acute fractures. RAD/Chest PA and Lateral IMPRESSION: Diffuse reticular opacities may reflect pulmonary interstitial edema versus aty pical pneumonia. Reading Location: [facility]
[2025-11-21 17:42] LABS: Hematocrit 37.8 % (37-47); Hemoglobin 12.2 g/dL (12.0-15.0); Immature Granulocytes Count 0.100 X10^3/uL (0.0-0.0); Mean Corp Hgb Conc 32.3 g/dL (32-36); Mean Corpuscular Volume 95.2 fL (81-99); Mean Platelet Vol. 10.2 fl (6.2-12.0); NRBC Flagged by Analyzer 0 % (0-5); Platelet Count 333 K/mm3 (150-450); RBC Distribution Width CV 13.7 % (11.6-14.6); RBC Distribution Width SD 48.2 fl (35.1-43.9); Red Blood Count 3.97 M/mm3 (4.2-5.4); White Blood Count 13.4 K/mm3 (4.4-11.0)
[2025-11-21 18:27] LABS: Cholesterol 129 mg/dL (<=200); Low Density Lipoprotein Calc. 62 mg/dL; Triglycerides 131 mg/dL; Very Low Density Lipoprotein 26 mg/dL (5-40); cholesterol:hdl ratio screen 2.93
[2025-11-21 19:11] LABS: AST(SGOT) 22 U/L (<=31); Alanine Aminotransfer ALT/SGPT 9 U/L (<=34); Albumin, Serum 3.6 g/dL (3.4-4.8); Alkaline Phosphatase 118 U/L (35-104); BUN 16 mg/dL (4-19); BUN/Creat Ratio 12.8 RATIO (10-20); Calcium,Total 8.9 mg/dL (7.6-11.0); Carbon Dioxide 24.4 mmol/L (20.0-29.0); Ferritin 58 ng/mL (22-378); Globulin 3.1 g/dL (2.2-4.2); Glucose 110 mg/dL (70-99); Vitamin B12 > 4000 pg/mL (180-914); Vitamin D,25 Hydroxy 40.5 ng/mL (30-100)
[2025-11-21 19:34] LABS: Anion Gap 11 (7-18); Chloride 105 mmol/L (96-106); Iron 30 ug/dL (50-170); Potassium 3.7 mmol/L (3.5-5.1)
== END | disposition home or self-care (01) ==
PROVIDERS: PCP Family Medicine; Referring Provider Nurse Practitioner Family; Visit Provider Nurse Practitioner Family
DX: R53.83 Other fatigue (principal); D50.9 Iron deficiency anemia, unspecified; I10 Essential (primary) hypertension; E78.5 Hyperlipidemia, unspecified; E55.9 Vitamin D deficiency, unspecified; R05.9 Cough, unspecified
CPT/HCPCS: 36415; 71046; 80053; 80061; 82306; 82607; 82728; 83540; 84439; 84443; 85025